=== PATIENT | male | born 1975 | race African-American/Black ===

== ENCOUNTER → 2016-08-17 | Outpatient (CLI) | payer MEDICARE, MEDICAID | LOC: OD 11:59 | PROVIDERS: ATTEND Family Medicine | DX: M25.512 Pain in left shoulder (principal) ==

== ENCOUNTER 2016-10-02 12:02 | Observation (INO) | payer MEDICARE, MEDICAID ==
--- NOTE | 2016-10-02 13:07 | ER Document Report ---
ED Medical Screen (RME) - General Chief Complaint: Chest Pain Stated Complaint: CHEST PAIN Notes: The patient is a 41-year-old male, past medical history CAD s/p 3 stents, Hx of CVA last year, presents with left-sided chest pain that started earlier today will he was at rest and he says this feels similar to his prior [facility]. In addition , 30 minutes prior to arrival to the emergency room (starting at 12:00 today), he noticed slightly slurred speech and blurry vision in his left eye. He says the blurry vision has resolved, but his speech is still slurred. He took 324 mg aspirin prior to arrival and 5 sublingual nitros that helped with his chest pain. Pt with NIHSS 1. Stroke Alert called due to onset of patient's symptoms 1 hour ago. I have greeted and performed a rapid initial assessment of this patient. A comprehensive ED assessment and evaluation of the patient, analysis of test results and completion of the medical decision making process will be conducted by additional ED providers. TRAVEL OUTSIDE OF THE [place] IN LAST 30 DAYS: No - Related Data Allergies/Adverse Reactions: No Known Allergies Allergy (Verified 03/15/16 22:31) Past Medical History - Past Medical History Cardiac Medical History: Reports: Hx Coronary Artery Disease, Hx Heart Attack, Hx Hypercholesterolemia, Hx Hypertension Pulmonary Medical History: Denies: Hx Tuberculosis Endocrine Medical History: Reports: Hx Diabetes Mellitus Type 2 Renal/ Medical History: Denies: Hx Peritoneal Dialysis Psychiatric Medical History: Reports: Hx Anxiety Past Surgical History: Reports: Hx Cardiac Catheterization, Hx Coronary Stent - x 5, Hx Orthopedic Surgery - right rotator cuff. Denies: Hx Pacemaker - Immunizations Immunizations up to date: No Hx Diphtheria, Pertussis, Tetanus Vaccination: Yes Physical Exam - Vital signs Vitals: Pulse Resp BP Pulse Ox 76 18 128/95 H 97 10/02/16 12:21 10/02/16 12:21 10/02/16 12:21 10/02/16 12:21 Course - Vital Signs Vital signs: Temp Pulse Resp BP Pulse Ox 98.1 F 76 18 128/95 H 97 10/02/16 12:24 10/02/16 12:21 10/02/16 12:21 10/02/16 12:21 10/02/16 12:21
--- NOTE | 2016-10-02 13:40 | EKG REPORT ---
SEVERITY:- ABNORMAL ECG - SINUS RHYTHM LVH WITH SECONDARY REPOLARIZATION ABNORMALITY : Confirmed by: Tuan Malik 02-Oct-2016 13:40:03
[2016-10-02 13:47] LABS: ABSOLUTE MONOCYTES (AUTO) 0.4 10^3/uL (0.1-1.4); ABSOLUTE NEUT (AUTO) 2.9 10^3/uL (1.7-8.2); BASOPHILS % (AUTO) 0.7 % (0-2); EOSINOPHILS % (AUTO) 0.3 % (0-6); HEMATOCRIT 43.7 % (37.9-51.0); HEMOGLOBIN 14.4 g/dL (13.5-17.0); HGB HCT DIFFERENCE -0.5; LYMPHOCYTES % (AUTO) 36.4 % (13-45); MEAN CORPUSCULAR HEMOGLOBIN 27.5 pg (27.0-33.4); MEAN CORPUSCULAR HGB CONC 32.8 g/dL (32.0-36.0); MEAN CORPUSCULAR VOLUME 84 fl (80-97); MONOCYTES % (AUTO) 8.3 % (3-13); RED BLOOD COUNT 5.23 10^6/uL (4.35-5.55); RED CELL DISTRIBUTION WIDTH 15.2 % (11.5-14.0); SEGMENTED NEUTROPHILS % (AUTO) 54.3 % (42-78); WHITE BLOOD COUNT 5.4 10^3/uL (4.0-10.5)
[2016-10-02 13:50] LABS: PROTHROMBIN TIME 12.7 SEC (11.4-15.4)
[2016-10-02 13:51] LABS: PARTIAL THROMBOPLASTIN TIME 26.2 SEC (23.5-35.8)
[2016-10-02 14:05] LABS: ALANINE AMINOTRANSFERASE 34 U/L (21-72); ALBUMIN 4.1 g/dL (3.5-5.0); ALKALINE PHOSPHATASE 75 U/L (38-126); ANION GAP 14 (5-19); ASPARTATE AMINO TRANSFERASE 27 U/L (17-59); BILIRUBIN,DIRECT 0.3 mg/dL (0.0-0.4); BILIRUBIN,TOTAL 0.5 mg/dL (0.2-1.3); BLOOD UREA NITROGEN 18 mg/dL (7-20); CALCIUM 10.3 mg/dL (8.4-10.2); CARBON DIOXIDE 22 mmol/L (22-30); CHLORIDE 109 mmol/L (98-107); CREATINE KINASE 177 U/L (55-170); CREATININE RESULT 1.33 mg/dL (0.52-1.25); GLUCOSE 89 mg/dL (75-110); LIPASE 138.9 U/L (23-300); POTASSIUM 4.5 mmol/L (3.6-5.0); SODIUM 145.1 mmol/L (137-145); TOTAL PROTEIN 7.2 g/dL (6.3-8.2)
[2016-10-02 14:19] LABS: TROPONIN I < 0.012 ng/mL
--- NOTE | 2016-10-02 14:38 | ER Document Report ---
ED General - General Chief Complaint: Chest Pain Stated Complaint: CHEST PAIN Time Seen by Provider: 10/02/16 14:19 Mode of Arrival: Ambulatory Information source: Patient Notes: This is a 41-year-old man with a history of coronary artery disease ([place] in December 2015), hypertension, dyslipidemia, CVA presents to the emergency room with chest pain which he describes as a squeezing type pain radiating to the left arm patient states he woke 2 AM with the pain. He also reports having some loss of control with walking on his way to the hospital. TRAVEL OUTSIDE OF THE [place] IN LAST 30 DAYS: No - HPI Onset: Just prior to arrival Onset/Duration: Gradual Quality of pain: Dull Severity: Moderate Pain Level: 2 Associated symptoms: Chest pain. denies: Fever, Shortness of breath Exacerbated by: Denies Relieved by: Denies Similar symptoms previously: Yes Recently seen / treated by doctor: No - Related Data Allergies/Adverse Reactions: No Known Allergies Allergy (Verified 03/15/16 22:31) Home Medications: Current Home Medications Alprazolam [Xanax] 2 mg PO Q8 10/02/16 [History] Atorvastatin Calcium [Lipitor 80 mg Tablet] 80 mg PO QHS 10/02/16 [History] Bisoprolol Fumarate [Zebeta] 10 mg PO DAILY 10/02/16 [History] Dexlansoprazole [Dexilant 60 mg Capsule] 60 mg PO DAILY 10/02/16 [History] Furosemide [Lasix] 40 mg PO BID 10/02/16 [History] Lisinopril 20 mg PO DAILY 10/02/16 [History] Nitroglycerin [Nitrostat 0.4 mg (1/150 Gr) Tabs 25/Bottle] 1 tab SL Q5MP PRN 05/09 [History] Oxycodone HCl 15 mg PO Q6HP PRN 10/02/16 [History] Prasugrel HCl [Effient] 10 mg PO DAILY 10/02/16 [History] Tramadol HCl [Ultram 50 mg Tablet] 50 mg PO BIDP PRN 10/02/16 [History] Tramadol HCl [Ultram 50 mg Tablet] 50 mg PO HSP PRN 10/02/16 [History] Zolpidem Tartrate [Ambien] 10 mg PO QHS 10/02/16 [History] Past Medical History - General Information source: Patient - Social History Smoking Status: Never Smoker Cigarette use (# per day): No Chew tobacco use (# tins/day): No Frequency of alcohol use: None Drug Abuse: None Lives with: Family Family History: CAD, Hyperlipidemia, Hypertension Patient has suicidal ideation: No Patient has homicidal ideation: No - Past Medical History Cardiac Medical History: Reports: Hx Coronary Artery Disease, Hx Heart Attack, Hx Hypercholesterolemia, Hx Hypertension Pulmonary Medical History: Denies: Hx Tuberculosis Endocrine Medical History: Reports: Hx Diabetes Mellitus Type 2 Renal/ Medical History: Denies: Hx Peritoneal Dialysis Psychiatric Medical History: Reports: Hx Anxiety Past Surgical History: Reports: Hx Cardiac Catheterization, Hx Coronary Stent - x 5, Hx Orthopedic Surgery - right rotator cuff. Denies: Hx Pacemaker - Immunizations Immunizations up to date: No Hx Diphtheria, Pertussis, Tetanus Vaccination: Yes Hx Pneumococcal Vaccination: 02/21/11 Review of Systems - Review of Systems Constitutional: denies: Chills, Fever EENT: No symptoms reported Cardiovascular: See HPI Respiratory: No symptoms reported Gastrointestinal: No symptoms reported Genitourinary: No symptoms reported Male Genitourinary: No symptoms reported Musculoskeletal: No symptoms reported Skin: No symptoms reported Hematologic/Lymphatic: No symptoms reported Neurological/Psychological: See HPI Physical Exam - Vital signs Vitals: Pulse Resp BP Pulse Ox 76 18 128/95 H 97 10/02/16 12:21 10/02/16 12:21 10/02/16 12:21 10/02/16 12:21 Notes: Physical exam: GENERAL: 41-year-old man, alert and oriented 3, no acute distress HEAD: Atraumatic, normocephalic. EYES: Pupils equal round and reactive to light, extraocular movements intact, sclera anicteric, conjunctiva are normal. ENT: TMs normal, nares patent, oropharynx clear without exudates. Moist mucous membranes. NECK: Normal range of motion, supple without lymphadenopathy or JVD. LUNGS: Breath sounds clear to auscultation bilaterally and equal. No wheezes rales or rhonchi. HEART: Regular rate and rhythm without murmurs, rubs or gallops. ABDOMEN: Soft, normoactive bowel sounds. No tenderness to palpation. No guarding, no rebound. No masses appreciated. EXTREMITIES: Normal range of motion, no pitting or edema. No clubbing or cyanosis. NEUROLOGICAL: Cranial nerves II through XII grossly intact. Motor 5 over 5, sensory grossly intact, speech is clear, cerebellar (finger to nose) is good . PSYCH: Normal mood, normal affect. SKIN: Warm, Dry, normal turgor, no rashes or lesions noted. Course - Re-evaluation Re-evalutation: Note: Patient does have a history of CVA and coronary artery disease. I don't see any focal evidence of stroke at this time. CT of the head shows no acute bleed or stroke. He has had persistent chest pain. The first set of cardiac enzymes is negative and a repeat EKG shows no changes in the EKG. He will be admitted for further observation. - Vital Signs Vital signs: Temp Pulse Resp BP Pulse Ox 97.5 F 65 18 128/81 H 100 10/02/16 23:38 10/02/16 23:38 10/02/16 23:38 10/02/16 23:38 10/02/16 23:38 - Laboratory Result Diagrams: 10/02/16 13:33 10/02/16 13:33 Laboratory results interpreted by me: 10/02/16 10/02/16 10/02/16 13:33 13:33 13:33 RDW 15.2 H Sodium 145.1 H Chloride 109 H Creatinine 1.33 H Est GFR (Non-Af Amer) 59 L Calcium 10.3 H Creatine Kinase 177 H NT-Pro-B Natriuret Pep 500 H - Diagnostic Test Radiology reviewed: Image reviewed, Reports reviewed - Chest x-ray shows no infiltrates or effusions. CT of the head shows no acute bleed or obvious stroke. - EKG Interpretation by Me Rate: Normal Rhythm: NSR - EKG shows normal sinus rhythm with a ventricular rate of 74. There are Q's in V1 and V2 with ST elevations that are old when compared to an EKG on 03/15/2016. There are inverted T's in V3 and V4 which again are old compared to that EKG. Overall there are no acute changes on today's EKG. Critical Care Note - Critical Care Note Total time excluding time spent on procedures (mins): 60 Discharge - Discharge Clinical Impression: chest pain Condition: Stable Disposition: ADMITTED OBSERVATION Admitting Provider: Hospitalist - Dr. Whitmore Unit Admitted: Telemetry
[2016-10-02] MEDS ORDERED: MORPHINE SULFATE 10 MG/ML INJ IV PRN ×2 (14:39→16:11)
[2016-10-02] MEDS ORDERED: ACETAMINOPHEN 325 MG TABLET PO ONE (14:40)
[2016-10-02] MEDS ORDERED: ONDANSETRON HCL INJ/PF 4 MG/2 ML SDV IV ONE (14:40)
[2016-10-02] MEDS: NITROGLYCERIN 0.4 MG/TAB 25 TAB/BOTTLE SL PRN (17:17)
[2016-10-02] MEDS ORDERED: NORMAL SALINE 1000 ML 1,000 ML IV PRN (17:32)
[2016-10-02] MEDS ORDERED: ACETAMINOPHEN 325 MG TABLET PO PRN (17:32)
[2016-10-02] MEDS ORDERED: ONDANSETRON HCL INJ/PF 4 MG/2 ML SDV IV PRN (17:32)
[2016-10-02] MEDS ORDERED: OXYCODONE HCL IR 5 MG TABLET PO PRN (17:53)
[2016-10-02] MEDS ORDERED: ENOXAPARIN SODIUM INJ 40 MG/0.4 ML DISP.SYRIN SUBCUT ONE (19:00)
--- NOTE | 2016-10-02 19:05 | PDOC H&P ---
History of Present Illness Admission Date/PCP: 10/02/16 16:27 DELIA BLACK DO Patient complains of: Chest pain History of Present Illness: WINDY CORNEJO is a 41 year old male, history of coronary artery disease hypertension and prior stroke started to develop chest pain yesterday that was relieved by nitroglycerin. There was no associated shortness of breath at that time nor any sweating nausea nor vomiting. Symptoms recurred this morning and therefore the patient nitroglycerin again. There is associated nausea and vomiting with some shortness of breath but no diaphoresis. After an hour the patient thought the symptoms would go away stood up and drive and started to feel generalized numbness unable to speak and some blurry vision. Symptoms went away eventually w/ rest other than the pain on the chest. Patient went to the emergency room for evaluation and was referred for admission. Past Medical History Cardiac Medical History: Reports: Coronary Artery Disease, Myocardial Infarction , Hyperlipidema, Hypertension Pulmonary Medical History: Denies: Tuberculosis Neurological Medical History: Reports: Ischemic CVA Endocrine Medical History: Reports: Diabetes Mellitus Type 2 Past Surgical History Past Surgical History: Reports: Cardiac Catheterization, Coronary Stent - x 5, Orthopedic Surgery - right rotator cuff Denies: Pacemaker Social History Smoking Status: Never Smoker Frequency of Alcohol Use: None Hx Recreational Drug Use: No Drugs: None Hx Prescription Drug Abuse: No Family History Family History: CAD, Hyperlipidemia, Hypertension Parental Family History Reviewed: Yes Children Family History Reviewed: Yes Sibling(s) Family History Reviewed.: Yes Medication/Allergy Home Medications: Alprazolam [Xanax] 2 mg PO Q8 10/02/16 Atorvastatin Calcium [Lipitor 80 mg Tablet] 80 mg PO QHS 10/02/16 Bisoprolol Fumarate [Zebeta] 10 mg PO DAILY 10/02/16 Dexlansoprazole [Dexilant 60 mg Capsule] 60 mg PO DAILY 10/02/16 Furosemide [Lasix] 40 mg PO BID 10/02/16 Lisinopril 20 mg PO DAILY 10/02/16 Nitroglycerin [Nitrostat 0.4 mg (1/150 Gr) Tabs 25/Bottle] 1 tab SL Q5MP PRN 05/09 Oxycodone HCl 15 mg PO Q6HP PRN 10/02/16 Prasugrel HCl [Effient] 10 mg PO DAILY 05/12/17 Tramadol HCl [Ultram 50 mg Tablet] 50 mg PO BIDP PRN 10/02/16 Tramadol HCl [Ultram 50 mg Tablet] 50 mg PO HSP PRN 10/02/16 Zolpidem Tartrate [Ambien] 10 mg PO QHS 10/02/16 Allergies/Adverse Reactions: No Known Allergies Allergy (Verified 03/15/16 22:31) Review of Systems Constitutional: ABSENT: chills, fever(s), headache(s), weight gain, weight loss Eyes: PRESENT: visual disturbances Ears: ABSENT: hearing changes Cardiovascular: PRESENT: chest pain. ABSENT: dyspnea on exertion, edema, orthropnea, palpitations Respiratory: PRESENT: dyspnea. ABSENT: cough, hemoptysis Gastrointestinal: PRESENT: nausea, vomiting. ABSENT: abdominal pain, constipation, diarrhea, hematemesis, hematochezia Genitourinary: ABSENT: dysuria, hematuria Musculoskeletal: ABSENT: joint swelling Integumentary: ABSENT: rash, wounds Neurological: PRESENT: other - No new weakness. ABSENT: abnormal gait, abnormal speech, confusion, dizziness, focal weakness, syncope Psychiatric: PRESENT: anxiety. ABSENT: depression, homidical ideation, suicidal ideation Endocrine: ABSENT: cold intolerance, heat intolerance, polydipsia, polyuria Hematologic/Lymphatic: ABSENT: easy bleeding, easy bruising Physical Exam Vital Signs: Temp Pulse Resp BP Pulse Ox 98.1 F 76 14 114/72 97 10/02/16 12:24 10/02/16 12:21 10/02/16 18:04 10/02/16 18:04 10/02/16 18:04 General appearance: PRESENT: no acute distress, well-developed, well-nourished Head exam: PRESENT: atraumatic, normocephalic Eye exam: PRESENT: conjunctiva pink, EOMI, PERRLA. ABSENT: scleral icterus Ear exam: PRESENT: normal external ear exam Mouth exam: PRESENT: moist, neck supple, tongue midline Neck exam: ABSENT: carotid bruit, JVD, lymphadenopathy, thyromegaly Respiratory exam: PRESENT: clear to auscultation yesenia. ABSENT: rales, rhonchi, wheezes Cardiovascular exam: PRESENT: RRR. ABSENT: diastolic murmur, rubs, systolic murmur Pulses: PRESENT: normal dorsalis pedis pul Vascular exam: PRESENT: normal capillary refill GI/Abdominal exam: PRESENT: normal bowel sounds, soft. ABSENT: distended, guarding, mass, organolmegaly, rebound, tenderness Rectal exam: PRESENT: deferred Extremities exam: PRESENT: full ROM. ABSENT: calf tenderness, clubbing, pedal edema Neurological exam: PRESENT: alert, awake, oriented to person, oriented to place , oriented to time, oriented to situation Psychiatric exam: PRESENT: appropriate affect, normal mood. ABSENT: homicidal ideation, suicidal ideation Skin exam: PRESENT: dry, intact, warm. ABSENT: cyanosis, rash Results Impressions: Chest X-Ray 10/02/16 13:02 IMPRESSION: NO SIGNIFICANT RADIOGRAPHIC FINDING IN THE CHEST. Head CT 10/02/16 13:03 IMPRESSION: NORMAL BRAIN CT WITHOUT CONTRAST. Assessment & Plan - Diagnosis (1) Chest pain Qualifiers: Chest pain type: unspecified Qualified Code(s): R07.9 - Chest pain, unspecified Is this a current diagnosis for this admission?: Yes (2) Dehydration Is this a current diagnosis for this admission?: Yes (3) Hypercalcemia Is this a current diagnosis for this admission?: Yes (4) Coronary artery disease Qualifiers: Coronary Disease-Associated Artery/Lesion type: [place] artery [place] vs. transplanted heart: iroquois heart Associated angina: angina presence unspecified Qualified Code(s): I25.10 - Atherosclerotic heart disease of [place] coronary artery without angina pectoris Is this a current diagnosis for this admission?: Yes (5) Essential hypertension Is this a current diagnosis for this admission?: Yes (6) Hyperlipidemia Qualifiers: Hyperlipidemia type: unspecified Qualified Code(s): E78.5 - Hyperlipidemia, unspecified Is this a current diagnosis for this admission?: Yes (7) Generalized anxiety disorder Is this a current diagnosis for this admission?: Yes (8) History of stroke Is this a current diagnosis for this admission?: Yes - Time Time Spent: 30 to 50 Minutes - Plan Summary Plan Summary: Patient be admitted to observation. Serial cardiac enzymes will be obtained. I will continue the patient's antiplatelet therapy, supplemental oxygen will be given, DVT prophylaxis. Lovenox will be placed. I will continue the patient's cardiac medications. Further testing depends and initial evaluations outlined above.
[2016-10-02 20:03] LABS: TROPONIN I < 0.012 ng/mL
[2016-10-02] MEDS ORDERED: MINERAL OIL ENEMA 133 ML PR PRN (20:58)
[2016-10-02] MEDS ORDERED: LACTULOSE SYRUP 20 GM/30 ML UDCUP PO ONE (21:30)
[2016-10-02] MEDS: FUROSEMIDE 40 MG TABLET PO SCH (21:52)
[2016-10-02] MEDS ORDERED: ATORVASTATIN CALCIUM 80 MG TABLET PO SCH (22:00)
[2016-10-02] MEDS ORDERED: (PENDING PHARMACY ID) (Zolpidem Tartrate [Ambien] 10 MG) PO SCH (22:00)
[2016-10-02] MEDS ORDERED: ZOLPIDEM TARTRATE 5 MG TABLET PO SCH (22:00)
[2016-10-02] MEDS: ALPRAZOLAM 0.5 MG TABLET PO SCH (22:28)
[2016-10-02] MEDS: DOCUSATE SODIUM 100 MG CAPSULE PO SCH (22:29)
[2016-10-03 02:27] LABS: CREATINE KINASE MB 0.57 ng/mL (<4.55); TROPONIN I < 0.012 ng/mL
[2016-10-03] MEDS: ALPRAZOLAM 0.5 MG TABLET PO SCH (05:35)
[2016-10-03] MEDS ORDERED: LANSOPRAZOLE 30 MG TAB.RAP.DR PO SCH (06:00)
[2016-10-03 07:05] LABS: ANION GAP 10 (5-19); BLOOD UREA NITROGEN 14 mg/dL (7-20); CARBON DIOXIDE 21 mmol/L (22-30); CHLORIDE 109 mmol/L (98-107); CREATINE KINASE 121 U/L (55-170); CREATININE RESULT 1.01 mg/dL (0.52-1.25); GLUCOSE 87 mg/dL (75-110); POTASSIUM 4.2 mmol/L (3.6-5.0); SODIUM 140.1 mmol/L (137-145)
[2016-10-03 07:13] LABS: CREATINE KINASE MB 0.64 ng/mL (<4.55)
[2016-10-03 07:19] LABS: TROPONIN I < 0.012 ng/mL
[2016-10-03] MEDS ORDERED: ENOXAPARIN SODIUM INJ 40 MG/0.4 ML DISP.SYRIN SUBCUT SCH (08:00)
[2016-10-03 09:37] LABS: CREATINE KINASE MB 0.71 ng/mL (<4.55)
[2016-10-03 09:40] LABS: TROPONIN I < 0.012 ng/mL
[2016-10-03] MEDS ORDERED: (PENDING PHARMACY ID) (Lisinopril [Lisinopril] 20 MG) PO SCH (10:00)
[2016-10-03] MEDS ORDERED: LISINOPRIL 10 MG TABLET PO SCH (10:00)
[2016-10-03] MEDS ORDERED: BISOPROLOL FUMARATE 10 MG PO SCH (10:00)
[2016-10-03] MEDS ORDERED: ATENOLOL 50 MG TABLET PO SCH (10:00)
[2016-10-03] MEDS: DOCUSATE SODIUM 100 MG CAPSULE PO SCH (11:54)
[2016-10-03] MEDS ORDERED: CLOPIDOGREL BISULFATE 75 MG TABLET PO ONE (12:00)
[2016-10-03] MEDS ORDERED: NITROGLYCERIN 2% OINTMENT 1 GM PACKET TP SCH (12:00)
[2016-10-03] MEDS ORDERED: ENOXAPARIN SODIUM INJ 100 MG/1 ML DISP.SYRIN SUBCUT ONE ×2 (12:00→14:00)
[2016-10-03] MEDS: FUROSEMIDE 40 MG TABLET PO SCH (12:06)
[2016-10-03] MEDS ORDERED: OXYCODONE HCL IR 5 MG TABLET PO PRN (12:15)
--- NOTE | 2016-10-03 12:58 | EKG REPORT ---
SEVERITY:- ABNORMAL ECG - SINUS RHYTHM LVH WITH SECONDARY REPOLARIZATION ABNORMALITY NONSPECIFIC T CHANGES anterior chest leads. : Confirmed by: Tuan Malik 03-Oct-2016 12:58:05
--- NOTE | 2016-10-03 13:00 | EKG REPORT ---
SEVERITY:- ABNORMAL ECG - SINUS RHYTHM LVH WITH SECONDARY REPOLARIZATION ABNORMALITY ANTERIOR INFARCT, AGE INDETERMINATE : Confirmed by: Tuan Malik 03-Oct-2016 12:59:39
--- NOTE | 2016-10-03 13:01 | EKG REPORT ---
SEVERITY:- ABNORMAL ECG - SINUS RHYTHM LVH WITH SECONDARY REPOLARIZATION ABNORMALITY Consider anterior IA age indeterminate. : Confirmed by: Tuan Malik 03-Oct-2016 13:00:45
--- NOTE | 2016-10-03 14:14 | PDOC TRANSFER SUMMARY ---
General Admission Date/PCP: 10/02/16 17:32 DELIA BLACK DO Admission Date: 10/02/16 Transfer Date: 10/03/16 Accepting Facility: [facility] Accepting Physician: Dr. Stubbs Resuscitation Status: Full Code - Transfer Diagnosis (1) Chest pain Is this a current diagnosis for this admission?: Yes (2) Dehydration Is this a current diagnosis for this admission?: Yes (3) Hypercalcemia Is this a current diagnosis for this admission?: Yes (4) Coronary artery disease Is this a current diagnosis for this admission?: Yes (5) Essential hypertension Is this a current diagnosis for this admission?: Yes (6) Hyperlipidemia Is this a current diagnosis for this admission?: Yes (7) Generalized anxiety disorder Is this a current diagnosis for this admission?: Yes (8) History of stroke Is this a current diagnosis for this admission?: Yes - Transfer Medications Home Medications: Alprazolam [Xanax] 2 mg PO Q8 10/02/16 Atorvastatin Calcium [Lipitor 80 mg Tablet] 80 mg PO QHS 10/02/16 Bisoprolol Fumarate [Zebeta] 10 mg PO DAILY 10/02/16 Dexlansoprazole [Dexilant 60 mg Capsule] 60 mg PO DAILY 10/02/16 Furosemide [Lasix] 40 mg PO BID 10/02/16 Lisinopril 20 mg PO DAILY 10/02/16 Nitroglycerin [Nitrostat 0.4 mg (1/150 Gr) Tabs 25/Bottle] 1 tab SL Q5MP PRN 05/09 Oxycodone HCl 15 mg PO Q6HP PRN 10/02/16 Prasugrel HCl [Effient] 10 mg PO DAILY 10/02/16 Tramadol HCl [Ultram 50 mg Tablet] 50 mg PO BIDP PRN 10/02/16 Tramadol HCl [Ultram 50 mg Tablet] 50 mg PO HSP PRN 10/02/16 Zolpidem Tartrate [Ambien] 10 mg PO QHS 10/02/16 Transfer Medications: Current Medications Acetaminophen (Tylenol 325 Mg Tablet) 650 mg PO Q4HP PRN PRN Reason: fever Stop: 11/01/16 17:31 Aspirin (Ecotrin 81 Mg Ec Tablet) 81 mg PO DAILY ROULA Stop: 11/03/16 09:59 Atenolol (Tenormin 50 Mg Tablet) 100 mg PO DAILY ROULA Stop: 11/02/16 09:59 Last Admin: 10/03/16 13:12 Dose: 100 mg Atorvastatin Calcium (Lipitor 80 Mg Tablet) 80 mg PO QHS ROULA Stop: 11/01/16 21:59 Last Admin: 10/02/16 21:36 Dose: Not Given Clopidogrel Bisulfate (Plavix 75 Mg Tablet) 75 mg PO DAILY [facility] Stop: 11/03/16 09:59 Docusate Sodium (Colace 100 Mg Capsule) 100 mg PO BID ROULA Stop: 11/01/16 17:59 Last Admin: 10/03/16 11:54 Dose: Not Given Enoxaparin Sodium (Lovenox Inj 100 Mg/1 Ml Disp.Syrin) 90 mg SUBCUT Q12 [facility] Stop: 11/02/16 21:59 Furosemide (Lasix 40 Mg Tablet) 40 mg PO BID [facility] Stop: 11/01/16 17:59 Last Admin: 10/03/16 12:06 Dose: 40 mg Sodium Chloride (Nacl 0.9% 1000 Ml Iv Soln) 1,000 mls @ 125 mls/hr IV CONTINUOUS PRN PRN Reason: THIS MED IS NOT "PRN" Stop: 11/01/16 17:31 Lansoprazole (Prevacid 30 Mg Odt Tablet) 30 mg PO BID@0600,1700 [facility] Stop: 11/02/16 05:59 Last Admin: 10/03/16 05:48 Dose: 30 mg Lisinopril (Prinivil 10 Mg Tablet) 20 mg PO DAILY [facility] Stop: 11/02/16 09:59 Last Admin: 10/03/16 12:06 Dose: 20 mg Mineral Oil (Fleet Mineral Oil Enema 133 Ml) 133 ml TN BIDP PRN Stop: 11/01/16 20:57 Nitroglycerin (Nitrostat 0.4 Mg (1/150 Gr) Tabs 25/Bottle) 1 tab SL ASDIR PRN Stop: 11/01/16 17:08 Last Admin: 10/02/16 17:17 Dose: 1 tab Nitroglycerin (Nitrol 2% Ointment 1gm Packet) 0.5 gm TP Q6 [facility] Stop: 11/02/16 11:59 Last Admin: 10/03/16 12:07 Dose: 0.5 gm Ondansetron HCl (Zofran Inj/Pf 4 Mg/2 Ml Sdv) 4 mg IV Q4HP PRN PRN Reason: nausea/vomiting Stop: 11/01/16 17:31 Oxycodone HCl (Oxy-Ir 5 Mg Tablet) 15 mg PO Q6HP PRN PRN Reason: PAIN Stop: 10/10/16 12:14 Sodium Chloride (Saline Flush 2.5 Ml Monoject Prefil Syrin) 2.5 ml IV Q8 ROULA Stop: 11/01/16 21:59 Last Admin: 10/03/16 05:47 Dose: 2.5 ml - Allergies Allergies/Adverse Reactions: No Known Allergies Allergy (Verified 03/15/16 22:31) - Diet/Activity Discharge Diet: Cardiac Discharge Activity: Bedrest Hospital Course Hospital Course: The patient was admitted to observation. The patient was continued on his home medications including antiplatelet therapy. Serial cardiac enzymes were obtained and they were negative for myocardial infarction. EKG shows anterior T -wave inversions and in sinus rhythm but no evolutionary changes. Patient's chest pain initially resolved initially but recurred last night. Repeat EKG shows T-wave inversions in the anterior leads which is unchanged. Cardiac enzymes repeated and was negative. Patient eventually started on full dose anticoagulation with Lovenox, Effient was discontinued per cardiology recommendation, and patient placed on Plavix and aspirin. Nitrates was likewise given as well as morphine. At this point cardiology recommended patient to be transferred to a tertiary facility and initiated the process. Cardiology service at [facility], Dr. Stubbs accepted the patient. When a bed was available he was eventually transferred. Physical Exam Vital Signs: Temp Pulse Resp BP Pulse Ox 97.5 F 71 20 105/66 99 10/03/16 12:16 10/03/16 12:16 10/03/16 12:16 10/03/16 12:16 10/03/16 12:16 Intake & Output 10/02/16 10/03/16 10/04/16 06:59 06:59 06:59 Intake Total 385 Balance 385 Weight 92.6 kg General appearance: PRESENT: no acute distress, cooperative Head exam: PRESENT: normocephalic Eye exam: PRESENT: conjunctiva pink, EOMI, PERRLA Mouth exam: PRESENT: moist, neck supple Neck exam: ABSENT: JVD Respiratory exam: PRESENT: clear to auscultation yesenia. ABSENT: rhonchi, wheezes Cardiovascular exam: PRESENT: RRR, +S1, +S2. ABSENT: gallop GI/Abdominal exam: PRESENT: hypoactive bowel sounds, soft. ABSENT: distended, tenderness Extremities exam: PRESENT: +1 edema. ABSENT: pedal edema Neurological exam: PRESENT: alert, awake, oriented to person, oriented to place , oriented to time, oriented to situation Skin exam: PRESENT: dry, warm. ABSENT: cyanosis Results Laboratory Results: 10/03/16 06:29 10/03/16 06:29 Sodium 140.1 Potassium 4.2 Chloride 109 H Carbon Dioxide 21 L Anion Gap 10 BUN 14 Creatinine 1.01 Est GFR ( Amer) > 60 Est GFR (Non-Af Amer) > 60 Glucose 87 Calcium 9.0 10/02/16 10/02/16 10/03/16 19:30 19:30 01:23 Creatine Kinase 150 130 CK-MB (CK-2) 0.60 Troponin I < 0.012 10/03/16 10/03/16 10/03/16 01:23 06:29 06:29 Creatine Kinase 121 CK-MB (CK-2) 0.57 0.64 Troponin I < 0.012 < 0.012 10/03/16 10/03/16 08:50 08:50 Creatine Kinase 122 CK-MB (CK-2) 0.71 Troponin I < 0.012 Impressions: Chest X-Ray 10/02/16 13:02 IMPRESSION: NO SIGNIFICANT RADIOGRAPHIC FINDING IN THE CHEST. Head CT 10/02/16 13:03 IMPRESSION: NORMAL BRAIN CT WITHOUT CONTRAST. Plan Discharge Plan: Transferred to [facility] for further evaluation and management. Time Spent: Less than 30 Minutes
[2016-10-03] MEDS ORDERED: MORPHINE SULFATE 10 MG/ML INJ IV PRN (14:29)
[2016-10-03] MEDS: NITROGLYCERIN 0.4 MG/TAB 25 TAB/BOTTLE SL PRN (14:39)
[2016-10-03 16:32] VITALS: BP 99/54
[2016-10-03] MEDS ORDERED: ENOXAPARIN SODIUM INJ 100 MG/1 ML DISP.SYRIN SUBCUT SCH (22:00)
[2016-10-04] MEDS ORDERED: CLOPIDOGREL BISULFATE 75 MG TABLET PO SCH (10:00)
[2016-10-04] MEDS ORDERED: ASPIRIN 81 MG TABLET, ENT COATED PO SCH (10:00)
--- NOTE | 2016-10-06 07:57 | CONSULTATION REPORT E ---
Consultation Report NAME: WINDY CORNEJO : 1975 AGE: 41Y DATE: 10/03/2016 ROOM: 428 A TO: SYLWIA KAMARA M.D. FROM: Requesting Physician REASON FOR CONSULTATION: Recurrent chest pain in a patient with coronary artery disease and ischemic cardiomyopathy. HISTORY OF PRESENT ILLNESS: Note, no major records available at present. History obtained from patient. The patient is a 41-year-old male with known history of coronary artery disease, history of multiple AR's, and history of stents with reocclusion, hypertension, hyperlipidemia, and generalized anxiety disorder, and a history of ischemic cardiomyopathy. He states that on the date of admission, which is 10/01, the patient started having chest pain, lasting for about 30 minutes or so, relieved with 2 sublingual nitroglycerin. The patient came here and subsequently has been having episodes of chest squeezing sensation with shortness of breath. Some relieved with nitroglycerin, some relieved with morphine, and some relieved with Xanax since the patient has generalized anxiety disorder. The patient states that although recently he has not had such symptoms, he has had in the past, PND, orthopnea. He has had palpitations, but no firing of his LifeVest, which was placed about a year ago (see below). There is no recurrence of TIA or CVA symptoms. There is no syncope. There is no leg edema at present. The patient is on Lasix 40 mg p.o. b.i.d. The patient, during this hospitalization, continues to have chest pain with negative enzymes. He states that some of the chest symptoms, which is a squeezing nature in the center of the chest, can occur with the exertion, may occur at rest, and also at times when swallowing, and also if he becomes very anxious. Some of these episodes are relieved with rest, some relieved with nitroglycerin sublingually, but the pain comes right back. He also states that with the squeezing type of chest pain, he has shortness of breath and also tingling and numbness in the left arm. He does have dyspnea on exertion and cannot walk much. PAST MEDICAL HISTORY: As per my records of seeing him in 2011, the patient has a history of: 1. Hypertension. 2. Hyperlipidemia. 3. He also has a history of anxiety. 4. He has symptoms suggestive of GERD, which has worsened after the patient was placed on naproxen 1,000 mg p.o. 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 At that time, I clearly remember that the patient did not have a sedimentation rate or CRP at [facility]. 5. The patient initially, in 2010, had an LAD stent placed at [facility]. 6. Subsequently, the patient was admitted to [facility] ER for chest pain and was transferred to [facility], where on 09/18/2011, he had a cardiac catheterization, which showed significant disease and the LAD stent was widely open, patent, and his ejection fraction was normal. He was then discharged home. He then returned on 10/12/2011, suffering chest pain. He was taken to the poultry hatchery laborer, where a clot was removed from his LAD stent site and a balloon dilatation was performed initially and thrombectomy catheter was used to to the apex. The LV ejection fraction at that point was 35%. He recovered and was discharged on 10/14/2011. He returned on 10/15/2011 and a stress test done on 10/15/2011 in [facility] revealed a 45-50% LV ejection fraction and ischemia was identified at the apex. He then signed out against medical advice. 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 The patient was transferred to [facility] in [place] (at present, [facility]), where he had another stress test. The stress test did not show any reversible ischemia. It did show predominantly a fixed apical perfusion defect with minimal reversibility, compatible with prior LAD territory infarction. He had an ejection fraction of 37%. He also had a ОЛЬГА on 10/20/2011 in [place] that showed mid anteroseptal, mid inferoseptal, apical septum, apical anterior hyperkinesis, and the patient has no history of diabetes mellitus or thyroid disease. There is no history of TIA or CVA. No history of asthma or COPD. No history of sleep apnea, no history of kidney disease. He has a history of hyperlipidemia and anxiety. The patient states, about a year ago, he had another AR and was admitted to [facility] in [place], where he had a cardiac catheterization, which showed a totally occluded LAD stent and his LV ejection fraction was shown to be 28%. He was then placed on a LifeVest. He was on Brilinta in the past, but that was stopped and the patient was placed on Effient along with aspirin. About 4 months ago, the patient had a stroke, which was diagnosed by MRI and a CT scan as being negative. His Effient was somehow continued. The patient, since then, has been having episodic chest pains, as mentioned earlier. He also has episodes of PND and does have orthopnea. He has intermittent leg swelling, but none recently. No recent symptoms of PND, but does have orthopnea. He states that he does not wear the LifeVest because the alarm keeps going off. PAST SURGICAL HISTORY: Past surgical history is positive for: 1. Rotator cuff repair on the right shoulder. 2. He had multiple cardiac catheterizations and stent placement as mentioned earlier. FAMILY HISTORY: Family history is positive for diabetes in the father and there is no history of coronary artery disease in the family. SOCIAL HISTORY: The patient did smoke in the past, but he has quit for some years. He does not have any ETOH abuse. ALLERGIES: The patient has no known allergies. MEDICATIONS: His medications are: 1. Tylenol 650 mg p.o. q. 4 hours p.r.n. 2. Aspirin 81 mg p.o. daily. 3. Atenolol 100 mg p.o. daily. 4. Atorvastatin 80 mg p.o. every bedtime. 5. He is on Plavix 75 mg p.o. daily since his Effient was not available and rightfully, I have stopped the Effient since it is a contraindication since the patient has had a prior stroke. 6. Colace 100 mg p.o. b.i.d. 7. He is on Lovenox 90 mg subcutaneously q. 12 hours. 8. He is on Lasix 40 mg p.o. b.i.d. 9. He did get normal saline at 125 mL per hour. 10. He is on lactulose 20 grams p.o. x1. 11. Prevacid 30 mg p.o. b.i.d. 12. Lisinopril 20 mg p.o. daily. 13. He is on oxycodone 15 mg p.o. q. 6 hours p.r.n. 14. He is on Zofran 4 mg IV q. 4 hours p.r.n. REVIEW OF SYSTEMS: GENERAL: He denies any fevers, chills, or rigors. HEAD: No history of headaches or head injury. EYES: No diplopia, amblyopia, amaurosis fugax. EARS: No tinnitus. No vertigo. No hearing loss. NOSE: No history of hay fever. No history of runny nose sinuses. There is no history of frequent sinusitis. THROAT: There is no history of odynophagia, but he states that recently, he has trouble swallowing after he had a stroke. He has no recurrent sore throats. MOUTH: There are no ulcers of the mouth. There is no bleeding from the gums. SKIN: There is no pruritus, no yellowish discoloration of the skin. No history of skin cancer. No history of psoriasis. NECK: There is no painful or painless swelling in the neck. There is no neck pain. There are no symptoms of C-spine arthritis. LUNGS: There is no history of wheezing. There is no history of asthma or COPD. No cough or sputum production. No history of sleep apnea. No hemoptysis. No history of pulmonary embolism. No pleuritic chest pain. HEART: History of dyspnea on exertion present. He complains of squeezing type of chest pain in left front and mid chest, lasting anywhere from 15 minutes to an hour, as mentioned earlier, some of them related to exertion, some at rest, some relieved with nitroglycerin, some relieved with rest and some relieved with Xanax. He does have a history of ischemic cardiomyopathy. The last ejection fraction, the patient states, was 20%. The patient is on LifeVest, although the patient's LifeVest keeps alarming, it does not fire. He has a history of PND and he also had chronic orthopnea. He has intermittent leg swelling, none recently. No recent symptoms of palpitations, leg edema, or PND, but does have orthopnea. He has a history of hypertension. He has a history of several AR's and a history of several stents as mentioned earlier. There is no history of syncope. GASTROINTESTINAL: The patient has a history of GERD. After the stroke, the patient states that he has trouble swallowing, but the patient also earlier on, prior to the stroke, has had trouble swallowing pills. There is no history of GI bleed, no history of peptic ulcer disease, no history of altered bowel movements, no history of hematemesis or melena, no history of jaundice, no history of fatty food intolerance. ENDOCRINE: No history of diabetes mellitus. No history of thyroid disease. No history of polydipsia or polyuria. No history of heat or cold intolerance. MUSCULOSKELETAL: He denies any arthritis or collagen vascular disease. RENAL: No symptoms of enlarged prostate. No history of symptoms of UTI. No history of chronic kidney disease. No history of hematuria, pyuria, or dysuria. METABOLIC: History of hyperlipidemia present. No history of gout. CENTRAL NERVOUS SYSTEM: The patient states 4 months ago, he was diagnosed with CVA with right-sided weakness and slurred speech by MRI. This has improved, but the patient's speech is still slurred. There is no recurrence of TIA or CVA. Note, that the patient was on Effient, which has been discontinued since this is a contraindication. There is no history of seizures. He does have headaches after the stroke. There is no history of gait imbalance. He does have mild right-sided weakness and slurred speech. No history of true vertigo. SKIN: No history of skin rashes. No history of skin lesions. No history of ecchymosis or petechiae. HEMATOLOGIC: No history of anemia. No history of bleeding diathesis. No history of clotting problems. PSYCHIATRIC: History of anxiety, but no history of depression, no history of suicidal ideation, no history of homicidal ideation. PHYSICAL EXAMINATION: GENERAL: On examination, the patient is overweight. The patient slightly, at times, is agitated and anxious, but then calms down. He feels that nobody believes him here in this hospital and he wants to be transferred out to [place] (see my discussion below). VITAL SIGNS: He is afebrile with a temperature of 97.5 degrees Fahrenheit, pulse is 71 beats per minute, blood pressure 105/66, respirations of 20 per minute, O2 sats are 90% on room air. HEAD: Atraumatic, normocephalic. EYES: Pupils are equal, round, regular, and reactive to light and accommodation. Extraocular movements are normal. There is no conjunctival pallor. There is no sclerae icterus. EARS: Tympanic membranes are intact. There is no inflammation of the tympanic membranes. External auditory canals are clear. There are no lesions of the pinnae. NOSE: There is no inflammation of the nasal mucous membranes. There is no deviated nasal septum. THROAT: There is no redness of the oropharynx. There are no exudates. There is no tonsillar enlargement. MOUTH: Mucous membranes of the mouth are moist. Tongue is moist. There are no ulcers on the tongue or in the mouth. There is no bleeding from the gums. SKIN: There are no skin rashes. There are no skin lesions. There is no petechiae or ecchymosis. NECK: Supple. There is no JVD. Carotids are equal. There are no bruits. There is no thyromegaly. Trachea is central. LUNGS/CHEST: On inspection, there is normal respiratory excursion. There is no intercostal muscle retraction. There are no accessory muscles of respiration in use. On palpation, there is no chest wall tenderness. Lungs are clear to auscultation and percussion without any rhonchi, rales, or wheezing. On percussion, there is no hyperresonance. HEART: S1 and S2 are heard. There is no S4 gallop. There is no S3 gallop. There is a systolic murmur in the left sternal border and in the apex. There is no rub. ABDOMEN: Soft and nontender. There is no hepatosplenomegaly. Bowel sounds are well heard. There are no tender areas or masses. There is no rebound, guarding, or rigidity. EXTREMITIES: Femorals are well felt. Leg pulses are felt. There is no DVT or cellulitis. There is no pedal edema. There is no calf tenderness. CENTRAL NERVOUS SYSTEM: The patient is conscious, awake, alert, oriented x3. There is mild right-sided weakness with some dysarthria. PSYCHIATRIC: The patient does appear to be anxious at times and at times, agitated, but he usually calms down. He does not appear to be depressed. He is not psychotic. DIAGNOSTIC DATA: The patient's EKG shows sinus rhythm, LVH with second-degree polarization changes. He has old anterior AR with down-facing T-waves in V1 and V2 and T inversion in the leads V3-V4, and nonspecific ST-T changes diffusely. The EKG does not appear to be changed from the prior. The patient's EKG done yesterday shows a similar EKG, but there is now a more pronounced T inversion in V5 and V6, compared to the earlier EKG. His EKG done today shows sinus rhythm, LVH with second-degree polarization abnormality and a T-wave inversion in the anterior lead, as mentioned earlier, probable old anteroseptal AR. The patient's chest x-ray shows no significant radiographic findings in the chest. The patient's head CT does not show any hemorrhage or infarcts. The patient's laboratory data shows a white count of 5,400; hemoglobin is 14.4; hematocrit is 43.7; platelet count is 245,000. The patient's D-dimer is 0.45. The patient's pro time is 12.7, INR is 0.93, PTT is 26.2. The patient's sodium is 140.1, potassium 4.2, chloride is 109, CO2 is 21, the patient's BUN is 14, creatinine is 1.01, GFR is greater than 60, glucose is 87, calcium is 9.0. His cardiac enzymes have been negative x5. His CPK-MB and CPK are negative also. His total protein is 7.2, albumin is 4.1, lipase is 138.9, note on admission. His NT-proBNP is slightly elevated at 500. IMPRESSION: 1. Chest pain, multifactorial, some suggestive to be consistent with angina, also has chest pain secondary to anxiety and also possibly secondary to esophageal spasm. 2. History of AR's in the past and history of several stents in the LAD. History of in-stent stenosis and thrombosis, status post thrombectomy and PTCA in the past. 3. History of AR about a year ago with totally occluded LAD with severely depressed LV ejection fraction. 4. Ischemic cardiomyopathy with an LV ejection fraction around 1 year ago of 20%. 5. Chronic systolic heart failure. At present, compensated, with a history of intermittent episode of chronic systolic heart failure symptoms, although has not required in-hospital admission. 6. History of LifeVest placement about a year ago, has not fired, but since the LifeVest keeps alarming, the patient has stopped using it. 7. History of CVA with mild right-sided weakness and residual slurred speech/dysarthria. 8. Hypertension, well controlled. 9. Hyperlipidemia. 10. Generalized anxiety disorder. RECOMMENDATIONS: 1. I would recommend stopping the patient's Effient since it is contraindicated since the patient has had a stroke. 2. Continue aspirin. I agree with Plavix at present. Continue beta robina and LAITH inhibitor. Continue Lasix. Continue full doses of Lovenox. Strongly recommend transfer to [facility]. The rationale being is that the patient might benefit from an MRI with regular scan to see if there is viable tissue that is if the cath shows a total occlusion of the LAD or any other vessel. If the patient's coronary artery disease shows totally occluded vessels, then as mentioned earlier, an MRI regular scan would see if there is viability, in which case the patient will be well served by having revascularization, percutaneous or otherwise, also for consideration of AICD placement depending on the prior cardiac workup mentioned. All of this was discussed with the patient and the patient's sister, and the patient is agreeable to be transferred to [facility], in [place]. I have contacted the [facility] and I have spoken to the agile project manager information resources director, Dr. Stubbs, the attending physician/chief of cardiology of [facility]. I have discussed the case thoroughly with Dr. Stubbs for about 15 minutes and he agrees with the rationale. The patient has been accepted for transfer. I discussed this with the hospitalist. I discussed this with the patient. 3. At present, since the patient's blood pressure is just minimally normal, I would not increase the current medications. 4. The rationale behind the transfer to [facility] has been explained to the patient, including what tests the patient may benefit from. 5. I have also counseled the patient to continuously wear the LifeVest, which might be lifesaving for the patient, and the patient is agreeable. I discussed with the hospitalist. The patient is asked to follow up with me and hence, my cell phone number was given to follow up with me. 6. I have discussed with Dr. Sewell, who does the MRI with regular scan for this patient. This can be done prior to or after cardiac catheterization as per the discretion of the agile project manager at [facility]. TIME SPENT: Note, 1 hour spent on this patient with more than 50% of the time spent in direct patient care, reviewing the patient's medications, and stopping the patient's Effient. Note, this is a case with a very high complex medical decision making process. CODE STATUS: The patient is a FULL CODE. His is his surrogate healthcare decision maker. Thanking you. DICTATING PHYSICIAN: SYLWIA KAMARA M.D. [id number] PHY#: [id number] ID: [id number] JOB#: [id number] ACCT: [id number] cc:SYLWIA KAMARA M.D. >
== END 2016-10-03 16:30 | disposition short-term general hospital (02) ==
LOC: ER 12:02 → UNDOADMOB 16:27 → EH 16:27 → 4S 19:13
DX: R07.9 Chest pain, unspecified (principal); E86.0 Dehydration; E83.52 Hypercalcemia; I25.10 Atherosclerotic heart disease of native coronary artery without angina pectoris; I11.0 Hypertensive heart disease with heart failure; I50.22 Chronic systolic (congestive) heart failure; E78.5 Hyperlipidemia, unspecified; F41.1 Generalized anxiety disorder; I25.5 Ischemic cardiomyopathy; R20.2 Paresthesia of skin; R20.0 Anesthesia of skin; R06.01 Orthopnea; I69.391 Dysphagia following cerebral infarction; R13.10 Dysphagia, unspecified; I69.351 Hemiplegia and hemiparesis following cerebral infarction affecting right dominant side; I69.328 Other speech and language deficits following cerebral infarction; I69.398 Other sequelae of cerebral infarction; R51 Headache; I69.322 Dysarthria following cerebral infarction; R45.1 Restlessness and agitation; H53.8 Other visual disturbances; R11.2 Nausea with vomiting, unspecified; I25.2 Old myocardial infarction; Z86.73 Personal history of transient ischemic attack (TIA), and cerebral infarction without residual deficits; Z79.899 Other long term (current) drug therapy; Z79.02 Long term (current) use of antithrombotics/antiplatelets; Z95.5 Presence of coronary angioplasty implant and graft; Z87.891 Personal history of nicotine dependence; Z86.718 Personal history of other venous thrombosis and embolism; Z91.19 Patient's noncompliance with other medical treatment and regimen; Z82.49 Family history of ischemic heart disease and other diseases of the circulatory system
CPT/HCPCS: 93005 ×3; 96376; 99291; 96374; 96375; 36415 ×2; 82553 ×2; 82550 ×2; 83690; 85025; 85610; 85730; 80076; 80048 ×2; 84484 ×2; 85379; 83880; 71020; 70450; 93010 ×2; G0378 ×3; A9270 ×8; J2270 ×2; J3490 ×2; J2405 ×2; J1650

== ENCOUNTER 2016-10-20 12:57 | Emergency (ER) | payer OTHER, MEDICARE, MEDICAID ==
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
[2016-10-20 15:23] LABS: ABSOLUTE EOSINOPHILS # (AUTO) 0.1 10^3/uL (0.0-0.6); ABSOLUTE MONOCYTES (AUTO) 0.5 10^3/uL (0.1-1.4); ABSOLUTE NEUT (AUTO) 1.7 10^3/uL (1.7-8.2); EOSINOPHILS % (AUTO) 1.5 % (0-6); HEMATOCRIT 39.5 % (37.9-51.0); HEMOGLOBIN 12.8 g/dL (13.5-17.0); HGB HCT DIFFERENCE -1.1; LYMPHOCYTES % (AUTO) 45.9 % (13-45); MEAN CORPUSCULAR HEMOGLOBIN 26.8 pg (27.0-33.4); MEAN CORPUSCULAR HGB CONC 32.4 g/dL (32.0-36.0); MEAN CORPUSCULAR VOLUME 83 fl (80-97); MONOCYTES % (AUTO) 12.7 % (3-13); RED BLOOD COUNT 4.78 10^6/uL (4.35-5.55); RED CELL DISTRIBUTION WIDTH 14.8 % (11.5-14.0); SEGMENTED NEUTROPHILS % (AUTO) 38.9 % (42-78); WHITE BLOOD COUNT 4.3 10^3/uL (4.0-10.5)
[2016-10-20] MEDS ORDERED: HYDROCODONE/ACETAMINOPHEN 5-325 MG TABLET PO ONE (15:26)
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
[2016-10-20 15:32] LABS: PROTHROMBIN TIME 14.5 SEC (11.4-15.4)
[2016-10-20 15:33] LABS: PARTIAL THROMBOPLASTIN TIME 27.4 SEC (23.5-35.8)
[2016-10-20 15:46] LABS: ALANINE AMINOTRANSFERASE 55 U/L (21-72); ALBUMIN 4.1 g/dL (3.5-5.0); ALKALINE PHOSPHATASE 61 U/L (38-126); ANION GAP 12 (5-19); ASPARTATE AMINO TRANSFERASE 42 U/L (17-59); BILIRUBIN,DIRECT 0.3 mg/dL (0.0-0.4); BILIRUBIN,TOTAL 0.5 mg/dL (0.2-1.3); BLOOD UREA NITROGEN 11 mg/dL (7-20); CALCIUM 9.7 mg/dL (8.4-10.2); CARBON DIOXIDE 24 mmol/L (22-30); CHLORIDE 108 mmol/L (98-107); CREATINE KINASE 129 U/L (55-170); CREATININE RESULT 1.41 mg/dL (0.52-1.25); GLUCOSE 61 mg/dL (75-110); MAGNESIUM 1.9 mg/dL (1.6-2.3); POTASSIUM 4.4 mmol/L (3.6-5.0); SODIUM 143.9 mmol/L (137-145); TOTAL PROTEIN 7.1 g/dL (6.3-8.2)
[2016-10-20 15:57] LABS: CREATINE KINASE MB 0.5 ng/mL (<4.55)
[2016-10-20 16:02] LABS: TROPONIN I 0.753 ng/mL
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
[2016-10-20] MEDS: NITROGLYCERIN 0.4 MG/TAB 25 TAB/BOTTLE SL PRN ×2 (17:15→17:21)
[2016-10-20] MEDS ORDERED: MORPHINE SULFATE 10 MG/ML INJ IV ONE (18:27)
[2016-10-20 20:48] VITALS: BP 122/85
--- NOTE | 2016-10-22 09:49 | EKG REPORT ---
SEVERITY:- ABNORMAL ECG - SINUS RHYTHM LVH WITH SECONDARY REPOLARIZATION ABNORMALITY ANTERIOR INFARCT, AGE INDETERMINATE : Confirmed by: Tuan Malik 22-Oct-2016 09:48:30
== END 2016-10-20 20:51 | disposition short-term general hospital (02) ==
LOC: ER 12:57
DX: R07.9 Chest pain, unspecified (principal); V89.2XXA Person injured in unspecified motor-vehicle accident, traffic, initial encounter; I25.10 Atherosclerotic heart disease of native coronary artery without angina pectoris; E78.00 Pure hypercholesterolemia, unspecified; I10 Essential (primary) hypertension; E11.9 Type 2 diabetes mellitus without complications; I25.2 Old myocardial infarction; Z98.890 Other specified postprocedural states
CPT/HCPCS: 99285; 96374; 36415; 82553; 82550; 83735; 85025; 85610; 85730; 80053; 84484; 71260; J2270; 93010

== ENCOUNTER 2016-10-26 15:35 | Emergency (ER) | payer MEDICARE, MEDICAID ==
[2016-10-26] MEDS ORDERED: OXYCODONE-ACETAMINOPHEN 5-325 MG TABLET PO ONE (16:05)
[2016-10-26] MEDS ORDERED: ASPIRIN 81 MG TABLET, CHEWABLE PO ONE (16:05)
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
[2016-10-26 19:18] LABS: ABSOLUTE EOSINOPHILS # (AUTO) 0.1 10^3/uL (0.0-0.6); ABSOLUTE LYMPHOCYTES (AUTO) 2.1 10^3/uL (0.5-4.7); ABSOLUTE MONOCYTES (AUTO) 0.7 10^3/uL (0.1-1.4); ABSOLUTE NEUT (AUTO) 1.8 10^3/uL (1.7-8.2); BASOPHILS % (AUTO) 0.6 % (0-2); EOSINOPHILS % (AUTO) 3.1 % (0-6); HEMATOCRIT 39.3 % (37.9-51.0); HEMOGLOBIN 12.7 g/dL (13.5-17.0); HGB HCT DIFFERENCE -1.2; LYMPHOCYTES % (AUTO) 43.1 % (13-45); MEAN CORPUSCULAR HEMOGLOBIN 26.9 pg (27.0-33.4); MEAN CORPUSCULAR HGB CONC 32.3 g/dL (32.0-36.0); MEAN CORPUSCULAR VOLUME 83 fl (80-97); MONOCYTES % (AUTO) 15.4 % (3-13); RED BLOOD COUNT 4.72 10^6/uL (4.35-5.55); RED CELL DISTRIBUTION WIDTH 14.5 % (11.5-14.0); SEGMENTED NEUTROPHILS % (AUTO) 37.8 % (42-78); WHITE BLOOD COUNT 4.8 10^3/uL (4.0-10.5)
[2016-10-26 19:32] LABS: ALANINE AMINOTRANSFERASE 87 U/L (21-72); ALBUMIN 4.1 g/dL (3.5-5.0); ALKALINE PHOSPHATASE 68 U/L (38-126); ANION GAP 16 (5-19); ASPARTATE AMINO TRANSFERASE 40 U/L (17-59); BILIRUBIN,DIRECT 0.3 mg/dL (0.0-0.4); BILIRUBIN,TOTAL 0.8 mg/dL (0.2-1.3); BLOOD UREA NITROGEN 8 mg/dL (7-20); CALCIUM 9.7 mg/dL (8.4-10.2); CARBON DIOXIDE 23 mmol/L (22-30); CHLORIDE 109 mmol/L (98-107); CREATINE KINASE 108 U/L (55-170); CREATININE RESULT 1.11 mg/dL (0.52-1.25); GLUCOSE 67 mg/dL (75-110); POTASSIUM 4.4 mmol/L (3.6-5.0); SODIUM 147.5 mmol/L (137-145); TOTAL PROTEIN 7.2 g/dL (6.3-8.2)
[2016-10-26 19:43] LABS: CREATINE KINASE MB 0.5 ng/mL (<4.55); TROPONIN I 0.027 ng/mL
[2016-10-26] MEDS ORDERED: KETOROLAC TROMETHAMINE INJ/PF 30 MG/1 ML SDV IV ONE (20:01)
--- NOTE | 2016-10-26 20:02 | ER Document Report ---
ED General - General Chief Complaint: Chest Pain Stated Complaint: CHEST PAIN Time Seen by Provider: 10/26/16 16:05 Mode of Arrival: Ambulatory Information source: Patient Notes: 41-year-old male who had elevated cardiac enzymes last week for which I transferred him to an outlying facility where he had a heart cath which noted no acute myocardial infarct presents with complaints of continued chest wall pain. Patient denies any fevers or chills nausea vomiting or diarrhea. Patient was discharged from another facility with no other intervention. TRAVEL OUTSIDE OF THE [place] IN LAST 30 DAYS: No - HPI Onset: Other Onset/Duration: Persistent Quality of pain: Achy Severity: Mild Pain Level: 1 Associated symptoms: Chest pain Exacerbated by: Denies Relieved by: Denies Similar symptoms previously: Yes Recently seen / treated by doctor: Yes - Related Data Allergies/Adverse Reactions: No Known Allergies Allergy (Verified 10/26/16 15:38) Past Medical History - General Information source: Patient - Social History Smoking Status: Former Smoker Cigarette use (# per day): No Chew tobacco use (# tins/day): No Smoking Education Provided: No Frequency of alcohol use: Rare Drug Abuse: None Family History: CAD, Hyperlipidemia, Hypertension Patient has suicidal ideation: No Patient has homicidal ideation: No - Past Medical History Cardiac Medical History: Reports: Hx Coronary Artery Disease, Hx Heart Attack, Hx Hypercholesterolemia, Hx Hypertension Pulmonary Medical History: Denies: Hx Tuberculosis Endocrine Medical History: Reports: Hx Diabetes Mellitus Type 2 Renal/ Medical History: Denies: Hx Peritoneal Dialysis Psychiatric Medical History: Reports: Hx Anxiety Denies: Hx Depression Past Surgical History: Reports: Hx Cardiac Catheterization, Hx Coronary Stent - x 5, Hx Orthopedic Surgery - right rotator cuff. Denies: Hx Pacemaker - Immunizations Immunizations up to date: No Hx Diphtheria, Pertussis, Tetanus Vaccination: Yes Hx Pneumococcal Vaccination: 02/21/11 Review of Systems - Review of Systems Notes: REVIEW OF SYSTEMS: CONSTITUTIONAL : Denies fever, chills, or sweats. Denies recent illness. EENT: Denies eye, ear, throat, or mouth pain or symptoms. Denies nasal or sinus congestion or discharge. Denies throat, tongue, or mouth swelling or difficulty swallowing. CARDIOVASCULAR: Admits to chest pain RESPIRATORY: Denies cough, cold, or chest congestion. Denies shortness of breath, difficulty breathing, or wheezing. GASTROINTESTINAL: Denies abdominal pain or distention. Denies nausea, vomiting , or diarrhea. Denies blood in vomitus, stools, or per rectum. Denies black, tarry stools. Denies constipation. GENITOURINARY: Denies difficulty urinating, painful urination, burning, frequency, blood in urine, or discharge. MUSCULOSKELETAL: Denies back or neck pain or stiffness. Denies joint pain or swelling. SKIN: Denies rash, lesions or sores. HEMATOLOGIC : Denies easy bruising or bleeding. LYMPHATIC: Denies swollen, enlarged glands. NEUROLOGICAL: Denies confusion or altered mental status. Denies passing out or loss of consciousness. Denies dizziness or lightheadedness. Denies headache. Denies weakness or paralysis or loss of use of either side. Denies problems with gait or speech. Denies sensory loss, numbness, or tingling. Denies seizures. PSYCHIATRIC: Denies anxiety or stress. Denies depression, suicidal ideation, or homicidal ideation. ALL OTHER SYSTEMS REVIEWED AND NEGATIVE. Dictation was performed using [employer] voice recognition software PHYSICAL EXAMINATION: GENERAL: Well-appearing, well-nourished and in no acute distress. HEAD: Atraumatic, normocephalic. EYES: Pupils equal round and reactive to light, extraocular movements intact, sclera anicteric, conjunctiva are normal. ENT: Nares patent, oropharynx clear without exudates. Moist mucous membranes. NECK: Normal range of motion, supple without lymphadenopathy LUNGS: Breath sounds clear to auscultation bilaterally and equal. No wheezes rales or rhonchi. HEART: Regular rate and rhythm without murmurs ABDOMEN: Soft, nontender, nondistended abdomen. No guarding, no rebound. No masses appreciated. Musculoskeletal: Normal range of motion, no pitting or edema. No cyanosis. NEUROLOGICAL: Cranial nerves grossly intact. Normal speech, normal gait. Normal sensory, motor exams PSYCH: Normal mood, normal affect. SKIN: Warm, Dry, normal turgor, no rashes or lesions noted. Physical Exam - Vital signs Vitals: Temp Pulse Resp BP Pulse Ox 97.7 F 67 16 119/89 H 99 10/26/16 15:48 10/26/16 15:48 10/26/16 15:48 10/26/16 15:48 10/26/16 15:48 Course - Re-evaluation Re-evalutation: 10/26/16 22:47 Cardiac enzyme was negative, patient's pain did not improve with narcotics, given that he had a clean heart cath I do not believe there is any cardiac life- threatening issues associated with this. Patient will be given follow-up with his professional nurse tomorrow morning, I will treat him with anti-inflammatories and otherwise he has been in the emergency department for approximately 5 hours with no other concerns After performing a Medical Screening Examination, I estimate there is LOW risk for RUPTURED ESOPHAGUS, PNEUMOTHORAX, PULMONARY EMBOLISM, ACUTE CORONARY SYNDROME, OR THORACIC AORTIC DISSECTION, thus I consider the discharge disposition reasonable. I have reevaluated this patient multiple times and no significant life threatening changes are noted. The patient and I have discussed the diagnosis and risks, and we agree with discharging home with close follow-up. We also discussed returning to the Emergency Department immediately if new or worsening symptoms occur. We have discussed the symptoms which are most concerning (e.g., bloody sputum, worsening pain or shortness of breath) that necessitate immediate return. - Vital Signs Vital signs: Temp Pulse Resp BP Pulse Ox 97.7 F 84 20 120/86 H 95 10/26/16 15:48 10/26/16 20:22 10/26/16 20:22 10/26/16 20:22 10/26/16 20:22 - Laboratory Result Diagrams: 10/26/16 18:30 10/26/16 18:30 Laboratory results interpreted by me: 10/26/16 10/26/16 18:30 18:30 Hgb 12.7 L MCH 26.9 L RDW 14.5 H Seg Neutrophils % 37.8 L Monocytes % 15.4 H Sodium 147.5 H Chloride 109 H Glucose 67 L ALT 87 H - Diagnostic Test Radiology reviewed: Image reviewed, Reports reviewed - EKG Interpretation by Nm EKG shows normal: Sinus rhythm, [place], Intervals, QRS Complexes When compared to previous EKG there are: No significant change Discharge - Discharge Clinical Impression: Chest pain Qualifiers: Chest pain type: unspecified Qualified Code(s): R07.9 - Chest pain, unspecified Condition: Stable Disposition: HOME, SELF-CARE Instructions: Chest Pain of Unclear Cause ([facility]) Prescriptions: Ketorolac Tromethamine [Toradol 10 mg Tablet] 10 mg PO Q6HP PRN #14 tablet PRN Reason: Referrals: DELIA BLACK, [Primary Care Provider] - Follow up tomorrow
[2016-10-26] MEDS ORDERED: KETOROLAC TROMETHAMINE 60 MG/2 ML SDV IM ONE (20:03)
[2016-10-26 20:23] VITALS: BP 120/86
--- NOTE | 2016-10-26 21:12 | EKG REPORT ---
SEVERITY:- ABNORMAL ECG - SINUS RHYTHM CONSIDER ANTEROSEPTAL INFARCT NONSPECIFIC T ABNORMALITIES, LATERAL LEADS : Confirmed by: Tuan Malik 26-Oct-2016 21:11:46
== END 2016-10-26 20:23 | disposition home or self-care (01) ==
LOC: ER 15:35
DX: R07.89 Other chest pain (principal); I25.10 Atherosclerotic heart disease of native coronary artery without angina pectoris; I25.2 Old myocardial infarction; I10 Essential (primary) hypertension; E11.9 Type 2 diabetes mellitus without complications; Z98.890 Other specified postprocedural states; Z98.61 Coronary angioplasty status; Z87.891 Personal history of nicotine dependence; Z82.49 Family history of ischemic heart disease and other diseases of the circulatory system
CPT/HCPCS: 93005; 99285; 96372; 36415; 82553; 82550; 85025; 80053; 84484; 71020; 93010; A9270 ×2; J1885; 72050; 72070; 72110

== ENCOUNTER → 2016-10-26 | Outpatient (CLI) | payer MEDICARE, MEDICAID ==
--- NOTE | 2016-10-26 13:30 | RADIOLOGY REPORT (SQ) ---
EXAM DESCRIPTION: C SP 4 OR 5 VIEWS COMPLETED DATE/TIME: 10/26/2016 1:02 pm REASON FOR STUDY: CERVICALGIA M54.2 CERVICALGIA M54.5 LOW BACK PAIN M54.6 PAIN IN THORACIC SPINE COMPARISON: None. NUMBER OF VIEWS: Five views. TECHNIQUE: AP, lateral, obliques and odontoid radiographic images acquired of the cervical spine. LIMITATIONS: None. FINDINGS: MINERALIZATION: Normal. ALIGNMENT: Anatomic. VERTEBRAE: Vertebral bodies of normal height. DISCS: No significant osteophytes or sclerosis. Disc height maintained. FORAMINA: No osteophytes or foraminal narrowing. LATERAL AND POSTERIOR ELEMENTS: Facets, lateral masses and spinous processes without significant find ings. HARDWARE: None in the spine. SOFT TISSUES: No masses or calcifications. Lung apices clear. OTHER: No other significant finding. IMPRESSION: NO SIGNIFICANT RADIOGRAPHIC FINDING IN THE CERVICAL SPINE. TECHNICAL DOCUMENTATION: JOB ID: [id number] [employer]- All Rights Reserved
--- NOTE | 2016-10-26 13:31 | RADIOLOGY REPORT (SQ) ---
EXAM DESCRIPTION: T SPINE AP/LAT COMPLETED DATE/TIME: 10/26/2016 1:02 pm REASON FOR STUDY: PAIN IN THORACIC SPINE M54.2 CERVICALGIA M54.5 LOW BACK PAIN M54.6 PAIN IN THOR ACIC SPINE COMPARISON: None. NUMBER OF VIEWS: Two views. TECHNIQUE: AP and lateral radiographic images acquired of the thoracic spine. LIMITATIONS: None. FINDINGS: MINERALIZATION: Normal. ALIGNMENT: Normal. No scoliosis. VERTEBRAE: No fracture or bone lesion. Maintained height, normal segmentation. DISCS: No significant loss of height or significant narrowing. No large osteophytes. HARDWARE: None in the spine. MEDIASTINUM AND SOFT TISSUES: Normal heart size and aortic contour. No soft tissue abnormality. VISUALIZED LUNG WAHL: Clear. OTHER: No other significant finding. IMPRESSION: NO SIGNIFICANT RADIOGRAPHIC FINDING IN THE THORACIC SPINE. TECHNICAL DOCUMENTATION: JOB ID: [id number] [employer]- All Rights Reserved
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
== END ==
LOC: OD 12:00
PROVIDERS: ATTEND Family Medicine
DX: M54.2 Cervicalgia (principal); M54.5 Low back pain; M54.6 Pain in thoracic spine
CPT/HCPCS: 72050; 72070; 72110

== ENCOUNTER 2017-05-12 22:56 | Emergency (ER) | payer MEDICARE ==
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
[2017-05-13 00:57] VITALS: BP 112/82
== END 2017-05-13 00:57 | disposition home or self-care (01) ==
LOC: ER 22:56
DX: R20.0 Anesthesia of skin (principal); I25.10 Atherosclerotic heart disease of native coronary artery without angina pectoris; I25.2 Old myocardial infarction; I10 Essential (primary) hypertension; E11.9 Type 2 diabetes mellitus without complications; Z95.5 Presence of coronary angioplasty implant and graft; Z86.73 Personal history of transient ischemic attack (TIA), and cerebral infarction without residual deficits; Z82.49 Family history of ischemic heart disease and other diseases of the circulatory system
CPT/HCPCS: 70450; 99284

== ENCOUNTER 2017-06-24 21:38 | Inpatient (IN) | payer MEDICARE, MEDICAID ==
[2017-06-24 22:00] LABS: ABSOLUTE BASOPHILS # (AUTO) 0.1 10^3/uL (0.0-0.2); ABSOLUTE LYMPHOCYTES (AUTO) 3.1 10^3/uL (0.5-4.7); ABSOLUTE MONOCYTES (AUTO) 0.6 10^3/uL (0.1-1.4); ABSOLUTE NEUT (AUTO) 1.9 10^3/uL (1.7-8.2); EOSINOPHILS % (AUTO) 0.9 % (0-6); HEMATOCRIT 39.5 % (37.9-51.0); LYMPHOCYTES % (AUTO) 54.9 % (13-45); MEAN CORPUSCULAR HGB CONC 32.9 g/dL (32.0-36.0); MEAN CORPUSCULAR VOLUME 82 fl (80-97); PLATELET COUNT 301 10^3/uL (150-450); RED BLOOD COUNT 4.81 10^6/uL (4.35-5.55); RED CELL DISTRIBUTION WIDTH 14.9 % (11.5-14.0); SEGMENTED NEUTROPHILS % (AUTO) 33.2 % (42-78); TOTAL CELLS COUNTED % (AUTO) 100 %; WHITE BLOOD COUNT 5.6 10^3/uL (4.0-10.5)
[2017-06-24 22:06] LABS: INTERNATIONAL RATION (INR) 0.95; PROTHROMBIN TIME 13.4 SEC (11.4-15.4)
--- NOTE | 2017-06-24 22:09 | RADIOLOGY REPORT (SQ) ---
EXAM DESCRIPTION: CHEST SINGLE VIEW COMPLETED DATE/TIME: 06/24/2017 10:02 pm REASON FOR STUDY: CP COMPARISON: 10/26/2016. EXAM PARAMETERS: NUMBER OF VIEWS: One view. TECHNIQUE: Single frontal radiographic view of the chest acquired. RADIATION DOSE: NA LIMITATIONS: None. FINDINGS: LUNGS AND PLEURA: No opacities, masses or pneumothorax. No pleural effusion. MEDIASTINUM AND HILAR STRUCTURES: No masses. Contour normal. HEART AND VASCULAR STRUCTURES: Heart normal in size. Normal vasculature. BONES: No acute findings. HARDWARE: None in the chest. OTHER: No other significant finding. IMPRESSION: NO ACUTE RADIOGRAPHIC FINDING IN THE CHEST. TECHNICAL DOCUMENTATION: JOB ID: [id number] [employer]- All Rights Reserved
[2017-06-24 22:17] LABS: ALANINE AMINOTRANSFERASE 29 U/L (21-72); ALBUMIN 4.3 g/dL (3.5-5.0); ALKALINE PHOSPHATASE 69 U/L (38-126); ANION GAP 13 (5-19); ASPARTATE AMINO TRANSFERASE 35 U/L (17-59); BILIRUBIN,DIRECT 0.2 mg/dL (0.0-0.4); BILIRUBIN,TOTAL 0.5 mg/dL (0.2-1.3); BLOOD UREA NITROGEN 9 mg/dL (7-20); CALCIUM 9.4 mg/dL (8.4-10.2); CARBON DIOXIDE 21 mmol/L (22-30); CHLORIDE 111 mmol/L (98-107); CREATINE KINASE 108 U/L (55-170); GLUCOSE 93 mg/dL (75-110); POTASSIUM 3.9 mmol/L (3.6-5.0); SODIUM 145.1 mmol/L (137-145); TOTAL PROTEIN 7.5 g/dL (6.3-8.2)
[2017-06-24 22:28] LABS: CREATINE KINASE MB 0.51 ng/mL (<4.55)
[2017-06-24 22:32] LABS: TROPONIN I < 0.012 ng/mL
--- NOTE | 2017-06-24 22:37 | ER Document Report ---
ED General - General Chief Complaint: S/S of Possible Stroke Stated Complaint: CHEST PAIN Time Seen by Provider: 06/24/17 22:27 Notes: Patient is a 42-year-old male who presents with 2 different complaints. He was first brought in by a months because of chest pain. Patient has history of chest pain. He has a history of a low ejection fraction. He has history of a intraventricular thrombus for which she is to be on Coumadin for. Patient was brought to triage by EMS. Patient says the chest pain has been intermittent for 2 days. He says it is intermittent and substernal without radiation to the back. In triage was also noticed that he had a right-sided facial droop and numbness into his right hand. Patient does have history of previous strokes but symptoms always resolved. I actually took care of him just over a year ago for similar symptoms and he refused thrombolytics that time was transferred to [facility]. Patient says that his right-sided numbness and weakness started just before he called the ambulance. This was approximately an hour and a half ago. I would put the onset of symptoms around 9 PM. Patient says the chest pain is been there for approximately 2 days. No difficulty breathing. No other complaints at this time. Patient denies any cocaine abuse. He denies smoking. He says he did have one glass of wine. Patient's heart doctor is at [facility] in [place]. He did have a heart cath performed there and August or September of this past year. He had 2 stents placed. TRAVEL OUTSIDE OF THE [place] IN LAST 30 DAYS: No - Related Data Allergies/Adverse Reactions: No Known Allergies Allergy (Verified 06/24/17 22:18) Past Medical History - Social History Smoking Status: Unknown if Ever Smoked Frequency of alcohol use: Occasional Drug Abuse: None Family History: CAD, Hyperlipidemia, Hypertension - Past Medical History Cardiac Medical History: Reports: Hx Coronary Artery Disease, Hx Heart Attack, Hx Hypercholesterolemia, Hx Hypertension Pulmonary Medical History: Denies: Hx Tuberculosis Endocrine Medical History: Reports: Hx Diabetes Mellitus Type 2 Renal/ Medical History: Denies: Hx Peritoneal Dialysis Psychiatric Medical History: Reports: Hx Anxiety Denies: Hx Depression Past Surgical History: Reports: Hx Cardiac Catheterization, Hx Coronary Stent - x 5, Hx Orthopedic Surgery - right rotator cuff. Denies: Hx Pacemaker - Immunizations Immunizations up to date: No Hx Diphtheria, Pertussis, Tetanus Vaccination: Yes Hx Pneumococcal Vaccination: 02/21/11 Review of Systems - Review of Systems Notes: My Normal Review Basic REVIEW OF SYSTEMS: CONSTITUTIONAL : Denies fever, chills, or sweats. Denies recent illness. EENT: Denies eye, ear, throat, or mouth pain or symptoms. Denies nasal or sinus congestion. CARDIOVASCULAR: Has chest pain. RESPIRATORY: Denies cough, cold, or chest congestion. Denies shortness of breath, difficulty breathing, or wheezing. GASTROINTESTINAL: Denies abdominal pain. Denies nausea, vomiting, or diarrhea. Denies constipation. Last BM: GENITOURINARY: Denies difficulty urinating, painful urination, burning, frequency, or blood in urine. MUSCULOSKELETAL: Denies neck or back pain or joint pain or swelling. SKIN: Denies rash or skin lesions. NEUROLOGICAL: Denies altered mental status or loss of consciousness. Denies headache. Right-sided weakness. ALL OTHER SYSTEMS REVIEWED AND NEGATIVE. Physical Exam - Vital signs Vitals: Pulse Resp BP 76 21 H 128/85 H 06/24/17 22:18 06/24/17 22:18 06/24/17 22:18 - Notes Notes: General Appearance: Well nourished, alert, cooperative, no acute distress, no obvious discomfort. Vitals: reviewed, See vital signs table. Head: no swelling or tenderness to the head Eyes: PERRL, EOMI, Conjuctiva clear Mouth: No decreasd moisture Throat: No tonsillar inflammation, No airway obstruction, No lymphadenopathy Neck: Supple, no neck tenderness, No thyromegaly Lungs: No wheezing, No rales, No rhonci, No accessory muscle use, good air exchange bilaterally. Heart: Normal rate, Regular rythm, No murmur, no rub Abdomen: Normal BS, soft, No rigidity, No abdominal tenderness, No guarding, no rebound, no abdominal masses, no organomegaly Extremities: strength 5/5 in all extremities, good pulses in all extremities, no swelling or tenderness in the extremities, no edema. Skin: warm, dry, appropriate color, no rash Neuro: speech clear, oriented x 3, normal affect, responds appropriately to questions. Patient does have right-sided facial droop when he smiles. Patient does have some discoordination of right upper extremity. He does have numbness into the right upper extremity. Right informaticist strength is slightly weaker than left. Good strength in both lower extremities. Normal balance. Course - Re-evaluation Re-evalutation: 06/24/17 22:39 Immediately after my evaluation of the patient he was sent straight to CT scan. Is currently CT scan. As soon as he gets out of CT scan I will discuss further treatment options with him. 06/24/17 22:55 The skin does not show any bleeding on the brain. On reevaluation the patient his symptoms are resolving. His facial droop is almost completely gone. His strength in his right upper extremity is back to normal. He still has very slight tingling sensation in his right arm. Leg strength remained normal. His NIH scale now is only a 2. I talked to him at length about thrombolytics. Patient is refusing the past. I did go over him with a benefit and risks of these medications. Also talked about the fact that his symptoms are resolving. Informed him this is a relative contra indication to given medications. He agrees at this time that he prefers not to receive the medications. I think this is appropriate choice being that he currently has almost complete resolution of his strokelike symptoms. 06/25/17 00:02 On reevaluation patient's chest pain is completely gone. He looks and feels improved. I did talk to him about potential transfer to [facility] being that he does have a history of stents within a year ago. Patient says he does not want to go to [facility] and he just wants to have cardiac enzymes ran here and be watched here as an observation. Patient's strokelike symptoms are completely gone except for just a "slight tingling sensation in my right hand". Facial droop is completely gone. Strength is completely normal in the right extremities. I did speak with Dr. Will, hospitalist, who agrees to come evaluate the patient for admission. Dictation of this chart was performed using voice recognition software; therefore, there may be some unintended grammatical errors. - Vital Signs Vital signs: Temp Pulse Resp BP Pulse Ox 97.7 F 61 18 118/79 100 06/25/17 05:28 06/25/17 05:28 06/25/17 05:28 06/25/17 05:28 06/25/17 05:28 - Laboratory Result Diagrams: 06/24/17 21:25 06/24/17 21:25 Laboratory results interpreted by me: 06/24/17 06/24/17 06/24/17 21:25 21:25 21:25 Hgb 13.0 L RDW 14.9 H Seg Neutrophils % 33.2 L Lymphocytes % 54.9 H Sodium 145.1 H Chloride 111 H Carbon Dioxide 21 L NT-Pro-B Natriuret Pep 757 H - EKG Interpretation by Me Additional EKG results interpreted by me: 06/24/17 23:49 EKG #1 is reviewed and interpreted by me. EKG shows some ST segment elevation in leads V1 with V3. Patient has T-wave inversions in leads V4 through V6 as well as 1 and aVL. These changes are consistent with his old EKG from October 26, 2016. This most likely is related to LVH strain pattern. SD interval, QRS duration, QTc intervals are within normal range. EKG #2 is reviewed and interpreted by me. EKG shows sinus rhythm with rate of 73 bpm. Patient's EKG shows the same small amount of ST segment elevation in leads V1 and V2 with T-wave inversions in leads I, aVL, V4, V5 V6. These are again consistent with his previous EKGs. SD interval, QRS duration, QTc intervals are within normal range. Discharge - Discharge Clinical Impression: Chest pain Qualifiers: Chest pain type: unspecified Qualified Code(s): R07.9 - Chest pain, unspecified TIA (transient ischemic attack) Qualifiers: Transient cerebral ischemia type: unspecified Qualified Code(s): G45.9 - Transient cerebral ischemic attack, unspecified Condition: Stable Disposition: ADMITTED OBSERVATION Admitting Provider: Hospitalist
[2017-06-24] MEDS ORDERED: MORPHINE SULFATE 10 MG/ML INJ IV ONE (22:50)
--- NOTE | 2017-06-24 22:53 | ER Document Report ---
ED NIH Stroke Scale - NIH Stroke Scale *: 1. NIH scale should be completed with appropriate accompanying assessment tools. *: 2. The NIH should reflect what the patient is capable of doing and should not be coached by the clinician. 1a. Level of Consciousness: 0=Alert;keenly responsive -: 1=Drowsy -: 2=Obtunded -: 3=Coma/unresponsive or reflex to noxious stimuli. 1a. Responses: 0 1b. Orientation Questions: a. What month is it? -: b. How old are you? -: 0=Answers both questions correctly. -: 1=Answers one question correctly or patient is intubated or has orotracheal trauma. -: 2=Answers neither question correctly. 1b. Responses: 0 1c. Response to commands: a. Open and close eyes? -: b. Inside Outside Sales Representative and release hand? -: Credit is given despite weakness. Demonstration of task is permitted. Substitute command if hands cannot be used. -: 0=Performs both tasks correctly -: 1=Performs one task correctly -: 2=Performs neither task correctly 1c. Responses: 1 2. Gaze: Establish eye contact and instruct patient to "Follow my finger" -: 0=Normal -: 1=Partial gaze palsy. Gaze is abnormal in one or both eyes, but where forced deviation or total gaze paresis is not present. -: 2=Forced deviation or total gaze paresis. 2. Responses: 0 3. Visual Patterson: Sees fingers in all four quadrants. -: 0=No visual loss. -: 1=Partial hemianopsia. -: 2=Complete hemianopsia. -: 3=Bilateral hemianopsia (including Cortical blindness) 3. Responses: 0 4. Facial Movement: Instruct patient to: -: a. Show me your teeth -: b. Raise your eyebrows -: c. Close your eyes -: d. Smile -: 0=Normal symmetrical movement -: 1=Minor paralysis (flattened nasolabial fold, asymmetry on smiling). -: 2=Partial paralysis (total or near total paralysis of lower face). -: 3=Complete paralysis of upper and lower face 4. Responses: 2 5. Motor functions (left arm): Alternate sides and extend each arm with palms down (90 degrees if sitting or 45 degrees for supine). -: 0=No drift;limb holds for full 10 seconds. -: 1=Drift; limb holds but drifts down before full 10 seconds, but does not hit bed. -: 2=Some effort against gravity; limb cannot get to or maintain position. -: 3=No effort against gravity; limb falls. -: 4=No movement. -: UN=Amputation, joint fusion, explain in comments. 5. Responses (left arm): 0 5. Motor Functions (right arm): Alternate sides and extend each arm with palms down (90 degrees if sitting or 45 degrees for supine). -: 0=No drift;limb holds for full 10 seconds. -: 1=Drift; limb holds but drifts down before full 10 seconds, but does not hit bed. -: 2=Some effort against gravity; limb cannot get to or maintain position. -: 3=No effort against gravity; limb falls. -: 4=No movement. -: UN=Amputation, joint fusion, explain in comments. 5. Responses (right arm): 1 6. Motor Functions (left leg): With patient lying supine, alternate sides and extend each leg (30 degrees always while supine). -: 0=No drift, leg holds position for full 5 seconds -: 1=Drift; leg falls before full 5 seconds but does not hit bed. -: 2=Some effort against gravity, leg falls to bed but some effort against gravity. -: 3=No effort against gravity, leg falls to bed immediately. -: 4=No movement. -: UN=Amputation, joint fusion; explain in comments. 6. Responses (left leg): 0 6. Motor Functions (right leg): With patient lying supine, alternate sides and extend each leg (30 degrees always while supine). -: 0=No drift, leg holds position for full 5 seconds -: 1=Drift; leg falls before full 5 seconds but does not hit bed. -: 2=Some effort against gravity, leg falls to bed but some effort against gravity. -: 3=No effort against gravity, leg falls to bed immediately. -: 4=No movement. -: UN=Amputation, joint fusion; explain in comments. 6. Responses (right leg): 0 7. Limb Ataxia: With eyes open instruct patient to: -: a. "Touch your finger to your nose". -: b. "Touch your heel to your cannon" -: 0=Absent -: 1=Present in one limb. -: 2=Present in two limbs. -: UN=Amputation or joint fusion; explain in comments. 7. Responses: 1 8. Sensory: Test sensation using pinprick or noxious stimuli. Test as many body parts as possible. -: 0=Normal;no sensory loss -: 1=Mile to moderate sensory loss (patient feels pin prick but is less sharp on affected side). -: 2=Severe or total sensory loss. 8. Responses: 1 9. Best Language: Instruct patient to: -: a. "Describe what you see in this picture." -: b. "Name the items in this picture." -: c. "Read these sentences." -: 0=No aphasia, normal -: 1=Mild to moderate aphasia. -: 2=Severe aphasia -: 3=Mute, global aphasia, no usable speech or auditory comprehension. 9. Responses: 0 10. Articulation, Dysarthia: Instruct patient to: -: "Read these words" or "Repeat these words" -: 0=Normal -: 1=Mild to moderate; patient may slur some words but can be understood without difficulty. -: 2=Severe; patients speech so slurred as to be unintelligible in the absence of dysphasia. -: UN=Intubated or other physical barrier, explain in comments. 10. Responses: 0 11. Extinction or inattention: 0=No abnormality -: 1= Visual, tactile, auditory, spatial, or personal inattention or extinction to bilateral simulation in one or the sensory modalities. -: 2=Profound mary-inattention or mary-inattention to more than one modality; does not recognize own hand. 11. Responses: 0 Total Score: 6 Notes: This was my first exam performed at [age].
--- NOTE | 2017-06-24 22:54 | ER Document Report ---
ED NIH Stroke Scale - NIH Stroke Scale *: 1. NIH scale should be completed with appropriate accompanying assessment tools. *: 2. The NIH should reflect what the patient is capable of doing and should not be coached by the clinician. 1a. Level of Consciousness: 0=Alert;keenly responsive -: 1=Drowsy -: 2=Obtunded -: 3=Coma/unresponsive or reflex to noxious stimuli. 1a. Responses: 0 1b. Orientation Questions: a. What month is it? -: b. How old are you? -: 0=Answers both questions correctly. -: 1=Answers one question correctly or patient is intubated or has orotracheal trauma. -: 2=Answers neither question correctly. 1b. Responses: 0 1c. Response to commands: a. Open and close eyes? -: b. Crystal Inspector and release hand? -: Credit is given despite weakness. Demonstration of task is permitted. Substitute command if hands cannot be used. -: 0=Performs both tasks correctly -: 1=Performs one task correctly -: 2=Performs neither task correctly 1c. Responses: 0 2. Gaze: Establish eye contact and instruct patient to "Follow my finger" -: 0=Normal -: 1=Partial gaze palsy. Gaze is abnormal in one or both eyes, but where forced deviation or total gaze paresis is not present. -: 2=Forced deviation or total gaze paresis. 2. Responses: 0 3. Visual [place]: Sees fingers in all four quadrants. -: 0=No visual loss. -: 1=Partial hemianopsia. -: 2=Complete hemianopsia. -: 3=Bilateral hemianopsia (including Cortical blindness) 3. Responses: 0 4. Facial Movement: Instruct patient to: -: a. Show me your teeth -: b. Raise your eyebrows -: c. Close your eyes -: d. Smile -: 0=Normal symmetrical movement -: 1=Minor paralysis (flattened nasolabial fold, asymmetry on smiling). -: 2=Partial paralysis (total or near total paralysis of lower face). -: 3=Complete paralysis of upper and lower face 4. Responses: 1 5. Motor functions (left arm): Alternate sides and extend each arm with palms down (90 degrees if sitting or 45 degrees for supine). -: 0=No drift;limb holds for full 10 seconds. -: 1=Drift; limb holds but drifts down before full 10 seconds, but does not hit bed. -: 2=Some effort against gravity; limb cannot get to or maintain position. -: 3=No effort against gravity; limb falls. -: 4=No movement. -: UN=Amputation, joint fusion, explain in comments. 5. Responses (left arm): 0 5. Motor Functions (right arm): Alternate sides and extend each arm with palms down (90 degrees if sitting or 45 degrees for supine). -: 0=No drift;limb holds for full 10 seconds. -: 1=Drift; limb holds but drifts down before full 10 seconds, but does not hit bed. -: 2=Some effort against gravity; limb cannot get to or maintain position. -: 3=No effort against gravity; limb falls. -: 4=No movement. -: UN=Amputation, joint fusion, explain in comments. 5. Responses (right arm): 0 6. Motor Functions (left leg): With patient lying supine, alternate sides and extend each leg (30 degrees always while supine). -: 0=No drift, leg holds position for full 5 seconds -: 1=Drift; leg falls before full 5 seconds but does not hit bed. -: 2=Some effort against gravity, leg falls to bed but some effort against gravity. -: 3=No effort against gravity, leg falls to bed immediately. -: 4=No movement. -: UN=Amputation, joint fusion; explain in comments. 6. Responses (left leg): 0 6. Motor Functions (right leg): With patient lying supine, alternate sides and extend each leg (30 degrees always while supine). -: 0=No drift, leg holds position for full 5 seconds -: 1=Drift; leg falls before full 5 seconds but does not hit bed. -: 2=Some effort against gravity, leg falls to bed but some effort against gravity. -: 3=No effort against gravity, leg falls to bed immediately. -: 4=No movement. -: UN=Amputation, joint fusion; explain in comments. 6. Responses (right leg): 0 7. Limb Ataxia: With eyes open instruct patient to: -: a. "Touch your finger to your nose". -: b. "Touch your heel to your cannon" -: 0=Absent -: 1=Present in one limb. -: 2=Present in two limbs. -: UN=Amputation or joint fusion; explain in comments. 7. Responses: 0 8. Sensory: Test sensation using pinprick or noxious stimuli. Test as many body parts as possible. -: 0=Normal;no sensory loss -: 1=Mile to moderate sensory loss (patient feels pin prick but is less sharp on affected side). -: 2=Severe or total sensory loss. 8. Responses: 1 9. Best Language: Instruct patient to: -: a. "Describe what you see in this picture." -: b. "Name the items in this picture." -: c. "Read these sentences." -: 0=No aphasia, normal -: 1=Mild to moderate aphasia. -: 2=Severe aphasia -: 3=Mute, global aphasia, no usable speech or auditory comprehension. 9. Responses: 0 10. Articulation, Dysarthia: Instruct patient to: -: "Read these words" or "Repeat these words" -: 0=Normal -: 1=Mild to moderate; patient may slur some words but can be understood without difficulty. -: 2=Severe; patients speech so slurred as to be unintelligible in the absence of dysphasia. -: UN=Intubated or other physical barrier, explain in comments. 10. Responses: 0 11. Extinction or inattention: 0=No abnormality -: 1= Visual, tactile, auditory, spatial, or personal inattention or extinction to bilateral simulation in one or the sensory modalities. -: 2=Profound mary-inattention or mary-inattention to more than one modality; does not recognize own hand. Total Score: 2 Notes: repeat exam at [id number]
--- NOTE | 2017-06-24 23:02 | RADIOLOGY REPORT (SQ) ---
EXAM DESCRIPTION: CT HEAD WITHOUT COMPLETED DATE/TIME: 06/24/2017 10:32 pm REASON FOR STUDY: stroke like symptoms. right sided weakness. COMPARISON: CT head 05/12/2017. TECHNIQUE: Axial images acquired through the brain without intravenous contrast. Images reviewed wi th bone, brain and subdural windows. Images stored on PACS. All CT scanners at this facility use dose modulation, iterative reconstruction, and/or weight based d osing when appropriate to reduce radiation dose to as low as reasonably achievable (ALARA). [facility]: Dose Right [facility]: CareDose [facility]: Dose Right [facility]: Teradose 4D [facility]: [employer] RADIATION DOSE: CT Rad equipment meets quality standard of care and radiation dose reduction techniq ues were employed. CTDIvol: 55.3 mGy. DLP: 996 mGy-cm. mGy. LIMITATIONS: None. FINDINGS: VENTRICLES: Normal size and contour. CEREBRUM: No mass effect. No hemorrhage. No midline shift. Normal dempsey/white matter differentiatio n. No evidence for acute territorial infarction. CEREBELLUM: No mass effect. No hemorrhage. No alteration of density. No evidence for acute infarct ion. EXTRAAXIAL SPACES: No fluid collections. ORBITS AND GLOBE: Symmetrical contour of the globes. CALVARIUM: No depressed skull fracture. PARANASAL SINUSES: No air-fluid level. SOFT TISSUES: No hematoma. IMPRESSION: No acute intracranial hemorrhage or acute territorial infarct. EVIDENCE OF ACUTE STROKE: NO. COMMENT: Quality ID # [id number]: Final reports with documentation of one or more dose reduction techniques (e.g., Automated exposure control, adjustment of the mA and/or kV according to patient size, use of iterative reconstruction technique) TECHNICAL DOCUMENTATION: JOB ID: [id number]- All Rights Reserved
[2017-06-25] MEDS ORDERED: ASPIRIN 81 MG TABLET, CHEWABLE PO ONE (00:18)
[2017-06-25] MEDS ORDERED: DOCUSATE SODIUM 100 MG CAPSULE PO PRN (00:19)
[2017-06-25] MEDS ORDERED: MAGNESIUM HYDROXIDE SUSP 30 ML UDCUP PO PRN (00:19)
[2017-06-25] MEDS ORDERED: ATORVASTATIN CALCIUM 80 MG TABLET PO ONE ×2 (00:45→04:00)
[2017-06-25 03:19] LABS: CREATINE KINASE MB 0.41 ng/mL (<4.55)
[2017-06-25 03:23] LABS: TROPONIN I < 0.012 ng/mL
[2017-06-25] MEDS: ACETAMINOPHEN 325 MG TABLET PO PRN (04:08)
--- NOTE | 2017-06-25 04:14 | PDOC H&P ---
History of Present Illness Admission Date/PCP: 06/25/17 00:41 Patient complains of: Right facial droop, right arm and hand numbness. History of Present Illness: WINDY CORNEJO is a 42 year old male with a past medical history of alcohol dependence, generalized anxiety, coronary artery disease status post stent, cardiomyopathy, left ventricular thrombus and TIA. The patient's history is extraordinarily difficult to obtain as it is inconsistent between providers obtaining history. Patient presents after 24-48 hours of retrosternal chest pain similar to previous [place] with radiation to the left shoulder, dull in nature 4-5 intensity waxing and waning reduced with nitro worsened with exertion. He has also had subjective right-sided facial drooping and left arm and hand numbness. In the emergency room he is found to have residual chest pain and numbness of the face and right arm. Initial workup is entirely negative he is referred to the hospitalist for observation. Patient admits to medication compliance in addition to uncontrolled anxiety and alcohol use. Past Medical History Cardiac Medical History: Reports: Coronary Artery Disease, Myocardial Infarction , Hyperlipidema, Hypertension Pulmonary Medical History: Denies: Tuberculosis Endocrine Medical History: Reports: Diabetes Mellitus Type 2 Psychiatric Medical History: Denies: Depression Past Surgical History Past Surgical History: Reports: Cardiac Catheterization, Coronary Stent - x 5, Orthopedic Surgery - right rotator cuff Denies: Pacemaker Social History Information Source: Patient, COUNTS INCLUDE 234 BEDS AT THE [facility] Records Smoking Status: Unknown if Ever Smoked Frequency of Alcohol Use: Social Hx Recreational Drug Use: No Drugs: None Hx Prescription Drug Abuse: No - Advance Directive Resuscitation Status: Full Code Family History Family History: CAD, Hyperlipidemia, Hypertension Parental Family History Reviewed: Yes Children Family History Reviewed: Yes Sibling(s) Family History Reviewed.: Yes Medication/Allergy Home Medications: Alprazolam [Xanax] 2 mg PO Q8 10/02/16 Atorvastatin Calcium [Lipitor 80 mg Tablet] 80 mg PO QHS 10/02/16 Bisoprolol Fumarate [Zebeta] 10 mg PO DAILY 10/02/16 Dexlansoprazole [Dexilant 60 mg Capsule] 60 mg PO DAILY 10/02/16 Furosemide [Lasix] 40 mg PO BID 10/02/16 Lisinopril 20 mg PO DAILY 10/02/16 Nitroglycerin [Nitrostat 0.4 mg (1/150 Gr) Tabs 25/Bottle] 1 tab SL Q5MP PRN 05/ 12/17 Oxycodone HCl 15 mg PO Q6HP PRN 10/02/16 Prasugrel HCl [Effient] 10 mg PO DAILY 10/02/16 Tramadol HCl [Ultram 50 mg Tablet] 50 mg PO BIDP PRN 10/02/16 Tramadol HCl [Ultram 50 mg Tablet] 50 mg PO HSP PRN 10/02/16 Zolpidem Tartrate [Ambien] 10 mg PO QHS 10/02/16 Ketorolac Tromethamine [Toradol 10 mg Tablet] 10 mg PO Q6HP PRN #14 tablet 10/26 Methocarbamol [Robaxin 750 mg Tablet] 750 mg PO Q6 #20 tablet 05/13/17 Allergies/Adverse Reactions: No Known Allergies Allergy (Verified 06/24/17 22:18) Review of Systems ROS unobtainable: Due to mental status - [place] unreliable given multiple different stories of symptoms and timing of events. Physical Exam Vital Signs: Temp Pulse Resp BP Pulse Ox 73 20 119/95 H 100 06/25/17 00:00 06/25/17 02:01 06/25/17 02:01 06/25/17 02:01 General appearance: PRESENT: no acute distress, well-developed, well-nourished Head exam: PRESENT: atraumatic, normocephalic Eye exam: PRESENT: conjunctiva pink, EOMI, PERRLA. ABSENT: scleral icterus Ear exam: PRESENT: normal external ear exam Mouth exam: PRESENT: moist, tongue midline Neck exam: ABSENT: carotid bruit, JVD, lymphadenopathy, thyromegaly Respiratory exam: PRESENT: clear to auscultation yesenia. ABSENT: rales, rhonchi, wheezes Cardiovascular exam: PRESENT: RRR. ABSENT: diastolic murmur, rubs, systolic murmur Pulses: PRESENT: normal dorsalis pedis pul Vascular exam: PRESENT: normal capillary refill GI/Abdominal exam: PRESENT: normal bowel sounds, soft. ABSENT: distended, guarding, mass, organolmegaly, rebound, tenderness Rectal exam: PRESENT: deferred Extremities exam: PRESENT: full ROM. ABSENT: calf tenderness, clubbing, pedal edema Neurological exam: PRESENT: alert, awake, oriented to person, oriented to place , oriented to time, oriented to situation, CN II-XII grossly intact. ABSENT: motor sensory deficit Psychiatric exam: PRESENT: appropriate affect, normal mood. ABSENT: homicidal ideation, suicidal ideation Skin exam: PRESENT: dry, intact, warm. ABSENT: cyanosis, rash Results Laboratory Results: 06/25/17 06/25/17 00:54 00:54 Creatine Kinase 95 CK-MB (CK-2) 0.41 Troponin I < 0.012 Impressions: Chest X-Ray 06/24/17 21:41 IMPRESSION: NO ACUTE RADIOGRAPHIC FINDING IN THE CHEST. Head CT 06/24/17 22:28 IMPRESSION: No acute intracranial hemorrhage or acute territorial infarct. EVIDENCE OF ACUTE STROKE: NO. Assessment & Plan - Diagnosis (1) Chest pain Qualifiers: Chest pain type: unspecified Qualified Code(s): R07.9 - Chest pain, unspecified Is this a current diagnosis for this admission?: Yes Plan: Atypical chest pain though the patient's pain is atypical there are multiple risk factors for coronary artery disease and subsequently will observe and evaluation of acute coronary syndrome versus coronary artery disease with anginal equivalents. Cardiac monitoring blood pressure Q6 hours ,TSH, lipid profile, serial cardiac enzymes and cardiac stress test (2) TIA (transient ischemic attack) Qualifiers: Transient cerebral ischemia type: unspecified Qualified Code(s): G45.9 - Transient cerebral ischemic attack, unspecified Is this a current diagnosis for this admission?: Yes Plan: Complicated by uncontrolled anxiety and history of left ventricular thrombus, CVA care set deployed. MRI pending (3) Coronary artery disease Qualifiers: Coronary Disease-Associated Artery/Lesion type: [place] artery [place] vs. transplanted heart: [place] heart Associated angina: angina presence unspecified Qualified Code(s): I25.10 - Atherosclerotic heart disease of [place] coronary artery without angina pectoris Is this a current diagnosis for this admission?: Yes Plan: Serial cardiac enzymes. Cardiolite stress testing, consider cardiac catheterization. (4) Generalized anxiety disorder Is this a current diagnosis for this admission?: Yes Plan: Supportive care consider trial of Abilify - Time Time Spent: 50 to 70 Minutes - Inpatient Certification Medical Necessity: Need Close Monitoring Due to Risk of Patient Decompensation
[2017-06-25] MEDS: HEPARIN SOD (PORCINE) 5,000 UNIT/ML 1 ML SYRINGE SUBCUT SCH ×3 (05:41→21:38)
--- NOTE | 2017-06-25 07:57 | EKG REPORT ---
SEVERITY:- ABNORMAL ECG - SINUS RHYTHM LVH WITH SECONDARY REPOLARIZATION ABNORMALITY ANTERIOR INFARCT, AGE INDETERMINATE : Confirmed by: Edison Bynum MD 25-Jun-2017 07:57:07
--- NOTE | 2017-06-25 07:57 | EKG REPORT ---
SEVERITY:- ABNORMAL ECG - SINUS RHYTHM ANTERIOR INFARCT, AGE INDETERMINATE BORDERLINE T ABNORMALITIES, INFERIOR LEADS : Confirmed by: Edison Bynum MD 25-Jun-2017 07:55:33
[2017-06-25 08:04] LABS: CREATINE KINASE MB 0.43 ng/mL (<4.55)
[2017-06-25 08:11] LABS: TROPONIN I < 0.012 ng/mL
[2017-06-25] MEDS: ASPIRIN 81 MG TABLET, ENT COATED PO SCH (11:53)
[2017-06-25 14:00] LABS: CREATINE KINASE MB 0.33 ng/mL (<4.55)
[2017-06-25 14:03] LABS: TROPONIN I < 0.012 ng/mL
[2017-06-25] MEDS ORDERED: REGADENOSON INJ 0.4 MG/5 ML DISP.SYRIN IV ONE (14:14)
[2017-06-25] MEDS ORDERED: AMINOPHYLLINE INJ/PF 250 MG/10 ML SDV IV ONE (14:14)
[2017-06-25] MEDS ORDERED: (PENDING PHARMACY ID) (Lisinopril [Zestril] 20 MG) PO SCH (14:30)
[2017-06-25] MEDS ORDERED: BISOPROLOL FUMARATE 10 MG PO SCH (14:30)
[2017-06-25] MEDS ORDERED: PRASUGREL HCL 10 MG TABLET PO SCH (14:30)
[2017-06-25] MEDS ORDERED: OXYCODONE HCL IR 5 MG TABLET PO PRN (14:40)
[2017-06-25] MEDS: MORPHINE SULFATE 10 MG/ML INJ IV PRN ×2 (14:58→20:21)
[2017-06-25] MEDS ORDERED: ATENOLOL 50 MG TABLET PO ONE (16:45)
[2017-06-25] MEDS ORDERED: LISINOPRIL 10 MG TABLET PO ONE (16:45)
[2017-06-25] MEDS ORDERED: PRASUGREL HCL 10 MG TABLET PO ONE (16:45)
[2017-06-25] MEDS ORDERED: TACROLIMUS TOP SCH (18:00)
[2017-06-25] MEDS ORDERED: (PENDING PHARMACY ID) (Potassium Chloride [K-Tab Er] 40 MEQ) PO SCH (18:00)
--- NOTE | 2017-06-25 18:02 | PDOC PROGRESS REPORT ---
Subjective Progress Note for:: 06/25/17 Subjective:: Pt has very minimal CP almost resolved with IV morphine. His right sided symptoms are almost resolved as well. No dyspnea, no fever, no confusion, no pleuritic pain, no cough. He has had multiple caths in the past and also has had multiple complications related to caths including bleeding and code blue. No pain radiation, no other associated symptoms, it is a dull ache. Reason For Visit: TIA, CAD, CP, CHF, ANXIETY Physical Exam Vital Signs: Temp Pulse Resp BP Pulse Ox 98.4 F 78 16 140/89 H 100 06/25/17 16:03 06/25/17 16:03 06/25/17 16:03 06/25/17 16:03 06/25/17 16:03 Intake & Output 06/24/17 06/25/17 06/26/17 06:59 06:59 06:59 Intake Total 5 400 Balance 5 400 Weight 91.3 kg General appearance: PRESENT: no acute distress, cooperative, well-developed, well-nourished Head exam: PRESENT: atraumatic, normocephalic Eye exam: PRESENT: conjunctiva pink, EOMI Ear exam: PRESENT: normal external ear exam. ABSENT: bleeding Mouth exam: PRESENT: moist, tongue midline Neck exam: ABSENT: lymphadenopathy Respiratory exam: PRESENT: clear to auscultation yesenia, unlabored. ABSENT: accessory muscle use, chest wall tenderness, crackles, decreased breath sounds, prolonged expiratory phas, rales, retraction, rhonchi, stridor, tachypnea, wheezes Cardiovascular exam: PRESENT: RRR GI/Abdominal exam: PRESENT: normal bowel sounds, soft. ABSENT: distended, guarding, rebound, tenderness Rectal exam: PRESENT: deferred Extremities exam: ABSENT: pedal edema, tenderness Musculoskeletal exam: PRESENT: ambulatory Neurological exam: PRESENT: alert, awake, oriented to person, oriented to place , oriented to time, oriented to situation, CN II-XII grossly intact Psychiatric exam: PRESENT: anxious Results Laboratory Results: 06/25/17 06/25/17 06/25/17 00:54 00:54 07:00 Creatine Kinase 95 74 CK-MB (CK-2) 0.41 Troponin I < 0.012 06/25/17 06/25/17 06/25/17 07:00 13:09 13:09 Creatine Kinase 87 CK-MB (CK-2) 0.43 0.33 Troponin I < 0.012 < 0.012 Impressions: Chest X-Ray 06/24/17 21:41 IMPRESSION: NO ACUTE RADIOGRAPHIC FINDING IN THE CHEST. Head CT 06/24/17 22:28 IMPRESSION: No acute intracranial hemorrhage or acute territorial infarct. EVIDENCE OF ACUTE STROKE: NO. Assessment & Plan - Diagnosis (1) Chest pain Qualifiers: Chest pain type: unspecified Qualified Code(s): R07.9 - Chest pain, unspecified Is this a current diagnosis for this admission?: Yes Plan: Possible angina given his history. Pt has had 3 neg sets cardiac enzymes. With morphine his pain is almost a zero now. 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 I have made this recommendation to the patient. He has unfortunately had multiple serious cardiac cath complications and he si nervous about another. He wants to discuss it with his family tonight and reeval the decision in the am. He acknowledges the life threatening possibilites of not having a cardiac cath and is willing th=o accpet those. In the meantime I will cont to trend trops until CP is zero. He has NTG and morphine prn. We will readdress transfer for cath in the am. he also knows to call RN if CP worsens or if he has any other concerning symptoms. Home cardiac meds have been started. (2) TIA (transient ischemic attack) Qualifiers: Transient cerebral ischemia type: unspecified Qualified Code(s): G45.9 - Transient cerebral ischemic attack, unspecified Is this a current diagnosis for this admission?: Yes Plan: symptoms resolved, no objective findings. WIll repeat CT head as pt coudl not get MRI due to metal in head on old scan. Hoem meds icnlduing effient restrated. He is on DVT prophylaxis. He is getting a daily aspirin. (3) Coronary artery disease Qualifiers: Coronary Disease-Associated Artery/Lesion type: [place] artery [place] vs. transplanted heart: [place] heart Associated angina: angina presence unspecified Qualified Code(s): I25.10 - Atherosclerotic heart disease of [place] coronary artery without angina pectoris Is this a current diagnosis for this admission?: Yes Plan: Please see chest pain plan above. CAD meds started. (4) Essential hypertension Plan: stable, home meds started. (5) Generalized anxiety disorder Is this a current diagnosis for this admission?: Yes Plan: his regular home benzo, TID xanax, has been started (6) History of stroke Plan: see TIA plan above - Time Time Spent with patient: 35 or more minutes Anticipated discharge: [facility] Within: within 24 hours - Inpatient Certification Medical Necessity: Significant Comorbidiites Make Outpatient Treatment Too Risky , Need Close Monitoring Due to Risk of Patient Decompensation, Need For Continuous Telemetry Monitoring Post Hospital Care: D/C Infrastructure Engineer Documentation
[2017-06-25] MEDS: RANOLAZINE 500 MG TAB.SR.12H PO SCH (18:09)
[2017-06-25] MEDS: FUROSEMIDE 40 MG TABLET PO SCH (18:09)
--- NOTE | 2017-06-25 18:39 | RADIOLOGY REPORT (SQ) ---
EXAM DESCRIPTION: CT HEAD WITHOUT COMPLETED DATE/TIME: 06/25/2017 6:29 pm REASON FOR STUDY: stroke like symptoms re eval as cannot get MRI COMPARISON: 06/24/2017 TECHNIQUE: Axial images acquired through the brain without intravenous contrast. Images reviewed wi th bone, brain and subdural windows. Images stored on PACS. All CT scanners at this facility use dose modulation, iterative reconstruction, and/or weight based d osing when appropriate to reduce radiation dose to as low as reasonably achievable (ALARA). [facility]: Dose Right [facility]: CareDose [facility]: Dose Right [facility]: Teradose 4D [facility]: [employer] RADIATION DOSE: CT Rad equipment meets quality standard of care and radiation dose reduction techniq ues were employed. CTDIvol: 64.6 mGy. DLP: 1163 mGy-cm. mGy. LIMITATIONS: None. FINDINGS: VENTRICLES: Normal size and contour. CEREBRUM: No masses. No hemorrhage. No midline shift. No evidence for acute infarction. Normal gra y/white matter differentiation. No areas of low density in the white matter. CEREBELLUM: No masses. No hemorrhage. No alteration of density. No evidence for acute infarction. EXTRAAXIAL SPACES: No fluid collections. No masses. ORBITS AND GLOBE: No intra- or extraconal masses. Normal contour of globe without masses. CALVARIUM: No fracture. PARANASAL SINUSES: No fluid or mucosal thickening. SOFT TISSUES: Stable metallic densities within the posterior soft tissues presumably representing shr apnel. OTHER: No other significant finding. IMPRESSION: NO ACUTE INTRACRANIAL PROCESS. NO SIGNIFICANT CHANGE FROM PRIOR STUDY. EVIDENCE OF ACUTE STROKE: NO. COMMENT: Quality ID # [id number]: Final reports with documentation of one or more dose reduction techniques (e.g., Automated exposure control, adjustment of the mA and/or kV according to patient size, use of iterative reconstruction technique) TECHNICAL DOCUMENTATION: JOB ID: [id number] [employer]- All Rights Reserved
--- NOTE | 2017-06-25 20:03 | PDOC CONSULTATION ---
Consultation Consult Date: 06/25/17 Attending physician:: MARE SCHWARZ Consult reason:: Chest pain History of Present Illness Admission Date/PCP: 06/25/17 00:41 Patient complains of: Chest pain History of Present Illness: WINDY CORNEJO is a 42 year old male with a past medical history of alcohol dependence, generalized anxiety, coronary artery disease status post stent, cardiomyopathy, left ventricular thrombus and TIA. The patient's history is extraordinarily difficult to obtain as it is inconsistent between providers obtaining history. Patient presents after 24-48 hours of retrosternal chest pain similar to previous MO with radiation to the left shoulder, dull in nature 4-5 intensity waxing and waning reduced with nitro worsened with exertion. He has also had subjective right-sided facial drooping and left arm and hand numbness. In the emergency room he is found to have residual chest pain and numbness of the face and right arm. Initial workup is entirely negative he is referred to the hospitalist for observation. Patient admits to medication compliance in addition to uncontrolled anxiety and alcohol use. This history was reviewed and supplemented. Patient describes multiple heart catheterization in the past. He claims that he is on a LifeVest but currently left it at home. Patient was actually evaluated briefly in the stress room when he was was noted to have chest pain. At that time I was reviewing his echocardiogram which showed apical wall motion abnormalities. Rest images was in fact completed and showed severe perfusion defect in the anterior wall, apex and inferoapex of the left ventricle. It was felt that because of continuing chest pain, patient will be best served by cardiac catheterization and therefore was returned to the floor. Subsequently I was called to evaluate patient in consultation. Have talked with the game developer managing the patient. It seems patient is very reluctant to undergo heart cath because of previous complications with heart cath. Currently his medical management is being optimized. Past Medical History Cardiac Medical History: Reports: Coronary Artery Disease, Myocardial Infarction , Hyperlipidema, Hypertension Pulmonary Medical History: Denies: Tuberculosis Endocrine Medical History: Reports: Diabetes Mellitus Type 2 Psychiatric Medical History: Denies: Depression Past Surgical History Past Surgical History: Reports: Cardiac Catheterization, Coronary Stent - x 5, Orthopedic Surgery - right rotator cuff Denies: Pacemaker Social History Information Source: Patient Smoking Status: Unknown if Ever Smoked Frequency of Alcohol Use: Social Hx Recreational Drug Use: No Drugs: None Hx Prescription Drug Abuse: No - Advance Directive Resuscitation Status: Full Code Family History Family History: CAD, Hyperlipidemia, Hypertension Parental Family History Reviewed: Yes Children Family History Reviewed: Yes Sibling(s) Family History Reviewed.: Yes Medication/Allergy Home Medications: Alprazolam [Xanax] 2 mg PO TID 06/25/17 Atorvastatin Calcium [Lipitor 80 mg Tablet] 80 mg PO QHS 06/25/17 Bisoprolol Fumarate [Zebeta 5 mg Tablet] 10 mg PO DAILY 06/25/17 Dexlansoprazole [Dexilant 60 mg Capsule] 60 mg PO DAILY 06/25/17 Furosemide [Lasix 40 mg Tablet] 40 mg PO BID 06/25/17 Lisinopril [Zestril] 20 mg PO DAILY 06/25/17 Nitroglycerin [Nitrostat 0.4 mg (1/150 Gr) Tabs 25/Bottle] 0.4 mg SL Q5MP PRN Oxycodone HCl 15 mg PO Q6HP PRN 06/25/17 Potassium Chloride [K-Tab ER] 40 meq PO BID 06/25/17 Prasugrel HCl [Effient 10 mg Tablet] 10 mg PO DAILY 06/25/17 Ranolazine [Ranexa 500 mg Tab.sr] 1,000 mg PO BID 06/25/17 Tacrolimus [Protopic] 1 applic TOP BID 06/25/17 Tramadol HCl [Ultram 50 mg Tablet] 50 mg PO HSP PRN 06/25/17 Tramadol HCl [Ultram 50 mg Tablet] 100 mg PO BID 06/25/17 Zolpidem Tartrate [Ambien] 10 mg PO QHS 06/25/17 Zolpidem Tartrate [Ambien] 10 ng PO QHS 06/25/17 Allergies/Adverse Reactions: No Known Allergies Allergy (Verified 06/24/17 22:18) Review of Systems Review of Systems: Please see history of present illness and past medical history as wall. Constitutional: No fever or chills reported. Head : No recent chronic headaches, recent head injury. Eyes: No recent eye pain, diplopia, redness, discharge, acute visual changes. Ears: No recent chronic ear pain, acute hearing loss, ear discharge. Oral cavity: No recent ulcerations, bleeding, oral cavity discomfort. Neck: No recent acute neck pain reported. Hematologic: No recent easy bruising or bleeding or hematologic malignancy reported. Lymphatic: No recent lymphatic malignancy, chronic lymphadenopathy reported yet Cardiovascular system review: See history of present illness. Respiratory system review: No recent chronic cough, hemoptysis, blood clots in the lungs reported. Mild Shortness of breath on exertion Gastrointestinal system review: Negative for any recent acute or chronic abdominal pain, hematemesis, melena, recent change in bowel habits. Genitourinary system review: No recent acute or chronic hematuria, flank pain, UTI etc. reported. Skin system review: Negative for any recent abnormal bruising, no rash, no pruritus reported. Neurologic: No prior history of strokes, mini strokes, seizure disorder. Psychologic: No history of major psychosis or major depression reported. Musculoskeletal: Minor aches and pains reported. No acute joint swelling reported. Endocrine: No recent polyuria, polydipsia, recent heat or cold intolerance. Physical Exam Vital Signs: Temp Pulse Resp BP Pulse Ox 98.4 F 78 16 140/89 H 100 06/25/17 16:03 06/25/17 16:03 06/25/17 16:03 06/25/17 16:03 06/25/17 16:03 Intake & Output 06/24/17 06/25/17 06/26/17 06:59 06:59 06:59 Intake Total 5 1030 Balance 5 1030 Weight 91.3 kg Exam: GENERAL: well-nourished and in no acute distress. Alert and oriented x3 HEAD: Atraumatic, normocephalic. EYES: Pupils equal round and reactive to light, extraocular movements intact, sclera anicteric, conjunctiva are normal. ENT: TMs normal, nares patent, oropharynx clear without exudates. Moist mucous membranes. No oral ulcerations or bleeding gums noted NECK: supple without lymphadenopathy. Trachea is central. No cervical or axillary lymphadenopathy noted. Carotids are 2+, JVD WNL LUNGS: Respiration seems nonlabored, no significant accessory muscle action noted. Breath sounds clear to auscultation bilaterally and equal noted. No wheezes rales or rhonchi noted. No significant dullness noted on percussion. CHEST: Palpation of the chest wall shows no significant chest wall tenderness. No other significant abnormalities noted. HEART: [place] RN INTAKE, No PSH, 1/6 BRANDEN aortic area, 1/6 natarajan systolic murmur mitral area, no rubs, no gallops. ABDOMEN: Soft, no significant tenderness appreciated, normoactive bowel sounds. No guarding, no rebound. No rigidity noted . No masses appreciated. EXTREMITIES: Pedal pulses are 1-2+, no calf tenderness noted. No clubbing or cyanosis.trace to 1+ pedal edema noted NEUROLOGICAL: Focused neurological exam showed no significant neurologic deficit. Normal speech, no focal weakness appreciated. PSYCH: Normal mood, normal affect. Judgment and insight within normal limits. SKIN: No significant ecchymosis, rash, ulcerations or signs of pruritus noted. MUSCULOSKELETAL EXAM: No significant joint swelling noted. Results Laboratory Results: 06/25/17 06/25/17 06/25/17 00:54 00:54 07:00 Creatine Kinase 95 74 CK-MB (CK-2) 0.41 Troponin I < 0.012 06/25/17 06/25/17 06/25/17 07:00 13:09 13:09 Creatine Kinase 87 CK-MB (CK-2) 0.43 0.33 Troponin I < 0.012 < 0.012 EKG Comments: Sinus rhythm, QS complex anterior precordial lead and some nonspecific T-wave inversion. This is indicative of prior anterior MO. Impressions: Chest X-Ray 06/24/17 21:41 IMPRESSION: NO ACUTE RADIOGRAPHIC FINDING IN THE CHEST. Head CT 06/25/17 00:00 IMPRESSION: NO ACUTE INTRACRANIAL PROCESS. NO SIGNIFICANT CHANGE FROM PRIOR STUDY. EVIDENCE OF ACUTE STROKE: NO. Assessment & Plan - Diagnosis (1) Chest pain Qualifiers: Chest pain type: unspecified Qualified Code(s): R07.9 - Chest pain, unspecified Is this a current diagnosis for this admission?: Yes (2) TIA (transient ischemic attack) Qualifiers: Transient cerebral ischemia type: unspecified Qualified Code(s): G45.9 - Transient cerebral ischemic attack, unspecified Is this a current diagnosis for this admission?: Yes (3) Coronary artery disease Qualifiers: Coronary Disease-Associated Artery/Lesion type: [place] artery [place] vs. transplanted heart: [place] heart Associated angina: angina presence unspecified Qualified Code(s): I25.10 - Atherosclerotic heart disease of [place] coronary artery without angina pectoris Is this a current diagnosis for this admission?: Yes (4) Essential hypertension Is this a current diagnosis for this admission?: Yes (5) Generalized anxiety disorder Is this a current diagnosis for this admission?: Yes (7) Hyperlipidemia Qualifiers: Hyperlipidemia type: unspecified Qualified Code(s): E78.5 - Hyperlipidemia , unspecified - Notes Notes: Patient medications reviewed. Have placed patient on metoprolol succinate instead of atenolol in view of recommendations for depressed LVEF. Have added Imdur 30 mg p.o. daily. Recommend cardiac enzymes on a daily basis. If patient remains stable and is still here on Wednesday and not transferred out, will consider stress testing on Wednesday. Chest pain: There is high probability that patient chest pain is from cardiac ischemia however patient had rather constant chest pain and yet troponin I has been negative. It suggest that patient could have an alternative cause of chest pain. At this point will optimize therapy for underlying CAD. Will try patient on proton pump inhibitor, anxiolytics. Add Ranexa, antiplatelet therapy , high-dose statin therapy etc. Transient ischemic attack: Currently stable. Coronary artery disease: Please see discussion and the chest pain. Hypertension: Reasonably well controlled. Blood pressure goal in this patient is 135/85 or less. This was discussed with the patient. Currently blood pressure under reasonable control. Better medication for this patient are LAITH inhibitor/ARB/beta robina etc. discussed side effects of uncontrolled hypertension and also severe hypotension. Hyperlipidemia: LDL goal is less than 70. Recommend statin therapy at least intermediate or high dose, of high potency status. Periodic lipid panel and liver panel is indicated. Patient to report any significant muscle discomfort or other side effects. History of stroke currently is stable. - Time Time Spent: 30 to 50 Minutes - More than 50% of the time spent coordinating care , discussing management plans with involved caregivers. Management plans discussed with involved personnels. Medical decision making was of moderate to high complexity, patient's has multiple comorbidities. Medications reviewed and adjusted accordingly: Yes
[2017-06-25] MEDS: ATORVASTATIN CALCIUM 80 MG TABLET PO SCH (21:37)
[2017-06-25] MEDS ORDERED: (PENDING PHARMACY ID) (Zolpidem Tartrate [Ambien] 10 MG) PO SCH (22:00)
[2017-06-25] MEDS: CALCIUM CARBONATE 500 MG TAB.CHEW PO PRN (22:51)
[2017-06-25] MEDS: TRAMADOL HCL 50 MG TABLET PO SCH (22:54)
[2017-06-25] MEDS: ZOLPIDEM TARTRATE 5 MG TABLET PO SCH (22:54)
[2017-06-25] MEDS: ALPRAZOLAM 0.5 MG TABLET PO SCH (22:55)
[2017-06-26] MEDS: MORPHINE SULFATE 10 MG/ML INJ IV PRN ×2 (04:05→10:18)
[2017-06-26] MEDS: ALPRAZOLAM 0.5 MG TABLET PO SCH ×3 (05:28→22:58)
[2017-06-26] MEDS: HEPARIN SOD (PORCINE) 5,000 UNIT/ML 1 ML SYRINGE SUBCUT SCH ×3 (05:28→22:20)
[2017-06-26] MEDS: LANSOPRAZOLE 30 MG TAB.RAP.DR PO SCH (05:28)
[2017-06-26 06:05] LABS: ABSOLUTE EOSINOPHILS # (AUTO) 0.1 10^3/uL (0.0-0.6); ABSOLUTE LYMPHOCYTES (AUTO) 2.5 10^3/uL (0.5-4.7); ABSOLUTE MONOCYTES (AUTO) 0.6 10^3/uL (0.1-1.4); ABSOLUTE NEUT (AUTO) 1.9 10^3/uL (1.7-8.2); EOSINOPHILS % (AUTO) 1.7 % (0-6); HEMOGLOBIN 13.4 g/dL (13.5-17.0); LYMPHOCYTES % (AUTO) 48.6 % (13-45); MEAN CORPUSCULAR HGB CONC 33.5 g/dL (32.0-36.0); MEAN CORPUSCULAR VOLUME 81 fl (80-97); MONOCYTES % (AUTO) 11.1 % (3-13); PLATELET COUNT 254 10^3/uL (150-450); RED BLOOD COUNT 4.95 10^6/uL (4.35-5.55); RED CELL DISTRIBUTION WIDTH 15.2 % (11.5-14.0); SEGMENTED NEUTROPHILS % (AUTO) 37.6 % (42-78); TOTAL CELLS COUNTED % (AUTO) 100 %
[2017-06-26 06:24] LABS: ANION GAP 8 (5-19); BLOOD UREA NITROGEN 11 mg/dL (7-20); CALCIUM 9.4 mg/dL (8.4-10.2); CARBON DIOXIDE 27 mmol/L (22-30); CHLORIDE 108 mmol/L (98-107); CHOLESTEROL 152.94 mg/dL (0-200); GLUCOSE 88 mg/dL (75-110); POTASSIUM 3.5 mmol/L (3.6-5.0); SODIUM 142.7 mmol/L (137-145); TRIGLYCERIDES 146 mg/dL (<150)
[2017-06-26 06:35] LABS: DIRECT LDL 69 mg/dL (<100)
[2017-06-26] MEDS ORDERED: BISOPROLOL FUMARATE 10 MG PO SCH (10:00)
[2017-06-26] MEDS ORDERED: ATENOLOL 50 MG TABLET PO SCH ×2 (10:00)
[2017-06-26] MEDS: POTASSIUM CHLORIDE 10 MEQ TABLET.SA PO SCH ×2 (10:16→17:19)
[2017-06-26] MEDS: RANOLAZINE 500 MG TAB.SR.12H PO SCH ×2 (10:17→17:19)
[2017-06-26] MEDS: FUROSEMIDE 40 MG TABLET PO SCH ×2 (10:17→17:20)
[2017-06-26] MEDS: LISINOPRIL 10 MG TABLET PO SCH (10:19)
[2017-06-26] MEDS: ASPIRIN 81 MG TABLET, ENT COATED PO SCH (10:19)
[2017-06-26] MEDS: PRASUGREL HCL 10 MG TABLET PO SCH (10:20)
[2017-06-26] MEDS: ISOSORBIDE MONONITRATE 30 MG TAB.ER.24H PO SCH (10:20)
[2017-06-26] MEDS: METOPROLOL SUCCINATE 50 MG TAB.SR.24H PO SCH (10:20)
[2017-06-26] MEDS: TRAMADOL HCL 50 MG TABLET PO SCH ×2 (10:20→22:58)
--- NOTE | 2017-06-26 13:10 | RADIOLOGY REPORT (SQ) ---
EXAM DESCRIPTION: CT HEAD WITHOUT COMPLETED DATE/TIME: 06/26/2017 1:03 pm REASON FOR STUDY: slurring, facial droop COMPARISON: 06/25/2017 TECHNIQUE: Axial images acquired through the brain without intravenous contrast. Images reviewed wi th bone, brain and subdural windows. Images stored on PACS. All CT scanners at this facility use dose modulation, iterative reconstruction, and/or weight based d osing when appropriate to reduce radiation dose to as low as reasonably achievable (ALARA). [facility]: Dose Right [facility]: CareDose [facility]: Dose Right [facility]: Teradose 4D [facility]: [email or web address] RADIATION DOSE: CT Rad equipment meets quality standard of care and radiation dose reduction techniq ues were employed. CTDIvol: 64.6 mGy. DLP: 2068 mGy-cm. mGy. LIMITATIONS: Motion artifact. FINDINGS: VENTRICLES: Normal size and contour. CEREBRUM: No masses. No hemorrhage. No midline shift. No evidence for acute infarction. Normal gra y/white matter differentiation. No areas of low density in the white matter. CEREBELLUM: No masses. No hemorrhage. No alteration of density. No evidence for acute infarction. EXTRAAXIAL SPACES: No fluid collections. No masses. ORBITS AND GLOBE: No intra- or extraconal masses. Normal contour of globe without masses. CALVARIUM: No fracture. PARANASAL SINUSES: No fluid or mucosal thickening. SOFT TISSUES: No mass or hematoma. OTHER: No other significant finding. IMPRESSION: NORMAL BRAIN CT WITHOUT CONTRAST. EVIDENCE OF ACUTE STROKE: NO. COMMENT: Quality ID # [id number]: Final reports with documentation of one or more dose reduction techniques (e.g., Automated exposure control, adjustment of the mA and/or kV according to patient size, use of iterative reconstruction technique) TECHNICAL DOCUMENTATION: JOB ID: [id number]- All Rights Reserved
--- NOTE | 2017-06-26 14:35 | PDOC PROGRESS REPORT ---
Subjective Progress Note for:: 06/26/17 Subjective:: No overnight issues. This AM noted to have increased chest discomfort. Also noted to have slurred/less coherent speech. Long discuss with patient about merits of transferring to another institution as cardiology and neurology services are not availably currently. Repeat CTH negative for acute bleed on 06/26. No other new complaints. Reason For Visit: TIA, CAD, CP, CHF, ANXIETY Physical Exam Vital Signs: Temp Pulse Resp BP Pulse Ox 97.5 F 73 19 106/75 100 06/26/17 12:26 06/26/17 12:26 06/26/17 12:26 06/26/17 12:26 06/26/17 12:26 Intake & Output 06/25/17 06/26/17 06/27/17 06:59 06:59 06:59 Intake Total 2034 200 Balance 2034 200 Weight 91.3 kg 93.5 kg General appearance: PRESENT: no acute distress, well-developed, well-nourished Head exam: PRESENT: atraumatic, normocephalic Mouth exam: PRESENT: moist Respiratory exam: PRESENT: unlabored. ABSENT: tachypnea, wheezes Cardiovascular exam: PRESENT: RRR. ABSENT: systolic murmur GI/Abdominal exam: PRESENT: soft. ABSENT: distended, tenderness Extremities exam: ABSENT: pedal edema Neurological exam: PRESENT: alert, awake, CN II-XII grossly intact, aphasic - Unclear how different this is for baseline. Psychiatric exam: PRESENT: anxious Results Laboratory Results: 06/26/17 05:34 06/26/17 05:34 06/26/17 06/26/17 05:34 05:34 WBC 5.0 RBC 4.95 Hgb 13.4 L Hct 40.0 MCV 81 MCH 27.0 MCHC 33.5 RDW 15.2 H Plt Count 254 Seg Neutrophils % 37.6 L Lymphocytes % 48.6 H Monocytes % 11.1 Eosinophils % 1.7 Basophils % 1.0 Absolute Neutrophils 1.9 Absolute Lymphocytes 2.5 Absolute Monocytes 0.6 Absolute Eosinophils 0.1 Absolute Basophils 0.0 Sodium 142.7 Potassium 3.5 L Chloride 108 H Carbon Dioxide 27 Anion Gap 8 BUN 11 Creatinine 1.31 H Est GFR ( Amer) > 60 Est GFR (Non-Af Amer) 59 L Glucose 88 Calcium 9.4 Triglycerides 146 Cholesterol 152.94 LDL Cholesterol Direct 69 VLDL Cholesterol 29.0 HDL Cholesterol 59 06/25/17 06/25/17 06/25/17 00:54 00:54 07:00 Creatine Kinase 95 74 CK-MB (CK-2) 0.41 Troponin I < 0.012 06/25/17 06/25/17 06/25/17 07:00 13:09 13:09 Creatine Kinase 87 CK-MB (CK-2) 0.43 0.33 Troponin I < 0.012 < 0.012 06/25/17 19:15 Creatine Kinase CK-MB (CK-2) Troponin I < 0.012 Impressions: Chest X-Ray 06/24/17 21:41 IMPRESSION: NO ACUTE RADIOGRAPHIC FINDING IN THE CHEST. Head CT 06/26/17 00:00 IMPRESSION: NORMAL BRAIN CT WITHOUT CONTRAST. EVIDENCE OF ACUTE STROKE: NO. Assessment & Plan - Diagnosis (1) Chest pain Qualifiers: Chest pain type: unspecified Qualified Code(s): R07.9 - Chest pain, unspecified Is this a current diagnosis for this admission?: Yes Plan: - Continues to have intermittent CP, troponins negative * 4 - Seen by cardiology on 06/25/17. Currently on excellent medical management with metoprolol succinate, LAITH-i, Imdur 30 mg p.o. daily, Ranexa, antiplatelet therapy, Lipitor 80mg qhs - Cards recommended daily cardiac enzymes - Will get stress test on Wednesday, 06/28 - Has history of Cardiac caths s/p multiple stents. Has known complications for cath procedures - Patient did NOT want transfer to tertiary care facility when discussing lack of interventional cardiology here (2) TIA (transient ischemic attack) Qualifiers: Transient cerebral ischemia type: unspecified Qualified Code(s): G45.9 - Transient cerebral ischemic attack, unspecified Is this a current diagnosis for this admission?: Yes Plan: - CT head on 06/26 today given new facial symptoms: no acute bleed - Unable to obtained MRI brain given patients known hardware, previousl hospitalist discussed with radiology who did not feel comfortable getting MRI - Continue medical management for now - Pt refused transfer today. (3) Coronary artery disease Qualifiers: Coronary Disease-Associated Artery/Lesion type: [place] artery [place] vs. transplanted heart: [place] heart Associated angina: angina presence unspecified Qualified Code(s): I25.10 - Atherosclerotic heart disease of [place] coronary artery without angina pectoris Is this a current diagnosis for this admission?: Yes Plan: Management per above (4) Generalized anxiety disorder Is this a current diagnosis for this admission?: Yes Plan: Continue home Xanax 2mg PO q8 hours scheduled for now (5) History of stroke Plan: Pt has known CVA history with residual neurological deficits. - See above - Time Time Spent with patient: 25-34 minutes Anticipated discharge: Home Within: within 48 hours
[2017-06-26] MEDS: ATORVASTATIN CALCIUM 80 MG TABLET PO SCH (22:20)
[2017-06-26] MEDS: ZOLPIDEM TARTRATE 5 MG TABLET PO SCH (22:58)
[2017-06-27] MEDS: ACETAMINOPHEN 325 MG TABLET PO PRN (03:17)
[2017-06-27] MEDS: MORPHINE SULFATE 10 MG/ML INJ IV PRN (04:55)
[2017-06-27] MEDS: HEPARIN SOD (PORCINE) 5,000 UNIT/ML 1 ML SYRINGE SUBCUT SCH ×3 (05:37→21:52)
[2017-06-27] MEDS: LANSOPRAZOLE 30 MG TAB.RAP.DR PO SCH (05:37)
[2017-06-27] MEDS: ALPRAZOLAM 0.5 MG TABLET PO SCH (05:38)
[2017-06-27 06:23] LABS: ANION GAP 12 (5-19); BLOOD UREA NITROGEN 9 mg/dL (7-20); CALCIUM 9.5 mg/dL (8.4-10.2); CARBON DIOXIDE 26 mmol/L (22-30); CHLORIDE 107 mmol/L (98-107); GLUCOSE 91 mg/dL (75-110); SODIUM 144.6 mmol/L (137-145)
[2017-06-27 06:41] LABS: POTASSIUM 4.7 mmol/L (3.6-5.0)
[2017-06-27] MEDS: RANOLAZINE 500 MG TAB.SR.12H PO SCH ×2 (10:11→17:25)
[2017-06-27] MEDS: ASPIRIN 81 MG TABLET, ENT COATED PO SCH (10:12)
[2017-06-27] MEDS: PRASUGREL HCL 10 MG TABLET PO SCH (10:13)
[2017-06-27] MEDS: METOPROLOL SUCCINATE 50 MG TAB.SR.24H PO SCH (10:17)
[2017-06-27] MEDS: ISOSORBIDE MONONITRATE 30 MG TAB.ER.24H PO SCH (10:18)
[2017-06-27] MEDS: TRAMADOL HCL 50 MG TABLET PO SCH ×2 (10:18→21:52)
[2017-06-27] MEDS: POTASSIUM CHLORIDE 10 MEQ TABLET.SA PO SCH (11:02)
[2017-06-27] MEDS: FUROSEMIDE 40 MG TABLET PO SCH (11:02)
[2017-06-27] MEDS: LISINOPRIL 10 MG TABLET PO SCH (11:02)
[2017-06-27] MEDS ORDERED: MORPHINE SULFATE 10 MG/ML INJ IV PRN (11:05)
[2017-06-27] MEDS: ALPRAZOLAM 0.5 MG TABLET PO PRN ×2 (14:10→22:58)
[2017-06-27] MEDS: OXYCODONE HCL IR 5 MG TABLET PO PRN (14:31)
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
[2017-06-27] MEDS ORDERED: TRAMADOL HCL 50 MG TABLET PO ONE (19:00)
[2017-06-27] MEDS: CALCIUM CARBONATE 500 MG TAB.CHEW PO PRN (20:42)
[2017-06-27] MEDS: ATORVASTATIN CALCIUM 80 MG TABLET PO SCH (21:52)
[2017-06-27] MEDS: ZOLPIDEM TARTRATE 5 MG TABLET PO SCH (22:58)
[2017-06-28] MEDS: OXYCODONE HCL IR 5 MG TABLET PO PRN ×2 (00:16→10:17)
[2017-06-28] MEDS: LANSOPRAZOLE 30 MG TAB.RAP.DR PO SCH (05:26)
[2017-06-28] MEDS: ALPRAZOLAM 0.5 MG TABLET PO PRN (05:26)
[2017-06-28 05:48] LABS: ANION GAP 13 (5-19); BLOOD UREA NITROGEN 10 mg/dL (7-20); CALCIUM 9.9 mg/dL (8.4-10.2); CARBON DIOXIDE 22 mmol/L (22-30); CHLORIDE 105 mmol/L (98-107); GLUCOSE 107 mg/dL (75-110); POTASSIUM 4.5 mmol/L (3.6-5.0); SODIUM 139.9 mmol/L (137-145)
[2017-06-28] MEDS: HEPARIN SOD (PORCINE) 5,000 UNIT/ML 1 ML SYRINGE SUBCUT SCH ×2 (06:29→14:36)
[2017-06-28] MEDS ORDERED: ALPRAZOLAM 0.5 MG TABLET PO PRN (09:33)
--- NOTE | 2017-06-28 09:50 | EKG REPORT ---
SEVERITY:- ABNORMAL ECG - SINUS RHYTHM LVH WITH SECONDARY REPOLARIZATION ABNORMALITY ANTERIOR INFARCT, AGE INDETERMINATE : Confirmed by: Tuan Malik 28-Jun-2017 09:49:48
[2017-06-28] MEDS ORDERED: METOPROLOL SUCCINATE 50 MG TAB.SR.24H PO SCH (10:00)
[2017-06-28] MEDS ORDERED: LISINOPRIL 10 MG TABLET PO SCH (10:00)
[2017-06-28] MEDS: RANOLAZINE 500 MG TAB.SR.12H PO SCH (10:15)
[2017-06-28] MEDS: PRASUGREL HCL 10 MG TABLET PO SCH (10:15)
[2017-06-28] MEDS: ASPIRIN 81 MG TABLET, ENT COATED PO SCH (10:15)
[2017-06-28] MEDS: ISOSORBIDE MONONITRATE 30 MG TAB.ER.24H PO SCH (10:16)
--- NOTE | 2017-06-28 11:53 | PDOC PROGRESS REPORT ---
Subjective Progress Note for:: 06/28/17 Subjective:: Patient seems to be doing better with gradual improvement. Pt is denying any chest arm or neck discomfort. Patient denying any PND, orthopnea. Patient denied any sustained palpitations, dizziness, syncope, near syncope. Patient denying any fever chills. Patient denying any other significant discomfort. Patient today completed the stress part of the nuclear stress test. Rest images did show a large area of rest perfusion defect consistent with scar versus hibernating myocardium. Patient is maintaining sinus rhythm. Review of systems: Rest review of systems negative. Medications: Medications have been reviewed. Reason For Visit: TIA, CAD, CP, CHF, ANXIETY Physical Exam Vital Signs: Temp Pulse Resp BP Pulse Ox 97.5 F 68 18 116/77 100 06/28/17 08:04 06/28/17 10:09 06/28/17 08:04 06/28/17 10:09 06/28/17 08:04 Intake & Output 06/27/17 06/28/17 06/29/17 06:59 06:59 06:59 Intake Total 1052 897 Output Total 150 Balance 902 897 Weight 95.6 kg 96 kg Exam: GENERAL: well-nourished and in no acute distress. Alert and oriented x3 HEAD: Atraumatic, normocephalic. EYES: Pupils equal round and reactive to light, extraocular movements intact, sclera anicteric, conjunctiva are normal. ENT: TMs normal, nares patent, oropharynx clear without exudates. Moist mucous membranes. No oral ulcerations or bleeding gums noted NECK: supple without lymphadenopathy. Trachea is central. No cervical or axillary lymphadenopathy noted. Carotids are 2+, JVD WNL LUNGS: Respiration seems nonlabored, no significant accessory muscle action noted. Breath sounds clear to auscultation bilaterally and equal noted. No wheezes rales or rhonchi noted. No significant dullness noted on percussion. CHEST: Palpation of the chest wall shows no significant chest wall tenderness. No other significant abnormalities noted. HEART: [place] CLEAT LAYER, No PSH, 1/6 BRANDEN aortic area, 1/6 natarajan systolic murmur mitral area, no rubs, no gallops. ABDOMEN: Soft, no significant tenderness appreciated, normoactive bowel sounds. No guarding, no rebound. No rigidity noted . No masses appreciated. EXTREMITIES: Pedal pulses are 1-2+, no calf tenderness noted. No clubbing or cyanosis.trace to 1+ pedal edema noted NEUROLOGICAL: Focused neurological exam showed no significant neurologic deficit. Normal speech, no focal weakness appreciated. PSYCH: Normal mood, normal affect. Judgment and insight within normal limits. SKIN: No significant ecchymosis, rash, ulcerations or signs of pruritus noted. MUSCULOSKELETAL EXAM: No significant joint swelling noted. Results Laboratory Results: 06/26/17 05:34 06/28/17 05:14 06/28/17 05:14 Sodium 139.9 Potassium 4.5 Chloride 105 Carbon Dioxide 22 Anion Gap 13 BUN 10 Creatinine 1.43 H Est GFR ( Amer) > 60 Est GFR (Non-Af Amer) 54 L Glucose 107 Calcium 9.9 06/25/17 06/25/17 06/25/17 00:54 00:54 07:00 Creatine Kinase 95 74 CK-MB (CK-2) 0.41 Troponin I < 0.012 06/25/17 06/25/17 06/25/17 07:00 13:09 13:09 Creatine Kinase 87 CK-MB (CK-2) 0.43 0.33 Troponin I < 0.012 < 0.012 06/25/17 19:15 Creatine Kinase CK-MB (CK-2) Troponin I < 0.012 EKG Comments: Today's EKG reviewed. Essentially unchanged from before. Impressions: Chest X-Ray 06/24/17 21:41 IMPRESSION: NO ACUTE RADIOGRAPHIC FINDING IN THE CHEST. Head CT 06/26/17 00:00 IMPRESSION: NORMAL BRAIN CT WITHOUT CONTRAST. EVIDENCE OF ACUTE STROKE: NO. Assessment & Plan - Diagnosis (1) Chest pain Qualifiers: Chest pain type: unspecified Qualified Code(s): R07.9 - Chest pain, unspecified Is this a current diagnosis for this admission?: Yes (2) TIA (transient ischemic attack) Qualifiers: Transient cerebral ischemia type: unspecified Qualified Code(s): G45.9 - Transient cerebral ischemic attack, unspecified Is this a current diagnosis for this admission?: Yes (3) Coronary artery disease Qualifiers: Coronary Disease-Associated Artery/Lesion type: [place] artery [place] vs. transplanted heart: [place] heart Associated angina: angina presence unspecified Qualified Code(s): I25.10 - Atherosclerotic heart disease of [place] coronary artery without angina pectoris Is this a current diagnosis for this admission?: Yes (4) Essential hypertension Is this a current diagnosis for this admission?: Yes (5) Generalized anxiety disorder Is this a current diagnosis for this admission?: Yes (7) Hyperlipidemia Qualifiers: Hyperlipidemia type: unspecified Qualified Code(s): E78.5 - Hyperlipidemia , unspecified - Notes Notes: Have switched patient over to Diovan 80 mg p.o. daily in preparation for patient to be placed on entresto. Have also switched patient over to carvedilol at 6.25 p.o. twice daily as this has better data with LV systolic dysfunction at this dose then metoprolol succinate at 50 mg p.o. daily. Nuclear stress test showed severe fixed defect suggestive of his scar involving most of the anterior wall, apex and inferoapex. No transient perfusion defect noted. EKG gated imaging shows severe LV systolic dysfunction with EF of 17%, anterior wall and apical akinesia noted. At this point feel that best option is continuation of medical management, patient should wear LifeVest and follow- up with informix developer of his choice. Patient will most likely end up needing a prophylactic defibrillator. It may also be worthwhile to review his previous heart catheterization reports and previous cardiac evaluation to see if any viable myocardium or hibernating myocardium is available to reperfuse. Patient will also benefit from evaluation of the sleep study as he does give history of snoring, daytime fatigue and sleepiness. In the meantime patient's management for cardiomyopathy and coronary artery disease would need to be gradually optimized. Currently on review of his regimen it seems satisfactory at this point. - Time Time with patient: Greater than 35 minutes - CODE STATUS was discussed, patient remains full code. Surrogate decision-maker unchanged. Multiple medical problems were addressed. More than 50% of the time spent coordinating care, discussing management plans with involved caregivers. Management plans discussed with involved personnels. Medical decision making was of moderate to high complexity, patient's has multiple comorbidities. Medications reviewed and adjusted accordingly: Yes
[2017-06-28] MEDS ORDERED: VALSARTAN 160 MG TABLET PO SCH (12:00)
--- NOTE | 2017-06-28 12:05 | DRAGON STRESS TEST REPORT ---
INTRAVENOUS LEXISCAN CARDIOLITE STRESS TEST USING SINGLE PHOTON EMMISION COMPUTERIZED TOMOGRAPHIC. DATE OF PROCEDURE: June 28, 2017, INDICATION : Chest pain CARDIAC RISK FACTORS: Hypertension, dyslipidemia RESTING EKG: Sinus rhythm, QS complex in V1 to V3 indicative of prior anterior IL. Nonspecific ST-T wave changes noted. STRESS EKG: No significant changes noted with LexiScan bolus REASON FOR TERMINATION: Protocol. PROCEDURE REPORT: Baseline heart rate 68 beats per minute with blood pressure of 105/68. Patient had no significant complaints. Heart rate at 2 minutes post bolus 74 with a blood pressure of 95/66. 3 minutes post bolus heart rate 67 with blood pressure of 90/66. No significant EKG changes were noted. Patient had no significant complaints during the procedure or postprocedure. Patient injected with Aminophyllin 75 mg at 3 minutes or later after Lexiscan bolus. CONCLUSIONS: Normal EKG and hemodynamic response to IV LexiScan. NUCLEAR DATA: At rest the patient was given 10.10 millicuries of technetium 99 sestamibi injected intravenously. As per protocol rest gated SPECT images were obtained. On day of stress test, the patient was given intravenous LexiScan at a dose of 0.4 mg in 5 mL intravenously, followed by flush with normal saline. Subsequently the stress dose of 32.9 millicuries of technetium 99 sestamibi was injected intravenously. As per protocol stress gated images were obtained. NUCLEAR INTERPRETATION: Both raw and processed data were used for interpretation. Visual, qualitative, computer-generated quantitative data was used. There was good myocardial uptake of technetium compound. Motion artifact and soft tissue attenuations were noted. Increased visceral uptake was noted. No definitive areas of transient perfusion defect noted, Severe fixed defect noted involving anterior wall, apex and inferoapex of the left ventricle suggestive of prior myocardial infarction/scar involving these areas.. EKG gated imaging showed LV EF at 17 %, rest and stress gated EF similar visually, akinetic anterior wall, apex and inferoapex noted. T. I D. ratio was 0.96. Lung heart ratio noted to be within normal limits 0.34. No significant extracardiac and abnormal radiotracer activities were noted. RV free wall uptake was noted to be WNL. IMPRESSION: Also refer to comments under nuclear interpretation. Also test results needs to be interpreted in the context of pretest probability. 1. No definitive areas of transient perfusion defect noted. 2. Severe fixed defect noted involving anterior wall, apex and inferoapex of the left ventricle suggestive of prior myocardial infarction/scar involving these areas. 3. EKG gated imaging shows left ventricular ejection fraction of approx. 17 %. Akinesia of the anterior wall, apex and inferoapex noted. 4. Clinical correlation requested as occasionally single vessel disease or balanced ischemia could be missed. In approximately 10% of the cases Lexiscan may not cause adequate vasodilatory stress. RECOMMENDATIONS: Aggressive risk factor modification and medical management. Further evaluation may be needed if continued symptoms or other high risk indicators are noted on clinical evaluation. May consider evaluation for hibernating myocardium by way of MRI scan/SPECT scanning of the heart. These unfortunately cannot be performed in this institution and may need to be performed as an outpatient at tertiary care if clinically indicated. Close cardiology follow-up is also recommended. Clinical correlation with echocardiogram derived ejection fraction. Inability to exercise by itself can lead to increased cardiovascular event risks. Consider cardiology consultation and or follow-up if clinically indicated. I am available for cardiology evaluation and consultation if requested by the cap and hat production supervisor, unless patient already has a retail sales assistant. SHENG
[2017-06-28] MEDS: TRAMADOL HCL 50 MG TABLET PO SCH (12:16)
[2017-06-28] MEDS ORDERED: VALSARTAN 80 MG TABLET PO ONE (13:30)
[2017-06-28 13:45] VITALS: BP 118/79
[2017-06-28] MEDS ORDERED: ONDANSETRON HCL INJ/PF 4 MG/2 ML SDV IV ONE (14:30)
--- NOTE | 2017-06-28 16:11 | PDOC DISCHARGE SUMMARY ---
General - Admit/Disc Date/PCP Admission Date/Primary Care Provider: 06/25/17 00:41 Discharge Date: 06/28/17 - Discharge Diagnosis (1) Chest pain Is this a current diagnosis for this admission?: Yes (2) Coronary artery disease Is this a current diagnosis for this admission?: Yes (3) Essential hypertension Is this a current diagnosis for this admission?: Yes (4) Generalized anxiety disorder Is this a current diagnosis for this admission?: Yes (6) Cardiomyopathy Is this a current diagnosis for this admission?: Yes (7) TIA (transient ischemic attack) Is this a current diagnosis for this admission?: Yes - Additional Information Resuscitation Status: Full Code Discharge Diet: Cardiac Discharge Activity: Activity As Tolerated Prescriptions: Valsartan [Diovan 80 mg Tablet] 80 mg PO DAILY #30 tablet Home Medications: Alprazolam [Xanax] 2 mg PO TID 06/25/17 Atorvastatin Calcium [Lipitor 80 mg Tablet] 80 mg PO QHS 06/25/17 Bisoprolol Fumarate [Zebeta 5 mg Tablet] 10 mg PO DAILY 06/25/17 Dexlansoprazole [Dexilant 60 mg Capsule] 60 mg PO DAILY 06/25/17 Furosemide [Lasix 40 mg Tablet] 40 mg PO BID 06/25/17 Lisinopril [Zestril] 20 mg PO DAILY 06/25/17 Nitroglycerin [Nitrostat 0.4 mg (1/150 Gr) Tabs 25/Bottle] 0.4 mg SL Q5MP PRN Oxycodone HCl 15 mg PO Q6HP PRN 06/25/17 Potassium Chloride [K-Tab ER] 40 meq PO BID 06/25/17 Prasugrel HCl [Effient 10 mg Tablet] 10 mg PO DAILY 06/25/17 Ranolazine [Ranexa 500 mg Tab.sr] 1,000 mg PO BID 06/25/17 Tacrolimus [Protopic] 1 applic TOP BID 06/25/17 Tramadol HCl [Ultram 50 mg Tablet] 50 mg PO HSP PRN 06/25/17 Tramadol HCl [Ultram 50 mg Tablet] 100 mg PO BID 06/25/17 Zolpidem Tartrate [Ambien] 10 mg PO QHS 06/25/17 Zolpidem Tartrate [Ambien] 10 ng PO QHS 06/25/17 Aspirin [Ecotrin 81 mg EC Tablet] 162 mg PO DAILY tabec 06/28/17 Valsartan [Diovan 80 mg Tablet] 80 mg PO DAILY #30 tablet 06/28/17 History of Present Illness History of Present Illness: WINDY CORNEJO is a 42 year old male with a past medical history of alcohol dependence, generalized anxiety, coronary artery disease status post stent, cardiomyopathy, left ventricular thrombus and TIA. The patient's history was extraordinarily difficult to obtain as it was inconsistent between providers obtaining history. Patient presented after 24-48 hours of retrosternal chest pain similar to previous DC with radiation to the left shoulder, dull in nature 4-5 intensity waxing and waning reduced with nitro worsened with exertion. He has also had subjective right-sided facial drooping and left arm and hand numbness. In the emergency room he was found to have residual chest pain and numbness of the face and right arm. Initial workup is entirely negative he was referred to the hospitalist for observation. Patient reported medication compliance in addition to uncontrolled anxiety and alcohol use Hospital Course Hospital Course: Patient was admitted under the hospitalist service telemetry unit. Troponin was trended negative. There were no cardiac dysrhythmias. As there was a concern about the possibility of a TIA patient was evaluated through CT of the brain which was normal. Patient was extremely concerned about having to undergo a heart cath and he was evaluated thru a nuclear stress test. The latter was negative. Patient was evaluated by cardiology service and he is to follow with Dr. Malik or the livestock producer of his choice upon discharge. Recommendation is for medical management and patient may need an AICD and possibly a LifeVest since EF is 17%. Patient also has a great deal of anxiety component which might be playing a major role in his presentation. She has been made aware of importance to follow-up with primary care provider and cardiology. Since patient had been stable prompted to discharge Physical Exam Vital Signs: Temp Pulse Resp BP Pulse Ox 97.5 F 72 18 118/79 100 06/28/17 14:32 06/28/17 14:32 06/28/17 14:32 06/28/17 14:32 06/28/17 14:32 Intake & Output 06/27/17 06/28/17 06/29/17 06:59 06:59 06:59 Intake Total 1052 897 100 Output Total 150 Balance 902 897 100 Weight 95.6 kg 96 kg General appearance: PRESENT: no acute distress, cooperative, obese Head exam: PRESENT: atraumatic, normocephalic Eye exam: PRESENT: EOMI, PERRLA Ear exam: PRESENT: normal external ear exam Mouth exam: PRESENT: moist Neck exam: PRESENT: full ROM. ABSENT: JVD, lymphadenopathy, tenderness Respiratory exam: PRESENT: clear to auscultation yesenia Cardiovascular exam: PRESENT: RRR. ABSENT: diastolic murmur, systolic murmur Vascular exam: PRESENT: normal capillary refill GI/Abdominal exam: PRESENT: normal bowel sounds, soft. ABSENT: tenderness Extremities exam: PRESENT: full ROM Musculoskeletal exam: PRESENT: ambulatory, full ROM Neurological exam: PRESENT: alert, awake, oriented to person, oriented to place , oriented to time, oriented to situation, CN II-XII grossly intact Psychiatric exam: PRESENT: appropriate affect, normal mood Skin exam: PRESENT: intact, normal color Results Laboratory Results: 06/26/17 05:34 06/28/17 05:14 06/28/17 05:14 Sodium 139.9 Potassium 4.5 Chloride 105 Carbon Dioxide 22 Anion Gap 13 BUN 10 Creatinine 1.43 H Est GFR ( Amer) > 60 Est GFR (Non-Af Amer) 54 L Glucose 107 Calcium 9.9 06/25/17 06/25/17 06/25/17 00:54 00:54 07:00 Creatine Kinase 95 74 CK-MB (CK-2) 0.41 Troponin I < 0.012 06/25/17 06/25/17 06/25/17 07:00 13:09 13:09 Creatine Kinase 87 CK-MB (CK-2) 0.43 0.33 Troponin I < 0.012 < 0.012 06/25/17 19:15 Creatine Kinase CK-MB (CK-2) Troponin I < 0.012 Impressions: Chest X-Ray 06/24/17 21:41 IMPRESSION: NO ACUTE RADIOGRAPHIC FINDING IN THE CHEST. Head CT 06/26/17 00:00 IMPRESSION: NORMAL BRAIN CT WITHOUT CONTRAST. EVIDENCE OF ACUTE STROKE: NO. Plan Discharge Plan: Discharge home Time Spent: Less than 30 Minutes
[2017-06-28] MEDS ORDERED: CARVEDILOL 6.25 MG TABLET PO SCH (22:00)
--- NOTE | 2017-06-29 09:08 | XCELERA REPORT ---
[address] [address] Transthoracic Echocardiogram Report Name: WINDY CORNEJO Age: 42 yrs Gender: Male : 1975 Patient Status: Inpatient Patient Location: [address] [place] [address] Study Date: 06/25/2017 09:04 AM Height: 70 in Weight: 210 lb BSA: 2.1 m2 Procedure: A complete two-dimensional transthoracic echocardiogram was performed (2D, M-mode, spectral and color flow Doppler). The study was technically difficult with many images being suboptimal in quality. Reason For Study: chf tia Ordering Physician: HAILY NGUYEN Performed By: Enma Ventura Interpretation Summary The Ejection Fraction estimate is 25-30% Left ventricular systolic function is severely reduced. There is severe global hypokinesis of the left ventricle. There is apical wall akinesis Doppler measurements suggest pseudonormalized left ventricular relaxation, which is associated with grade II/IV or mild to moderate diastolic dysfunction There is normal left ventricular wall thickness. The left ventricle is moderately dilated. The right ventricular systolic function is borderline reduced. The right atrium is normal. The left atrial size is normal. There is a mild amount of mitral regurgitation There is no mitral valve stenosis. There is no aortic valve stenosis No aortic regurgitation is present. There is a trace or physiologic amount of tricuspid regurgitation Tricuspid regurgitation jet envelope not well defined to measure RV systolic pressure accurately. The aortic root is not well visualized but is probably normal size. The inferior vena cava was not well visualized Minimal pericardial effusion. MMode/2D Measurements & Calculations RVDd: 2.5 cm LVIDd: 7.6 cm FS: 13.3 % Ao root diam: 3.0 cm IVSd: 0.77 cm LVIDs: 6.6 cm EDV(Teich): 309.6 ml LVPWd: 0.78 cm ESV(Teich): 224.7 ml Ao root area: 7.3 cm2 EF(Teich): 27.4 % LA dimension: 4.3 cm Doppler Measurements & Calculations MV E max mark: MV P1/2t max mark: Ao V2 max: LV V1 max P.7 cm/sec 61.7 cm/sec 103.2 cm/sec 0.80 mmHg MV A max mark: MV P1/2t: 57.8 msec Ao max PG: LV V1 max: 36.5 cm/sec 4.3 mmHg 44.7 cm/sec MV E/A: 1.7 MVA(P1/2t): 3.8 cm2 MV dec slope: 312.9 cm/sec2 PA V2 max: 52.3 cm/sec PA max P.1 mmHg Left Ventricle The left ventricle is moderately dilated. There is normal left ventricular wall thickness. Left ventricular systolic function is severely reduced. The Ejection Fraction estimate is 25-30%. Doppler measurements suggest pseudonormalized left ventricular relaxation, which is associated with grade II/IV or mild to moderate diastolic dysfunction. There is severe global hypokinesis of the left ventricle. Regional wall motion abnormalities cannot be excluded due to limited visualization. There is apical wall akinesis. Right Ventricle The right ventricle is grossly normal size. There is normal right ventricular wall thickness. The right ventricular systolic function is borderline reduced. Atria The right atrium is normal. The left atrial size is normal. Interarterial septum not well visualized and not well dopplered. Cannot comment on ASD/PFO presence. Mitral Valve The mitral valve is grossly normal. There is no mitral valve stenosis. There is a mild amount of mitral regurgitation. Aortic Valve The aortic valve is not well visualized secondary to technical limitations. There is no aortic valve stenosis. No aortic regurgitation is present. Tricuspid Valve The tricuspid valve is not well visualized secondary to technical limitations. There is no tricuspid stenosis. There is a trace or physiologic amount of tricuspid regurgitation. Tricuspid regurgitation jet envelope not well defined to measure RV systolic pressure accurately. Pulmonic Valve The pulmonic valve is not well visualized. Great Vessels The aortic root is not well visualized but is probably normal size. The inferior vena cava was not well visualized. Effusions Minimal pericardial effusion. : HAILY NGUYEN > uTan Malik
[2017-06-29] MEDS ORDERED: VALSARTAN 80 MG TABLET PO SCH (10:00)
== END 2017-06-28 15:00 | disposition home or self-care (01) | DRG 69 ==
LOC: ER 21:38 → EH 06-25 00:41 → 3W 06-25 05:24
PROVIDERS: ADMIT Internal Medicine; ATTEND Internal Medicine
DX: G45.9 Transient cerebral ischemic attack, unspecified (principal); I42.9 Cardiomyopathy, unspecified; I25.10 Atherosclerotic heart disease of native coronary artery without angina pectoris; I10 Essential (primary) hypertension; F41.1 Generalized anxiety disorder; F10.21 Alcohol dependence, in remission; R29.810 Facial weakness; R20.0 Anesthesia of skin; E11.9 Type 2 diabetes mellitus without complications; E78.00 Pure hypercholesterolemia, unspecified; I25.2 Old myocardial infarction; Z79.899 Other long term (current) drug therapy; Z79.82 Long term (current) use of aspirin; Z95.5 Presence of coronary angioplasty implant and graft; Z82.49 Family history of ischemic heart disease and other diseases of the circulatory system
CPT/HCPCS: 36415; 70450; 71045; 78451; 80048; 80053; 80061; 80307; 82550; 82553; 82962; 83036; 83880; 84484; 85025; 85610; 93005; 93010; 93017; 93306; 96374; 99285; A9500; J0280; J1644; J2270; J2405; J2785; J3490; Q9969

== ENCOUNTER 2017-10-04 13:07 | Emergency (ER) | payer MEDICARE, MEDICAID ==
[2017-10-04] MEDS ORDERED: ASPIRIN 81 MG TABLET, CHEWABLE PO ONE (14:16)
[2017-10-04] MEDS ORDERED: NITROGLYCERIN 2% OINTMENT 1 GM PACKET TP ONE (14:16)
--- NOTE | 2017-10-04 14:18 | ER Document Report ---
ED Medical Screen (RME) - General Chief Complaint: Chest Pain > 30 Stated Complaint: CHEST PAIN, SHORTNESS OF BREATH Time Seen by Provider: 10/04/17 13:44 Notes: RAPID MEDICAL EVALUATION DISCLOSURE I have seen this patient as part of a Rapid Medical Evaluation and, if applicable, placed any initially appropriate orders. The patient will be seen and fully evaluated, including a full history and physical exam, by a provider ( in Main ED or Fast Track) when a room becomes available. 42-year-old male PMH CAD with 6 coronary stents here with complaints of midsternal chest pain radiating up to the left shoulder down the left arm with shortness of breath nausea that started approximately 1.5 hours ago while he was watching TV. He took 3 sublingual nitroglycerin which did help improve the pain. He reports this feels like the time he had a heart attack that showed a 100% blockage. EXAM Clear to auscultation bilaterally Regular rate and rhythm TRAVEL OUTSIDE OF THE [place] IN LAST 30 DAYS: No - Related Data Allergies/Adverse Reactions: No Known Allergies Allergy (Verified 10/04/17 13:08) Past Medical History - Social History Frequency of alcohol use: Rare Drug Abuse: None - Past Medical History Cardiac Medical History: Reports: Hx Coronary Artery Disease, Hx Heart Attack, Hx Hypercholesterolemia, Hx Hypertension Pulmonary Medical History: Denies: Hx Tuberculosis Endocrine Medical History: Reports: Hx Diabetes Mellitus Type 2 Renal/ Medical History: Denies: Hx Peritoneal Dialysis Psychiatric Medical History: Reports: Hx Anxiety Denies: Hx Depression Past Surgical History: Reports: Hx Cardiac Catheterization, Hx Coronary Stent - x 5, Hx Orthopedic Surgery - right rotator cuff. Denies: Hx Pacemaker - Immunizations Immunizations up to date: No Hx Diphtheria, Pertussis, Tetanus Vaccination: Yes History of Influenza Vaccine for 02/2017 - 07/2017 Season: Refused Physical Exam - Vital signs Vitals: Temp Pulse Resp BP Pulse Ox 98.9 F 86 16 118/82 98 10/04/17 13:25 10/04/17 13:25 10/04/17 13:25 10/04/17 13:25 10/04/17 13:25 Course - Vital Signs Vital signs: Temp Pulse Resp BP Pulse Ox 98.9 F 86 16 118/82 98 10/04/17 13:25 10/04/17 13:25 10/04/17 13:25 10/04/17 13:25 10/04/17 13:25 Doctor's Discharge - Discharge Referrals: DELIA BLACK DO [Primary Care Provider] - Follow up as needed
--- NOTE | 2017-10-04 14:55 | RADIOLOGY REPORT (SQ) ---
EXAM DESCRIPTION: CHEST 2 VIEWS COMPLETED DATE/TIME: 10/04/2017 2:35 pm REASON FOR STUDY: CP SOB COMPARISON: 06/24/2017 EXAM PARAMETERS: NUMBER OF VIEWS: two views TECHNIQUE: Digital Frontal and Lateral radiographic views of the chest acquired. RADIATION DOSE: NA LIMITATIONS: none FINDINGS: LUNGS AND PLEURA: No opacities, masses or pneumothorax. No pleural effusion. MEDIASTINUM AND HILAR STRUCTURES: No masses or contour abnormalities. HEART AND VASCULAR STRUCTURES: Heart normal size. No evidence for failure. BONES: No acute findings. HARDWARE: None in the chest. OTHER: No other significant finding. IMPRESSION: NO ACUTE RADIOGRAPHIC FINDING IN THE CHEST. TECHNICAL DOCUMENTATION: JOB ID: [id number] [employer]- All Rights Reserved Reading location - IP/workstation name: [email or web address]
[2017-10-04 15:28] LABS: ABSOLUTE EOSINOPHILS # (AUTO) 0.1 10^3/uL (0.0-0.6); ABSOLUTE MONOCYTES (AUTO) 0.6 10^3/uL (0.1-1.4); ABSOLUTE NEUT (AUTO) 1.9 10^3/uL (1.7-8.2); BASOPHILS % (AUTO) 1.1 % (0-2); EOSINOPHILS % (AUTO) 1.8 % (0-6); HEMATOCRIT 39.7 % (37.9-51.0); HEMOGLOBIN 12.8 g/dL (13.5-17.0); LYMPHOCYTES % (AUTO) 43.7 % (13-45); MEAN CORPUSCULAR HEMOGLOBIN 26.4 pg (27.0-33.4); MEAN CORPUSCULAR HGB CONC 32.3 g/dL (32.0-36.0); MEAN CORPUSCULAR VOLUME 82 fl (80-97); MONOCYTES % (AUTO) 12.3 % (3-13); PLATELET COUNT 255 10^3/uL (150-450); RED BLOOD COUNT 4.86 10^6/uL (4.35-5.55); RED CELL DISTRIBUTION WIDTH 15.4 % (11.5-14.0); SEGMENTED NEUTROPHILS % (AUTO) 41.1 % (42-78); TOTAL CELLS COUNTED % (AUTO) 100 %; WHITE BLOOD COUNT 4.6 10^3/uL (4.0-10.5)
[2017-10-04] MEDS ORDERED: MORPHINE SULFATE 10 MG/ML INJ IV ONE ×2 (15:30→19:22)
--- NOTE | 2017-10-04 15:34 | ER Document Report ---
ED General - General Chief Complaint: Chest Pain > 30 Stated Complaint: CHEST PAIN, SHORTNESS OF BREATH Time Seen by Provider: 10/04/17 13:44 Information source: Patient TRAVEL OUTSIDE OF THE [place] IN LAST 30 DAYS: No - HPI Patient complains to provider of: chest pressure Onset: Yesterday Onset/Duration: Sudden Quality of pain: Dull Severity: Moderate Context: "feels like my last heart attack in September" Associated symptoms: None Exacerbated by: Denies - was watching tv when it happened Relieved by: Denies Similar symptoms previously: Yes Recently seen / treated by doctor: Yes - Related Data Allergies/Adverse Reactions: No Known Allergies Allergy (Verified 10/04/17 13:08) Past Medical History - General Information source: Patient - Social History Smoking Status: Former Smoker Frequency of alcohol use: Rare Drug Abuse: None Lives with: Family Family History: CAD, Hyperlipidemia, Hypertension Patient has suicidal ideation: No Patient has homicidal ideation: No - Past Medical History Cardiac Medical History: Reports: Hx Coronary Artery Disease, Hx Heart Attack, Hx Hypercholesterolemia, Hx Hypertension Pulmonary Medical History: Reports: None Denies: Hx Tuberculosis Endocrine Medical History: Reports: Hx Diabetes Mellitus Type 2 Renal/ Medical History: Denies: Hx Peritoneal Dialysis Malignancy Medical History: Reports None GI Medical History: Reports: None Psychiatric Medical History: Reports: Hx Anxiety Denies: Hx Depression Past Surgical History: Reports: Hx Cardiac Catheterization, Hx Coronary Stent - x 5, Hx Orthopedic Surgery - right rotator cuff. Denies: Hx Pacemaker - Immunizations Immunizations up to date: No Hx Diphtheria, Pertussis, Tetanus Vaccination: Yes Hx Pneumococcal Vaccination: 02/21/11 Review of Systems - Review of Systems Constitutional: No symptoms reported EENT: No symptoms reported Cardiovascular: See HPI Respiratory: No symptoms reported Gastrointestinal: No symptoms reported Genitourinary: No symptoms reported Male Genitourinary: No symptoms reported Skin: No symptoms reported Hematologic/Lymphatic: No symptoms reported Neurological/Psychological: No symptoms reported Physical Exam - Vital signs Vitals: Temp Pulse Resp BP Pulse Ox 98.9 F 86 16 118/82 98 10/04/17 13:25 10/04/17 13:25 10/04/17 13:25 10/04/17 13:25 10/04/17 13:25 - Notes Notes: PHYSICAL EXAMINATION: GENERAL: Well-appearing, well-nourished and in no acute distress. HEAD: Atraumatic, normocephalic. EYES: Pupils equal round and reactive to light, extraocular movements intact, sclera anicteric, conjunctiva are normal. ENT: Nares patent, oropharynx clear without exudates. Moist mucous membranes. NECK: Normal range of motion, supple without lymphadenopathy LUNGS: Breath sounds clear to auscultation bilaterally and equal. No wheezes rales or rhonchi. HEART: Regular rate and rhythm without murmurs ABDOMEN: Soft, nontender, nondistended abdomen. No guarding, no rebound. No masses appreciated. Musculoskeletal: Normal range of motion, no pitting or edema. No cyanosis. NEUROLOGICAL: Cranial nerves grossly intact. Normal speech, normal gait. Normal sensory, motor exams PSYCH: Normal mood, normal affect. SKIN: Warm, Dry, normal turgor, no rashes or lesions noted. Course - Re-evaluation Re-evalutation: I did renew the I did review the patient's past medical history. He did have a nuclear stress test recently which did not show any acute findings. EF was 17% . Patient continues to have chest pain. Although troponins are in the indiscriminate zone they are rising. Call to [facility] was placed to transfer the patient. More morphine was ordered. 10/04/17 19:23 Call to [facility] for transfer. await call back. Face sheet faxed. 10/04/17 19:24 Labs- All tests 24 hr 10/04/17 10/04/17 10/04/17 15:08 15:08 15:08 WBC 4.6 RBC 4.86 Hgb 12.8 L Hct 39.7 MCV 82 MCH 26.4 L MCHC 32.3 RDW 15.4 H Plt Count 255 Seg Neutrophils % 41.1 L Lymphocytes % 43.7 Monocytes % 12.3 Eosinophils % 1.8 Basophils % 1.1 Absolute Neutrophils 1.9 Absolute Lymphocytes 2.0 Absolute Monocytes 0.6 Absolute Eosinophils 0.1 Absolute Basophils 0.0 Sodium 145.6 H Potassium 4.5 Chloride 111 H Carbon Dioxide 23 Anion Gap 12 BUN 12 Creatinine 1.02 Est GFR ( Amer) > 60 Est GFR (Non-Af Amer) > 60 Glucose 80 Calcium 9.7 Troponin I 0.020 10/04/17 17:05 WBC RBC Hgb Hct MCV MCH MCHC RDW Plt Count Seg Neutrophils % Lymphocytes % Monocytes % Eosinophils % Basophils % Absolute Neutrophils Absolute Lymphocytes Absolute Monocytes Absolute Eosinophils Absolute Basophils Sodium Potassium Chloride Carbon Dioxide Anion Gap BUN Creatinine Est GFR ( Amer) Est GFR (Non-Af Amer) Glucose Calcium Troponin I 0.033 Chest X-Ray 10/04/17 14:17 IMPRESSION: NO ACUTE RADIOGRAPHIC FINDING IN THE CHEST. - Vital Signs Vital signs: Temp Pulse Resp BP Pulse Ox 98.5 F 86 20 129/93 H 100 10/04/17 20:00 10/04/17 13:25 10/04/17 19:51 10/04/17 20:00 10/04/17 19:51 - Laboratory Result Diagrams: 10/04/17 15:08 10/04/17 15:08 Laboratory results interpreted by me: 10/04/17 10/04/17 15:08 15:08 Hgb 12.8 L MCH 26.4 L RDW 15.4 H Seg Neutrophils % 41.1 L Sodium 145.6 H Chloride 111 H - Diagnostic Test Radiology reviewed: Image reviewed, Reports reviewed - EKG Interpretation by Me EKG shows normal: Sinus rhythm - 80 Rate: Normal Voltage: Consistant with LVH When compared to previous EKG there are: No significant change Discharge - Discharge Clinical Impression: Coronary artery disease, Chest pain Condition: Stable Disposition: [facility] Referrals: DELIA BLACK DO [Primary Care Provider] - Follow up as needed
[2017-10-04 15:44] LABS: ANION GAP 12 (5-19); BLOOD UREA NITROGEN 12 mg/dL (7-20); CALCIUM 9.7 mg/dL (8.4-10.2); CARBON DIOXIDE 23 mmol/L (22-30); CHLORIDE 111 mmol/L (98-107); GLUCOSE 80 mg/dL (75-110); POTASSIUM 4.5 mmol/L (3.6-5.0); SODIUM 145.6 mmol/L (137-145)
[2017-10-04] MEDS ORDERED: ENOXAPARIN SODIUM INJ 100 MG/1 ML DISP.SYRIN SUBCUT SCH (20:00)
--- NOTE | 2017-10-04 20:07 | EKG REPORT ---
SEVERITY:- ABNORMAL ECG - SINUS RHYTHM LVH WITH SECONDARY REPOLARIZATION ABNORMALITY : Confirmed by: Tuan Malik 04-Oct-2017 20:07:31
[2017-10-04 20:42] LABS: PROTHROMBIN TIME 13.7 SEC (11.4-15.4)
[2017-10-04] MEDS ORDERED: ENOXAPARIN SODIUM INJ 100 MG/1 ML DISP.SYRIN SUBCUT ONE (20:45)
[2017-10-05] MEDS ORDERED: MORPHINE SULFATE 10 MG/ML INJ IV ONE ×2 (01:07→09:02)
--- NOTE | 2017-10-05 06:09 | ER Document Report ---
Doctor's Note Notes: 10/05/17 06:09 The patient is awaiting to be transferred to [facility]. Vital signs are stable and the patient is pain-free. Most recently the patient was inquiring about having something to drink. He is given water to drink which is satisfactory at this time. 10/05/17 07:24 Transfer of care and report on the patient was given to Dr. Slater.
[2017-10-05 08:23] VITALS: BP 127/98
--- NOTE | 2017-10-05 08:54 | EKG REPORT ---
SEVERITY:- ABNORMAL ECG - SINUS RHYTHM LVH WITH SECONDARY REPOLARIZATION ABNORMALITY : Confirmed by: Tuan Malik 05-Oct-2017 08:53:23
[2017-10-05] MEDS ORDERED: HYDROMORPHONE HCL INJ/PF 2 MG/ML AMPULE IV ONE (09:28)
[2017-10-05] MEDS ORDERED: ENOXAPARIN SODIUM INJ 100 MG/1 ML DISP.SYRIN SUBCUT SCH (10:00)
== END 2017-10-05 09:32 | disposition short-term general hospital (02) ==
LOC: ER 13:07
DX: I25.10 Atherosclerotic heart disease of native coronary artery without angina pectoris (principal); R07.89 Other chest pain; I10 Essential (primary) hypertension; E11.9 Type 2 diabetes mellitus without complications; I25.2 Old myocardial infarction; Z95.5 Presence of coronary angioplasty implant and graft; Z87.891 Personal history of nicotine dependence; Z82.49 Family history of ischemic heart disease and other diseases of the circulatory system
CPT/HCPCS: 93005 ×2; 96376; 99285; 96372; 96374; 36415; 85025; 85610; 80048; 84484; 71046; 93010 ×2; A9270 ×2; J2270 ×2; J1170; J1650

== ENCOUNTER 2018-01-10 11:51 | Emergency (ER) | payer MEDICARE, MEDICAID ==
--- NOTE | 2018-01-10 12:24 | RADIOLOGY REPORT (SQ) ---
EXAM DESCRIPTION: CT HEAD WITHOUT COMPLETED DATE/TIME: 01/10/2018 12:13 pm REASON FOR STUDY: acute CVA COMPARISON: None. TECHNIQUE: Axial images acquired through the brain without intravenous contrast. Images reviewed wi th bone, brain and subdural windows. Additional sagittal and coronal reconstructions were generated. Images stored on PACS. All CT scanners at this facility use dose modulation, iterative reconstruction, and/or weight based d osing when appropriate to reduce radiation dose to as low as reasonably achievable (ALARA). [facility]: Dose Right [facility]: CareDose [facility]: Dose Right [facility]: Teradose 4D [facility]: Smart [employer] RADIATION DOSE: CT Rad equipment meets quality standard of care and radiation dose reduction techniq ues were employed. CTDIvol: 53.2 mGy. DLP: 1070 mGy-cm. mGy. LIMITATIONS: None. FINDINGS: VENTRICLES: Normal size and contour. CEREBRUM: No masses. No hemorrhage. No midline shift. No evidence for acute infarction. Normal gra y/white matter differentiation. No areas of low density in the white matter. CEREBELLUM: No masses. No hemorrhage. No alteration of density. No evidence for acute infarction. EXTRAAXIAL SPACES: No fluid collections. No masses. ORBITS AND GLOBE: No intra- or extraconal masses. Normal contour of globe without masses. CALVARIUM: No fracture. PARANASAL SINUSES: No fluid or mucosal thickening. SOFT TISSUES: No mass or hematoma. OTHER: No other significant finding. IMPRESSION: NORMAL BRAIN CT WITHOUT CONTRAST. EVIDENCE OF ACUTE STROKE: NO. COMMENT: Pertinent positive or negative findings of the imaging study reported as a CRITICAL EXAM t mitra WARD MD at12:17 on 01/10/2018. Category of Critical Exam: Stroke alert. Quality ID # [id number]: Final reports with documentation of one or more dose reduction techniques (e.g., Au tomated exposure control, adjustment of the mA and/or kV according to patient size, use of iterative reconstruction technique) TECHNICAL DOCUMENTATION: JOB ID: [id number] [employer]- All Rights Reserved Reading location - IP/workstation name: [email or web address]
--- NOTE | 2018-01-10 12:36 | RADIOLOGY REPORT (SQ) ---
EXAM DESCRIPTION: CHEST SINGLE VIEW COMPLETED DATE/TIME: 01/10/2018 12:22 pm REASON FOR STUDY: stroke COMPARISON: 10/04/2017 EXAM PARAMETERS: NUMBER OF VIEWS: One view. TECHNIQUE: Single frontal radiographic view of the chest acquired. RADIATION DOSE: NA LIMITATIONS: None. FINDINGS: LUNGS AND PLEURA: No opacities, masses or pneumothorax. No pleural effusion. MEDIASTINUM AND HILAR STRUCTURES: No masses. Contour normal. HEART AND VASCULAR STRUCTURES: Heart size is borderline. No evidence of pulmonary edema. BONES: No acute findings. HARDWARE: Pacemaker/defibrillator. OTHER: No other significant finding. IMPRESSION: Borderline cardiomegaly with no acute CHF. No pulmonary disease. TECHNICAL DOCUMENTATION: JOB ID: [id number] [employer]- All Rights Reserved Reading location - IP/workstation name: [email or web address]
[2018-01-10 12:45] LABS: ABSOLUTE BASOPHILS # (AUTO) 0.1 10^3/uL (0.0-0.2); ABSOLUTE LYMPHOCYTES (AUTO) 2.4 10^3/uL (0.5-4.7); ABSOLUTE MONOCYTES (AUTO) 0.4 10^3/uL (0.1-1.4); ABSOLUTE NEUT (AUTO) 1.3 10^3/uL (1.7-8.2); BASOPHILS % (AUTO) 1.2 % (0-2); EOSINOPHILS % (AUTO) 0.8 % (0-6); HEMATOCRIT 40.5 % (37.9-51.0); HEMOGLOBIN 13.6 g/dL (13.5-17.0); LYMPHOCYTES % (AUTO) 57.8 % (13-45); MEAN CORPUSCULAR HEMOGLOBIN 27.2 pg (27.0-33.4); MEAN CORPUSCULAR HGB CONC 33.6 g/dL (32.0-36.0); MEAN CORPUSCULAR VOLUME 81 fl (80-97); PLATELET COUNT 284 10^3/uL (150-450); RED CELL DISTRIBUTION WIDTH 15.8 % (11.5-14.0); SEGMENTED NEUTROPHILS % (AUTO) 30.2 % (42-78); TOTAL CELLS COUNTED % (AUTO) 100 %; WHITE BLOOD COUNT 4.2 10^3/uL (4.0-10.5)
[2018-01-10 13:12] LABS: ALANINE AMINOTRANSFERASE 25 U/L (21-72); ALBUMIN 4.1 g/dL (3.5-5.0); ALKALINE PHOSPHATASE 67 U/L (38-126); ANION GAP 13 (5-19); ASPARTATE AMINO TRANSFERASE 34 U/L (17-59); BILIRUBIN,DIRECT 0.2 mg/dL (0.0-0.4); BILIRUBIN,TOTAL 0.4 mg/dL (0.2-1.3); BLOOD UREA NITROGEN 8 mg/dL (7-20); CALCIUM 8.8 mg/dL (8.4-10.2); CARBON DIOXIDE 22 mmol/L (22-30); CHLORIDE 114 mmol/L (98-107); CREATINE KINASE 193 U/L (55-170); GLUCOSE 84 mg/dL (75-110); POTASSIUM 3.8 mmol/L (3.6-5.0); SODIUM 148.8 mmol/L (137-145); TOTAL PROTEIN 7.6 g/dL (6.3-8.2)
[2018-01-10] MEDS ORDERED: ALTEPLASE INJ 100 MG VIAL ONE (13:12)
[2018-01-10] MEDS ORDERED: NORMAL SALINE INJ/PF 0.9% 10 ML SDV IV ONE (13:22)
[2018-01-10] MEDS ORDERED: ASPIRIN 81 MG TABLET, CHEWABLE PO ONE ×2 (13:22→13:33)
[2018-01-10 13:30] LABS: CREATINE KINASE MB 0.71 ng/mL (<4.55)
[2018-01-10 13:32] LABS: TROPONIN I < 0.012 ng/mL
[2018-01-10] MEDS ORDERED: ASPIRIN 81 MG TABLET, CHEWABLE ONE (13:32)
--- NOTE | 2018-01-10 13:32 | ER Document Report ---
ED Neuro Symptoms/Deficit - General Chief Complaint: Weakness Stated Complaint: CHEST PAIN Time Seen by Provider: 01/10/18 12:05 Mode of Arrival: Ambulatory Information source: Patient TRAVEL OUTSIDE OF THE [place] IN LAST 30 DAYS: No - HPI Patient complains to provider of: Facial Droop, Paresthesia, Speech Impairment, Weakness Onset: Just prior to arrival Awoke with symptoms: No Symptoms are: Constant Duration: Continues in ED Quality of pain: No pain Severity: None Pain Level: 0 Context: None Loss of consciousness: No loss of consciousness Was STROKE ALERT Called: Yes Baseline Cognitive: Alert, oriented X 3 Baseline Gait: Walks w/o assistance Patient Orientation: Person, Place, Time, Events New weakness: RUE, RLE, R facial Altered sensation: RUE, RLE, R facial Impaired speech/swallowing: Difficult Vision problem/glaucoma: No Associated symptoms: Chest pain Similar symptoms previously: Yes Recently seen / treated by doctor: No - Related Data Allergies/Adverse Reactions: No Known Allergies Allergy (Verified 01/10/18 11:52) Past Medical History - Social History Smoking Status: Former Smoker Chew tobacco use (# tins/day): No Frequency of alcohol use: Occasional Drug Abuse: None Family History: CAD, Hyperlipidemia, Hypertension Patient has suicidal ideation: No Patient has homicidal ideation: No - Past Medical History Cardiac Medical History: Reports: Hx Coronary Artery Disease, Hx Heart Attack, Hx Hypercholesterolemia, Hx Hypertension Pulmonary Medical History: Denies: Hx Tuberculosis Endocrine Medical History: Reports: Hx Diabetes Mellitus Type 2 Renal/ Medical History: Denies: Hx Peritoneal Dialysis Psychiatric Medical History: Reports: Hx Anxiety Denies: Hx Depression Past Surgical History: Reports: Hx Cardiac Catheterization, Hx Coronary Stent - x 5, Hx Orthopedic Surgery - right rotator cuff. Denies: Hx Pacemaker - Immunizations Immunizations up to date: No Hx Diphtheria, Pertussis, Tetanus Vaccination: Yes Hx Pneumococcal Vaccination: 02/21/11 Review of Systems - Review of Systems Constitutional: Weakness. denies: Chills, Fever EENT: No symptoms reported Cardiovascular: Chest pain Respiratory: Short of breath. denies: Cough Gastrointestinal: No symptoms reported Genitourinary: No symptoms reported Male Genitourinary: No symptoms reported Musculoskeletal: No symptoms reported Skin: No symptoms reported Hematologic/Lymphatic: No symptoms reported Neurological/Psychological: Weakness, Speech impairment, Numbness -: Yes All other systems reviewed and negative Physical Exam - Vital signs Vitals: Pulse Resp BP Pulse Ox 84 20 106/85 99 01/10/18 12:35 01/10/18 12:35 01/10/18 12:35 01/10/18 12:35 - General General appearance: Appears well, Alert In distress: None - HEENT Head: Normocephalic, Atraumatic Eyes: Normal Conjunctiva: Normal Cornea: Normal Extraocular movements intact: Yes Eyelashes: Normal Pupils: PERRL Pharynx: Normal - Respiratory Respiratory status: No respiratory distress Chest status: Nontender Breath sounds: Normal Chest palpation: Normal - Cardiovascular Rhythm: Regular Heart sounds: Normal auscultation Murmur: No - Abdominal Inspection: Normal Distension: No distension Bowel sounds: Normal Tenderness: Nontender Organomegaly: No organomegaly - Back Back: Normal, Nontender - Extremities General upper extremity: Normal inspection, Nontender, Normal color, Normal ROM , Normal temperature General lower extremity: Normal inspection, Nontender, Normal color, Normal ROM , Normal temperature, Normal weight bearing. No: Hans's sign - Neurological Neuro grossly intact: Yes Cognition: Normal Orientation: AAOx4 Kerry Coma Scale Eye Opening: Spontaneous [place] Coma Scale Verbal: Oriented [place] Coma Scale Motor: Obeys Commands [place] Coma Scale Total: 15 Speech: Dysarthria Cranial nerves: Normal Cerebellar coordination: Normal Motor strength normal: LUE, RUE, LLE, RLE Additional motor exam normals: Equal floorworker Babinski reflex: Normal (flexor plantar) Sensory: Altered light touch - Psychological Associated symptoms: Normal affect, Normal mood - Skin Skin Temperature: Warm Skin Moisture: Dry Skin Color: Normal Course - Re-evaluation Re-evalutation: 01/10/18 13:27 I consulted the Neurologist Dr Delia Ang iron carrier at the [facility] and he approved TPA and wants patient sent by air to [facility] ED for further management. 01/10/18 15:34 Patient refused TPA. He was given aspirin for his chest pain. I informed Dr. Ang that patient does not want TPA. - Vital Signs Vital signs: Temp Pulse Resp BP Pulse Ox 84 28 H 116/86 H 99 01/10/18 12:35 01/10/18 13:01 01/10/18 13:01 01/10/18 12:36 - Laboratory Result Diagrams: 01/10/18 12:33 01/10/18 12:33 Laboratory results interpreted by me: 01/10/18 01/10/18 12:33 12:33 RDW 15.8 H Seg Neutrophils % 30.2 L Lymphocytes % 57.8 H Absolute Neutrophils 1.3 L Sodium 148.8 H Chloride 114 H Creatine Kinase 193 H - EKG Interpretation by Me EKG shows normal: Sinus rhythm Rate: Normal - 70 Rhythm: NSR Voltage: Consistant with LVH When compared to previous EKG there are: No significant change - Unchanged from 10/05/2017 Additional EKG results interpreted by me: 01/10/18 13:34 No STEMI. Critical Care Note - Critical Care Note Total time excluding time spent on procedures (mins): 50 Comments: Critical time was spent on multiple consults, multiple evaluations, review of labs and imaging study. ED [employer]/Exc Criteria - Inclusion Criteria: 1: Patient presented to ED within 3 hours of acute ischemic stroke symptom onset ? -: Yes 2: Did baseline CT exclude intracranial hemorrhage and/or other risk factors? -: Yes 3: Is the age of the patient 18 years of age or greater? -: Yes : If any of the above questions are answered "NO" then stop, patient is not a candidate for Alteplase, : If all of the above questions are answered "YES" then continue with Exclusion Criteria. - Exclusion Criteria: 1: Is there evidence of intracranial hemorrhage on baseline CT? -: No 2: Is there suspicion of subarachnoid hemorrhage (even if CT negative)? -: No 3: Is there a history of serious head trauma, recent previous stroke or ND within 3 months? -: No 4: Does the patient have a clinical presentation consistent with ND or post-ND pericarditis? -: No 5: Is there history of intracranial hemorrhage? -: No 6: On repeated measurement is Systolic BP greater than 185mmHg or Diastolic BP greater that 110 mmHg and is aggressive treatment needed to reduce blood pressure to these limits (e.g. constant infusion of an anti-hypertensive)? -: No 7: Did the patient awake with stroke symptoms? -: No 8: Has the patient had a lumbar puncture or an arterial puncture at a non- compressile site within 7 days? -: No 9: With in the last 14 days did the patient have surgery or major trauma? -: No 10: Is the patient or less than 2 weeks? -: No 11: Was there any active bleeding or acute trauma? -: No 12: Does the patient have intracranial neoplasm, arteriovenous malformation or aneurysm? -: No 13: Does the patient have abnormal glucose (less than 50 or greater than 400mg/ dl)? Record glucose in Comment. -: No 14: Patient has rapidly improving symptoms at the time Alteplase is to be Administered. -: No 15: Does the patient have any risks for bleeding, including but not limited to: a.: Current use of Coumadin with PT greater than 15 seconds or INR greater than 1.7. b.: Current use of Pradaxa (Dabigatran). c.: Heparin administereed within the past 48 hours and PTT elevated. d.: Platelet count less than 100,000/mm. e.: Major surgery or serious trauma within 14 days. f.: Gastrointestinal or gynecological urinary bleeding within 14 days. g.: Myocardial Infarction (ND) within 3 months. -: No : If the answer to any of the above questions is "YES" then stop, the patient is not a candidate for Alteplase. : If the answer to all of the above questions is "NO" then the patient may be eligible for the Administration of Alteplase. : If the patient is noted to have seizure activity at onset of Stroke symptoms; Consult Neurologist for further evaluation. - The patient is: -: Included and is eligible to receive Alteplase. *Initiate bed placement at higher level of care* --: Yes Reviewed risks & benefits of thrombolytic therapy: I have reviewed the risks and benefits of thrombolytic therapy with the patient and/or his/her family. Yes -: Excluded and not eligible to receive Alteplase for the above exclusions. -: Excluded and not eligible to receive Alteplase for other reasons (specify in comments): - Diagnosis of TIA: -: Patient presented with transient symptoms that are now resolved and no other neurologic findings are currently present. List symptoms in comments. -: Patient is NOT a candidate for tPA. -: ____(put name in comment) has been consulted for admission and continued evaluation of risk factor assessment. Comment: Patient refused TPA ED NIH Stroke Scale - NIH Stroke Scale When completed:: Before Alteplase *: 1. NIH scale should be completed with appropriate accompanying assessment tools. *: 2. The NIH should reflect what the patient is capable of doing and should not be coached by the clinician. 1a. Level of Consciousness: 0=Alert;keenly responsive -: 1=Drowsy -: 2=Obtunded -: 3=Coma/unresponsive or reflex to noxious stimuli. 1a. Responses: 0 1b. Orientation Questions: a. What month is it? -: b. How old are you? -: 0=Answers both questions correctly. -: 1=Answers one question correctly or patient is intubated or has orotracheal trauma. -: 2=Answers neither question correctly. 1b. Responses: 0 1c. Response to commands: a. Open and close eyes? -: b. Fisher Hand Line and release hand? -: Credit is given despite weakness. Demonstration of task is permitted. Substitute command if hands cannot be used. -: 0=Performs both tasks correctly -: 1=Performs one task correctly -: 2=Performs neither task correctly 1c. Responses: 0 2. Gaze: Establish eye contact and instruct patient to "Follow my finger" -: 0=Normal -: 1=Partial gaze palsy. Gaze is abnormal in one or both eyes, but where forced deviation or total gaze paresis is not present. -: 2=Forced deviation or total gaze paresis. 2. Responses: 0 3. Visual Patterson: Sees fingers in all four quadrants. -: 0=No visual loss. -: 1=Partial hemianopsia. -: 2=Complete hemianopsia. -: 3=Bilateral hemianopsia (including Cortical blindness) 3. Responses: 0 4. Facial Movement: Instruct patient to: -: a. Show me your teeth -: b. Raise your eyebrows -: c. Close your eyes -: d. Smile -: 0=Normal symmetrical movement -: 1=Minor paralysis (flattened nasolabial fold, asymmetry on smiling). -: 2=Partial paralysis (total or near total paralysis of lower face). -: 3=Complete paralysis of upper and lower face 4. Responses: 1 5. Motor functions (left arm): Alternate sides and extend each arm with palms down (90 degrees if sitting or 45 degrees for supine). -: 0=No drift;limb holds for full 10 seconds. -: 1=Drift; limb holds but drifts down before full 10 seconds, but does not hit bed. -: 2=Some effort against gravity; limb cannot get to or maintain position. -: 3=No effort against gravity; limb falls. -: 4=No movement. -: UN=Amputation, joint fusion, explain in comments. 5. Responses (left arm): 0 5. Motor Functions (right arm): Alternate sides and extend each arm with palms down (90 degrees if sitting or 45 degrees for supine). -: 0=No drift;limb holds for full 10 seconds. -: 1=Drift; limb holds but drifts down before full 10 seconds, but does not hit bed. -: 2=Some effort against gravity; limb cannot get to or maintain position. -: 3=No effort against gravity; limb falls. -: 4=No movement. -: UN=Amputation, joint fusion, explain in comments. 5. Responses (right arm): 0 6. Motor Functions (left leg): With patient lying supine, alternate sides and extend each leg (30 degrees always while supine). -: 0=No drift, leg holds position for full 5 seconds -: 1=Drift; leg falls before full 5 seconds but does not hit bed. -: 2=Some effort against gravity, leg falls to bed but some effort against gravity. -: 3=No effort against gravity, leg falls to bed immediately. -: 4=No movement. -: UN=Amputation, joint fusion; explain in comments. 6. Responses (left leg): 0 6. Motor Functions (right leg): With patient lying supine, alternate sides and extend each leg (30 degrees always while supine). -: 0=No drift, leg holds position for full 5 seconds -: 1=Drift; leg falls before full 5 seconds but does not hit bed. -: 2=Some effort against gravity, leg falls to bed but some effort against gravity. -: 3=No effort against gravity, leg falls to bed immediately. -: 4=No movement. -: UN=Amputation, joint fusion; explain in comments. 6. Responses (right leg): 0 7. Limb Ataxia: With eyes open instruct patient to: -: a. "Touch your finger to your nose". -: b. "Touch your heel to your cannon" -: 0=Absent -: 1=Present in one limb. -: 2=Present in two limbs. -: UN=Amputation or joint fusion; explain in comments. 7. Responses: 0 8. Sensory: Test sensation using pinprick or noxious stimuli. Test as many body parts as possible. -: 0=Normal;no sensory loss -: 1=Mile to moderate sensory loss (patient feels pin prick but is less sharp on affected side). -: 2=Severe or total sensory loss. 8. Responses: 1 9. Best Language: Instruct patient to: -: a. "Describe what you see in this picture." -: b. "Name the items in this picture." -: c. "Read these sentences." -: 0=No aphasia, normal -: 1=Mild to moderate aphasia. -: 2=Severe aphasia -: 3=Mute, global aphasia, no usable speech or auditory comprehension. 9. Responses: 1 10. Articulation, Dysarthia: Instruct patient to: -: "Read these words" or "Repeat these words" -: 0=Normal -: 1=Mild to moderate; patient may slur some words but can be understood without difficulty. -: 2=Severe; patients speech so slurred as to be unintelligible in the absence of dysphasia. -: UN=Intubated or other physical barrier, explain in comments. 10. Responses: 1 11. Extinction or inattention: 0=No abnormality -: 1= Visual, tactile, auditory, spatial, or personal inattention or extinction to bilateral simulation in one or the sensory modalities. -: 2=Profound mary-inattention or mary-inattention to more than one modality; does not recognize own hand. 11. Responses: 0 Total Score: 4 Discharge - Discharge Clinical Impression: Facial droop, Numbness and tingling of right upper and lower extremity Chest pain Qualifiers: Chest pain type: unspecified Qualified Code(s): R07.9 - Chest pain, unspecified Condition: Stable Disposition: [facility] Admitting Provider: Dr Delia Ang Referrals: DELIA BLACK DO [Primary Care Provider] - Follow up as needed
[2018-01-10 13:37] LABS: INTERNATIONAL RATION (INR) 1.12
[2018-01-10 13:38] LABS: PARTIAL THROMBOPLASTIN TIME 40.9 SEC (23.5-35.8)
[2018-01-10 14:16] VITALS: BP 129/99
--- NOTE | 2018-01-10 22:39 | EKG REPORT ---
SEVERITY:- ABNORMAL ECG - SINUS RHYTHM ANTERIOR INFARCT, AGE INDETERMINATE : Confirmed by: Tuan Malik 10-Jan-2018 22:38:21
--- NOTE | 2018-01-10 22:40 | EKG REPORT ---
SEVERITY:- ABNORMAL ECG - SINUS RHYTHM LVH WITH SECONDARY REPOLARIZATION ABNORMALITY ASMI AGE INDETERMINATE : Confirmed by: Tuan Malik 10-Jan-2018 22:39:18
== END 2018-01-10 13:40 | disposition short-term general hospital (02) ==
LOC: ER 11:51
DX: R29.810 Facial weakness (principal); R20.0 Anesthesia of skin; R20.2 Paresthesia of skin; R07.9 Chest pain, unspecified; R47.9 Unspecified speech disturbances; R06.02 Shortness of breath; I25.10 Atherosclerotic heart disease of native coronary artery without angina pectoris; I10 Essential (primary) hypertension; I25.2 Old myocardial infarction; Z87.891 Personal history of nicotine dependence
CPT/HCPCS: 93005; 99285; 36415; 82553; 82962; 82550; 85025; 85610; 85730; 80053; 84484; 71045; 70450; 93010; A9270; J3490

== ENCOUNTER 2018-01-14 19:11 | Emergency (ER) | payer MEDICARE, MEDICAID ==
--- NOTE | 2018-01-14 19:34 | RADIOLOGY REPORT (SQ) ---
EXAM DESCRIPTION: CHEST SINGLE VIEW COMPLETED DATE/TIME: 01/14/2018 7:25 pm REASON FOR STUDY: STROKE ALERT COMPARISON: 01/10/2018. EXAM PARAMETERS: NUMBER OF VIEWS: One view. TECHNIQUE: Single frontal radiographic view of the chest acquired. RADIATION DOSE: NA LIMITATIONS: None. FINDINGS: LUNGS AND PLEURA: No opacities, masses or pneumothorax. No pleural effusion. MEDIASTINUM AND HILAR STRUCTURES: No masses. Contour normal. HEART AND VASCULAR STRUCTURES: Heart upper limits of normal in size. Normal vasculature. BONES: No acute findings. HARDWARE: Defibrillator. OTHER: No other significant finding. IMPRESSION: NO ACUTE RADIOGRAPHIC FINDING IN THE CHEST. TECHNICAL DOCUMENTATION: JOB ID: [id number] [employer]- All Rights Reserved Reading location - IP/workstation name: [place]
--- NOTE | 2018-01-14 19:39 | RADIOLOGY REPORT (SQ) ---
EXAM DESCRIPTION: CT HEAD WITHOUT COMPLETED DATE/TIME: 01/14/2018 7:24 pm REASON FOR STUDY: STROKE ALERT COMPARISON: 01/10/2018. TECHNIQUE: Axial images acquired through the brain without intravenous contrast. Images reviewed wi th bone, brain and subdural windows. Additional sagittal and coronal reconstructions were generated. Images stored on PACS. All CT scanners at this facility use dose modulation, iterative reconstruction, and/or weight based d osing when appropriate to reduce radiation dose to as low as reasonably achievable (ALARA). [facility]: Dose Right [facility]: CareDose [facility]: Dose Right [facility]: Teradose 4D [facility]: Smart Vinny RADIATION DOSE: mGy. LIMITATIONS: None. FINDINGS: VENTRICLES: Normal size and contour. CEREBRUM: No masses. No hemorrhage. No midline shift. No evidence for acute infarction. Normal gra y/white matter differentiation. Small subtle area of decreased attenuation in the posterior right pa rietal lobe (axial series 2, image 19). CEREBELLUM: No masses. No hemorrhage. No alteration of density. No evidence for acute infarction. EXTRAAXIAL SPACES: No fluid collections. No masses. ORBITS AND GLOBE: No intra- or extraconal masses. Normal contour of globe without masses. CALVARIUM: No fracture. PARANASAL SINUSES: No fluid or mucosal thickening. SOFT TISSUES: No mass or hematoma. OTHER: No other significant finding. IMPRESSION: SMALL SUBTLE AREA OF DECREASED ATTENUATION IN THE POSTERIOR RIGHT PARIETAL LOBE, POSSIBL Y AN EARLY INFARCT. NO ACUTE BLEED. EVIDENCE OF ACUTE STROKE: POSSIBLE. RIGHT MCA. COMMENT: Pertinent positive or negative findings of the imaging study reported as a CRITICAL EXAM t mitra WARD MD at19:33 on 01/14/2018. Category of Critical Exam: Stroke protocol. Quality ID # 436: Final reports with documentation of one or more dose reduction techniques (e.g., Au tomated exposure control, adjustment of the mA and/or kV according to patient size, use of iterative reconstruction technique) TECHNICAL DOCUMENTATION: JOB ID: [id number] [employer]- All Rights Reserved Reading location - IP/workstation name: [email or web address]
[2018-01-14 19:55] LABS: ABSOLUTE EOSINOPHILS # (AUTO) 0.1 10^3/uL (0.0-0.6); ABSOLUTE LYMPHOCYTES (AUTO) 2.2 10^3/uL (0.5-4.7); ABSOLUTE MONOCYTES (AUTO) 0.5 10^3/uL (0.1-1.4); ABSOLUTE NEUT (AUTO) 2.9 10^3/uL (1.7-8.2); BASOPHILS % (AUTO) 0.7 % (0-2); EOSINOPHILS % (AUTO) 1.4 % (0-6); HEMATOCRIT 38.1 % (37.9-51.0); HEMOGLOBIN 13.2 g/dL (13.5-17.0); LYMPHOCYTES % (AUTO) 37.8 % (13-45); MEAN CORPUSCULAR HEMOGLOBIN 27.8 pg (27.0-33.4); MEAN CORPUSCULAR HGB CONC 34.6 g/dL (32.0-36.0); MEAN CORPUSCULAR VOLUME 80 fl (80-97); MONOCYTES % (AUTO) 9.1 % (3-13); PLATELET COUNT 270 10^3/uL (150-450); RED BLOOD COUNT 4.74 10^6/uL (4.35-5.55); RED CELL DISTRIBUTION WIDTH 15.5 % (11.5-14.0); TOTAL CELLS COUNTED % (AUTO) 100 %; WHITE BLOOD COUNT 5.7 10^3/uL (4.0-10.5)
--- NOTE | 2018-01-14 19:56 | ER Document Report ---
ED General - General Chief Complaint: S/S of Possible Stroke Stated Complaint: WEAKNESS Time Seen by Provider: 01/14/18 19:23 Mode of Arrival: Ambulatory Information source: Patient Notes: This is a 42-year-old man with a history of cardiomyopathy (pacemaker/ defibrillator), recent stroke (transferred to [facility] during which he received TPA). Patient presents with acute onset of right facial numbness, right upper extremity and right lower extremity weakness. Vision symptoms started at 1752. Medications include Eliquis (he last took this morning). He was started on this 2 days ago. TRAVEL OUTSIDE OF THE [place] IN LAST 30 DAYS: No - HPI Onset: Just prior to arrival Onset/Duration: Sudden Quality of pain: No pain Severity: None Pain Level: Denies Associated symptoms: denies: Chest pain, Headache, Shortness of breath Exacerbated by: Denies Relieved by: Denies Similar symptoms previously: Yes Recently seen / treated by doctor: Yes - Related Data Allergies/Adverse Reactions: No Known Allergies Allergy (Verified 01/10/18 11:52) Past Medical History - General Information source: Patient - Social History Smoking Status: Never Smoker Cigarette use (# per day): No Chew tobacco use (# tins/day): No Frequency of alcohol use: None Drug Abuse: None Lives with: Family Family History: CAD, Hyperlipidemia, Hypertension - Past Medical History Cardiac Medical History: Reports: Hx Coronary Artery Disease, Hx Heart Attack, Hx Hypercholesterolemia, Hx Hypertension Pulmonary Medical History: Denies: Hx Tuberculosis Endocrine Medical History: Reports: Hx Diabetes Mellitus Type 2 Renal/ Medical History: Denies: Hx Peritoneal Dialysis Psychiatric Medical History: Reports: Hx Anxiety Denies: Hx Depression Past Surgical History: Reports: Hx Cardiac Catheterization, Hx Coronary Stent - x 5, Hx Orthopedic Surgery - right rotator cuff. Denies: Hx Pacemaker - Immunizations Immunizations up to date: No Hx Diphtheria, Pertussis, Tetanus Vaccination: Yes Hx Pneumococcal Vaccination: 02/21/11 Review of Systems - Review of Systems Constitutional: denies: Chills, Fever EENT: No symptoms reported Cardiovascular: No symptoms reported Respiratory: No symptoms reported Gastrointestinal: No symptoms reported Genitourinary: No symptoms reported Male Genitourinary: No symptoms reported Musculoskeletal: No symptoms reported Skin: No symptoms reported Hematologic/Lymphatic: No symptoms reported Neurological/Psychological: See HPI Physical Exam - Vital signs Vitals: Temp Pulse Resp BP Pulse Ox 98.3 F 79 17 121/80 100 01/14/18 19:24 01/14/18 19:24 01/14/18 19:24 01/14/18 19:24 01/14/18 19:24 Notes: Physical exam: GENERAL: 42-year-old man, alert and oriented 3, he is in no acute distress, he does have strokelike symptoms. HEAD: Atraumatic, normocephalic. EYES: Pupils equal round and reactive to light, extraocular movements intact, sclera anicteric, conjunctiva are normal. ENT: TMs normal, nares patent, oropharynx clear without exudates. Moist mucous membranes. NECK: Normal range of motion, supple without obvious mass or JVD. LUNGS: Breath sounds clear to auscultation bilaterally and equal. No wheezes rales or rhonchi. HEART: Regular rate and rhythm without murmurs, rubs or gallops. ABDOMEN: Soft, normoactive bowel sounds. No tenderness to palpation. No guarding, no rebound. No masses appreciated. EXTREMITIES: Normal range of motion, no pitting or edema. No clubbing or cyanosis. NEUROLOGICAL: Patient is able open and close his eyes and fist (0), he has a normal gaze (0), visual vogt are intact (0), does have right-sided facial droop(2), right upper extremity weakness but does not hit the bed (1), right lower extremity weakness with limb hitting bed (2), cerebellar finger to the nose is good(0), sensory loss is mild to the right side(1), patient able to describe the picture correctly, name each item in the picture and read sentences (0), he does have mild to moderate (1). Patient has no extinction(0). NIH scale is 7. PSYCH: Normal mood, normal affect. SKIN: Warm, Dry, normal turgor, no rashes or lesions noted. Course - Re-evaluation Re-evalutation: 01/14/18 23:24 I discussed case with the neurologist (Dr. Cardona) at [facility]. He is agreed that patient is not a candidate for TPA. This is based upon the fact that he had a recent MA, was recently treated with TPA and is currently on Eliquis. However, he is being transferred to [facility] to see if he is a candidate for thrombectomy. He will be transferred to the hospitalist service. I have had a phone conversation with the hospitalist there regarding today's events. - Vital Signs Vital signs: Temp Pulse Resp BP Pulse Ox 98.3 F 79 27 H 103/83 100 01/14/18 20:52 01/14/18 19:24 01/14/18 20:40 01/14/18 20:52 01/14/18 20:52 - Laboratory Result Diagrams: 01/14/18 19:35 01/14/18 19:35 Laboratory results interpreted by me: 01/14/18 01/14/18 19:35 19:35 Hgb 13.2 L RDW 15.5 H Sodium 146.7 H Chloride 110 H Creatinine 1.28 H - Diagnostic Test Radiology reviewed: Image reviewed, Reports reviewed - No obvious bleed on this head CT Critical Care Note - Critical Care Note Total time excluding time spent on procedures (mins): 60 Discharge - Discharge Clinical Impression: Acute stroke Condition: Stable Disposition: [facility] Referrals: DELIA BLACK DO [Primary Care Provider] - Follow up as needed
[2018-01-14 19:57] LABS: INTERNATIONAL RATION (INR) 1.11; PROTHROMBIN TIME 14.9 SEC (11.4-15.4)
[2018-01-14 20:07] LABS: ALANINE AMINOTRANSFERASE 27 U/L (21-72); ALBUMIN 4.2 g/dL (3.5-5.0); ALKALINE PHOSPHATASE 69 U/L (38-126); ANION GAP 12 (5-19); ASPARTATE AMINO TRANSFERASE 51 U/L (17-59); BILIRUBIN,DIRECT 0.2 mg/dL (0.0-0.4); BILIRUBIN,TOTAL 0.6 mg/dL (0.2-1.3); BLOOD UREA NITROGEN 13 mg/dL (7-20); CALCIUM 8.9 mg/dL (8.4-10.2); CARBON DIOXIDE 25 mmol/L (22-30); CHLORIDE 110 mmol/L (98-107); GLUCOSE 77 mg/dL (75-110); POTASSIUM 4.1 mmol/L (3.6-5.0); SODIUM 146.7 mmol/L (137-145); TOTAL PROTEIN 7.7 g/dL (6.3-8.2)
[2018-01-14] MEDS ORDERED: NORMAL SALINE 1000 ML 500 ML IV ONE (20:24)
[2018-01-14] MEDS ORDERED: MORPHINE SULFATE 10 MG/ML INJ IV ONE (20:27)
--- NOTE | 2018-01-14 20:30 | EKG REPORT ---
SEVERITY:- BORDERLINE ECG - SINUS RHYTHM BORDERLINE R WAVE PROGRESSION, ANTERIOR LEADS CONSIDER ASMI : Confirmed by: Tuan Malik 14-Jan-2018 17:30:02
[2018-01-14 20:52] VITALS: BP 103/83
== END 2018-01-14 20:52 | disposition short-term general hospital (02) ==
LOC: ER 19:11
DX: I63.9 Cerebral infarction, unspecified (principal); R29.707 NIHSS score 7; G81.91 Hemiplegia, unspecified affecting right dominant side; R20.0 Anesthesia of skin; E11.9 Type 2 diabetes mellitus without complications; I11.9 Hypertensive heart disease without heart failure; I43 Cardiomyopathy in diseases classified elsewhere; I25.10 Atherosclerotic heart disease of native coronary artery without angina pectoris; I25.2 Old myocardial infarction; Z86.73 Personal history of transient ischemic attack (TIA), and cerebral infarction without residual deficits; Z95.810 Presence of automatic (implantable) cardiac defibrillator; Z79.01 Long term (current) use of anticoagulants; Z95.5 Presence of coronary angioplasty implant and graft
CPT/HCPCS: 93005; 99291; 96374; 36415; 82962; 85025; 85610; 80053; 71045; 70450; 93010; J2270; J7030

== ENCOUNTER 2018-03-04 15:35 | Emergency (ER) | payer MEDICARE, MEDICAID ==
[2018-03-04] MEDS ORDERED: ASPIRIN 325 MG TABLET PO ONE (15:52)
--- NOTE | 2018-03-04 15:53 | ER Document Report ---
ED Medical Screen (RME) - General Chief Complaint: S/S of Possible Stroke Stated Complaint: CHEST PAIN Time Seen by Provider: 03/04/18 15:51 Mode of Arrival: Ambulatory Information source: Patient TRAVEL OUTSIDE OF THE [place] IN LAST 30 DAYS: No - HPI Patient complains to provider of: slurred speech, CP Onset: This morning - pt. with onset of slurred speech approx 0800 and then CP later in the day. Has h/o cva and mi - Related Data Allergies/Adverse Reactions: No Known Allergies Allergy (Verified 01/10/18 11:52) Past Medical History - Social History Chew tobacco use (# tins/day): No Frequency of alcohol use: Rare Drug Abuse: None - Past Medical History Cardiac Medical History: Reports: Hx Coronary Artery Disease, Hx Heart Attack - x6, Hx Hypercholesterolemia, Hx Hypertension Pulmonary Medical History: Denies: Hx Tuberculosis Endocrine Medical History: Reports: Hx Diabetes Mellitus Type 2 Renal/ Medical History: Denies: Hx Peritoneal Dialysis Psychiatric Medical History: Reports: Hx Anxiety Denies: Hx Depression Past Surgical History: Reports: Hx Cardiac Catheterization, Hx Coronary Stent - x 5, Hx Orthopedic Surgery - right rotator cuff. Denies: Hx Pacemaker - Immunizations Immunizations up to date: No Hx Diphtheria, Pertussis, Tetanus Vaccination: Yes History of Influenza Vaccine for 02/2017 - 07/2017 Season: Refused Physical Exam - Vital signs Vitals: Temp Pulse Resp BP Pulse Ox 98.2 F 74 18 119/86 H 100 03/04/18 15:48 03/04/18 15:48 03/04/18 15:48 03/04/18 15:48 03/04/18 15:48 Course - Vital Signs Vital signs: Temp Pulse Resp BP Pulse Ox 98.2 F 74 18 119/86 H 100 03/04/18 15:48 03/04/18 15:48 03/04/18 15:48 03/04/18 15:48 03/04/18 15:48 Doctor's Discharge - Discharge Referrals: DELIA BLACK DO [Primary Care Provider] - Follow up as needed
--- NOTE | 2018-03-04 16:18 | RADIOLOGY REPORT (SQ) ---
EXAM DESCRIPTION: CT HEAD WITHOUT COMPLETED DATE/TIME: 03/04/2018 4:08 pm REASON FOR STUDY: cp COMPARISON: 11 CT brain exams since 02/19/2012, most recently 01/14/2018. TECHNIQUE: Axial images acquired through the brain without intravenous contrast. Images reviewed wi th bone, brain and subdural windows. Additional sagittal and coronal reconstructions were generated. Images stored on PACS. All CT scanners at this facility use dose modulation, iterative reconstruction, and/or weight based d osing when appropriate to reduce radiation dose to as low as reasonably achievable (ALARA). [facility]: Dose Right [facility]: CareDose [facility]: Dose Right [facility]: Teradose 4D [facility]: [employer] RADIATION DOSE: CT Rad equipment meets quality standard of care and radiation dose reduction techniq ues were employed. CTDIvol: 53.2 mGy. DLP: 1017 mGy-cm. mGy. LIMITATIONS: None. FINDINGS: VENTRICLES: Normal size and contour. CEREBRUM: No CT evidence of acute large territory ischemic change, acute intracranial hemorrhage, mas s effect, or midline shift. Subtle old infarcts along the right posterior temporal and left posterior temporal cortex and subcortical white matter. CEREBELLUM: No masses. No hemorrhage. No alteration of density. No evidence for acute infarction. EXTRAAXIAL SPACES: No fluid collections. No masses. ORBITS AND GLOBE: No intra- or extraconal masses. Normal contour of globe without masses. CALVARIUM: No fracture. PARANASAL SINUSES: No fluid or mucosal thickening. SOFT TISSUES: No mass or hematoma. OTHER: No other significant finding. IMPRESSION: No acute findings. Old cortical and subcortical white matter infarcts in the right and left posterior temporal regions. EVIDENCE OF ACUTE STROKE: NO. COMMENT: Quality ID # 436: Final reports with documentation of one or more dose reduction techniques (e.g., Automated exposure control, adjustment of the mA and/or kV according to patient size, use of iterative reconstruction technique) TECHNICAL DOCUMENTATION: JOB ID: [id number] [employer]- All Rights Reserved Reading location - IP/workstation name: [email or web address]
--- NOTE | 2018-03-04 16:19 | RADIOLOGY REPORT (SQ) ---
EXAM DESCRIPTION: CHEST 2 VIEWS COMPLETED DATE/TIME: 03/04/2018 4:08 pm REASON FOR STUDY: cp COMPARISON: Two-view chest 10/04/2017 EXAM PARAMETERS: NUMBER OF VIEWS: two views TECHNIQUE: Digital Frontal and Lateral radiographic views of the chest acquired. RADIATION DOSE: NA LIMITATIONS: none FINDINGS: LUNGS AND PLEURA: No opacities, masses or pneumothorax. No pleural effusion. MEDIASTINUM AND HILAR STRUCTURES: No masses or contour abnormalities. HEART AND VASCULAR STRUCTURES: Borderline cardiomegaly BONES: No acute findings. HARDWARE: Left-sided single lead pacemaker OTHER: No other significant finding. IMPRESSION: Borderline cardiomegaly, stable. Since 09/24/2017, patient has had a left-sided single lead pacemaker placed TECHNICAL DOCUMENTATION: JOB ID: [id number] [employer]- All Rights Reserved Reading location - IP/workstation name: [email or web address]
[2018-03-04 16:38] LABS: ABSOLUTE EOSINOPHILS # (AUTO) 0.1 10^3/uL (0.0-0.6); ABSOLUTE MONOCYTES (AUTO) 0.6 10^3/uL (0.1-1.4); ABSOLUTE NEUT (AUTO) 2.4 10^3/uL (1.7-8.2); BASOPHILS % (AUTO) 0.9 % (0-2); EOSINOPHILS % (AUTO) 2.3 % (0-6); HEMATOCRIT 40.1 % (37.9-51.0); HEMOGLOBIN 13.4 g/dL (13.5-17.0); LYMPHOCYTES % (AUTO) 39.2 % (13-45); MEAN CORPUSCULAR HEMOGLOBIN 26.8 pg (27.0-33.4); MEAN CORPUSCULAR HGB CONC 33.3 g/dL (32.0-36.0); MEAN CORPUSCULAR VOLUME 81 fl (80-97); MONOCYTES % (AUTO) 10.9 % (3-13); PLATELET COUNT 248 10^3/uL (150-450); RED BLOOD COUNT 4.99 10^6/uL (4.35-5.55); RED CELL DISTRIBUTION WIDTH 15.9 % (11.5-14.0); SEGMENTED NEUTROPHILS % (AUTO) 46.7 % (42-78); TOTAL CELLS COUNTED % (AUTO) 100 %; WHITE BLOOD COUNT 5.2 10^3/uL (4.0-10.5)
[2018-03-04 16:53] LABS: ALANINE AMINOTRANSFERASE 47 U/L (21-72); ALBUMIN 4.2 g/dL (3.5-5.0); ALKALINE PHOSPHATASE 64 U/L (38-126); ANION GAP 11 (5-19); ASPARTATE AMINO TRANSFERASE 40 U/L (17-59); BILIRUBIN,DIRECT 0.3 mg/dL (0.0-0.4); BLOOD UREA NITROGEN 14 mg/dL (7-20); CALCIUM 9.8 mg/dL (8.4-10.2); CARBON DIOXIDE 26 mmol/L (22-30); CHLORIDE 106 mmol/L (98-107); CREATINE KINASE 575 U/L (55-170); GLUCOSE 89 mg/dL (75-110); POTASSIUM 4.1 mmol/L (3.6-5.0); SODIUM 142.8 mmol/L (137-145); TOTAL PROTEIN 7.5 g/dL (6.3-8.2)
[2018-03-04 17:05] LABS: CREATINE KINASE MB 0.58 ng/mL (<4.55); TROPONIN I 0.015 ng/mL
--- NOTE | 2018-03-04 17:06 | ER Document Report ---
ED General - General Chief Complaint: S/S of Possible Stroke Stated Complaint: CHEST PAIN Time Seen by Provider: 03/04/18 15:51 Mode of Arrival: Ambulatory Information source: Patient Notes: Patient is a 42-year-old male who presents today with the onset he states this morning around 8 AM of some substernal nonradiating chest discomfort as well as some slurred speech. He denies any headache, blurry vision, weakness or numbness of the upper or lower extremities. Patient denies any aggravating or relieving factors to this chest pain. He does state some mild shortness of breath. It is not exertional. He denies any calf pain, leg swelling, recent trips or travel. Patient has a past medical history as recorded including cardiomyopathy with multiple cardiac stents and a defibrillator. Patient has a history of strokes in this past December he was here on the in [facility] with a stroke. TPA was given. Patient subsequently was placed on Eliquis. Patient return here 4 days later after discharge from the hospital with new neurological symptoms. He was transferred again to [facility] for possible thrombectomy. He states that he was diagnosed with a "new stroke". Patient states he has been doing well until 8 AM this morning. Symptoms have been constant. TRAVEL OUTSIDE OF THE [place] IN LAST 30 DAYS: No - HPI Onset: Other - See above Onset/Duration: Gradual Quality of pain: Achy Severity: Mild Pain Level: 2 Associated symptoms: Other - See above Exacerbated by: Denies Relieved by: Denies Similar symptoms previously: No Recently seen / treated by doctor: No - Related Data Allergies/Adverse Reactions: No Known Allergies Allergy (Verified 01/10/18 11:52) Past Medical History - General Information source: Patient - Social History Smoking Status: Never Smoker Cigarette use (# per day): No Chew tobacco use (# tins/day): No Smoking Education Provided: No Frequency of alcohol use: Rare Drug Abuse: None Family History: CAD, Hyperlipidemia, Hypertension Patient has suicidal ideation: No Patient has homicidal ideation: No - Past Medical History Cardiac Medical History: Reports: Hx Coronary Artery Disease, Hx Heart Attack - x6, Hx Hypercholesterolemia, Hx Hypertension Pulmonary Medical History: Denies: Hx Tuberculosis Endocrine Medical History: Reports: Hx Diabetes Mellitus Type 2 Renal/ Medical History: Denies: Hx Peritoneal Dialysis Psychiatric Medical History: Reports: Hx Anxiety Denies: Hx Depression Past Surgical History: Reports: Hx Cardiac Catheterization, Hx Coronary Stent - x 5, Hx Orthopedic Surgery - right rotator cuff. Denies: Hx Pacemaker - Immunizations Immunizations up to date: No Hx Diphtheria, Pertussis, Tetanus Vaccination: Yes Hx Pneumococcal Vaccination: 02/21/11 Review of Systems - Review of Systems Constitutional: denies: Fever EENT: denies: Eye discharge, Nose discharge Cardiovascular: Chest pain. denies: Palpitations, Heart racing, Syncope Respiratory: Short of breath Gastrointestinal: denies: Vomiting Genitourinary: denies: Dysuria Musculoskeletal: denies: Leg swelling Skin: Other - no hives. denies: Rash Neurological/Psychological: Other - no slurred speech -: Yes All other systems reviewed and negative Physical Exam - Vital signs Vitals: Temp Pulse Resp BP Pulse Ox 98.2 F 74 18 119/86 H 100 03/04/18 15:48 03/04/18 15:48 03/04/18 15:48 03/04/18 15:48 03/04/18 15:48 Notes: Reviewed vital signs and nursing note as charted by RN. CONSTITUTIONAL: Alert and oriented and responds appropriately to questions. Well -appearing; well-nourished HEAD: Normocephalic; atraumatic EYES: PERRL; Conjunctivae clear, sclerae non-icteric ENT: Normal nose; no rhinorrhea; moist mucous membranes; pharynx without lesions noted NECK: Supple without meningismus; non-tender CARD: Regular rate and rhythm; no murmurs; symmetric distal pulses RESP: Normal chest excursion without splinting or tachypnea; breath sounds clear and equal bilaterally; no wheezes, no rhonchi, no rales ABD/GI: Normal bowel sounds; non-distended; soft, non-tender BACK: The back appears normal and is non-tender to palpation EXT: Normal ROM in all joints; non-tender to palpation; no cyanosis, no effusions, no edema SKIN: No acute lesions noted NEURO: CN 2-12 intact withe the exception of slurred speech. No facial droop. 5/5 bilateral upper and lower extremity strength with sensation intact to light touch. Patient has bilateral normal finger to nose with no past pointing. PSYCH: The patient's mood and manner are appropriate. Grooming and personal hygiene are appropriate. Course - Re-evaluation Re-evalutation: Given the history and physical examination, cardiac panel, EKG, x-ray of the chest, and repeat CT scan of the head has been ordered. Patient took 81 mg of aspirin at home. NIH score is a 2. Given the symptom onset at 8-1/2 hours prior to my evaluation, on Eliquis, with recent TPA administration, I do not believe that the patient is a TPA candidate. 03/04/18 17:05 CT as recorded. No change in examination. I have called and spoken to the transfer center regarding the patient's possibility of a need for transfer to [facility] given the patient's stroke symptoms. I am concerned about the patient's chest discomfort with a neurologic deficit as well as shortness of breath. I have ordered a CT with contrast of the chest. EKG shows a heart of 81, normal sinus rhythm, left axis deviation, poor R wave progression, LVH, inverted T waves in leads II, V4 through V6. Old EKG from January 14 shows no appreciable change. Initial troponin as recorded. 325 aspirin was ordered in triage and provided to the patient. 03/04/18 17:12 I have called and spoken directly to the neuro interventional neurologist Dr. Bonilla at [facility]. He states that the patient has had 2 recent negative CTAs of the head. States the patient is on Eliquis. He states that the patient previously had an LV thrombus back in July but a recent echo on his last admission on January 14 showed resolution of the thrombus. He is recommended repeat MRI and medication management and states he is happy to consult with the admitting hospitalist. He does not feel as if the patient requires transfer at this time and would like our hospitalist team to admit. I am waiting on the CTA results. 03/04/18 18:21 CTA as recorded. I have called and spoken to the hospitalist who states given that the patient has persistent symptomatology, he does not feel that the patient is appropriate to stay at this facility. He has asked that we perform an MRI before. The patient has a defibrillator and is unable to receive an MRI. I have called and spoke again to Dr. Bonilla and relayed this information regarding my hospitalist inability/unwillingness to admit the patient. - Vital Signs Vital signs: Temp Pulse Resp BP Pulse Ox 98.2 F 74 29 H 121/85 100 03/04/18 15:48 03/04/18 16:55 03/04/18 17:25 03/04/18 17:25 03/04/18 17:25 - Laboratory Result Diagrams: 03/04/18 16:23 03/04/18 16:23 Laboratory results interpreted by me: 03/04/18 03/04/18 16:23 16:23 Hgb 13.4 L [facility]CH 26.8 L RDW 15.9 H Creatinine 1.27 H Creatine Kinase 575 H Discharge - Discharge Clinical Impression: Slurred speech Chest pain Qualifiers: Chest pain type: unspecified Qualified Code(s): R07.9 - Chest pain, unspecified Condition: Good Disposition: [facility] Referrals: DELIA BLACK DO [Primary Care Provider] - Follow up as needed
[2018-03-04] MEDS ORDERED: FENTANYL CITRATE INJ/PF 100 MCG/2 ML AMPUL IV ONE (17:07)
--- NOTE | 2018-03-04 17:29 | RADIOLOGY REPORT (SQ) ---
EXAM DESCRIPTION: CTA CHEST COMPLETED DATE/TIME: 03/04/2018 5:18 pm REASON FOR STUDY: 15; please also comment on aorta COMPARISON: None. TECHNIQUE: CT scan of the chest performed using helical scanning technique with dynamic intravenous contrast injection. Images reviewed with lung, soft tissue and bone windows. Reconstructed coronal and sagittal MPR images reviewed. Additional 3 dimensional post-processing performed to develop Maximal Intensity Projection images ([place] P). All images stored on PACS. All CT scanners at this facility use dose modulation, iterative reconstruction, and/or weight based d osing when appropriate to reduce radiation dose to as low as reasonably achievable (ALARA). [facility]: Dose Right [facility]: CareDose [facility]: Dose Right [facility]: Teradose 4D [facility]: TrustID CONTRAST TYPE AND DOSE: contrast/concentration: Isovue 350.00 mg/ml; Total Contrast Delivered: 77.0 ml; Total Saline Delivered: 80.0 ml Contrast bolus optimized for the pulmonary arteries. Not diagnostic for the aorta. RENAL FUNCTION: Creatinine 1.3 RADIATION DOSE: CT Rad equipment meets quality standard of care and radiation dose reduction technSoFits.Me ues were employed. CTDIvol: 15.6 - 46.3 mGy. DLP: 629 mGy-cm. . LIMITATIONS: None. FINDINGS: LUNGS AND PLEURA: Trace bilateral pleural fluid in the posterior costophrenic sulci site w ith minimal bibasilar atelectasis. No fluffy alveolar infiltrates worrisome for edema or pneumonia. No pneumothorax. No pulmonary nodules. Airways are patent. AORTA AND GREAT VESSELS: No aneurysm. Contrast bolus not optimized for the aorta. HEART: No pericardial effusion. Left coronary artery stent. Mild cardiomegaly. PULMONARY ARTERIES: No emboli visualized in the main pulmonary arteries or the segmental branches. HILAR AND MEDIASTINAL STRUCTURES: No identified masses or abnormal nodes. HARDWARE: Left-sided pacemaker UPPER ABDOMEN: No significant findings. Limited exam. THYROID AND OTHER SOFT TISSUES: No masses. No adenopathy. BONES: No acute or significant finding. 3D MIPS: Confirm above findings. OTHER: No other significant finding. IMPRESSION: No CT angio evidence of acute pulmonary emboli. Trace bilateral pleural effusions with mild bibasilar atelectasis. COMMENT: Quality ID # [id number]: Final reports with documentation of one or more dose reduction techniques (e.g., Automated exposure control, adjustment of the mA and/or kV according to patient size, use of iterative reconstruction technique) TECHNICAL DOCUMENTATION: JOB ID: [id number] [employer] [facility] [employer]- All Rights Reserved Reading location - IP/workstation name: [email or web address]
[2018-03-04] MEDS ORDERED: OXYCODONE HCL IR 5 MG TABLET PO ONE (20:29)
[2018-03-04 22:27] VITALS: BP 116/82
--- NOTE | 2018-03-04 22:38 | EKG REPORT ---
SEVERITY:- ABNORMAL ECG - SINUS RHYTHM PROBABLE LEFT ATRIAL ABNORMALITY LVH WITH SECONDARY REPOLARIZATION ABNORMALITY CON[facility]IOR INFARCT : Confirmed by: Winsome Feng MD 04-Mar-2018 22:37:23
== END 2018-03-04 23:17 | disposition short-term general hospital (02) ==
LOC: ER 15:35
DX: R07.89 Other chest pain (principal); R47.81 Slurred speech; R06.02 Shortness of breath; I11.9 Hypertensive heart disease without heart failure; I43 Cardiomyopathy in diseases classified elsewhere; I25.10 Atherosclerotic heart disease of native coronary artery without angina pectoris; I25.2 Old myocardial infarction; E11.9 Type 2 diabetes mellitus without complications; Z95.5 Presence of coronary angioplasty implant and graft; Z95.810 Presence of automatic (implantable) cardiac defibrillator; Z86.73 Personal history of transient ischemic attack (TIA), and cerebral infarction without residual deficits; Z79.01 Long term (current) use of anticoagulants
CPT/HCPCS: 93005; 99285; 96374; 36415; 82553; 82550; 85025; 80053; 84484; 71046; 70450; 71275; 93010; A9270 ×2; J3010

== ENCOUNTER 2018-03-08 12:52 | Emergency (ER) | payer OTHER, MEDICARE, MEDICAID ==
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
[2018-03-08 13:59] LABS: ABSOLUTE EOSINOPHILS # (AUTO) 0.1 10^3/uL (0.0-0.6); ABSOLUTE LYMPHOCYTES (AUTO) 1.8 10^3/uL (0.5-4.7); ABSOLUTE MONOCYTES (AUTO) 0.9 10^3/uL (0.1-1.4); ABSOLUTE NEUT (AUTO) 1.9 10^3/uL (1.7-8.2); BASOPHILS % (AUTO) 0.8 % (0-2); EOSINOPHILS % (AUTO) 2.8 % (0-6); HEMOGLOBIN 13.7 g/dL (13.5-17.0); LYMPHOCYTES % (AUTO) 38.2 % (13-45); MEAN CORPUSCULAR HEMOGLOBIN 26.8 pg (27.0-33.4); MEAN CORPUSCULAR HGB CONC 33.4 g/dL (32.0-36.0); MEAN CORPUSCULAR VOLUME 80 fl (80-97); MONOCYTES % (AUTO) 19.4 % (3-13); PLATELET COUNT 259 10^3/uL (150-450); RED BLOOD COUNT 5.11 10^6/uL (4.35-5.55); RED CELL DISTRIBUTION WIDTH 15.9 % (11.5-14.0); SEGMENTED NEUTROPHILS % (AUTO) 38.8 % (42-78); TOTAL CELLS COUNTED % (AUTO) 100 %; WHITE BLOOD COUNT 4.8 10^3/uL (4.0-10.5)
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
[2018-03-08 14:26] LABS: ALANINE AMINOTRANSFERASE 28 U/L (21-72); ALBUMIN 4.3 g/dL (3.5-5.0); ALKALINE PHOSPHATASE 67 U/L (38-126); ANION GAP 8 (5-19); ASPARTATE AMINO TRANSFERASE 58 U/L (17-59); BILIRUBIN,DIRECT 0.3 mg/dL (0.0-0.4); BILIRUBIN,TOTAL 1.4 mg/dL (0.2-1.3); BLOOD UREA NITROGEN 17 mg/dL (7-20); CALCIUM 9.7 mg/dL (8.4-10.2); CARBON DIOXIDE 29 mmol/L (22-30); CHLORIDE 103 mmol/L (98-107); CREATINE KINASE 279 U/L (55-170); GLUCOSE 101 mg/dL (75-110); POTASSIUM 4.2 mmol/L (3.6-5.0); SODIUM 140.4 mmol/L (137-145)
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
[2018-03-08 14:39] LABS: CREATINE KINASE MB 2.74 ng/mL (<4.55)
[2018-03-08 14:40] LABS: TROPONIN I < 0.012 ng/mL
[2018-03-08] MEDS ORDERED: ACETAMINOPHEN 325 MG TABLET PO ONE (14:58)
[2018-03-08 18:11] VITALS: BP 104/65
--- NOTE | 2018-03-08 18:29 | EKG REPORT ---
SEVERITY:- ABNORMAL ECG - SINUS RHYTHM VENTRICULAR BIGEMINY FIRST DEGREE AV BLOCK LVH WITH SECONDARY REPOLARIZATION ABNORMALITY [facility]FAR[facility] : Confirmed by: Edison Bynum MD 08-Mar-2018 18:28:43
--- NOTE | 2018-03-08 18:30 | EKG REPORT ---
SEVERITY:- ABNORMAL ECG - SINUS RHYTHM LVH WITH IVCD AND SECONDARY REPOL ABNRM, CONSIDER OLD ANTERIOR [place]. : Confirmed by: Edison Bynum MD 08-Mar-2018 18:30:18
== END 2018-03-08 18:20 | disposition home or self-care (01) ==
LOC: ER 12:52
DX: R07.89 Other chest pain (principal); M54.2 Cervicalgia; M25.551 Pain in right hip; V49.50XA Passenger injured in collision with unspecified motor vehicles in traffic accident, initial encounter; I25.10 Atherosclerotic heart disease of native coronary artery without angina pectoris; I25.2 Old myocardial infarction; E11.9 Type 2 diabetes mellitus without complications; I11.9 Hypertensive heart disease without heart failure; R06.00 Dyspnea, unspecified; Z95.5 Presence of coronary angioplasty implant and graft
CPT/HCPCS: 36415; 71045; 72050; 80053; 82550; 82553; 84484; 85025; 93005; 93010; 99284

== ENCOUNTER 2018-03-14 09:31 | Inpatient (IN) | payer MEDICARE, MEDICAID ==
[2018-03-14] MEDS ORDERED: ONDANSETRON HCL INJ/PF 4 MG/2 ML SDV IV ONE (10:05)
[2018-03-14] MEDS ORDERED: MORPHINE SULFATE 10 MG/ML INJ IV ONE ×2 (10:05→11:15)
--- NOTE | 2018-03-14 10:07 | ER Document Report ---
ED Medical Screen (RME) - General Chief Complaint: Chest Pain Stated Complaint: CHEST PAIN Time Seen by Provider: 03/14/18 10:01 Notes: Patient is a 42-year-old male with history of CAD and MO that presents to the emergency department for chief complaint of chest pain. Patient reports that the pain started about 45 minutes ago, is constant, sharp substernal chest pain , describes as similar to prior MIs she has had in the past, he did take 4 baby aspirin prior to ED arrival, and for nitro which did not help with his pain. He has had associated nausea. He reports having 4 or 5 stents in the past as well. ROS: Unless otherwise stated in this report the patient's positive and negative responses for review of systems for constitutional, eyes, ENT, cardiovascular, respiratory, gastrointestinal, neurological, genitourinary, musculoskeletal, and integumentary systems and related systems to the presenting problem are either as stated in the HPI or were not pertinent or were negative for the symptoms and/or complaints related to the presenting medical problem. PHYSICAL EXAMINATION: Vital signs reviewed. GENERAL: Well appearing well-developed male, appears uncomfortable HEAD: Atraumatic, normocephalic. EYES: Pupils equal round extraocular movements intact, conjunctiva are normal. ENT: Nares patent NECK: Normal range of motion CV: Heart regular rate and rhythm LUNGS: No respiratory distress, clear to auscultation bilaterally, and equal Musculoskeletal: Normal range of motion NEUROLOGICAL: Normal speech PSYCH: Normal mood, normal affect. MDM: Patient seen and examined for rapid initial assessment. Vital signs reviewed. EKG reviewed, no STEMI, there were ST depressions in the lateral leads. A comprehensive ED assessment and evaluation of the patient, analysis of test results and completion of the medical decision making process will be conducted by additional ED providers. *Note is created using voice recognition software and may contain spelling, syntax or grammatical errors. TRAVEL OUTSIDE OF THE [place] IN LAST 30 DAYS: No - Related Data Allergies/Adverse Reactions: No Known Allergies Allergy (Verified 03/08/18 13:59) Past Medical History - Social History Frequency of alcohol use: None Drug Abuse: None - Past Medical History Cardiac Medical History: Reports: Hx Coronary Artery Disease, Hx Heart Attack - x6, Hx Hypercholesterolemia, Hx Hypertension Pulmonary Medical History: Denies: Hx Tuberculosis Endocrine Medical History: Reports: Hx Diabetes Mellitus Type 2 Renal/ Medical History: Denies: Hx Peritoneal Dialysis Psychiatric Medical History: Reports: Hx Anxiety Denies: Hx Depression Past Surgical History: Reports: Hx Cardiac Catheterization - x5 stents, Hx Coronary Stent - x 5, Hx Orthopedic Surgery - right rotator cuff. Denies: Hx Pacemaker - Immunizations Immunizations up to date: No Hx Diphtheria, Pertussis, Tetanus Vaccination: Yes History of Influenza Vaccine for 02/2017 - 07/2017 Season: Refused Physical Exam - Vital signs Vitals: Temp Pulse Resp BP Pulse Ox 97.4 F 63 18 114/86 H 100 03/14/18 09:41 03/14/18 09:41 03/14/18 09:41 03/14/18 09:41 03/14/18 09:41 Course - Vital Signs Vital signs: Temp Pulse Resp BP Pulse Ox 97.4 F 63 18 114/86 H 100 03/14/18 09:41 03/14/18 09:41 03/14/18 09:41 03/14/18 09:41 03/14/18 09:41 Doctor's Discharge - Discharge Referrals: DELIA BLACK DO [Primary Care Provider] - Follow up as needed
[2018-03-14] MEDS ORDERED: NITROGLYCERIN/D5W 50 MG/250 ML RTUINJ IV PRN (11:15)
--- NOTE | 2018-03-14 11:22 | ER Document Report ---
ED Cardiac - General Chief Complaint: Chest Pain Stated Complaint: CHEST PAIN Time Seen by Provider: 03/14/18 10:01 TRAVEL OUTSIDE OF THE [place] IN LAST 30 DAYS: No - HPI Notes: Patient is a 42-year-old male that presents to the emergency department for chief complaint of chest pain. Patient reports about 1 hour prior to arrival in the emergency room he had acute onset of substernal chest pain. He states it is sharp and nonradiating. He reports associated nausea without shortness of breath or vomiting. Patient has a history of CAD and has had multiple cardiac stents in the past. His last stent was about 1 year ago. He states this pain feels similar to his previous heart attacks. He took 4 baby aspirin and 3 sublingual nitro prior to arrival with no change in his symptoms. Past Medical History: CAD, [place] Past Surgical History: Coronary stenting Social History: Denies drugs alcohol and tobacco Family History: Reviewed and noncontributory for presenting illness Allergies: Reviewed, see documented allergy list. REVIEW OF SYSTEMS: CONSTITUTIONAL : No fever No chills No diaphoresis No recent illness EENT: No vision changes No congestion No sore throat CARDIOVASCULAR: chest pain No palpitations RESPIRATORY: No shortness of breath No cough No difficulty breathing GASTROINTESTINAL: No abdominal pain nausea No vomiting No diarrhea GENITOURINARY: No dysuria No hematuria No difficulty urinating MUSCULOSKELETAL: No back pain No leg pain No arm pain SKIN: No rashes No lesions LYMPHATIC: No swollen, enlarged glands. NEUROLOGICAL: No lightheadedness No headache No weakness No paresthesias PSYCHIATRIC: No anxiety No depression PHYSICAL EXAMINATION: Vital signs reviewed, nursing noted reviewed. GENERAL: Well-appearing, well-nourished and in no acute distress. HEAD: Atraumatic, normocephalic. EYES: Eyes appear normal, extraocular movements intact, sclera anicteric, conjunctiva are normal. ENT: nares patent, oropharynx clear without exudates. Moist mucous membranes. NECK: Normal range of motion, supple without lymphadenopathy LUNGS: Breath sounds clear to auscultation bilaterally and equal. No wheezes rales or rhonchi. HEART: Regular rate and rhythm without murmurs. +2/4 radial pulse bilaterally ABDOMEN: Soft, nontender, normoactive bowel sounds. No rebound, guarding, or rigidity. No masses appreciated. EXTREMITIES: Nontender, good range of motion, no pitting or edema. NEUROLOGICAL: No focal neurological deficits. Moves all extremities spontaneously Motor and sensory grossly intact on exam. PSYCH: Normal mood, normal affect. SKIN: Warm, Dry, normal turgor, no rashes or lesions noted on exposed skin - Related Data Allergies/Adverse Reactions: No Known Allergies Allergy (Verified 03/08/18 13:59) Past Medical History - Social History Smoking Status: Never Smoker Frequency of alcohol use: None Drug Abuse: None Family History: CAD, Hyperlipidemia, Hypertension Patient has suicidal ideation: No Patient has homicidal ideation: No - Past Medical History Cardiac Medical History: Reports: Hx Coronary Artery Disease, Hx Heart Attack - x6, Hx Hypercholesterolemia, Hx Hypertension Pulmonary Medical History: Denies: Hx Tuberculosis Endocrine Medical History: Reports: Hx Diabetes Mellitus Type 2 Renal/ Medical History: Denies: Hx Peritoneal Dialysis Psychiatric Medical History: Reports: Hx Anxiety Denies: Hx Depression Past Surgical History: Reports: Hx Cardiac Catheterization - x5 stents, Hx Coronary Stent - x 5, Hx Orthopedic Surgery - right rotator cuff. Denies: Hx Pacemaker - Immunizations Immunizations up to date: No Hx Diphtheria, Pertussis, Tetanus Vaccination: Yes Hx Pneumococcal Vaccination: 02/21/11 Review of Systems - Review of Systems Notes: Dictated Physical Exam - Vital signs Vitals: Temp Pulse Resp BP Pulse Ox 97.4 F 63 18 114/86 H 100 03/14/18 09:41 03/14/18 09:41 03/14/18 09:41 03/14/18 09:41 03/14/18 09:41 - Notes Notes: Dictated Course - Re-evaluation Re-evalutation: 03/14/18 11:20 Vitals reviewed. Nursing notes reviewed. Patient started on nitro drip and given morphine for his chest pain. EKG shows no ST elevation but he does have new mild lateral ST depressions. Patient received aspirin prior to arrival. 03/14/18 13:01 On reevaluation patient's chest pain has improved after morphine. He has refused the nitro infusion and is requesting the paste instead. Nitropaste placed on his chest for further pain control. His repeat EKG was unchanged from the initial at arrival. Patient's troponin is elevated at 0.17. Given his significant history of CAD he will be started on heparin for NSTEMI. Laboratory 03/14/18 03/14/18 03/14/18 11:58 11:58 11:58 WBC 5.3 RBC 5.06 Hgb 13.3 L Hct 40.5 MCV 80 MCH 26.3 L MCHC 32.9 RDW 15.6 H Plt Count 293 Seg Neutrophils % 54.0 Lymphocytes % 33.8 Monocytes % 10.6 Eosinophils % 1.0 Basophils % 0.6 Absolute Neutrophils 2.9 Absolute Lymphocytes 1.8 Absolute Monocytes 0.6 Absolute Eosinophils 0.1 Absolute Basophils 0.0 Sodium 141.8 Potassium 4.1 Chloride 107 Carbon Dioxide 26 Anion Gap 9 BUN 11 Creatinine 1.06 Est GFR ( Amer) > 60 Est GFR (Non-Af Amer) > 60 Glucose 102 Calcium 9.7 Total Bilirubin 1.6 H Direct Bilirubin 0.3 Neonat Total Bilirubin Not Reportable Neonat Direct Bilirubin Not Reportable Neonat Indirect Bili Not Reportable AST 58 ALT 44 Alkaline Phosphatase 70 Troponin I 0.174 Total Protein 8.3 H Albumin 4.6 Chest X-Ray 03/14/18 10:04 IMPRESSION: NO ACUTE RADIOGRAPHIC FINDING IN THE CHEST. 03/14/18 13:[address] Tompkins, cardiology at [facility], who states patient had a negative nuclear stress test done last week. He does not currently feel the patient is requiring heart catheterization and recommends admission at our facility with trending troponins. He states if his troponin becomes significantly elevated out of the indeterminate phase then they would consider doing a repeat heart catheterization at that time. 03/14/18 13:22 Case discussed with who accepted admission - Vital Signs Vital signs: Temp Pulse Resp BP Pulse Ox 97.4 F 63 18 114/86 H 100 03/14/18 09:41 03/14/18 09:41 03/14/18 09:41 03/14/18 09:41 03/14/18 11:46 - Laboratory Result Diagrams: 03/14/18 11:58 03/14/18 11:58 Laboratory results interpreted by me: 03/14/18 03/14/18 11:58 11:58 Hgb 13.3 L MCH 26.3 L RDW 15.6 H Total Bilirubin 1.6 H Total Protein 8.3 H - EKG Interpretation by Me Additional EKG results interpreted by me: 03/14/18 11:21 Interpreted by myself [id number]: Normal sinus rhythm, rate 68, normal axis, idioventricular conduction delay, poor R wave progression and mild ST depression laterally which is new compared to 03/08/18 03/14/18 13:04 Interpreted by myself repeat EKG 1135: Normal sinus rhythm, rate 65, normal axis, poor R wave progression, unchanged ST depression, no new ST elevation Critical Care Note - Critical Care Note Total time excluding time spent on procedures (mins): 35 Comments: Heparin infusion for NSTEMI with EKG changes. Potential for cardiovascular decompensation. Discussion with medical support specialist Discharge - Discharge Clinical Impression: NSTEMI (non-ST elevated myocardial infarction), Acute electrocardiogram changes Chest pain Qualifiers: Chest pain type: unspecified Qualified Code(s): R07.9 - Chest pain, unspecified Condition: Stable Disposition: ADMITTED INPATIENT Admitting Provider: Hospitalist Unit Admitted: IMCU Referrals: DELIA BLACK DO [Primary Care Provider] - Follow up as needed
--- NOTE | 2018-03-14 11:57 | RADIOLOGY REPORT (SQ) ---
EXAM DESCRIPTION: CHEST SINGLE VIEW COMPLETED DATE/TIME: 03/14/2018 11:28 am REASON FOR STUDY: chest pain COMPARISON: 03/08/2018 EXAM PARAMETERS: NUMBER OF VIEWS: One view. TECHNIQUE: Single frontal radiographic view of the chest acquired. RADIATION DOSE: NA LIMITATIONS: None. FINDINGS: LUNGS AND PLEURA: No opacities, masses or pneumothorax. No pleural effusion. MEDIASTINUM AND HILAR STRUCTURES: No masses. Contour normal. HEART AND VASCULAR STRUCTURES: Stable heart size. Normal vasculature. BONES: No acute findings. HARDWARE: Stable position of defibrillator. OTHER: No other significant finding. IMPRESSION: NO ACUTE RADIOGRAPHIC FINDING IN THE CHEST. TECHNICAL DOCUMENTATION: JOB ID: [id number] [employer]- All Rights Reserved Reading location - IP/workstation name: [email or web address]
[2018-03-14 12:16] LABS: ABSOLUTE EOSINOPHILS # (AUTO) 0.1 10^3/uL (0.0-0.6); ABSOLUTE LYMPHOCYTES (AUTO) 1.8 10^3/uL (0.5-4.7); ABSOLUTE MONOCYTES (AUTO) 0.6 10^3/uL (0.1-1.4); ABSOLUTE NEUT (AUTO) 2.9 10^3/uL (1.7-8.2); BASOPHILS % (AUTO) 0.6 % (0-2); HEMATOCRIT 40.5 % (37.9-51.0); HEMOGLOBIN 13.3 g/dL (13.5-17.0); LYMPHOCYTES % (AUTO) 33.8 % (13-45); MEAN CORPUSCULAR HEMOGLOBIN 26.3 pg (27.0-33.4); MEAN CORPUSCULAR HGB CONC 32.9 g/dL (32.0-36.0); MEAN CORPUSCULAR VOLUME 80 fl (80-97); MONOCYTES % (AUTO) 10.6 % (3-13); PLATELET COUNT 293 10^3/uL (150-450); RED BLOOD COUNT 5.06 10^6/uL (4.35-5.55); RED CELL DISTRIBUTION WIDTH 15.6 % (11.5-14.0); TOTAL CELLS COUNTED % (AUTO) 100 %; WHITE BLOOD COUNT 5.3 10^3/uL (4.0-10.5)
[2018-03-14] MEDS ORDERED: NITROGLYCERIN 15 MG (0.6 MG/1 HR) PATCH.TD24 TD ONE (12:31)
[2018-03-14 12:32] LABS: ALANINE AMINOTRANSFERASE 44 U/L (21-72); ALBUMIN 4.6 g/dL (3.5-5.0); ALKALINE PHOSPHATASE 70 U/L (38-126); ANION GAP 9 (5-19); ASPARTATE AMINO TRANSFERASE 58 U/L (17-59); BILIRUBIN,DIRECT 0.3 mg/dL (0.0-0.4); BILIRUBIN,TOTAL 1.6 mg/dL (0.2-1.3); BLOOD UREA NITROGEN 11 mg/dL (7-20); CALCIUM 9.7 mg/dL (8.4-10.2); CARBON DIOXIDE 26 mmol/L (22-30); CHLORIDE 107 mmol/L (98-107); GLUCOSE 102 mg/dL (75-110); POTASSIUM 4.1 mmol/L (3.6-5.0); SODIUM 141.8 mmol/L (137-145); TOTAL PROTEIN 8.3 g/dL (6.3-8.2)
[2018-03-14] MEDS ORDERED: HEPARIN SODIUM,PORCINE/D5W 25,000 UNIT/250 ML RTUINJ IV PRN ×2 (12:54→18:38)
[2018-03-14] MEDS ORDERED: HEPARIN SOD (PORCINE) 1,000 UNIT/ML 10 ML VIAL IV ONE (12:54)
[2018-03-14 13:11] LABS: INTERNATIONAL RATION (INR) 1.06; PARTIAL THROMBOPLASTIN TIME 26.4 SEC (23.5-35.8); PROTHROMBIN TIME 14.3 SEC (11.4-15.4)
[2018-03-14] MEDS ORDERED: DEXTROSE 50%-WATER 25 GM/50 ML DISP.SYRIN IV PRN ×2 (14:35)
[2018-03-14] MEDS ORDERED: DEXTROSE 40% GEL 15 GM TUBE PO PRN ×2 (14:35)
[2018-03-14] MEDS ORDERED: GLUCAGON,HUMAN RECOMB 1 MG INJ SUBCUT PRN (14:35)
[2018-03-14] MEDS ORDERED: IPRATROPIUM/ALBUTEROL 0.5-2.5 MG/3 ML AMPUL NEB PRN (14:35)
[2018-03-14] MEDS ORDERED: NORMAL SALINE 1000 ML 1,000 ML IV PRN (14:35)
[2018-03-14] MEDS ORDERED: NITROGLYCERIN 0.4 MG/TAB 25 TAB/BOTTLE SL PRN (14:48)
[2018-03-14] MEDS ORDERED: MORPHINE SULFATE 10 MG/ML INJ IV PRN (14:48)
[2018-03-14] MEDS ORDERED: ONDANSETRON HCL INJ/PF 4 MG/2 ML SDV ONE (14:56)
[2018-03-14] MEDS ORDERED: ASPIRIN 325 MG TABLET ONE (14:58)
[2018-03-14] MEDS ORDERED: ONDANSETRON HCL INJ/PF 4 MG/2 ML SDV IV PRN (15:14)
[2018-03-14] MEDS ORDERED: ASPIRIN 81 MG TABLET, CHEWABLE PO ONE (15:30)
[2018-03-14] MEDS ORDERED: ATORVASTATIN CALCIUM 40 MG TABLET PO ONE ×2 (15:30→18:45)
[2018-03-14] MEDS ORDERED: APIXABAN 5 MG TABLET PO SCH (16:00)
--- NOTE | 2018-03-14 16:08 | PDOC H&P ---
History of Present Illness Admission Date/PCP: 03/14/18 13:22 DELIA BLACK DO Patient complains of: Chest pain History of Present Illness: WINDY CORNEJO is a 42 year old male past medical history hypertension, hyperlipidemia, generalized anxiety, GERD, nonischemic cardiomyopathy, CHF, CVA , and complex CAD history(on chart review he has complicated CAD history as below). 2010 LAD stent placed at [facility] . 08/2011 Presented with chest pain [facility] transferred to [facility] showed significant LAD disease with stent wide open. LV normal EF. 09/2011 presented with chest pain and [facility] showed stent clot, was removed with balloon dilation and thrombectomy. LV EF 35%. 09/2011 Stress test showed ischemia at the apex LV EF 45-50. 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 Stress test showed LAD territory infarction 10/20/2011 [facility] showed mid anteroseptal mid inferoseptal apical septum and apical anterior hypokinesis. Pt Left AMA. 2015 as per patient he was was admitted at [facility] showed total occlusion of LAD EF 28%. Discharged home on LifeVest and Brilinta. Discharged on LifeVest but Brilinta was switched with Effient and aspirin in 2016 he had a stroke. Stopped using LifeVest because of alarm would keep going off. Patient has history of multiple admission for chest pain. On this admission patient presented to ED complaining of chest pain which started 1 hour prior to arrival he explains it as substernal, sharp, nonradiating associated with nausea but denies shortness of breath or vomiting. Unfortunately patient is extremely anxious and does not provide detailed history. States that he knows he is having a heart attack because his chest pain is very similar to prior chest pains. Past Medical History Cardiac Medical History: Reports: Coronary Artery Disease, Myocardial Infarction - x6, Hyperlipidema, Hypertension Pulmonary Medical History: Denies: Tuberculosis Endocrine Medical History: Reports: Diabetes Mellitus Type 2 Psychiatric Medical History: Denies: Depression Past Surgical History Past Surgical History: Reports: Cardiac Catheterization - x5 stents, Coronary Stent - x 5, Orthopedic Surgery - right rotator cuff Denies: Pacemaker Social History Smoking Status: Never Smoker Frequency of Alcohol Use: Social Hx Recreational Drug Use: No Drugs: None Hx Prescription Drug Abuse: No Family History Family History: CAD, Hyperlipidemia, Hypertension Parental Family History Reviewed: Yes Children Family History Reviewed: Yes Sibling(s) Family History Reviewed.: Yes Medication/Allergy Home Medications: Alprazolam [Xanax] 2 mg PO Q8 03/14/18 Apixaban [Eliquis 5 mg Tablet] 5 mg PO Q12 03/14/18 Aspirin [Ecotrin 81 mg EC Tablet] 81 mg PO DAILY 03/14/18 Atorvastatin Calcium [Lipitor 80 mg Tablet] 80 mg PO QHS 03/14/18 Bisoprolol Fumarate [Zebeta 5 mg Tablet] 10 mg PO DAILY 03/14/18 Cyclosporine 0.05% Oph Emulsio [Restasis 0.05% Oph Emulsion Pf 0.4 ml] 1 drop OU BID 03/14/18 Dexlansoprazole [Dexilant 60 mg Capsule] 60 mg PO DAILY 03/14/18 Furosemide [Lasix 40 mg Tablet] 80 mg PO BID 03/14/18 Isosorbide Mononitrate [Imdur 30 mg Tablet.er] 15 mg PO DAILY 03/14/18 Lidocaine [Lidoderm 5% (700 mg) Transdermal Patch] 1 patch TOP Q12HP PRN Lisinopril [Prinivil] 20 mg PO DAILY 03/14/18 Naloxone HCl 1 mg IM PRN PRN 03/14/18 Nitroglycerin [Nitrostat] 0.4 mg SL Q5MP PRN 03/14/18 Oxycodone HCl 15 mg PO Q6HP PRN 03/14/18 Potassium Chloride [K-Tab ER] 40 meq PO BIDBS 03/14/18 Prasugrel HCl [Effient 10 mg Tablet] 10 mg PO DAILY 03/14/18 Ranolazine [Ranexa] 1,000 mg PO Q12 03/14/18 Spironolactone [Aldactone 25 mg Tablet] 25 mg PO DAILY 03/14/18 Tacrolimus [Protopic] 1 applic TOP BID 03/14/18 Testosterone Cypionate [Depo-Testosterone] 2 ml IM MO@1000 03/14/18 Tramadol HCl [Ultram 50 mg Tablet] 100 mg PO Q8HP PRN 03/14/18 Zolpidem Tartrate [Ambien] 10 mg PO QHS 03/14/18 Allergies/Adverse Reactions: No Known Allergies Allergy (Verified 03/08/18 13:59) Review of Systems Review of Systems: As per HPI Physical Exam Vital Signs: Temp Pulse Resp BP Pulse Ox 97.4 F 63 18 114/86 H 100 03/14/18 09:41 03/14/18 09:41 03/14/18 09:41 03/14/18 09:41 03/14/18 11:46 General appearance: PRESENT: mild distress, well-developed, well-nourished, other - Very anxious with trembling lips Neck exam: ABSENT: carotid bruit, JVD, lymphadenopathy, thyromegaly Respiratory exam: PRESENT: clear to auscultation yesenia. ABSENT: rales, rhonchi, wheezes Cardiovascular exam: PRESENT: RRR. ABSENT: diastolic murmur, rubs, systolic murmur Pulses: PRESENT: normal dorsalis pedis pul GI/Abdominal exam: PRESENT: normal bowel sounds, soft. ABSENT: distended, guarding, mass, organolmegaly, rebound, tenderness Extremities exam: PRESENT: full ROM. ABSENT: calf tenderness, clubbing, pedal edema Neurological exam: PRESENT: alert, awake, oriented to person, oriented to place , oriented to time, oriented to situation, CN II-XII grossly intact. ABSENT: motor sensory deficit Psychiatric exam: PRESENT: anxious Results Impressions: Chest X-Ray 03/14/18 10:04 IMPRESSION: NO ACUTE RADIOGRAPHIC FINDING IN THE CHEST. Assessment & Plan - Diagnosis (1) Acute coronary syndrome Is this a current diagnosis for this admission?: Yes Plan: HEART Score 4, NAKITA Score 4, EKG negative for any acute changes, troponins trending up 0.17 - 187. Continue heparin drip for 24 hours, aspirin, statin, telemetry. Restart beta-blockers, LAITH. Had a conversation with Dr. Feng his laser/electro optics technician. Verbal recommendation was to admit patient and continue on heparin drip for 24 hours and DC home. As per him patient does not want to be transferred. (2) Hypertension Is this a current diagnosis for this admission?: No Plan: Start LAITH, beta-robina, Lasix. Monitor vitals adjust medications as needed. (3) CAD (coronary artery disease) Is this a current diagnosis for this admission?: No Plan: As per problem #1. (4) CHF (congestive heart failure) Is this a current diagnosis for this admission?: No Plan: NYHA class II, behind systolic and diastolic dysfunction. Action fraction 25-30 % on 06/2017. Not on exacerbation based on physical examination. Monitor vitals and volume status. Cardiac diet (5) GERD (gastroesophageal reflux disease) Is this a current diagnosis for this admission?: No Plan: Restart PPI. Outpatient GI follow-up (6) Anxiety Is this a current diagnosis for this admission?: No Plan: As needed benzos. Consult psych if clinically appropriate (7) History of stroke Is this a current diagnosis for this admission?: No Plan: Continue antiplatelets and anticoagulants. (8) Hyperlipidemia Qualifiers: Hyperlipidemia type: unspecified Qualified Code(s): E78.5 - Hyperlipidemia , unspecified Is this a current diagnosis for this admission?: No Plan: Restart statins. Diet and lifestyle modification.
[2018-03-14] MEDS ORDERED: POTASSIUM CHLORIDE 10 MEQ CAPSULE.ER PO SCH (17:00)
[2018-03-14] MEDS ORDERED: (PENDING PHARMACY ID) (Potassium Chloride [K-Tab Er] 40 MEQ) PO SCH (17:00)
--- NOTE | 2018-03-14 17:22 | PDOC TRANSFER SUMMARY ---
General Admission Date/PCP: 03/14/18 13:22 DELIA BLACK, DO - Transfer Diagnosis (1) Acute coronary syndrome Is this a current diagnosis for this admission?: Yes (2) Hypertension Is this a current diagnosis for this admission?: No (3) CAD (coronary artery disease) Is this a current diagnosis for this admission?: No (4) CHF (congestive heart failure) Is this a current diagnosis for this admission?: No (5) GERD (gastroesophageal reflux disease) Is this a current diagnosis for this admission?: No (6) Anxiety Is this a current diagnosis for this admission?: No (7) History of stroke Is this a current diagnosis for this admission?: No (8) Hyperlipidemia Is this a current diagnosis for this admission?: No - Transfer Medications Home Medications: Alprazolam [Xanax] 2 mg PO Q8 03/14/18 Apixaban [Eliquis 5 mg Tablet] 5 mg PO Q12 03/14/18 Aspirin [Ecotrin 81 mg EC Tablet] 81 mg PO DAILY 03/14/18 Atorvastatin Calcium [Lipitor 80 mg Tablet] 80 mg PO QHS 03/14/18 Bisoprolol Fumarate [Zebeta 5 mg Tablet] 10 mg PO DAILY 03/14/18 Cyclosporine 0.05% Oph Emulsio [Restasis 0.05% Oph Emulsion Pf 0.4 ml] 1 drop OU BID 03/14/18 Dexlansoprazole [Dexilant 60 mg Capsule] 60 mg PO DAILY 03/14/18 Furosemide [Lasix 40 mg Tablet] 80 mg PO BID 03/14/18 Isosorbide Mononitrate [Imdur 30 mg Tablet.er] 15 mg PO DAILY 03/14/18 Lidocaine [Lidoderm 5% (700 mg) Transdermal Patch] 1 patch TOP Q12HP PRN Lisinopril [Prinivil] 20 mg PO DAILY 03/14/18 Naloxone HCl 1 mg IM PRN PRN 03/14/18 Nitroglycerin [Nitrostat] 0.4 mg SL Q5MP PRN 03/14/18 Oxycodone HCl 15 mg PO Q6HP PRN 03/14/18 Potassium Chloride [K-Tab ER] 40 meq PO BIDBS 03/14/18 Prasugrel HCl [Effient 10 mg Tablet] 10 mg PO DAILY 03/14/18 Ranolazine [Ranexa] 1,000 mg PO Q12 03/14/18 Spironolactone [Aldactone 25 mg Tablet] 25 mg PO DAILY 03/14/18 Tacrolimus [Protopic] 1 applic TOP BID 03/14/18 Testosterone Cypionate [Depo-Testosterone] 2 ml IM MO@1000 03/14/18 Tramadol HCl [Ultram 50 mg Tablet] 100 mg PO Q8HP PRN 03/14/18 Zolpidem Tartrate [Ambien] 10 mg PO QHS 03/14/18 Transfer Medications: Current Medications Albuterol/Ipratropium (Duoneb 3 Ml Ampul) 3 ml NEB RTQ3HP PRN PRN Reason: SHORTNESS OF BREATH Stop: 04/13/18 14:34 Alprazolam (Xanax 0.5 Mg Tablet) 2 mg PO Q8 ROULA Stop: 03/21/18 21:59 Apixaban (Eliquis 5 Mg Tablet) 5 mg PO Q12 ROULA Stop: 04/13/18 15:59 Atenolol (Tenormin 50 Mg Tablet) 100 mg PO DAILY ROULA Stop: 04/14/18 09:59 Atorvastatin Calcium (Lipitor 80 Mg Tablet) 80 mg PO QHS ROULA Stop: 04/13/18 21:59 Cyclosporine (Restasis 0.05% Oph Emulsion Pf 0.4 Ml) 1 drop OU BID ROULA Stop: 04/13/18 17:59 Dextrose (Dextrose Inj 50% Syringe (25 Gm/50 Ml)) 12.5 gm IV PRN PRN; Protocol PRN Reason: FOR BG 50-69 IN ALERT PATIENT Stop: 04/13/18 14:34 Dextrose (Dextrose Inj 50% Syringe (25 Gm/50 Ml)) 25 gm IV PRN PRN; Protocol PRN Reason: See Label Comments Stop: 04/13/18 14:34 Furosemide (Lasix 80 Mg Tablet) 80 mg PO BID ROULA Stop: 04/13/18 17:59 Glucagon (Glucagen Inj 1 Mg Vial) 1 mg SUBCUT PRN PRN; Protocol PRN Reason: Evaluate for BG < 70 Stop: 04/13/18 14:34 Glucose (Glutose 40% Gel 15 Gm Tube) 15 gm PO PRN PRN; Protocol PRN Reason: For BG 50-69 in Alert Patient Stop: 04/13/18 14:34 Glucose (Glutose 40% Gel 15 Gm Tube) 30 gm PO PRN PRN; Protocol PRN Reason: FOR BG < 50 IN ALERT PATIENT Stop: 04/13/18 14:34 Sodium Chloride (Nacl 0.9% 1000 Ml Iv Soln) 1,000 mls @ 80 mls/hr IV CONTINUOUS PRN PRN Reason: THIS MED IS NOT "PRN" Stop: 04/13/18 14:34 Isosorbide Mononitrate (Imdur 30 Mg Tablet.Er) 15 mg PO DAILY ROULA Stop: 04/14/18 09:59 Lansoprazole (Prevacid 30 Mg Odt Tablet) 30 mg PO Q6AM ROULA Stop: 04/14/18 05:59 Morphine Sulfate (Morphine 10 Mg/Ml Inj) 2 mg IV Q4HP PRN PRN Reason: FOR PAIN SCALE 4-5 Stop: 03/21/18 14:47 Last Admin: 03/14/18 16:50 Dose: 2 mg Nitroglycerin (Nitrostat 0.4 Mg (1/150 Gr) Tabs 25/Bottle) 1 tab SL Q5MP PRN PRN Reason: FOR CHEST PAIN Stop: 04/13/18 16:29 Ondansetron HCl (Zofran Inj/Pf 4 Mg/2 Ml Sdv) 4 mg IV Q4HP PRN PRN Reason: FOR NAUSEA/VOMITING Stop: 04/13/18 15:13 Last Admin: 03/14/18 16:50 Dose: 4 mg Potassium Chloride (Klor-Con 10 Meq Capsule Er) 40 meq PO BIDBS [facility] Stop: 04/13/18 16:59 Prasugrel (Effient 10 Mg Tablet) 10 mg PO DAILY [facility] Stop: 04/14/18 09:59 Ranolazine (Ranexa 500 Mg Tab.Sr) 1,000 mg PO Q12 ROULA Stop: 04/13/18 21:59 Sodium Chloride (Saline Flush 2.5 Ml Monoject Prefil Syrin) 2.5 ml IV Q8 ROULA Stop: 04/13/18 21:59 Spironolactone (Aldactone 25 Mg Tablet) 25 mg PO DAILY [facility] Stop: 04/14/18 09:59 Zolpidem Tartrate (Ambien 5 Mg Tablet) 10 mg PO QHS ROULA Stop: 03/21/18 21:59 - Allergies Allergies/Adverse Reactions: No Known Allergies Allergy (Verified 03/08/18 13:59) Hospital Course Hospital Course: WINDY CORNEJO is a 42 year old male past medical history hypertension, hyperlipidemia, generalized anxiety, GERD, nonischemic cardiomyopathy, CHF, CVA , and complex CAD history(on chart review he has complicated CAD history as below). 2010 LAD stent placed at [facility] . 08/2011 Presented with chest pain [facility] transferred to [facility] showed significant LAD disease with stent wide open. LV normal EF. 09/2011 presented with chest pain and [facility] showed stent clot, was removed with balloon dilation and thrombectomy. LV EF 35%. 09/2011 Stress test showed ischemia at the apex LV EF 45-50. 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 Stress test showed LAD territory infarction 10/20/2011 О[facility] showed mid anteroseptal mid inferoseptal apical septum and apical anterior hypokinesis. Pt Left AMA. 2015 as per patient he was was admitted at [facility] showed total occlusion of LAD EF 28%. Discharged home on LifeVest and Brilinta. Discharged on LifeVest but Brilinta was switched with Effient and aspirin in 2016 he had a stroke. Stopped using LifeVest because of alarm would keep going off. Patient has history of multiple admission for chest pain. On this admission patient presented to ED complaining of chest pain which started 1 hour prior to arrival he explains it as substernal, sharp, nonradiating associated with nausea but denies shortness of breath or vomiting. Relieved by nitro. Unfortunately patient is extremely anxious and does not provide detailed history. States that he knows he is having a heart attack because his chest pain is very similar to prior chest pains. (1) Acute coronary syndrome HEART Score 4, NAKITA Score 4, EKG negative for any acute changes, troponins trending up 0.17 - 187. Started on heparin drip, antiplatelets, statins, beta- robina and LAITH inhibitor. (2) Hypertension Start LAITH, beta-robina, Lasix. Monitor vitals adjust medications as needed. (3) CAD (coronary artery disease) As per problem #1. (4) CHF (congestive heart failure) NYHA class II, behind systolic and diastolic dysfunction. Action fraction 25-30 % on 06/2017. Not on exacerbation based on physical examination. Monitor vitals and volume status. Cardiac diet (5) GERD (gastroesophageal reflux disease) Restart PPI. Outpatient GI follow-up (6) Anxiety As needed benzos. Consult psych if clinically appropriate (7) History of stroke Continue antiplatelets and anticoagulants. (8) Hyperlipidemia Restart statins. Diet and lifestyle modification. Physical Exam Vital Signs: Temp Pulse Resp BP Pulse Ox 97.4 F 63 18 114/86 H 100 03/14/18 09:41 03/14/18 09:41 03/14/18 09:41 03/14/18 09:41 03/14/18 11:46 Results Laboratory Results: 03/14/18 15:19 Troponin I 1.870 Impressions: Chest X-Ray 03/14/18 10:04 IMPRESSION: NO ACUTE RADIOGRAPHIC FINDING IN THE CHEST.
[2018-03-14 17:38] LABS: APPEARANCE,URINE CLEAR; BILIRUBIN,URINE NEGATIVE (NEGATIVE); COLOR,URINE YELLOW; GLUCOSE, URINE NEGATIVE (NEGATIVE); KETONES,URINE NEGATIVE (NEGATIVE); LEUKOCYTE ESTERASE,URINE NEGATIVE (NEGATIVE); NITRITE,URINE NEGATIVE (NEGATIVE); PROTEIN,URINE NEGATIVE (NEGATIVE); URINE SPECIFIC GRAVITY 1.026
[2018-03-14] MEDS: NITROGLYCERIN 0.4 MG/TAB 25 TAB/BOTTLE SL PRN ×2 (17:56→18:40)
[2018-03-14] MEDS ORDERED: FUROSEMIDE 80 MG TABLET PO SCH (18:00)
[2018-03-14] MEDS ORDERED: FUROSEMIDE 40 MG TABLET PO SCH (18:00)
[2018-03-14] MEDS ORDERED: CYCLOSPORINE 0.05% OPH EMULSIO 0.4 ML DROPERETTE OU SCH (18:00)
[2018-03-14] MEDS ORDERED: HEPARIN SOD (PORCINE) 1,000 UNIT/ML 10 ML VIAL IV PRN (18:38)
[2018-03-14 20:12] VITALS: BP 107/67
[2018-03-14] MEDS ORDERED: ALPRAZOLAM 0.5 MG TABLET PO SCH (22:00)
[2018-03-14] MEDS ORDERED: RANOLAZINE 500 MG TAB.SR.12H PO SCH (22:00)
[2018-03-14] MEDS ORDERED: ZOLPIDEM TARTRATE 5 MG TABLET PO SCH (22:00)
[2018-03-14] MEDS ORDERED: (PENDING PHARMACY ID) (Zolpidem Tartrate [Ambien] 10 MG) PO SCH (22:00)
[2018-03-14] MEDS ORDERED: ATORVASTATIN CALCIUM 80 MG TABLET PO SCH (22:00)
--- NOTE | 2018-03-14 23:17 | EKG REPORT ---
SEVERITY:- ABNORMAL ECG - SINUS RHYTHM PROBABLE LEFT ATRIAL ABNORMALITY LVH WITH SECONDARY REPOLARIZATION ABNORMALITY : Confirmed by: Tuan Malik 14-Mar-2018 23:15:58
--- NOTE | 2018-03-14 23:17 | EKG REPORT ---
SEVERITY:- ABNORMAL ECG - SINUS RHYTHM NONSPECIFIC INTRAVENTRICULAR CONDUCTION DELAY BORDERLINE R WAVE PROGRESSION, ANTERIOR LEADS MINIMAL ST DEPRESSION, ANTEROLATERAL LEADS : Confirmed by: Tuan Malik 14-Mar-2018 23:16:09
--- NOTE | 2018-03-14 23:17 | EKG REPORT ---
SEVERITY:- ABNORMAL ECG - SINUS RHYTHM LVH WITH IVCD AND SECONDARY REPOL ABNRM : Confirmed by: Tuan Malik 14-Mar-2018 23:15:50
[2018-03-15] MEDS ORDERED: LANSOPRAZOLE 30 MG TAB.RAP.DR PO SCH (06:00)
[2018-03-15] MEDS ORDERED: SPIRONOLACTONE 25 MG TABLET PO SCH (10:00)
[2018-03-15] MEDS ORDERED: ISOSORBIDE MONONITRATE 30 MG TAB.ER.24H PO SCH (10:00)
[2018-03-15] MEDS ORDERED: BISOPROLOL FUMARATE 10 MG PO SCH (10:00)
[2018-03-15] MEDS ORDERED: ATENOLOL 50 MG TABLET PO SCH (10:00)
[2018-03-15] MEDS ORDERED: PRASUGREL HCL 10 MG TABLET PO SCH (10:00)
== END 2018-03-14 20:35 | disposition short-term general hospital (02) | DRG 311 ==
LOC: ER 09:31 → EH 13:22 → 3S 16:17
PROVIDERS: ADMIT Emergency Medicine; ATTEND Emergency Medicine
DX: I24.9 Acute ischemic heart disease, unspecified (principal); I50.42 Chronic combined systolic (congestive) and diastolic (congestive) heart failure; I25.10 Atherosclerotic heart disease of native coronary artery without angina pectoris; I11.0 Hypertensive heart disease with heart failure; E78.5 Hyperlipidemia, unspecified; F41.9 Anxiety disorder, unspecified; K21.9 Gastro-esophageal reflux disease without esophagitis; I25.5 Ischemic cardiomyopathy; I50.9 Heart failure, unspecified; Z86.73 Personal history of transient ischemic attack (TIA), and cerebral infarction without residual deficits; I25.2 Old myocardial infarction; Z95.5 Presence of coronary angioplasty implant and graft; Z79.899 Other long term (current) drug therapy; Z79.82 Long term (current) use of aspirin; Z82.49 Family history of ischemic heart disease and other diseases of the circulatory system
CPT/HCPCS: 36415; 71045; 80053; 81001; 84484; 85025; 85610; 85730; 93005; 93010; 96374; 96375; 99291; J1644; J2270; J2405; J3490; J7030

== ENCOUNTER → 2018-03-25 | Outpatient (CLI) | payer MEDICARE, MEDICAID ==
--- NOTE | 2018-03-25 15:45 | RADIOLOGY REPORT (SQ) ---
EXAM DESCRIPTION: CT HEAD WITH COMPLETED DATE/TIME: 03/25/2018 3:26 pm REASON FOR STUDY: S09.90XA UNSPECIFIED INJURY OF HEAD, INITIAL ENCOUNTER M54.2 CERVICALGIA S09.90XA UNSPECIFIED INJURY OF HEAD, INITIAL ENCOUNTER M54.2 CERVICALGIA COMPARISON: None. TECHNIQUE: Axial images acquired through the brain with intravenous contrast. Images reviewed with b one, brain and subdural windows. Additional sagittal and coronal reconstructions were generated. Li ges stored on PACS. All CT scanners at this facility use dose modulation, iterative reconstruction, and/or weight based d osing when appropriate to reduce radiation dose to as low as reasonably achievable (ALARA). [facility]: Dose Right [facility]: CareDose [facility]: Dose Right [facility]: Teradose 4D [facility]: [employer] CONTRAST TYPE AND DOSE: contrast/concentration: Isovue 350.00 mg/ml; Total Contrast Delivered: 50.0 ml; Total Saline Delivered: 55.0 ml RENAL FUNCTION: Creatinine 1.2 RADIATION DOSE: CT Rad equipment meets quality standard of care and radiation dose reduction techniq ues were employed. CTDIvol: 48.7 mGy. DLP: 979 mGy-cm.. LIMITATIONS: None. FINDINGS: VENTRICLES: Normal size and contour. CEREBRUM: No masses. No hemorrhage. No midline shift. Normal dempsey/white matter differentiation. No ev idence for acute infarction. No enhancing lesions. CEREBELLUM: No masses. No hemorrhage. No alteration of density. No evidence for acute infarction. No enhancing lesions. EXTRA-AXIAL SPACES: No fluid collections. No enhancing lesions. ORBITS AND GLOBE: No intra- or extraconal masses. Normal contour of globe without masses. CALVARIUM: No fracture. PARANASAL SINUSES: No fluid or mucosal thickening. SOFT TISSUES: No mass or hematoma. OTHER: No other significant finding. IMPRESSION: NORMAL BRAIN CT WITH CONTRAST. EVIDENCE OF ACUTE STROKE: NO. TECHNICAL DOCUMENTATION: JOB ID: [id number] Quality ID # [id number]: Final reports with documentation of one or more dose reduction techniques (e.g., Au tomated exposure control, adjustment of the mA and/or kV according to patient size, use of iterative reconstruction technique) 2010 [employer]- All Rights Reserved Reading location - IP/workstation name: [email or web address]
--- NOTE | 2018-03-25 15:46 | RADIOLOGY REPORT (SQ) ---
EXAM DESCRIPTION: CT CERVICAL SPINE WITHOUT COMPLETED DATE/TIME: 03/25/2018 3:26 pm REASON FOR STUDY: S09.90XA UNSPECIFIED INJURY OF HEAD, INITIAL ENCOUNTER M54.2 CERVICALGIA S09.90XA UNSPECIFIED INJURY OF HEAD, INITIAL ENCOUNTER M54.2 CERVICALGIA COMPARISON: None. TECHNIQUE: Axial images acquired through the cervical spine without intravenous contrast. Images re viewed with lung, soft tissue and bone windows. Reconstructed coronal and sagittal MPR images review ed. Images stored on PACS. All CT scanners at this facility use dose modulation, iterative reconstruction, and/or weight based d osing when appropriate to reduce radiation dose to as low as reasonably achievable (ALARA). [facility]: Dose Right [facility]: CareDose [facility]: Dose Right [facility]: Teradose 4D [facility]: [employer] RADIATION DOSE: CT Rad equipment meets quality standard of care and radiation dose reduction techniq ues were employed. CTDIvol: 19.9 mGy. DLP: 489 mGy-cm. mGy. LIMITATIONS: None. FINDINGS: ALIGNMENT: Anatomic. MINERALIZATION: Normal. VERTEBRAL BODIES: No fractures or dislocation. DISCS: No significant disc disease. FACETS, LATERAL MASSES, POSTERIOR ELEMENTS: No fractures. No dislocation. No acute findings. HARDWARE: None in the spine. VISUALIZED RIBS: No fractures. LUNG APICES AND SOFT TISSUES: Shrapnel superficial soft tissues right posterior neck. OTHER: No other significant finding. IMPRESSION: NO ACUTE OR SIGNIFICANT FINDINGS IN THE CERVICAL SPINE. TECHNICAL DOCUMENTATION: JOB ID: [id number] Quality ID # [id number]: Final reports with documentation of one or more dose reduction techniques (e.g., Au tomated exposure control, adjustment of the mA and/or kV according to patient size, use of iterative reconstruction technique) 2010 [employer]- All Rights Reserved Reading location - IP/workstation name: [email or web address]
== END ==
LOC: RAD 16:52
PROVIDERS: ATTEND Family Medicine
DX: S09.90XA Unspecified injury of head, initial encounter (principal); X58.XXXA Exposure to other specified factors, initial encounter; M54.2 Cervicalgia
CPT/HCPCS: 70460; 72125; 82565

== ENCOUNTER 2018-07-21 14:15 | Emergency (ER) | payer MEDICARE, MEDICAID ==
[2018-07-21 14:28] VITALS: BP 116/77
[2018-07-21] MEDS ORDERED: ASPIRIN 81 MG TABLET, CHEWABLE PO ONE (15:03)
[2018-07-21] MEDS ORDERED: NITROGLYCERIN 2% OINTMENT 1 GM PACKET TP ONE (15:04)
--- NOTE | 2018-07-21 15:05 | ER Document Report ---
ED Medical Screen (RME) - General Chief Complaint: Chest Pain Stated Complaint: CHEST PAIN Time Seen by Provider: 07/21/18 15:00 Primary Care Provider: DELIA BLACK DO [Primary Care Provider] - Follow up as needed Notes: 43 years old male with a history of coronary artery disease status post 5-6 stents presents today with chest pain, claiming the pain is similar to the one he had before. Says he is having a heart attack. The pain occurred around 1:00 early this morning. Substernal. Associated with nausea no vomiting. TRAVEL OUTSIDE OF THE [place] IN LAST 30 DAYS: No - Related Data Allergies/Adverse Reactions: No Known Allergies Allergy (Verified 07/21/18 14:17) Past Medical History - Past Medical History Cardiac Medical History: Reports: Hx Coronary Artery Disease, Hx Heart Attack - x6, Hx Hypercholesterolemia, Hx Hypertension Pulmonary Medical History: Denies: Hx Tuberculosis Endocrine Medical History: Reports: Hx Diabetes Mellitus Type 2 Renal/ Medical History: Denies: Hx Peritoneal Dialysis Psychiatric Medical History: Reports: Hx Anxiety Denies: Hx Depression Past Surgical History: Reports: Hx Cardiac Catheterization - x5 stents, Hx Coronary Stent - x 5, Hx Orthopedic Surgery - right rotator cuff. Denies: Hx Pacemaker - Immunizations Immunizations up to date: No Hx Diphtheria, Pertussis, Tetanus Vaccination: Yes History of Influenza Vaccine for 02/2017 - 07/2017 Season: Refused Physical Exam - Vital signs Vitals: Temp Pulse Resp BP Pulse Ox 98.8 F 63 16 116/77 100 07/21/18 14:27 07/21/18 14:27 07/21/18 14:27 07/21/18 14:27 07/21/18 14:27 Course - Vital Signs Vital signs: Temp Pulse Resp BP Pulse Ox 98.8 F 63 16 116/77 100 07/21/18 14:27 07/21/18 14:27 07/21/18 14:27 07/21/18 14:27 07/21/18 14:27 Doctor's Discharge - Discharge Referrals: DELIA BLACK DO [Primary Care Provider] - Follow up as needed
--- NOTE | 2018-07-21 15:37 | RADIOLOGY REPORT (SQ) ---
EXAM DESCRIPTION: CHEST SINGLE VIEW COMPLETED DATE/TIME: 07/21/2018 3:21 pm REASON FOR STUDY: Chest pain COMPARISON: 03/14/2018 EXAM PARAMETERS: NUMBER OF VIEWS: One view. TECHNIQUE: Single frontal radiographic view of the chest acquired. RADIATION DOSE: NA LIMITATIONS: None. FINDINGS: LUNGS AND PLEURA: No opacities, masses or pneumothorax. No pleural effusion. MEDIASTINUM AND HILAR STRUCTURES: No masses. Contour normal. HEART AND VASCULAR STRUCTURES: Cardiomegaly. No pulmonary edema. BONES: No acute findings. HARDWARE: Pacemaker/defibrillator. OTHER: No other significant finding. IMPRESSION: Cardiomegaly. No pulmonary edema. TECHNICAL DOCUMENTATION: JOB ID: [id number] [employer]- All Rights Reserved Reading location - IP/workstation name: [email or web address]
--- NOTE | 2018-07-21 22:05 | EKG REPORT ---
SEVERITY:- ABNORMAL ECG - SINUS RHYTHM LEFT VENTRICULAR HYPERTROPHY NONSPECIFIC T ABNORMALITIES, INFERIOR LEADS : Confirmed by: Tuan Malik 21-Jul-2018 22:04:59
== END 2018-07-21 18:12 | disposition left against medical advice (07) ==
LOC: ER 14:15
DX: R07.9 Chest pain, unspecified (principal); R11.0 Nausea; I25.10 Atherosclerotic heart disease of native coronary artery without angina pectoris; I25.2 Old myocardial infarction; E78.00 Pure hypercholesterolemia, unspecified; I10 Essential (primary) hypertension; E11.9 Type 2 diabetes mellitus without complications
CPT/HCPCS: 93005; 99281; 71045; 93010; A9270; 36415

== ENCOUNTER 2018-09-02 23:23 | Observation (INO) | payer MEDICARE, MEDICAID ==
--- NOTE | 2018-09-03 00:07 | ER Document Report ---
ED Medical Screen (RME) - General Chief Complaint: Chest Pain Stated Complaint: CHEST PAIN Time Seen by Provider: 09/03/18 00:04 Primary Care Provider: DELIA BLACK DO [Primary Care Provider] - Follow up as needed Notes: 43-year-old male with chief complaint of chest pain that started shortly prior to arrival while he was sitting watching TV. States he took four 81 mg aspirins, took nitroglycerin. He states that after this he took a Xanax. He states when he still had discomfort and sensation of shortness of breath he came in to be evaluated. He does have a history of [place] about a year ago, follows with cardiology in [place], also has a history of stroke with right-sided deficits and speech deficits reportedly. TRAVEL OUTSIDE OF THE [place] IN LAST 30 DAYS: No - Related Data Allergies/Adverse Reactions: No Known Allergies Allergy (Verified 07/21/18 14:17) Past Medical History - Past Medical History Cardiac Medical History: Reports: Hx Coronary Artery Disease, Hx Heart Attack - x6, Hx Hypercholesterolemia, Hx Hypertension Pulmonary Medical History: Denies: Hx Tuberculosis Endocrine Medical History: Reports: Hx Diabetes Mellitus Type 2 Renal/ Medical History: Denies: Hx Peritoneal Dialysis Psychiatric Medical History: Reports: Hx Anxiety Denies: Hx Depression Past Surgical History: Reports: Hx Cardiac Catheterization - x5 stents, Hx Cardiac Surgery - defibrillator placed, Hx Coronary Stent - x 5, Hx Orthopedic Surgery - right rotator cuff. Denies: Hx Pacemaker - Immunizations Immunizations up to date: No Hx Diphtheria, Pertussis, Tetanus Vaccination: Yes History of Influenza Vaccine for 02/2017 - 07/2017 Season: Refused Physical Exam - Vital signs Vitals: Temp Pulse Resp BP Pulse Ox 97.4 F 69 20 108/65 99 09/02/18 23:34 09/02/18 23:34 09/02/18 23:34 09/02/18 23:34 09/02/18 23:34 - Cardiovascular Rhythm: Regular. No: Tachycardia Heart sounds: Normal auscultation, S1 appreciated, S2 appreciated Course - Re-evaluation Re-evalutation: I have greeted and performed a rapid initial assessment of this patient. A comprehensive ED assessment and evaluation of the patient, analysis of test results and completion of the medical decision making process will be conducted by additional ED providers. - Vital Signs Vital signs: Temp Pulse Resp BP Pulse Ox 97.4 F 69 20 108/65 99 09/02/18 23:34 09/02/18 23:34 09/02/18 23:34 09/02/18 23:34 09/02/18 23:34 Doctor's Discharge - Discharge Referrals: DELIA BLACK DO [Primary Care Provider] - Follow up as needed
[2018-09-03 01:15] LABS: ABSOLUTE BASOPHILS # (AUTO) 0.1 10^3/uL (0.0-0.2); ABSOLUTE EOSINOPHILS # (AUTO) 0.1 10^3/uL (0.0-0.6); ABSOLUTE LYMPHOCYTES (AUTO) 2.9 10^3/uL (0.5-4.7); ABSOLUTE MONOCYTES (AUTO) 0.7 10^3/uL (0.1-1.4); ABSOLUTE NEUT (AUTO) 2.1 10^3/uL (1.7-8.2); BASOPHILS % (AUTO) 0.9 % (0-2); HEMATOCRIT 40.3 % (37.9-51.0); HEMOGLOBIN 13.1 g/dL (13.5-17.0); MEAN CORPUSCULAR HGB CONC 32.5 g/dL (32.0-36.0); MEAN CORPUSCULAR VOLUME 80 fl (80-97); MONOCYTES % (AUTO) 11.8 % (3-13); PLATELET COUNT 266 10^3/uL (150-450); RED BLOOD COUNT 5.04 10^6/uL (4.35-5.55); RED CELL DISTRIBUTION WIDTH 15.7 % (11.5-14.0); SEGMENTED NEUTROPHILS % (AUTO) 35.3 % (42-78); TOTAL CELLS COUNTED % (AUTO) 100 %; WHITE BLOOD COUNT 5.9 10^3/uL (4.0-10.5)
[2018-09-03 01:20] LABS: ALANINE AMINOTRANSFERASE 23 U/L (21-72); ALBUMIN 4.1 g/dL (3.5-5.0); ALKALINE PHOSPHATASE 76 U/L (38-126); ANION GAP 6 (5-19); ASPARTATE AMINO TRANSFERASE 38 U/L (17-59); BILIRUBIN,DIRECT 0.2 mg/dL (0.0-0.4); BILIRUBIN,TOTAL 0.5 mg/dL (0.2-1.3); BLOOD UREA NITROGEN 11 mg/dL (7-20); CALCIUM 9.2 mg/dL (8.4-10.2); CARBON DIOXIDE 23 mmol/L (22-30); CHLORIDE 111 mmol/L (98-107); GLUCOSE 82 mg/dL (75-110); POTASSIUM 3.7 mmol/L (3.6-5.0); SODIUM 140.4 mmol/L (137-145); TOTAL PROTEIN 7.6 g/dL (6.3-8.2)
--- NOTE | 2018-09-03 01:34 | RADIOLOGY REPORT (SQ) ---
EXAM DESCRIPTION: RadLex: XR CHEST 1 VIEW CLINICAL HISTORY: 43 years Male, chest pain COMPARISON: 07/21/2018 FINDINGS: Lungs are clear, with no focal infiltrate, pneumothorax, or pleural effusion. AICD remains in place with intact lead. Mediastinum is within normal limits for this positioning. Bony structures are unremarkable. IMPRESSION: 1. No acute pulmonary findings. 2. AICD as on prior exam.
[2018-09-03] MEDS ORDERED: ENOXAPARIN SODIUM INJ 100 MG/1 ML DISP.SYRIN SUBCUT ONE (01:57)
[2018-09-03] MEDS: NITROGLYCERIN 0.4 MG/TAB 25 TAB/BOTTLE SL PRN ×4 (02:00→18:32)
[2018-09-03] MEDS ORDERED: MORPHINE SULFATE 10 MG/ML INJ IV ONE ×3 (02:40→19:00)
[2018-09-03 04:52] LABS: URINE AMPHETAMINES SCREEN NEGATIVE; URINE BARBITURATES SCREEN NEGATIVE; URINE BENZODIAZEPINES SCREEN NEGATIVE; URINE COCAINE SCREEN NEGATIVE; URINE MARIJUANA (THC) SCREEN NEGATIVE; URINE METHADONE SCREEN NEGATIVE; URINE PHENCYCLIDINE SCREEN NEGATIVE
--- NOTE | 2018-09-03 05:40 | ER Document Report ---
Entered by ESTRELLA CARLOS SCRIBE 09/03/18 0537 Acting as scribe for:ADA VALE DO ED Cardiac - General Chief Complaint: Chest Pain Stated Complaint: CHEST PAIN Time Seen by Provider: 09/03/18 00:04 Mode of Arrival: Ambulatory Information source: Patient Notes: 43-year-old male who presents to the emergency department today with complaints of chest pain which is both sharp and stabbing as well as dull and squeezing. Patient has known coronary artery disease with x6 stents placed. Last 2 stents were placed approximately 1 year ago at [facility]. Patient has an EF of 20%. Patient states that his chest pain began tonight so he took 2 furosemide and 4 baby aspirin which did not change his pain. Patient does complain of nausea currently. TRAVEL OUTSIDE OF THE [place] IN LAST 30 DAYS: No - Related Data Allergies/Adverse Reactions: No Known Allergies Allergy (Verified 07/21/18 14:17) Past Medical History - General Information source: Patient - Social History Smoking Status: Unknown if Ever Smoked Cigarette use (# per day): No Frequency of alcohol use: None Drug Abuse: None Lives with: Family Family History: Reviewed & Not Pertinent, CAD, Hyperlipidemia, Hypertension Patient has suicidal ideation: No Patient has homicidal ideation: No - Past Medical History Cardiac Medical History: Reports: Hx Coronary Artery Disease, Hx Heart Attack - x6, Hx Hypercholesterolemia, Hx Hypertension Endocrine Medical History: Reports: Hx Diabetes Mellitus Type 2 Psychiatric Medical History: Reports: Hx Anxiety Past Surgical History: Reports: Hx Cardiac Catheterization - x5 stents, Hx Cardiac Surgery - defibrillator placed, Hx Coronary Stent - x 5, Hx Orthopedic Surgery - right rotator cuff - Immunizations Immunizations up to date: No Hx Diphtheria, Pertussis, Tetanus Vaccination: Yes Hx Pneumococcal Vaccination: 02/21/11 Review of Systems - Review of Systems Constitutional: No symptoms reported EENT: No symptoms reported Cardiovascular: See HPI, Chest pain Respiratory: No symptoms reported Gastrointestinal: See HPI, Nausea. denies: Vomiting Genitourinary: No symptoms reported Male Genitourinary: No symptoms reported Musculoskeletal: No symptoms reported Skin: No symptoms reported Hematologic/Lymphatic: No symptoms reported Neurological/Psychological: No symptoms reported -: Yes All other systems reviewed and negative Physical Exam - Vital signs Vitals: Temp Pulse Resp BP Pulse Ox 97.4 F 69 20 108/65 99 09/02/18 23:34 09/02/18 23:34 09/02/18 23:34 09/02/18 23:34 09/02/18 23:34 - Notes Notes: PHYSICAL EXAM GENERAL: Alert, interacts well. No acute distress. HEAD: Normocephalic, atraumatic. EYES: Pupils equal, round, and reactive to light. Extraocular movements intact. ENT: Oral mucosa moist, tongue midline. NECK: Full range of motion. Supple. Trachea midline. LUNGS: Clear to auscultation bilaterally, no wheezes, rales, or rhonchi. No respiratory distress. HEART: Regular rate and rhythm. No murmurs, gallops, or rubs. ABDOMEN: Soft, non-tender. Non-distended. Bowel sounds present in all 4 quadrants. No guarding, rigidity, or rebound. EXTREMITIES: Moves all 4 extremities spontaneously. No edema, radial and dorsalis pedis pulses 2/4 bilaterally. No cyanosis. NEUROLOGICAL: Alert and oriented x3. Normal speech. PSYCH: Normal affect, normal mood. SKIN: Warm, dry, normal turgor. No rashes or lesions noted. Course - Re-evaluation Re-evalutation: 09/03/18 05:37 CBC shows mild anemia with a hemoglobin 13.1, CMP grossly unremarkable, cardiac enzymes negative x2, lipase relatively normal at 120, urine drug screen shows opiates but no signs of cocaine. Chest x-ray does not show any acute process, it does show an AICD in good position. Patient was given a shot of Lovenox, pain was decreased by sublingual nitroglycerin and almost completely resolved with 2 mg of morphine dose to approximately 15 minutes apart. 09/03/18 05:[address] Will the hospitalist who agrees to accept the patient to his service in observation status for chest pain rule out. - Vital Signs Vital signs: Temp Pulse Resp BP Pulse Ox 97.4 F 69 20 111/87 H 99 09/02/18 23:34 09/02/18 23:34 09/03/18 06:01 09/03/18 06:01 09/03/18 06:01 - Laboratory Result Diagrams: 09/03/18 00:05 09/03/18 00:05 Laboratory results interpreted by me: 09/03/18 09/03/18 00:05 00:05 Hgb 13.1 L MCH 26.0 L RDW 15.7 H Seg Neutrophils % 35.3 L Lymphocytes % 50.0 H Chloride 111 H - EKG Interpretation by Me Additional EKG results interpreted by me: 09/03/18 05:39 Initial EKG shows sinus rhythm at a rate of 83, interventricular conduction delay with a QRS of 112, left axis deviation, no ST segment elevations, nonsignificant ST segment depression in V4 as well as aVF, T wave inversions in V4, T wave flattening in V5 and V6, biphasic T waves in 3 and aVF, this is relatively unchanged from prior EKG on 07/21/2018 per my interpretation. Repeat EKG shows sinus rhythm at a rate of 68, left axis deviation, normal R wave progression, no ST segment elevations, not significant ST segment depression in aVF, persistent inverted T waves in 3, aVF, V4 and flattening in V5 and V6 per my interpretation. Discharge - Discharge Clinical Impression: Chest pain, rule out acute myocardial infarction Condition: Fair Disposition: ADMITTED OBSERVATION Admitting Provider: Suman (Hospitalist) Unit Admitted: Telemetry I personally performed the services described in the documentation, reviewed and edited the documentation which was dictated to the scribe in my presence, and it accurately records my words and actions.
[2018-09-03] MEDS ORDERED: ACETAMINOPHEN 325 MG TABLET PO PRN (05:56)
[2018-09-03] MEDS ORDERED: DIAZEPAM 2 MG TABLET PO PRN (05:56)
[2018-09-03] MEDS ORDERED: GLUCAGON,HUMAN RECOMB 1 MG INJ SUBCUT PRN (05:56)
[2018-09-03] MEDS ORDERED: DEXTROSE 50%-WATER 25 GM/50 ML DISP.SYRIN IV PRN ×2 (05:56)
[2018-09-03] MEDS ORDERED: DEXTROSE 40% GEL 15 GM TUBE PO PRN ×2 (05:56)
--- NOTE | 2018-09-03 05:56 | PDOC H&P ---
History of Present Illness Admission Date/PCP: 09/03/18 05:46 DELIA BLACK DO Patient complains of: Chest pain History of Present Illness: WINDY CORNEOJ is a 43 year old male with a past medical history of hypertension, dyslipidemia, generalized anxiety, alcohol, GERD, diabetes, nonischemic cardiomyopathy, congestive heart failure with an ejection fraction of 20% with permanent pacemaker, CVA, and coronary artery disease with multiple stents, followed by [facility]. Last cardiac stress test per patient was October 2017. Patient presents 4 hours after the onset of intermittent pressure-like retrosternal chest pain radiating to the back which was 3 out of 5 intensity reduced with nitroglycerin and morphine. In the emergency room he is found to have an unremarkable workup including troponin negative x2 is referred to the hospitalist for observation. Patient admits to medication lifestyle noncompliance. Past Medical History Cardiac Medical History: Reports: Coronary Artery Disease, Myocardial Infarction - x6, Hyperlipidema, Hypertension Pulmonary Medical History: Denies: Tuberculosis Endocrine Medical History: Reports: Diabetes Mellitus Type 2 Psychiatric Medical History: Denies: Depression Past Surgical History Past Surgical History: Reports: Cardiac Catheterization - x5 stents, Coronary Stent - x 5, Orthopedic Surgery - right rotator cuff Denies: Pacemaker Social History Information Source: Patient, Emergency Med Personnel, [facility] Records Lives with: Family Smoking Status: Unknown if Ever Smoked Frequency of Alcohol Use: Social Hx Recreational Drug Use: No Drugs: None Hx Prescription Drug Abuse: No - Advance Directive Resuscitation Status: Full Code Family History Family History: CAD, Hyperlipidemia, Hypertension Parental Family History Reviewed: Yes Children Family History Reviewed: Yes Sibling(s) Family History Reviewed.: Yes Medication/Allergy Home Medications: Alprazolam [Xanax] 2 mg PO Q8 03/14/18 Apixaban [Eliquis 5 mg Tablet] 5 mg PO Q12 03/14/18 Aspirin [Ecotrin 81 mg EC Tablet] 81 mg PO DAILY 03/14/18 Atorvastatin Calcium [Lipitor 80 mg Tablet] 80 mg PO QHS 03/14/18 Bisoprolol Fumarate [Zebeta 5 mg Tablet] 10 mg PO DAILY 03/14/18 Cyclosporine 0.05% Oph Emulsio [Restasis 0.05% Oph Emulsion Pf 0.4 ml] 1 drop OU BID 03/14/18 Dexlansoprazole [Dexilant 60 mg Capsule] 60 mg PO DAILY 03/14/18 Furosemide [Lasix 40 mg Tablet] 80 mg PO BID 03/14/18 Isosorbide Mononitrate [Imdur 30 mg Tablet.er] 15 mg PO DAILY 03/14/18 Lidocaine [Lidoderm 5% (700 mg) Transdermal Patch] 1 patch TOP Q12HP PRN 03/14/18 Lisinopril [Prinivil] 20 mg PO DAILY 03/14/18 Naloxone HCl 1 mg IM PRN PRN 03/14/18 Nitroglycerin [Nitrostat] 0.4 mg SL Q5MP PRN 03/14/18 Oxycodone HCl 15 mg PO Q6HP PRN 03/14/18 Potassium Chloride [K-Tab ER] 40 meq PO BIDBS 03/14/18 Prasugrel HCl [Effient 10 mg Tablet] 10 mg PO DAILY 03/14/18 Ranolazine [Ranexa] 1,000 mg PO Q12 03/14/18 Spironolactone [Aldactone 25 mg Tablet] 25 mg PO DAILY 03/14/18 Tacrolimus [Protopic] 1 applic TOP BID 03/14/18 Testosterone Cypionate [Depo-Testosterone] 2 ml IM MO@1000 03/14/18 Tramadol HCl [Ultram 50 mg Tablet] 100 mg PO Q8HP PRN 03/14/18 Zolpidem Tartrate [Ambien] 10 mg PO QHS 03/14/18 Allergies/Adverse Reactions: No Known Allergies Allergy (Verified 07/21/18 14:17) Review of Systems Constitutional: ABSENT: chills, fever(s), headache(s), weight gain, weight loss Eyes: ABSENT: visual disturbances Ears: ABSENT: hearing changes Cardiovascular: ABSENT: chest pain, dyspnea on exertion, edema, orthropnea, palpitations Respiratory: ABSENT: cough, hemoptysis Gastrointestinal: ABSENT: abdominal pain, constipation, diarrhea, hematemesis, hematochezia, nausea, vomiting Genitourinary: ABSENT: dysuria, hematuria Musculoskeletal: ABSENT: joint swelling Integumentary: ABSENT: rash, wounds Neurological: ABSENT: abnormal gait, abnormal speech, confusion, dizziness, focal weakness, syncope Psychiatric: ABSENT: anxiety, depression, homidical ideation, suicidal ideation Endocrine: ABSENT: cold intolerance, heat intolerance, polydipsia, polyuria Hematologic/Lymphatic: ABSENT: easy bleeding, easy bruising Physical Exam Vital Signs: Temp Pulse Resp BP Pulse Ox 97.4 F 69 21 H 113/82 100 09/02/18 23:34 09/02/18 23:34 09/03/18 05:00 09/03/18 04:31 09/03/18 05:00 Intake & Output 09/01/18 09/02/18 09/03/18 11:59 11:59 11:59 Weight 94.4 kg General appearance: PRESENT: no acute distress, well-developed, well-nourished Head exam: PRESENT: atraumatic, normocephalic Eye exam: PRESENT: conjunctiva pink, EOMI, PERRLA. ABSENT: scleral icterus Ear exam: PRESENT: normal external ear exam Mouth exam: PRESENT: moist, tongue midline Neck exam: ABSENT: carotid bruit, JVD, lymphadenopathy, thyromegaly Respiratory exam: PRESENT: clear to auscultation yesenia. ABSENT: rales, rhonchi, wheezes Cardiovascular exam: PRESENT: RRR. ABSENT: diastolic murmur, rubs, systolic murmur Pulses: PRESENT: normal dorsalis pedis pul Vascular exam: PRESENT: normal capillary refill GI/Abdominal exam: PRESENT: normal bowel sounds, soft. ABSENT: distended, guarding, mass, organolmegaly, rebound, tenderness Rectal exam: PRESENT: deferred Extremities exam: PRESENT: full ROM. ABSENT: calf tenderness, clubbing, pedal edema Neurological exam: PRESENT: alert, awake, oriented to person, oriented to place, oriented to time, oriented to situation, CN II-XII grossly intact. ABSENT: m otor sensory deficit Psychiatric exam: PRESENT: appropriate affect, normal mood. ABSENT: homicidal ideation, suicidal ideation Skin exam: PRESENT: dry, intact, warm. ABSENT: cyanosis, rash Results Laboratory Results: 09/03/18 00:05 09/03/18 00:05 09/03/18 09/03/18 09/03/18 00:05 00:05 00:05 WBC 5.9 RBC 5.04 Hgb 13.1 L Hct 40.3 MCV 80 MCH 26.0 L MCHC 32.5 RDW 15.7 H Plt Count 266 Seg Neutrophils % 35.3 L Lymphocytes % 50.0 H Monocytes % 11.8 Eosinophils % 2.0 Basophils % 0.9 Absolute Neutrophils 2.1 Absolute Lymphocytes 2.9 Absolute Monocytes 0.7 Absolute Eosinophils 0.1 Absolute Basophils 0.1 Sodium 140.4 Potassium 3.7 Chloride 111 H Carbon Dioxide 23 Anion Gap 6 BUN 11 Creatinine 1.15 Est GFR ( Amer) > 60 Est GFR (Non-Af Amer) > 60 Glucose 82 Calcium 9.2 Total Bilirubin 0.5 AST 38 ALT 23 Alkaline Phosphatase 76 Total Protein 7.6 Albumin 4.1 Lipase 120.2 09/03/18 09/03/18 00:05 04:20 Troponin I < 0.012 < 0.012 Impressions: Chest X-Ray 09/03/18 00:05 IMPRESSION: 1. No acute pulmonary findings. 2. AICD as on prior exam. Assessment and Plan - Diagnosis (1) Chest pain, rule out acute myocardial infarction Is this a current diagnosis for this admission?: Yes Plan: Atypical chest pain, observe and evaluation of acute coronary syndrome versus coronary artery disease with anginal equivalents. Cardiac monitoring blood pressure Q6 hours ,TSH, lipid profile, serial cardiac enzymes and cardiac stress test (2) Anxiety Is this a current diagnosis for this admission?: Yes Plan: Benzodiazepine as needed (3) GERD (gastroesophageal reflux disease) Is this a current diagnosis for this admission?: Yes Plan: Proton pump inhibitor - Time Time Spent with patient: 35 or more minutes
[2018-09-03] MEDS ORDERED: LACTULOSE SYRUP 20 GM/30 ML UDCUP PO ONE (06:20)
[2018-09-03] MEDS: PANTOPRAZOLE SODIUM 40 MG TABLET.DR PO SCH ×2 (06:24→20:53)
[2018-09-03] MEDS ORDERED: ATENOLOL 50 MG TABLET PO SCH (10:00)
[2018-09-03] MEDS: ASPIRIN 81 MG TABLET, ENT COATED PO SCH (11:25)
[2018-09-03] MEDS: SPIRONOLACTONE 25 MG TABLET PO SCH (11:25)
[2018-09-03] MEDS: ISOSORBIDE MONONITRATE 30 MG TAB.ER.24H PO SCH ×2 (11:25→11:31)
[2018-09-03] MEDS: LISINOPRIL 10 MG TABLET PO SCH (11:25)
[2018-09-03] MEDS: APIXABAN 5 MG TABLET PO SCH ×2 (11:25→21:12)
[2018-09-03] MEDS: FUROSEMIDE 40 MG TABLET PO SCH ×2 (11:26→20:52)
[2018-09-03] MEDS ORDERED: TRAMADOL HCL 50 MG TABLET PO PRN (12:16)
--- NOTE | 2018-09-03 13:08 | EKG REPORT ---
SEVERITY:- ABNORMAL ECG - SINUS RHYTHM NONSPECIFIC INTRAVENTRICULAR CONDUCTION DELAY CONSIDER ANTERIOR INFARCT MINIMAL ST DEPRESSION : Confirmed by: Tuan Malik 03-Sep-2018 13:08:00
--- NOTE | 2018-09-03 13:08 | EKG REPORT ---
SEVERITY:- ABNORMAL ECG - SINUS RHYTHM LVH WITH IVCD AND SECONDARY REPOL ABNRM : Confirmed by: Tuan Malik 03-Sep-2018 13:07:50
[2018-09-03] MEDS: OXYCODONE HCL IR 5 MG TABLET PO PRN ×2 (13:35→21:12)
[2018-09-03] MEDS: ALPRAZOLAM 0.5 MG TABLET PO SCH ×2 (14:00→22:40)
--- NOTE | 2018-09-03 14:56 | Progress Note ---
Provider Note Provider Note: This is 43 years old male patient with past medical history of hypertension, hyperlipidemia, diabetes mellitus, congestive heart failure with ejection fraction of 20%, history of CVA and coronary artery disease status post stent placement 5 times, who presented with chief complaint of chest pain of 4 hours duration. He describes the chest pain as pressure-like and localized retrosternally. Since patient has multiple risk factor for acute coronary syndrome he is admitted for observation. Accept this patient.
[2018-09-03] MEDS ORDERED: ONDANSETRON HCL INJ/PF 4 MG/2 ML SDV IV PRN (17:16)
[2018-09-03] MEDS ORDERED: (PENDING PHARMACY ID) (Potassium Chloride [Klor-Con M20] 40 MEQ) PO SCH (18:00)
[2018-09-03] MEDS: CYCLOSPORINE 0.05% OPH EMULSIO 0.4 ML DROPERETTE OU SCH (20:53)
[2018-09-03] MEDS: POTASSIUM CHLORIDE 10 MEQ CAPSULE.ER PO SCH (20:54)
[2018-09-03] MEDS: ATORVASTATIN CALCIUM 80 MG TABLET PO SCH (21:12)
[2018-09-03] MEDS ORDERED: (PENDING PHARMACY ID) (Zolpidem Tartrate [Ambien] 10 MG) PO SCH (22:00)
[2018-09-03] MEDS: ZOLPIDEM TARTRATE 5 MG TABLET PO SCH (22:40)
[2018-09-04] MEDS ORDERED: HALOPERIDOL LACTATE INJ 5 MG/1 ML VIAL IV ONE ×2 (01:24→01:30)
[2018-09-04] MEDS: ALPRAZOLAM 0.5 MG TABLET PO SCH ×3 (05:56→23:24)
[2018-09-04] MEDS: PANTOPRAZOLE SODIUM 40 MG TABLET.DR PO SCH ×2 (05:57→17:08)
[2018-09-04] MEDS: FUROSEMIDE 40 MG TABLET PO SCH ×2 (09:52→17:08)
[2018-09-04] MEDS: SPIRONOLACTONE 25 MG TABLET PO SCH (09:52)
[2018-09-04] MEDS: POTASSIUM CHLORIDE 10 MEQ CAPSULE.ER PO SCH ×2 (09:52→17:08)
[2018-09-04] MEDS: APIXABAN 5 MG TABLET PO SCH ×2 (09:53→21:22)
[2018-09-04] MEDS: CYCLOSPORINE 0.05% OPH EMULSIO 0.4 ML DROPERETTE OU SCH ×2 (09:53→17:09)
[2018-09-04] MEDS: LISINOPRIL 10 MG TABLET PO SCH (09:53)
[2018-09-04] MEDS: ASPIRIN 81 MG TABLET, ENT COATED PO SCH (09:53)
[2018-09-04] MEDS: ISOSORBIDE MONONITRATE 30 MG TAB.ER.24H PO SCH (09:53)
[2018-09-04] MEDS: ATENOLOL 50 MG TABLET PO SCH (09:54)
[2018-09-04] MEDS: OXYCODONE HCL IR 5 MG TABLET PO PRN ×2 (09:58→23:21)
[2018-09-04] MEDS ORDERED: (PENDING PHARMACY ID) (Lisinopril [Prinivil] 20 MG) PO SCH (10:00)
[2018-09-04] MEDS ORDERED: BISOPROLOL FUMARATE 10 MG PO SCH (10:00)
--- NOTE | 2018-09-04 12:17 | PDOC PROGRESS REPORT ---
Subjective Progress Note for:: 09/04/18 Subjective:: This is 43 years old male patient with past medical history of hypertension, hyperlipidemia, diabetes mellitus, congestive heart failure with ejection fraction of 20%, history of CVA and coronary artery disease status post stent placement 5 times, who presented with chief complaint of chest pain of 4 hours duration. He describes the chest pain as pressure-like and localized retrosternally. Since patient has multiple risk factor for acute coronary syndrome he is admitted for observation. This morning I seen patient resting in bed comfortably. Reports this is chest pain is decreasing. Patient scheduled for stress test tomorrow. Reason For Visit: CHEST PAIN Physical Exam Vital Signs: Temp Pulse Resp BP Pulse Ox 97.7 F 56 L 15 103/61 100 09/04/18 07:32 09/04/18 07:32 09/04/18 07:32 09/04/18 07:32 09/04/18 07:32 Intake & Output 09/03/18 09/04/18 09/05/18 06:59 06:59 06:59 Intake Total 965 Balance 965 Weight 92.9 kg 93.8 kg General appearance: PRESENT: no acute distress, well-developed, well-nourished Head exam: PRESENT: atraumatic, normocephalic Mouth exam: PRESENT: moist Neck exam: ABSENT: carotid bruit, JVD, lymphadenopathy, thyromegaly Respiratory exam: PRESENT: clear to auscultation yesenia. ABSENT: rales, rhonchi, wheezes Cardiovascular exam: PRESENT: RRR. ABSENT: diastolic murmur, rubs, systolic murmur Neurological exam: PRESENT: alert, awake, oriented to time, oriented to situation Psychiatric exam: PRESENT: normal mood Results Laboratory Results: 09/03/18 00:05 09/03/18 00:05 09/03/18 09/03/18 09/03/18 00:05 04:20 04:20 CK-MB (CK-2) 0.62 Troponin I < 0.012 < 0.012 09/03/18 09/03/18 10:40 16:23 CK-MB (CK-2) Troponin I 0.033 0.062 Impressions: Chest X-Ray 09/03/18 00:05 IMPRESSION: 1. No acute pulmonary findings. 2. AICD as on prior exam. Assessment and Plan - Diagnosis (1) Chest pain Qualifiers: Chest pain type: other chest pain Qualified Code(s): R07.89 - Other chest pain; R07.8 - Other chest pain Is this a current diagnosis for this admission?: Yes Plan: Since patient has multiple risk factors for acute coronary syndrome is admitted for observation. History set of cardiac enzymes are negative. No EKG changes. Patient will have cardiac stress test in the morning. (2) CAD with multiple stent placement Is this a current diagnosis for this admission?: Yes Plan: We will continue his home medications. (3) Ischemic cardiomyopathy Is this a current diagnosis for this admission?: Yes Plan: His ejection fraction was 20%. We will continue his cardioprotective medications. (4) Type 2 diabetes mellitus Is this a current diagnosis for this admission?: Yes Plan: Continue current regimen.
[2018-09-04] MEDS: ATORVASTATIN CALCIUM 80 MG TABLET PO SCH (21:22)
[2018-09-04] MEDS: ZOLPIDEM TARTRATE 5 MG TABLET PO SCH (23:23)
[2018-09-05] MEDS: PANTOPRAZOLE SODIUM 40 MG TABLET.DR PO SCH (05:00)
[2018-09-05] MEDS: ALPRAZOLAM 0.5 MG TABLET PO SCH ×2 (05:03→14:34)
[2018-09-05] MEDS: OXYCODONE HCL IR 5 MG TABLET PO PRN ×2 (08:39→17:40)
[2018-09-05] MEDS ORDERED: REGADENOSON INJ 0.4 MG/5 ML DISP.SYRIN IV ONE (11:27)
[2018-09-05 12:08] VITALS: BP 108/71
[2018-09-05] MEDS: ISOSORBIDE MONONITRATE 30 MG TAB.ER.24H PO SCH (12:08)
[2018-09-05] MEDS: LISINOPRIL 10 MG TABLET PO SCH (12:08)
[2018-09-05] MEDS: ATENOLOL 50 MG TABLET PO SCH (12:08)
[2018-09-05] MEDS: FUROSEMIDE 40 MG TABLET PO SCH (12:12)
[2018-09-05] MEDS: APIXABAN 5 MG TABLET PO SCH (12:12)
[2018-09-05] MEDS: POTASSIUM CHLORIDE 10 MEQ CAPSULE.ER PO SCH (12:12)
[2018-09-05] MEDS: ASPIRIN 81 MG TABLET, ENT COATED PO SCH (12:12)
[2018-09-05] MEDS: CYCLOSPORINE 0.05% OPH EMULSIO 0.4 ML DROPERETTE OU SCH (12:13)
[2018-09-05] MEDS: SPIRONOLACTONE 25 MG TABLET PO SCH (12:17)
--- NOTE | 2018-09-05 16:54 | PDOC DISCHARGE SUMMARY ---
General - Admit/Disc Date/PCP Admission Date/Primary Care Provider: 09/03/18 05:46 DELIA BLACK, Discharge Date: 09/05/18 - Discharge Diagnosis (1) Chest pain Is this a current diagnosis for this admission?: Yes (2) CAD with multiple stent placement Is this a current diagnosis for this admission?: Yes (3) Ischemic cardiomyopathy Is this a current diagnosis for this admission?: Yes (4) Type 2 diabetes mellitus Is this a current diagnosis for this admission?: Yes - Additional Information Resuscitation Status: Full Code Home Medications: Alprazolam [Xanax] 2 mg PO Q8 09/03/18 Atorvastatin Calcium [Lipitor 80 mg Tablet] 80 mg PO QHS 09/03/18 Bisoprolol Fumarate [Zebeta 5 mg Tablet] 10 mg PO DAILY 09/03/18 Cyclosporine 0.05% Oph Emulsio [Restasis 0.05% Opthalmic Droperette] 1 drop OU BID 09/03/18 Dexlansoprazole [Dexilant 60 mg Capsule] 60 mg PO DAILY 09/03/18 Furosemide [Lasix 40 mg Tablet] 40 mg PO BID 09/03/18 Isosorbide Mononitrate [Imdur 30 mg Tablet.er] 15 mg PO DAILY 09/03/18 Lisinopril [Prinivil] 20 mg PO DAILY 09/03/18 Nitroglycerin [Nitrostat 0.4 mg (1/150 Gr) Tabs 25/Bottle] 1 tab SL Q5MP PRN 09/03/18 Oxycodone HCl [Oxy-Ir 5 mg Tablet] 15 mg PO Q6HP PRN 09/03/18 Potassium Chloride [Klor-Con M20] 40 meq PO BID 09/03/18 Tramadol HCl [Ultram 50 mg Tablet] 100 mg PO Q8HP PRN 09/03/18 Zolpidem Tartrate [Ambien] 10 mg PO QHS 09/03/18 History of Present Illness History of Present Illness: WINDY CORNEJO is a 43 year old male with a past medical history of hypertension, dyslipidemia, generalized anxiety, alcohol, GERD, diabetes, nonischemic cardiomyopathy, congestive heart failure with an ejection fraction of 20% with permanent pacemaker, CVA, and coronary artery disease with multiple stents, followed by [facility]. Last cardiac stress test per patient was October 2017. Patient presents 4 hours after the onset of intermittent pressure-like retrosternal chest pain radiating to the back which was 3 out of 5 intensity reduced with nitroglycerin and morphine. In the emergency room he is found to have an unremarkable workup including troponin negative x2 is referred to the hospitalist for observation. Patient admits to medication lifestyle noncompliance. Hospital Course Hospital Course: This is 43 years old male patient with past medical history of hypertension, hyperlipidemia, diabetes mellitus, congestive heart failure with ejection fraction of 20%, history of CVA and coronary artery disease status post stent placement 5 times, who presented with chief complaint of chest pain of 4 hours duration. He describes the chest pain as pressure-like and localized retrosternally. Since patient has multiple risk factor for acute coronary syndrome he is admitted for observation. This morning I seen patient resting in bed comfortably. Reports his chest pain has subsided. This morning patient undergone nuclear cardiac stress test and Dr. Feng tells me his cardiac stress test this basically normal except old infarcts. Patient's vital signs ar e within normal limits. Patient is stable enough to go home and follow-up with Dr. Feng. Physical Exam Vital Signs: Temp Pulse Resp BP Pulse Ox 97.5 F 87 18 108/71 100 09/05/18 12:00 09/05/18 12:00 09/05/18 12:00 09/05/18 12:00 09/05/18 12:00 Intake & Output 09/04/18 09/05/18 09/06/18 06:59 06:59 06:59 Intake Total 965 1499 Balance 965 1499 Weight 93.8 kg 100.2 kg General appearance: PRESENT: no acute distress Head exam: PRESENT: atraumatic Eye exam: PRESENT: conjunctiva pink Mouth exam: PRESENT: moist, tongue midline Neck exam: ABSENT: carotid bruit, JVD, lymphadenopathy, thyromegaly Respiratory exam: PRESENT: clear to auscultation yesenia. ABSENT: rales, rhonchi, wheezes Cardiovascular exam: PRESENT: RRR. ABSENT: diastolic murmur, rubs, systolic murmur GI/Abdominal exam: PRESENT: normal bowel sounds, soft. ABSENT: distended, guarding, mass, organolmegaly, rebound, tenderness Neurological exam: PRESENT: alert, awake, oriented to time, oriented to situation Results Laboratory Results: 09/03/18 00:05 09/03/18 00:05 09/03/18 09/03/18 09/03/18 00:05 04:20 04:20 CK-MB (CK-2) 0.62 Troponin I < 0.012 < 0.012 09/03/18 09/03/18 10:40 16:23 CK-MB (CK-2) Troponin I 0.033 0.062 Impressions: Chest X-Ray 09/03/18 00:05 IMPRESSION: 1. No acute pulmonary findings. 2. AICD as on prior exam. Qualifiers - * PATIENT BEING DISCHARGED WITH ANY OF THE FOLLOWING DIAGNOSIS: Heart Failure VTE patient discharged on overlapping Therapy?: No Reason(s) for not prescribing Overlap Therapy:: Not indicated Stroke Pt being discharged on Anti-thrombolytic therapy?: No Reason(s) for not prescribing Anti-thrombolytic therapy:: Not indicated Stroke Pt being discharged on Anti-coagulation therapy?: No Reason(s) for not prescribing Anti-coagulation therapy:: Not indicated Stroke Pt being discharged on Statins?: No Reason(s) for not prescribing Statins therapy:: Not indicated TX Pt being discharged on Aspirin therapy?: No Reason(s) for not prescribing Aspirin therapy:: Not indicated TX Pt being discharged on Statins?: No Reason(s) for not prescribing Statin therapy:: Not indicated TX Pt discharged ACEI/ARBS?: No Reason(s) for not prescribing ACEI/ARBS:: Not indicated HF Pt being discharged on ACEI for LVEF less than 40%?: Yes HF Pt being discharged on ARBS for LVEF less than 40%?: Yes HF Pt with Afib discharged with Warfarin?: No Reason(s) for not prescribing Warfarin:: Not indicated HF Pt discharged on evidence-based Beta Jose:: Yes
--- NOTE | 2018-09-05 20:29 | DRAGON STRESS TEST REPORT ---
Intravenous Lexiscan Cardiolite stress test using single photon emmision computerized tomography. Date of procedure: 07/08/2018. Ordering Provider: Dr. Castro Will. Patient's status: In Patient. Indication: Chest pain in a patient with coronary artery disease, history of multiple stents to the coronary arteries, and ischemic cardiomyopathy.. Coronary risk factors: Age, diabetes mellitus, hypertension, dyslipidemia, and family history of coronary artery disease Resting EKG: Sinus Rhythm. Inferolateral STT changes Stress EKG: No changes of ischemia. The patient had no chest pain or discomfort, and there were no arrhythmias seen. Reason for termination: Protocol. Conclusions: Normal EKG and hemodynamic response to IV Lexiscan. Nuclear data: At rest the patient was given 10.76 millicuries of technetium 99m sestamibi injected intravenously. As per protocol rest non gated SPECT images were obtained. Subsequently the patient was given intravenous Lexiscan at a dose of 0.4 mg in 5 mL intravenously, followed by flush with normal saline. Subsequently the stress dose of 32.2 millicuries of technetium 99m sestamibi was injected intravenously. As per protocol stress gated images were obtained. Nuclear interpretation: Review of images showed that there is a 50 perfusion defect of mild intensity in both the rest and stress images involving the inferior wall. This area inferior wall has slightly diminished motion contraction and thickening. Hence this is consistent with prior mild scar. There is a large perfusion defect in both the rest and stress images involving the LV apex, the apical anterior, apical septum, the apical lateral lateral wall, and the apical inferior wall, and also the inferolateral wall. This area is severely diminished motion contraction and thickening by gated study. Hence this is considered prior IN. The rest of the segments of the myocardium had normal perfusion at rest, and normal perfusion post stress with IV Lexiscan. The rest of the segments of the myocardium had thickening by gated study. There was severe left ventricular dilatation in both the rest and stress images. There was severe global hypokinesis with ejection fraction severely reduced. T. I D. ratio was normal at 1.03. Computer read rest, and stress left ventricular ejection fraction were 12 %, and 16 %, respectively. Conclusion: 1. There is no scintigraphic evidence of Lexiscan induced myocardial ischemia. 2. There is scintigraphic evidence of myocardial infarction/scar in the inferior wall which is mild, and a large perfusion defect in the LV apical segments, and also the l inferoseptal wall of the left ventricle. 3. There is significant LV dilatation both rest and stress images with severely reduced LV ejection fraction consistent with mixed ischemic and dilated cardiomyopathy. Recommendations: 1. Aggressive treatment of coronary artery disease, and cardiomyopathy. 2. Aggressive risk factor modification, and treating the underlying co- morbidities. 3. Check echo for LV ejection fraction correlation. 4. Close outpatient cardiology follow-up of the patient. SHENG
== END 2018-09-05 18:50 | disposition home or self-care (01) ==
LOC: ER 23:23 → EH 09-03 05:46 → 4S 09-03 07:21
PROVIDERS: ADMIT Internal Medicine; ATTEND Internal Medicine
DX: R07.89 Other chest pain (principal); I25.10 Atherosclerotic heart disease of native coronary artery without angina pectoris; I25.5 Ischemic cardiomyopathy; E11.9 Type 2 diabetes mellitus without complications; I11.0 Hypertensive heart disease with heart failure; I50.9 Heart failure, unspecified; E78.5 Hyperlipidemia, unspecified; K21.9 Gastro-esophageal reflux disease without esophagitis; F41.1 Generalized anxiety disorder; I25.2 Old myocardial infarction; R11.0 Nausea; D64.9 Anemia, unspecified; I69.328 Other speech and language deficits following cerebral infarction; I69.398 Other sequelae of cerebral infarction; Z95.5 Presence of coronary angioplasty implant and graft; Z79.899 Other long term (current) drug therapy; Z95.810 Presence of automatic (implantable) cardiac defibrillator; Z91.14 Patient's other noncompliance with medication regimen; Z82.49 Family history of ischemic heart disease and other diseases of the circulatory system; Z79.02 Long term (current) use of antithrombotics/antiplatelets; Z79.82 Long term (current) use of aspirin
CPT/HCPCS: 93005 ×2; 99285; 96372; 96374; 36415; 82553; 83690; 85025; 80053; 84484; 80307; 93017; 71045; 78452; 93010 ×2; G0378 ×4; A9500; A9270 ×25; J2785; J1630; J2270; J3490 ×6; J2405; J1650; Q9969

== ENCOUNTER 2018-11-28 08:06 | Emergency (ER) | payer MEDICARE, MEDICAID ==
--- NOTE | 2018-11-28 09:29 | ER Document Report ---
ED Cardiac - General Chief Complaint: Chest Pain > 30 Stated Complaint: CHEST PAIN Time Seen by Provider: 11/28/18 09:27 Primary Care Provider: DELIA BLACK DO [Primary Care Provider] - Follow up as needed Mode of Arrival: Ambulatory Information source: Patient Notes: 43-year-old male with a history of prior CVA on eliquis, CHF with defibrillator, and CAD with stents with his last 2 stents being about a year ago comes in today for a few hours of substernal squeezing nonradiating chest pain and shortness of breath that feels like his prior HI when he had to get two stents about a year ago. He states he follows with cardiology, Dr. Marshall, at [facility]. He tells me he has not had a stress test since. It does appear however he had a stress test in August 2018 that showed no reversible ischemia and medical management and risk factor management recommended. He is on Eliquis for his prior CVA. He did take a full dose aspirin prior to arrival and "approximately 5 nitro sublingual which did ease the pain from 8 to a 3" however he states once he got here the pain was creeping back up to a 7. No ripping or tearing sensation. No prior history of blood clots. No calf pain/swelling, hemoptysis, recent surgery, recent long distance travel or immobilization, exogenous hormone use, or history of cancer. No other blood thinners. No changes in medication or diet. No trauma or injury. No syncope. He denies prior history of arrhythmias. He endorses medication compliance. He states he would like to go to [facility] should he require heart catheterization or further intervention. No fever, cough, vomiting, abdominal pain, rash, or any other symptoms. No other complaints at this time. TRAVEL OUTSIDE OF THE [place] IN LAST 30 DAYS: No - Related Data Allergies/Adverse Reactions: No Known Allergies Allergy (Verified 11/28/18 08:12) Past Medical History - General Information source: Patient - Social History Smoking Status: Former Smoker Frequency of alcohol use: Rare Drug Abuse: None Family History: Reviewed & Not Pertinent, CAD, Hyperlipidemia, Hypertension Patient has suicidal ideation: No Patient has homicidal ideation: No - Past Medical History Cardiac Medical History: Reports: Hx Coronary Artery Disease, Hx Heart Attack - x6, Hx Hypercholesterolemia, Hx Hypertension Denies: Hx Pulmonary Embolism Pulmonary Medical History: Denies: Hx Tuberculosis Neurological Medical History: Reports: Hx Cerebrovascular Accident Endocrine Medical History: Reports: Hx Diabetes Mellitus Type 2 Renal/ Medical History: Denies: Hx Peritoneal Dialysis Psychiatric Medical History: Reports: Hx Anxiety Denies: Hx Depression Past Surgical History: Reports: Hx Cardiac Catheterization - x5 stents, Hx Cardiac Surgery - defibrillator placed secondary to CHF, Hx Coronary Stent - x 5, Hx Orthopedic Surgery - right rotator cuff. Denies: Hx Pacemaker - Immunizations Immunizations up to date: No Hx Diphtheria, Pertussis, Tetanus Vaccination: Yes Hx Pneumococcal Vaccination: 02/21/11 Review of Systems - Review of Systems Constitutional: See HPI, Diaphoresis EENT: No symptoms reported Cardiovascular: See HPI, Chest pain, Dyspnea. denies: Palpitations, Syncope, Dizziness, Edema Respiratory: See HPI, Short of breath. denies: Cough, Hemoptysis Gastrointestinal: No symptoms reported Genitourinary: No symptoms reported Musculoskeletal: No symptoms reported Skin: No symptoms reported Hematologic/Lymphatic: No symptoms reported Neurological/Psychological: No symptoms reported -: Yes All other systems reviewed and negative Physical Exam - Vital signs Vitals: Temp Pulse Resp BP Pulse Ox 97.9 F 80 16 141/111 H 98 11/28/18 08:20 11/28/18 08:20 11/28/18 08:20 11/28/18 08:20 11/28/18 08:20 Notes: >>>> PHYSICAL_EXAM: GENERAL_APPEARANCE: well_nourished, alert, cooperative, no_acute_distress, no_obvious_discomfort. pleasant, middle aged black male, smiling, speaking in full sentences, in no sign of pain or resp distress, no one is with him VITALS: reviewed, see vital signs table. HEAD: no_swelling\\tenderness on the head. normocephalic. atraumatic. no mcconnell signs. no raccoons eyes. EYES: PERRL, EOMI, conjunctiva_clear. NOSE: no_nasal_discharge. MOUTH: (-)decreased moisture. THROAT: no_tonsilar_inflammation, no_airway_obstruction. no_lymphadenopathy NECK: supple, no_neck_tenderness, full rom. full strength. no jvd. no carotid bruit. no meningeal signs. BACK: no_back_tenderness. CHEST_WALL: no_chest_tenderness. no overlying skin changes LUNGS: no_wheezing, ctab (-)accessory muscle use, good air exchange bilateral. HEART: normal_rate, normal_rhythm, no_murmur, ABDOMEN: normal_BS, soft, no_abd_tenderness, (-)guarding, (-)rebound, no distension or peritoneal signs. no cva ttp EXTREMITIES: strength 5/5 in all_extremities, good pulses in all_extremities, no_swelling\\tenderness in the extremities, no_edema. full rom. normal gait. good pulses. brisk cap refill. good hand returned goods sorter. neg amparo sign NEURO: motor and sensation intact, cranial nerves 2-12 intact, cerebellar fxn intact SKIN: warm, dry, good_color, no_rash. MENTAL_STATUS: speech_clear, oriented_X_3, normal_affect, respon ds_appropriately to questions. Course - Re-evaluation Re-evalutation: 11/28/18 14:43 Patient here for substernal squeezing chest pain since this morning along with some shortness of breath. He does have an extensive cardiac history. He is followed by cardiology at [facility], Dr. Marshall,. He states he last had 2 stents placed about a year ago there. Patient states his pain feels exactly the same as that. He states that he has been compliant with his medication and took 5 nitro prior to arrival and it helped some however his pain is easing back. His initial labs and EKG were unremarkable. His chest x-ray was negative per radiology read by myself. I did call and speak with our on-call network design architect, Dr. Turner, who advised that I call the patient's network design architect at [facility], Dr. Marshall. I did speak with the transfer center who connected me with Dr. Muse who was on-call for Dr. Marshall and advised they would set the patient in transfer and to just do serial cardiac enzymes and pain control until they [place] a bed available which should be within less than 24 hours. I advised to call if any other enzymes however symptoms change. Patient was informed of his findings. He would like to go to [facility] also for continuity of care should here quiring interventional heart catheterization. Nursing to inform you that transport will be here around 3:30 PM to pickling grader the patient. The patient responded well to the medication above and remained chest pain-free. Second troponin was negative. EKG remained unremarkable. Patient will be transferred via ground a CLS to [facility] and the accepting physician was Dr. Zackary Parham. pt is on eliquis so lovenox was held. pt discussed with ed attending, dr geller, who directed and agrees with plan of care. emtla form filled out and signed by us both. On reexam, pt improved with tx listed. feels much better and remained chest pain-free. vss. well appearing. kept npo 11/28/18 14:49 Category Date Time Status Continuous Cardiac Monitoring (ED) CONTINUOUS Care 11/28/18 09:27 Completed EKG Documentation STAT Care 11/28/18 10:09 Completed EKG Documentation STAT Care 11/28/18 12:07 Active Oxygen (ED) Nasal Cannula 2 lpm Care 11/28/18 09:27 Active Pulse Oximeter Continuous (ED) CONTINUOUS Care 11/28/18 09:27 Active Saline Lock (ED) NOW Care 11/28/18 09:27 Active CHEST 2 VIEWS [RAD] Stat Exams 11/28/18 09:28 Completed CBC WITH DIFF [HEME] Stat Lab 11/28/18 09:30 Completed COMPREHENSIVE METABOLIC PANEL [CHEM] Stat Lab 11/28/18 09:30 Completed CREATINE KINASE MB [CHEM] Stat Lab 11/28/18 09:30 Completed CREATINE KINASE [CHEM] Stat Lab 11/28/18 09:30 Completed TROPONIN I [CHEM] Stat Lab 11/28/18 09:30 Completed TROPONIN I [CHEM] Timed Lab 11/28/18 12:37 Completed Morphine Sulfate [Morphine 10 mg/ml Inj] Med 11/28/18 10:09 Discontinued 4 mg IV NOW ONE Morphine Sulfate [Morphine 10 mg/ml Inj] Med 11/28/18 11:22 Discontinued 4 mg IV NOW ONE Morphine Sulfate [Morphine 10 mg/ml Inj] Med 11/28/18 14:32 Discontinued 4 mg IV NOW ONE Nitroglycerin [Nitrol 2% Ointment 1Gm Packet] Med 11/28/18 10:09 Discontinued 1 gm TP NOW ONE Ondansetron HCl/Pf [Zofran Inj/Pf 4 mg/2 ml Sdv] Med 11/28/18 10:09 Discontinued 4 mg IV NOW ONE Ondansetron HCl/Pf [Zofran Inj/Pf 4 mg/2 ml Sdv] Med 11/28/18 14:32 Discontinued 4 mg IV NOW ONE EKG ER ONLY [ER] Routine Oth 11/28/18 15:30 Ordered EKG ER ONLY [ER] Stat Ot 11/28/18 Active EKG ER ONLY [ER] Stat Ot 11/28/18 Active - Vital Signs Vital signs: Temp Pulse Resp BP Pulse Ox 97.9 F 80 16 121/91 H 95 11/28/18 08:20 11/28/18 08:20 11/28/18 13:01 11/28/18 13:01 11/28/18 13:01 - Laboratory Result Diagrams: 11/28/18 09:30 11/28/18 09:30 Laboratory results interpreted by me: 11/28/18 11/28/18 09:30 09:30 MCH 26.5 L RDW 16.5 H Seg Neutrophils % 39.7 L Monocytes % 13.3 H Chloride 108 H Labs- Entire Visit 11/28/18 11/28/18 11/28/18 09:30 09:30 09:30 WBC 4.9 RBC 5.08 Hgb 13.5 Hct 40.9 MCV 81 MCH 26.5 L MCHC 32.9 RDW 16.5 H Plt Count 281 Seg Neutrophils % 39.7 L Lymphocytes % 43.7 Monocytes % 13.3 H Eosinophils % 2.4 Basophils % 0.9 Absolute Neutrophils 1.9 Absolute Lymphocytes 2.1 Absolute Monocytes 0.6 Absolute Eosinophils 0.1 Absolute Basophils 0.0 Sodium 140.6 Potassium 4.5 Chloride 108 H Carbon Dioxide 25 Anion Gap 8 BUN 14 Creatinine 1.14 Est GFR ( Amer) > 60 Est GFR (Non-Af Amer) > 60 Glucose 90 Calcium 9.1 Total Bilirubin 1.0 Direct Bilirubin 0.3 Neonat Total Bilirubin Not Reportable Neonat Direct Bilirubin Not Reportable Neonat Indirect Bili Not Reportable AST 33 ALT 23 Alkaline Phosphatase 67 Creatine Kinase 121 CK-MB (CK-2) 0.75 Troponin I < 0.012 Total Protein 7.6 Albumin 4.0 Category Date Time Status Continuous Cardiac Monitoring (ED) CONTINUOUS Care 11/28/18 09:27 Completed EKG Documentation STAT Care 11/28/18 10:09 Completed Oxygen (ED) Nasal Cannula 2 lpm Care 11/28/18 09:27 Active Pulse Oximeter Continuous (ED) CONTINUOUS Care 11/28/18 09:27 Active Saline Lock (ED) NOW Care 11/28/18 09:27 Active CHEST 2 VIEWS [RAD] Stat Exams 11/28/18 09:28 Completed CBC WITH DIFF [HEME] Stat Lab 11/28/18 09:30 Completed COMPREHENSIVE METABOLIC PANEL [CHEM] Stat Lab 11/28/18 09:30 Completed CREATINE KINASE MB [CHEM] Stat Lab 11/28/18 09:30 Completed CREATINE KINASE [CHEM] Stat Lab 11/28/18 09:30 Completed TROPONIN I [CHEM] Stat Lab 11/28/18 09:30 Completed TROPONIN I [CHEM] Stat Lab 11/28/18 13:27 Ordered Morphine Sulfate [Morphine 10 mg/ml Inj] Med 11/28/18 10:09 Discontinued 4 mg IV NOW ONE Morphine Sulfate [Morphine 10 mg/ml Inj] Med 11/28/18 11:22 Discontinued 4 mg IV NOW ONE Nitroglycerin [Nitrol 2% Ointment 1Gm Packet] Med 11/28/18 10:09 Discontinued 1 gm TP NOW ONE Ondansetron HCl/Pf [Zofran Inj/Pf 4 mg/2 ml Sdv] Med 11/28/18 10:09 Discontinued 4 mg IV NOW ONE EKG ER ONLY [ER] Stat Oth 11/28/18 Active EKG ER ONLY [ER] Stat Ot 11/28/18 Active - Diagnostic Test Radiology reviewed: Image reviewed, Reports reviewed Radiology results interpreted by me: 11/28/18 11:38 Chest X-Ray 11/28/18 09:28 IMPRESSION: NO ACUTE RADIOGRAPHIC FINDING IN THE CHEST. - EKG Interpretation by Ut EKG shows normal: Sinus rhythm - 66 bpm, no stemi, unchanged from prior, reviewed by Dr Geller Rate: Normal Rhythm: NSR When compared to previous EKG there are: No significant change - Consults [facility] Time consulted: 11:30 - called transfer center to speak with education and outreach coordinator cards for dr marshall, pts network design architect Reason for consultation: 11/28/18 11:42 cp-rule out acs Consulted provider: other - accepted pt in transfer to [facility]. accepting physician is dr zackary higginbotham dr turner Time consulted: 11:20 Reason for consultation: 11/28/18 11:40 chest pain-rule out acs. dr herring stated to call pts network design architect at [facility], dr marshall, for his input if pt needed cath there instead of here since he had prior cath there and follows there. 11/28/18 11:41 Consulted provider: other Discharge - Discharge Clinical Impression: Shortness of breath Chest pain Qualifiers: Chest pain type: unspecified Qualified Code(s): R07.9 - Chest pain, unspecified Condition: Critical Disposition: PSYCHIATRIC HOSPITAL Admitting Provider: Dr. Manuel Muse consulted, accepting is Dr. Zackary Parham Unit Admitted: Telemetry Referrals: DELIA BLACK DO [Primary Care Provider] - Follow up as needed
[2018-11-28 09:46] LABS: ABSOLUTE EOSINOPHILS # (AUTO) 0.1 10^3/uL (0.0-0.6); ABSOLUTE LYMPHOCYTES (AUTO) 2.1 10^3/uL (0.5-4.7); ABSOLUTE MONOCYTES (AUTO) 0.6 10^3/uL (0.1-1.4); ABSOLUTE NEUT (AUTO) 1.9 10^3/uL (1.7-8.2); BASOPHILS % (AUTO) 0.9 % (0-2); EOSINOPHILS % (AUTO) 2.4 % (0-6); HEMATOCRIT 40.9 % (37.9-51.0); HEMOGLOBIN 13.5 g/dL (13.5-17.0); LYMPHOCYTES % (AUTO) 43.7 % (13-45); MEAN CORPUSCULAR HEMOGLOBIN 26.5 pg (27.0-33.4); MEAN CORPUSCULAR HGB CONC 32.9 g/dL (32.0-36.0); MEAN CORPUSCULAR VOLUME 81 fl (80-97); MONOCYTES % (AUTO) 13.3 % (3-13); PLATELET COUNT 281 10^3/uL (150-450); RED BLOOD COUNT 5.08 10^6/uL (4.35-5.55); RED CELL DISTRIBUTION WIDTH 16.5 % (11.5-14.0); SEGMENTED NEUTROPHILS % (AUTO) 39.7 % (42-78); TOTAL CELLS COUNTED % (AUTO) 100 %; WHITE BLOOD COUNT 4.9 10^3/uL (4.0-10.5)
[2018-11-28] MEDS ORDERED: MORPHINE SULFATE 10 MG/ML INJ IV ONE ×3 (10:09→14:32)
[2018-11-28] MEDS ORDERED: NITROGLYCERIN 2% OINTMENT 1 GM PACKET TP ONE (10:09)
[2018-11-28] MEDS ORDERED: ONDANSETRON HCL INJ/PF 4 MG/2 ML SDV IV ONE ×2 (10:09→14:32)
[2018-11-28 10:12] LABS: ALANINE AMINOTRANSFERASE 23 U/L (21-72); ALKALINE PHOSPHATASE 67 U/L (38-126); ANION GAP 8 (5-19); ASPARTATE AMINO TRANSFERASE 33 U/L (17-59); BILIRUBIN,DIRECT 0.3 mg/dL (0.0-0.4); BLOOD UREA NITROGEN 14 mg/dL (7-20); CALCIUM 9.1 mg/dL (8.4-10.2); CARBON DIOXIDE 25 mmol/L (22-30); CHLORIDE 108 mmol/L (98-107); CREATINE KINASE 121 U/L (55-170); GLUCOSE 90 mg/dL (75-110); POTASSIUM 4.5 mmol/L (3.6-5.0); SODIUM 140.6 mmol/L (137-145); TOTAL PROTEIN 7.6 g/dL (6.3-8.2)
[2018-11-28 10:21] LABS: CREATINE KINASE MB 0.75 ng/mL (<4.55)
[2018-11-28 10:25] LABS: TROPONIN I < 0.012 ng/mL
--- NOTE | 2018-11-28 10:27 | RADIOLOGY REPORT (SQ) ---
EXAM DESCRIPTION: CHEST 2 VIEWS COMPLETED DATE/TIME: 11/28/2018 9:44 am REASON FOR STUDY: cp COMPARISON: 09/03/2018, 07/21/2018 chest films EXAM PARAMETERS: NUMBER OF VIEWS: two views TECHNIQUE: Digital Frontal and Lateral radiographic views of the chest acquired. RADIATION DOSE: NA LIMITATIONS: none FINDINGS: LUNGS AND PLEURA: No opacities, masses or pneumothorax. No pleural effusion. MEDIASTINUM AND HILAR STRUCTURES: No masses or contour abnormalities. HEART AND VASCULAR STRUCTURES: Heart normal size. No evidence for failure. BONES: No acute findings. HARDWARE: Unchanged left-sided single lead pacemaker OTHER: No other significant finding. IMPRESSION: NO ACUTE RADIOGRAPHIC FINDING IN THE CHEST. TECHNICAL DOCUMENTATION: JOB ID: [id number] [employer]- All Rights Reserved Reading location - IP/workstation name: [email or web address]
[2018-11-28 16:07] VITALS: BP 150/90
--- NOTE | 2018-11-28 19:20 | EKG REPORT ---
SEVERITY:- BORDERLINE ECG - SINUS RHYTHM BORDERLINE R WAVE PROGRESSION, ANTERIOR LEADS : Confirmed by: Winsome Feng MD 28-Nov-2018 19:20:03
--- NOTE | 2018-11-28 19:20 | EKG REPORT ---
SEVERITY:- ABNORMAL ECG - INCOMPLETE ANALYSIS DUE TO MISSING DATA IN PRECORDIAL LEAD(S) SINUS RHYTHM PROBABLE LEFT ATRIAL ABNORMALITY NONSPECIFIC INTRAVENTRICULAR CONDUCTION DELAY : Confirmed by: Winsome Feng MD 28-Nov-2018 19:20:08
== END 2018-11-28 13:05 | disposition short-term general hospital (02) ==
LOC: ER 08:06
DX: R07.2 Precordial pain (principal); I25.10 Atherosclerotic heart disease of native coronary artery without angina pectoris; I11.0 Hypertensive heart disease with heart failure; I25.2 Old myocardial infarction; I50.9 Heart failure, unspecified; Z95.810 Presence of automatic (implantable) cardiac defibrillator; R06.02 Shortness of breath; R61 Generalized hyperhidrosis; E11.9 Type 2 diabetes mellitus without complications; Z86.73 Personal history of transient ischemic attack (TIA), and cerebral infarction without residual deficits; Z79.02 Long term (current) use of antithrombotics/antiplatelets
CPT/HCPCS: 93005; 96376; 99285; 96374; 96375; 36415; 82553; 82550; 85025; 80053; 84484; 71046; 93010; A9270; J2270; J2405

== ENCOUNTER 2019-02-03 21:30 | Emergency (ER) | payer MEDICARE, MEDICAID ==
--- NOTE | 2019-02-03 23:00 | EKG REPORT ---
SEVERITY:- ABNORMAL ECG - SINUS RHYTHM PROBABLE LEFT ATRIAL ABNORMALITY LVH WITH IVCD AND SECONDARY REPOL ABNRM : Confirmed by: Winsome Feng MD 03-Feb-2019 22:59:11
[2019-02-04] MEDS ORDERED: ASPIRIN 81 MG TABLET, CHEWABLE PO ONE (00:04)
[2019-02-04] MEDS ORDERED: NORMAL SALINE 250 ML IV ONE (00:05)
[2019-02-04 00:22] LABS: ABSOLUTE EOSINOPHILS # (AUTO) 0.1 10^3/uL (0.0-0.6); ABSOLUTE LYMPHOCYTES (AUTO) 2.6 10^3/uL (0.5-4.7); ABSOLUTE MONOCYTES (AUTO) 0.5 10^3/uL (0.1-1.4); ABSOLUTE NEUT (AUTO) 1.6 10^3/uL (1.7-8.2); BASOPHILS % (AUTO) 0.7 % (0-2); EOSINOPHILS % (AUTO) 1.8 % (0-6); HEMATOCRIT 38.3 % (37.9-51.0); HEMOGLOBIN 12.6 g/dL (13.5-17.0); LYMPHOCYTES % (AUTO) 54.2 % (13-45); MEAN CORPUSCULAR HEMOGLOBIN 26.6 pg (27.0-33.4); MEAN CORPUSCULAR HGB CONC 32.9 g/dL (32.0-36.0); MEAN CORPUSCULAR VOLUME 81 fl (80-97); MONOCYTES % (AUTO) 10.3 % (3-13); PLATELET COUNT 255 10^3/uL (150-450); RED BLOOD COUNT 4.75 10^6/uL (4.35-5.55); RED CELL DISTRIBUTION WIDTH 15.2 % (11.5-14.0); TOTAL CELLS COUNTED % (AUTO) 100 %; WHITE BLOOD COUNT 4.9 10^3/uL (4.0-10.5)
[2019-02-04 00:23] LABS: ALBUMIN 3.8 g/dL (3.5-5.0); ALKALINE PHOSPHATASE 72 U/L (38-126); ANION GAP 8 (5-19); ASPARTATE AMINO TRANSFERASE 48 U/L (17-59); BILIRUBIN,DIRECT 0.2 mg/dL (0.0-0.4); BILIRUBIN,TOTAL 0.5 mg/dL (0.2-1.3); BLOOD UREA NITROGEN 16 mg/dL (7-20); CALCIUM 9.4 mg/dL (8.4-10.2); CARBON DIOXIDE 24 mmol/L (22-30); CHLORIDE 108 mmol/L (98-107); CREATINE KINASE 82 U/L (55-170); GLUCOSE 89 mg/dL (75-110); TOTAL PROTEIN 6.8 g/dL (6.3-8.2)
[2019-02-04 00:35] LABS: CREATINE KINASE MB 0.29 ng/mL (<4.55); TROPONIN I < 0.012 ng/mL
--- NOTE | 2019-02-04 00:41 | RADIOLOGY REPORT (SQ) ---
EXAM DESCRIPTION: XR CHEST 1 VIEW COMPLETED DATE/TME: 02/04/2019 00:04 CLINICAL HISTORY: 43 years Male, cp COMPARISON: None. NUMBER OF VIEWS/TECHNIQUE: 1/AP FINDINGS: Adequate lung volume, clear parenchyma, normal cardiac silhouette, and intact bony thorax. Left cardiac stimulator with leads. IMPRESSION: No acute cardiopulmonary findings.
--- NOTE | 2019-02-04 03:01 | ER Document Report ---
ED Cardiac - General Chief Complaint: Chest Pain Stated Complaint: CHEST PAIN Time Seen by Provider: 02/03/19 23:51 Primary Care Provider: DELIA BLACK DO [Primary Care Provider] - Follow up as needed Notes: 43-year-old male known coronary artery disease has multiple stents has a history of CHF has an AICD. Having some substernal chest pain. Took some nitroglycerin at home. It has helped. Patient's blood pressure normally runs from 90-105 systolic he says. Patient had a stress test recently within the last 6 months. It was negative. He follows with a biologist in [place]. Currently he is pain-free TRAVEL OUTSIDE OF THE [place] IN LAST 30 DAYS: No - Related Data Allergies/Adverse Reactions: No Known Allergies Allergy (Verified 11/28/18 08:12) Past Medical History - Social History Smoking Status: Unknown if Ever Smoked Family History: Reviewed & Not Pertinent, CAD, Hyperlipidemia, Hypertension Patient has suicidal ideation: No Patient has homicidal ideation: No - Past Medical History Cardiac Medical History: Reports: Hx Coronary Artery Disease, Hx Heart Attack - x6, Hx Hypercholesterolemia, Hx Hypertension Denies: Hx Pulmonary Embolism Pulmonary Medical History: Denies: Hx Tuberculosis Neurological Medical History: Reports: Hx Cerebrovascular Accident Endocrine Medical History: Reports: Hx Diabetes Mellitus Type 2 Renal/ Medical History: Denies: Hx Peritoneal Dialysis Psychiatric Medical History: Reports: Hx Anxiety Denies: Hx Depression Past Surgical History: Reports: Hx Cardiac Catheterization - x5 stents, Hx Cardiac Surgery - defibrillator placed secondary to CHF, Hx Coronary Stent - x 5, Hx Orthopedic Surgery - right rotator cuff. Denies: Hx Pacemaker - Immunizations Immunizations up to date: No Hx Diphtheria, Pertussis, Tetanus Vaccination: Yes Hx Pneumococcal Vaccination: 02/21/11 Review of Systems - Review of Systems Cardiovascular: Chest pain, Orthopnea, Dyspnea Respiratory: Short of breath -: Yes All other systems reviewed and negative Physical Exam - Vital signs Vitals: Temp Pulse Resp BP Pulse Ox 98.6 F 52 L 24 H 105/75 98 02/03/19 21:56 02/03/19 21:56 02/03/19 21:56 02/03/19 21:56 02/03/19 21:56 - Notes Notes: PHYSICAL EXAMINATION: GENERAL: Well-appearing, well-nourished and in no acute distress. HEAD: Atraumatic, normocephalic. EYES: Pupils equal round and reactive to light, extraocular movements intact, sclera anicteric, conjunctiva are normal. ENT: nares patent, oropharynx clear without exudates. Moist mucous membranes. NECK: Normal range of motion, supple without lymphadenopathy LUNGS: Breath sounds clear to auscultation bilaterally and equal. No wheezes rales or rhonchi. HEART: Regular rate and rhythm without murmurs ABDOMEN: Soft, nontender, normoactive bowel sounds. No guarding, no rebound. No masses appreciated. EXTREMITIES: Normal range of motion, no pitting or edema. No cyanosis. NEUROLOGICAL: No focal neurological deficits. Moves all extremities spontaneously and on command. PSYCH: Normal mood, normal affect. SKIN: Warm, Dry, normal turgor, no rashes or lesions noted. Course - Re-evaluation Re-evalutation: 02/04/19 03:[address] Will hospitalist. He knows this patient very well. He recommends repeating a troponin. In discussing further with the patient at that time. Patient usually wants to go home after a second troponin.. 02/04/19 04:46 Patient had 2- troponins. Undetectable levels. Patient is pain-free at this time. Discussed with him again. Admission. He decides he wants to go home. He rather go home. Patient is safe for discharge at this time. He is instructed to follow-up with his biologist on Wednesday. And return precautions. 02/04/19 04:47 Patient's chest x-ray shows no CHF. His oxygen saturation is 100% on room air. He is sleeping comfortably in the room at this time. 02/04/19 04:47 - Vital Signs Vital signs: Temp Pulse Resp BP Pulse Ox 98.6 F 52 L 19 101/76 98 02/03/19 21:56 02/03/19 21:56 02/04/19 02:31 02/04/19 02:31 02/04/19 02:31 - Laboratory Result Diagrams: 02/03/19 23:27 02/03/19 23:27 Laboratory results interpreted by me: 02/03/19 02/03/19 23:27 23:27 Hgb 12.6 L MCH 26.6 L RDW 15.2 H Lymph % (Auto) 54.2 H Absolute Neuts (auto) 1.6 L Seg Neutrophils % 33.0 L Chloride 108 H Creatinine 1.31 H Est GFR (MDRD) Non-Af 59 L Discharge - Discharge Clinical Impression: Chest pain Condition: Stable Disposition: HOME, SELF-CARE Instructions: Chest Pain of Unclear Cause ([facility]) Additional Instructions: Follow-up with your biologist on Wednesday. Return if any concerns. Referrals: DELIA BLACK DO [Primary Care Provider] - Follow up as needed
[2019-02-04 05:06] VITALS: BP 92/81
== END 2019-02-04 05:14 | disposition home or self-care (01) ==
LOC: ER 21:30
DX: R07.2 Precordial pain (principal); I25.10 Atherosclerotic heart disease of native coronary artery without angina pectoris; I10 Essential (primary) hypertension; I25.2 Old myocardial infarction; E11.9 Type 2 diabetes mellitus without complications; Z95.5 Presence of coronary angioplasty implant and graft; Z95.810 Presence of automatic (implantable) cardiac defibrillator
CPT/HCPCS: 93005; 36415; 82553; 82550; 85025; 80053; 84484; 71045; 93010; A9270; J7050; 99285

== ENCOUNTER 2019-02-21 01:22 | Observation (INO) | payer MEDICARE, MEDICAID ==
--- NOTE | 2019-02-21 02:00 | RADIOLOGY REPORT (SQ) ---
CLINICAL HISTORY: CP COMPARISON: February 04, 2018. TECHNIQUE: XR CHEST 1 VIEW 02/21/2019 1:31 AM CDT FINDINGS: The heart is normal in size. Left AICD is unchanged. Lungs are clear without consolidation, atelectasis, mass or edema. There is no pleural effusion. There is no pneumothorax. There are no acute osseous findings. IMPRESSION: Clear lungs.
--- NOTE | 2019-02-21 02:06 | ER Document Report ---
ED Cardiac - General Chief Complaint: Chest Pain > 30 Stated Complaint: CHEST PAIN Time Seen by Provider: 02/21/19 02:05 Primary Care Provider: DELIA BLACK DO [Primary Care Provider] - Follow up as needed Mode of Arrival: Ambulatory Information source: Patient Notes: HISTORY OF PRESENT ILLNESS: Patient is a 43-year-old male with a past medical history of coronary artery disease and stroke who presents with sudden onset chest pressure and heaviness in the middle of the chest that began at rest, no radiation or worsening with exertion, patient reports it feels similar to his previous heart attacks. Patient reports that he took "at least 4 or 5 nitroglycerin without improvement." Location: Substernal Onset: Sudden Alleviation: None Provocation: Unknown Quality: Heaviness Radiation: None Severity: Severe at worst, currently moderate Timing: Persistent History of CAD: Yes Associated symptoms: Denies shortness of breath, no fevers or chills, no cough or congestion, no swelling of the extremities REVIEW OF SYSTEMS: CONSTITUTIONAL : Denies fever or chills, no sweats. Denies recent illness. EENT: Denies eye, ear, throat, or mouth pain or symptoms. Denies nasal or sinus congestion. CARDIOVASCULAR: Positive for chest pain. Denies swelling of the legs. RESPIRATORY: Denies cough, cold, or chest congestion. Denies shortness of breath or difficulty breathing. Denies wheezing. GASTROINTESTINAL: Denies abdominal pain. Denies nausea, vomiting, or diarrhea. Denies constipation. GENITOURINARY: Denies difficulty urinating, painful urination, burning, frequency, or blood in urine. MUSCULOSKELETAL: Denies neck or back pain or joint pain or swelling. SKIN: Denies rash or skin lesions. HEMATOLOGIC : Denies easy bruising or bleeding. LYMPHATIC: Denies swollen, enlarged glands. NEUROLOGICAL: Denies altered mental status or loss of consciousness. Denies headache. Denies weakness or paralysis or loss of use of either side. Denies problems with gait or speech. Denies sensory or motor loss. PSYCHIATRIC: Denies anxiety or stress or depression. All other systems reviewed and negative. PHYSICAL EXAMINATION: GENERAL: Well-appearing, well-nourished and in no acute distress. HEAD: Atraumatic, normocephalic. No scalp deformity, depression, or crepitance. EYES: Pupils are 3 mm and equal/round/reactive to light, extraocular movements intact, sclera anicteric, conjunctiva are normal. ENT: Nares patent bilaterally, oropharynx. Moist mucous membranes. No tonsil hypertrophy. NECK: Normal range of motion, supple without lymphadenopathy. LUNGS: Breath sounds present, equal, and clear to auscultation bilaterally. No wheezes, rales, or rhonchi. HEART: Regular rate and rhythm without murmurs, rubs, or gallops. 2+ peripheral pulses. Normal capillary refill. ABDOMEN: Soft, nontender, nondistended. Normoactive bowel sounds. No guarding, no rebound. No masses appreciated. BACK: Normal contour, no midline tenderness. Rectal exam deferred. GENITAL/PELVIC: Deferred. EXTREMITIES: Normal range of motion, no pitting or edema. No cyanosis. NEUROLOGICAL: No focal neurological deficits. Moves all extremities spontaneously and on command. PSYCH: Normal mood, normal affect. No suicidal thoughts/ideations. No homicidal thoughts/ideations. No hallucinations. SKIN: Warm, dry, normal turgor, no rashes or lesions noted. ASSESSMENT AND PLAN: This patient is a 43-year-old male who presents with chest pain similar to his previous heart attacks. 1. Will obtain cardiac labs and admit to the hospital. 2. Will give IV morphine for pain control. TRAVEL OUTSIDE OF THE [place] IN LAST 30 DAYS: No - HPI Patient complains to provider of: Chest pain Was the onset of pain: Sudden Is the pain a: Chronic problem Chest pain location: Substernal Quality of pain: Crushing, Heaviness Chest pain radiation location: None Severity now: Moderate Severity at worst: Severe Pain level currently: 3 Chest pain precipitating factors: At Rest Cardiac risk factors: Hx DC Positive cardiac history: Yes Associated symptoms: None Exacerbated by: Denies Relieved by: Nothing Similar symptoms previously: Yes Recently seen / treated by doctor: Yes - Related Data Allergies/Adverse Reactions: No Known Allergies Allergy (Verified 02/21/19 01:32) Past Medical History - General Information source: Patient - Social History Smoking Status: Never Smoker Chew tobacco use (# tins/day): No Frequency of alcohol use: Occasional Drug Abuse: None Lives with: Alone Family History: Reviewed & Not Pertinent, CAD, Hyperlipidemia, Hypertension Patient has suicidal ideation: No Patient has homicidal ideation: No - Past Medical History Cardiac Medical History: Reports: Hx Coronary Artery Disease, Hx Heart Attack - x6, Hx Hypercholesterolemia, Hx Hypertension Denies: Hx Pulmonary Embolism Pulmonary Medical History: Reports: None Denies: Hx Tuberculosis EENT Medical History: Reports: None Neurological Medical History: Reports: Hx Cerebrovascular Accident Endocrine Medical History: Reports: Hx Diabetes Mellitus Type 2 Renal/ Medical History: Reports: None. Denies: Hx Peritoneal Dialysis Malignancy Medical History: Reports None GI Medical History: Reports: None Musculoskeletal Medical History: Reports None Skin Medical History: Reports None Psychiatric Medical History: Reports: Hx Anxiety Denies: Hx Depression Traumatic Medical History: Reports: None Infectious Medical History: Reports: None Past Surgical History: Reports: Hx Cardiac Catheterization - x5 stents, Hx Cardiac Surgery - defibrillator placed secondary to CHF, Hx Coronary Stent - x 5, Hx Orthopedic Surgery - right rotator cuff. Denies: Hx Pacemaker - Immunizations Immunizations up to date: No Hx Diphtheria, Pertussis, Tetanus Vaccination: Yes Hx Pneumococcal Vaccination: 02/21/11 Review of Systems - Review of Systems Constitutional: No symptoms reported EENT: No symptoms reported Cardiovascular: See HPI, Chest pain Respiratory: No symptoms reported Gastrointestinal: No symptoms reported Genitourinary: No symptoms reported Male Genitourinary: No symptoms reported Musculoskeletal: No symptoms reported Skin: No symptoms reported Hematologic/Lymphatic: No symptoms reported Neurological/Psychological: No symptoms reported -: Yes All other systems reviewed and negative Physical Exam - Vital signs Vitals: Temp Pulse Resp BP Pulse Ox 98 F 70 25 H 106/76 99 02/21/19 01:24 02/21/19 01:24 02/21/19 01:24 02/21/19 01:24 02/21/19 01:24 Interpretation: Normal Course - Re-evaluation Re-evalutation: 02/21/19 05:25 Patient has benign work-up thus far with negative cardiac enzymes and normal EKG, normal chest x-ray. Per requisition of the hospitalist, patient will have a repeated troponin and if he still wishes to be admitted to the hospital, admission will be carried out at that time. 02/21/19 06:27 Second troponin is trending up but still lower than the threshold for an acute DC. Patient is admitted to the hospital. - Vital Signs Vital signs: Temp Pulse Resp BP Pulse Ox 98 F 70 18 111/89 H 99 02/21/19 01:24 02/21/19 01:24 02/21/19 05:01 02/21/19 05:00 02/21/19 05:01 - Laboratory Result Diagrams: 02/21/19 01:55 02/21/19 01:55 Laboratory results interpreted by me: 02/21/19 02/21/19 01:55 01:55 Hgb 12.2 L Hct 36.9 L MCH 26.5 L RDW 14.7 H Lymph % (Auto) 54.2 H Absolute Neuts (auto) 1.5 L Seg Neutrophils % 31.4 L Potassium 3.2 L Total Protein 6.2 L Albumin 3.4 L - Diagnostic Test Radiology reviewed: Image reviewed, Reports reviewed - EKG Interpretation by Me EKG shows normal: Sinus rhythm Rate: Normal Rhythm: NSR [place]/QRS: No: Right axis deviation, Left axis deviation, RBBB, LBBB, IVCD, LAHB/LAFB, LPHB/LPFB, Bifasicular block Voltage: No: Increased voltage, Consistant with LVH, Decreased voltage, Throughout, Limb leads P Waves: No: WILLIE, LAE, Absent, AV Dissociation, Other Heart block present: No: 1st Degree, Mobitz 1, Mobitz 2, CHB (3rd degree block) When compared to previous EKG there are: No significant change - Consults Dr. Will Time consulted: 05:25 - Obtain a second troponin and if the patient is still wishing to be admitted, call the hospitalist at that time for admission Consulted provider: other Discharge - Discharge Clinical Impression: Chronic chest pain Condition: Stable Disposition: ADMITTED INPATIENT Admitting Provider: Suman (Hospitalist) Unit Admitted: Telemetry Referrals: DELIA BLACK DO [Primary Care Provider] - Follow up as needed
[2019-02-21 02:30] LABS: ABSOLUTE EOSINOPHILS # (AUTO) 0.1 10^3/uL (0.0-0.6); ABSOLUTE LYMPHOCYTES (AUTO) 2.6 10^3/uL (0.5-4.7); ABSOLUTE MONOCYTES (AUTO) 0.5 10^3/uL (0.1-1.4); ABSOLUTE NEUT (AUTO) 1.5 10^3/uL (1.7-8.2); EOSINOPHILS % (AUTO) 1.9 % (0-6); HEMATOCRIT 36.9 % (37.9-51.0); HEMOGLOBIN 12.2 g/dL (13.5-17.0); LYMPHOCYTES % (AUTO) 54.2 % (13-45); MEAN CORPUSCULAR HEMOGLOBIN 26.5 pg (27.0-33.4); MEAN CORPUSCULAR HGB CONC 33.2 g/dL (32.0-36.0); MEAN CORPUSCULAR VOLUME 80 fl (80-97); MONOCYTES % (AUTO) 11.5 % (3-13); PLATELET COUNT 248 10^3/uL (150-450); RED BLOOD COUNT 4.62 10^6/uL (4.35-5.55); RED CELL DISTRIBUTION WIDTH 14.7 % (11.5-14.0); SEGMENTED NEUTROPHILS % (AUTO) 31.4 % (42-78); TOTAL CELLS COUNTED % (AUTO) 100 %; WHITE BLOOD COUNT 4.7 10^3/uL (4.0-10.5)
[2019-02-21 02:31] LABS: INTERNATIONAL RATION (INR) 1.21; PROTHROMBIN TIME 15.3 SEC (11.4-15.4)
[2019-02-21 02:32] LABS: PARTIAL THROMBOPLASTIN TIME 27.4 SEC (23.5-35.8)
[2019-02-21 02:44] LABS: ALBUMIN 3.4 g/dL (3.5-5.0); ALKALINE PHOSPHATASE 61 U/L (38-126); ANION GAP 9 (5-19); ASPARTATE AMINO TRANSFERASE 26 U/L (17-59); BILIRUBIN,DIRECT 0.1 mg/dL (0.0-0.4); BILIRUBIN,TOTAL 0.7 mg/dL (0.2-1.3); BLOOD UREA NITROGEN 14 mg/dL (7-20); CARBON DIOXIDE 24 mmol/L (22-30); CHLORIDE 107 mmol/L (98-107); CREATINE KINASE 124 U/L (55-170); GLUCOSE 107 mg/dL (75-110); POTASSIUM 3.2 mmol/L (3.6-5.0); TOTAL PROTEIN 6.2 g/dL (6.3-8.2)
[2019-02-21 02:57] LABS: CREATINE KINASE MB 0.79 ng/mL (<4.55); TROPONIN I 0.016 ng/mL
[2019-02-21] MEDS ORDERED: MORPHINE SULFATE 10 MG/ML INJ IV ONE ×2 (03:18→04:18)
[2019-02-21] MEDS ORDERED: ACETAMINOPHEN 325 MG TABLET PO ONE (04:18)
[2019-02-21] MEDS ORDERED: LORAZEPAM INJ 2 MG/1 ML VIAL IV PRN (06:16)
[2019-02-21] MEDS ORDERED: MAG HYDROX/AL HYDROX/SIMETH SUSP 30 ML UDCUP PO PRN (06:16)
[2019-02-21] MEDS ORDERED: ACETAMINOPHEN 325 MG TABLET PO PRN (06:16)
--- NOTE | 2019-02-21 06:29 | PDOC H&P ---
History of Present Illness Admission Date/PCP: DELIA BLACK DO Patient complains of: Chest pain History of Present Illness: WINDY CORNEJO is a 43 year old male with a past medical history of hypertension, dyslipidemia, generalized anxiety disorder, alcohol dependence, GERD, diabetes, nonischemic cardiomyopathy, congestive heart failure with an ejection fraction of 20% with permanent pacemaker, CVA, coronary disease with multiple stents followed by [facility]. Last stress test per patient was October 2017. Patient presents with 6 hours of intermittent pressure-like retrosternal chest pain radiating to the back which was 5 out of 5 intensity but reduced with morphine and nitroglycerin. In the emergency room he is upset and yelling at the hospital staff that he has been left ear to and that we are not treating his pain. Patient does admit persistent lifestyle and medication noncompliance. Past Medical History Cardiac Medical History: Reports: Coronary Artery Disease, Myocardial Infarction - x6, Hyperlipidema, Hypertension Denies: Pulmonary Embolism Pulmonary Medical History: Reports: None Denies: Tuberculosis EENT Medical History: Reports: None Endocrine Medical History: Reports: Diabetes Mellitus Type 2 Renal/ Medical History: Reports: None Malignancy Medical History: Reports: None GI Medical History: Reports: None Musculoskeltal Medical History: Reports: None Skin Medical History: Reports: None Psychiatric Medical History: Denies: Depression Traumatic Medical History: Reports: None Infectious Medical History: Reports: None Past Surgical History Past Surgical History: Reports: Cardiac Catheterization - x5 stents, Coronary Stent - x 5, Orthopedic Surgery - right rotator cuff Denies: Pacemaker Social History Information Source: Patient Lives with: Alone Smoking Status: Never Smoker Frequency of Alcohol Use: Social Hx Recreational Drug Use: No Drugs: None Hx Prescription Drug Abuse: No - Advance Directive Resuscitation Status: Full Code Family History Family History: Reviewed & Not Pertinent, CAD, Hyperlipidemia, Hypertension Parental Family History Reviewed: Yes Children Family History Reviewed: Yes Sibling(s) Family History Reviewed.: Yes Medication/Allergy Home Medications: Alprazolam [Xanax] 2 mg PO Q8 09/03/18 Atorvastatin Calcium [Lipitor 80 mg Tablet] 80 mg PO QHS 09/03/18 Bisoprolol Fumarate [Zebeta 5 mg Tablet] 10 mg PO DAILY 09/03/18 Cyclosporine 0.05% Oph Emulsio [Restasis 0.05% Oph Emulsion Pf 0.4 ml] 1 drop OU BID 09/03/18 Dexlansoprazole [Dexilant 60 mg Capsule] 60 mg PO DAILY 09/03/18 Furosemide [Lasix 40 mg Tablet] 40 mg PO BID 09/03/18 Isosorbide Mononitrate [Imdur 30 mg Tablet.er] 15 mg PO DAILY 09/03/18 Lisinopril [Prinivil] 20 mg PO DAILY 09/03/18 Nitroglycerin [Nitrostat 0.4 mg (1/150 Gr) Tabs 25/Bottle] 1 tab SL Q5MP PRN 09/03/18 Oxycodone HCl [Oxy-Ir 5 mg Tablet] 15 mg PO Q6HP PRN 09/03/18 Potassium Chloride [Klor-Con M20] 40 meq PO BID 09/03/18 Tramadol HCl [Ultram 50 mg Tablet] 100 mg PO Q8HP PRN 09/03/18 Zolpidem Tartrate [Ambien] 10 mg PO QHS 09/03/18 Allergies/Adverse Reactions: No Known Allergies Allergy (Verified 02/21/19 01:32) Review of Systems ROS unobtainable: Due to mental status - Poor historian and answers affirmatively to all questions Physical Exam Vital Signs: Temp Pulse Resp BP Pulse Ox 98 F 70 18 111/89 H 99 02/21/19 01:24 02/21/19 01:24 02/21/19 05:01 02/21/19 05:00 02/21/19 05:01 Intake & Output 02/19/19 02/20/19 02/21/19 11:59 11:59 11:59 Weight 92.986 kg General appearance: PRESENT: cooperative, mild distress, well-developed, well- nourished Head exam: PRESENT: atraumatic, normocephalic Eye exam: PRESENT: conjunctiva pink, EOMI, PERRLA. ABSENT: scleral icterus Ear exam: PRESENT: normal external ear exam Mouth exam: PRESENT: moist, tongue midline Neck exam: ABSENT: carotid bruit, JVD, lymphadenopathy, thyromegaly Respiratory exam: PRESENT: clear to auscultation yesenia, tachypnea. ABSENT: rales, rhonchi, wheezes Cardiovascular exam: PRESENT: RRR. ABSENT: diastolic murmur, rubs, systolic murmur Pulses: PRESENT: normal dorsalis pedis pul Vascular exam: PRESENT: normal capillary refill GI/Abdominal exam: PRESENT: normal bowel sounds, soft. ABSENT: distended, guarding, mass, organolmegaly, rebound, tenderness Rectal exam: PRESENT: deferred Extremities exam: PRESENT: full ROM. ABSENT: calf tenderness, clubbing, pedal edema Neurological exam: PRESENT: alert, awake, oriented to person, oriented to place, oriented to time, oriented to situation, CN II-XII grossly intact. ABSENT: motor sensory deficit Psychiatric exam: PRESENT: agitated, anxious Skin exam: PRESENT: dry, intact, warm. ABSENT: cyanosis, rash Results Laboratory Results: 02/21/19 01:55 02/21/19 01:55 02/21/19 02/21/19 01:55 01:55 WBC 4.7 RBC 4.62 Hgb 12.2 L Hct 36.9 L MCV 80 MCH 26.5 L MCHC 33.2 RDW 14.7 H Plt Count 248 Seg Neutrophils % 31.4 L Sodium 140.2 Potassium 3.2 L Chloride 107 Carbon Dioxide 24 Anion Gap 9 BUN 14 Creatinine 1.18 Est GFR ( Amer) > 60 Glucose 107 Calcium 9.0 Total Bilirubin 0.7 AST 26 Alkaline Phosphatase 61 Total Protein 6.2 L Albumin 3.4 L 02/21/19 02/21/19 02/21/19 01:55 01:55 05:19 Creatine Kinase 124 CK-MB (CK-2) 0.79 Troponin I 0.016 0.046 Impressions: Chest X-Ray 02/21/19 01:31 IMPRESSION: Clear lungs. Assessment and Plan - Diagnosis (1) Atypical chest pain Is this a current diagnosis for this admission?: Yes Plan: Atypical chest pain though the patient's pain is atypical there are multiple risk factors for coronary artery disease and subsequently will observe and evaluation of acute coronary syndrome versus coronary artery disease with anginal equivalents. Cardiac monitoring blood pressure Q6 hours ,TSH, lipid profile, serial cardiac enzymes, cardiac stress test versus cardiac cath. (2) Hypokalemia Is this a current diagnosis for this admission?: Yes Plan: IV repletion, follow-up chemistry and magnesium level. (3) Anxiety Is this a current diagnosis for this admission?: Yes Plan: Complicated by alcohol, benzodiazepine dependence, medical noncompliance. Trial scheduled Abilify. - Time Time Spent with patient: 25-34 minutes - Inpatient Certification Medical Necessity: Need Close Monitoring Due to Risk of Patient Decompensation
[2019-02-21] MEDS ORDERED: LOSARTAN POTASSIUM 50 MG TABLET PO ONE (06:30)
[2019-02-21] MEDS: DIAZEPAM 5 MG TABLET PO SCH ×3 (06:58→17:44)
[2019-02-21] MEDS ORDERED: THIAMINE HCL 100 MG TABLET PO ONE (07:00)
[2019-02-21] MEDS ORDERED: ARIPIPRAZOLE 5 MG TABLET PO ONE (07:00)
[2019-02-21] MEDS ORDERED: ASPIRIN 81 MG TABLET, ENT COATED PO SCH (10:00)
[2019-02-21] MEDS: NITROGLYCERIN 0.4 MG/TAB 25 TAB/BOTTLE SL PRN ×2 (10:46→10:58)
[2019-02-21] MEDS ORDERED: KETOROLAC TROMETHAMINE INJ/PF 30 MG/1 ML SDV IV PRN (11:27)
[2019-02-21] MEDS ORDERED: TRAMADOL HCL 50 MG TABLET PO PRN (11:58)
[2019-02-21] MEDS ORDERED: (PENDING PHARMACY ID) (Potassium Chloride [Klor-Con M20] 40 MEQ) PO SCH (12:15)
[2019-02-21] MEDS ORDERED: BISOPROLOL FUMARATE 10 MG PO SCH ×2 (12:15→18:00)
[2019-02-21] MEDS ORDERED: FUROSEMIDE 40 MG TABLET PO SCH (12:15)
[2019-02-21] MEDS ORDERED: APIXABAN 5 MG TABLET PO SCH (12:15)
[2019-02-21] MEDS ORDERED: (PENDING PHARMACY ID) (Lisinopril [Prinivil] 10 MG) PO SCH (12:15)
[2019-02-21] MEDS: OXYCODONE HCL IR 5 MG TABLET PO PRN ×2 (12:30→22:17)
[2019-02-21] MEDS ORDERED: POTASSIUM CHLORIDE 10 MEQ CAPSULE.ER PO SCH (13:00)
[2019-02-21] MEDS ORDERED: ATENOLOL 50 MG TABLET PO SCH ×2 (13:00→19:00)
[2019-02-21] MEDS ORDERED: LISINOPRIL 10 MG TABLET PO SCH (13:00)
[2019-02-21] MEDS ORDERED: PANTOPRAZOLE SODIUM 40 MG TABLET.DR PO PRN (13:09)
[2019-02-21 17:15] LABS: CREATINE KINASE MB 38.4 ng/mL (<4.55); TROPONIN I 3.29 ng/mL
--- NOTE | 2019-02-21 17:57 | PDOC TRANSFER SUMMARY ---
General Admission Date/PCP: 02/21/19 06:34 DELIA BLACK, Resuscitation Status: Full Code - Transfer Diagnosis (1) Ejection fraction < 50% Is this a current diagnosis for this admission?: Yes Diagnosis Summary: 02/21/2019 patient reportedly has an ejection fracture of 20% with a history of cardiomyopathy, congestive heart failure, coronary artery disease with multiple stents (2) Non compliance with medical treatment Is this a current diagnosis for this admission?: Yes Diagnosis Summary: In 119 patient admits in the ER that he has a lifestyle that is non-conducive to good health well as medication noncompliance (3) Atypical chest pain Is this a current diagnosis for this admission?: Yes Diagnosis Summary: 02/21/2019 patient has been seen on multiple occasions in our ED with normal troponins and atypical chest pain and talking to the manager erp at [facility] he also states that the patient is complained of chest pain in the past and had normal stress test (4) Hypokalemia Is this a current diagnosis for this admission?: Yes Diagnosis Summary: 02/21/2019 on admission patient's potassium was 3.2. Patient has been on 40 mEq of potassium daily since admission (5) Acute coronary syndrome Is this a current diagnosis for this admission?: Yes Diagnosis Summary: 02/21/2019 patient has a history of having 5 stents, as well as chest pain with normal stress test. he has been seen in our ED on 11/28/2018 with troponins negative x2. Then on December 03 2018 with troponins 0.0122 followed by a slight increased to 0.033 then a slight increase to 0.062 On February 2018 patient had a troponin 0 0.174 which went up to 1.870 believe at this time he was transferred to [facility] (6) CAD with multiple stent placement Is this a current diagnosis for this admission?: Yes - Transfer Medications Home Medications: Alprazolam [Xanax] 2 mg PO TID 02/21/19 Apixaban [Eliquis 5 mg Tablet] 5 mg PO BID 02/21/19 Atorvastatin Calcium [Lipitor 80 mg Tablet] 80 mg PO QHS 02/21/19 Bisoprolol Fumarate [Zebeta 5 mg Tablet] 10 mg PO DAILY 02/21/19 Furosemide [Lasix 40 mg Tablet] 40 mg PO BID 02/21/19 Lisinopril [Prinivil] 20 mg PO DAILY 02/21/19 Nitroglycerin [Nitrostat 0.4 mg (1/150 Gr) Tabs 25/Bottle] 1 tab SL Q5MP PRN 02/21/19 Oxycodone HCl 15 mg PO Q6HP PRN 02/21/19 Potassium Chloride 40 meq PO BID 02/21/19 Ranolazine [Ranolazine ER] 500 mg PO BID 02/21/19 Sacubitril/Valsartan [Entresto 24 mg/26 mg Tablet] 1 tab PO Q12 02/21/19 Tacrolimus 30 gm TP BID 02/21/19 Testosterone Cypionate 200 mg IM .WEEKLY 02/21/19 Tramadol HCl [Ultram 50 mg Tablet] 50 mg PO Q6HP PRN 02/21/19 Zolpidem Tartrate [Ambien] 10 mg PO QHS 02/21/19 Transfer Medications: Current Medications Acetaminophen (Tylenol 325 Mg Tablet) 650 mg PO Q4HP PRN PRN Reason: FOR HEADACHE Stop: 03/23/19 06:15 Al Hydrox/Mg Hydrox/Simethicone (Maalox Plus Susp 30 Udcup) 30 ml PO Q4HP PRN PRN Reason: HEARTBURN Stop: 03/23/19 06:15 Apixaban (Eliquis 5 Mg Tablet) 5 mg PO DAILY [facility] Stop: 03/23/19 12:14 Last Admin: 02/21/19 12:25 Dose: 5 mg Documented by: Aripiprazole (Abilify 5 Mg Tablet) 5 mg PO DAILY [facility] Stop: 03/24/19 09:59 Aripiprazole (Abilify 5 Mg Tablet) 10 mg PO QHS [facility] Stop: 03/23/19 21:59 Aspirin (Ecotrin 81 Mg Ec Tablet) 81 mg PO DAILY [facility] Stop: 03/23/19 09:59 Last Admin: 02/21/19 09:56 Dose: 81 mg Documented by: Atenolol (Tenormin 50 Mg Tablet) 100 mg PO DAILY [facility] Stop: 03/23/19 12:59 Last Admin: 02/21/19 12:25 Dose: 100 mg Documented by: Atorvastatin Calcium (Lipitor 80 Mg Tablet) 80 mg PO QHS [facility] Stop: 03/23/19 21:59 Diazepam (Valium 5 Mg Tablet) 10 mg PO Q12A [facility] Stop: 02/28/19 05:59 Last Admin: 02/21/19 06:58 Dose: 10 mg Documented by: Furosemide (Lasix 40 Mg Tablet) 80 mg PO DAILY [facility] Stop: 03/23/19 12:14 Last Admin: 02/21/19 12:26 Dose: 80 mg Documented by: Ketorolac Tromethamine (Toradol Inj/Pf 30 Mg/1 Ml Sdv) 30 mg IV Q8HP PRN PRN Reason: PAIN Stop: 02/26/19 11:26 Last Admin: 02/21/19 11:34 Dose: 30 mg Documented by: Lorazepam (Ativan Inj 2 Mg/1 Ml Vial) 2 mg IV Q2HP PRN PRN Reason: ANXIETY/AGITATION Stop: 02/28/19 06:15 Losartan Potassium (Cozaar 50 Mg Tablet) 50 mg PO Q12 [facility] Stop: 03/23/19 21:59 Nitroglycerin (Nitrostat 0.4 Mg (1/150 Gr) Tabs 25/Bottle) 1 tab SL Q5MP PRN PRN Reason: FOR CHEST PAIN Last Admin: 02/21/19 10:58 Dose: 1 tab Documented by: Oxycodone HCl (Oxy-Ir 5 Mg Tablet) 15 mg PO Q6HP PRN PRN Reason: SEVERE PAIN Stop: 02/28/19 11:56 Last Admin: 02/21/19 12:30 Dose: 15 mg Documented by: Pantoprazole Sodium (Protonix [address] Tablet) 40 mg PO DAILYP PRN PRN Reason: REFLUX Stop: 03/23/19 13:08 Potassium Chloride (Klor-Con 10 Meq Capsule Er) 40 meq PO DAILY [facility] Stop: 03/23/19 12:59 Last Admin: 02/21/19 12:26 Dose: Not Given Documented by: Sodium Chloride (Saline Flush 2.5 Ml Monoject Prefil Syrin) 2.5 ml IV Q8 [facility] Stop: 03/23/19 13:59 Last Admin: 02/21/19 13:56 Dose: Not Given Documented by: Thiamine HCl (Thiamine 100 Mg Tablet) 100 mg PO DAILY [facility] Stop: 03/24/19 09:59 Tramadol HCl (Ultram 50 Mg Tablet) 100 mg PO Q8HP PRN PRN Reason: FOR PAIN Stop: 02/28/19 11:57 Zolpidem Tartrate (Ambien 5 Mg Tablet) 10 mg PO QHS [facility] Stop: 02/28/19 21:59 - Allergies Allergies/Adverse Reactions: No Known Allergies Allergy (Verified 02/21/19 01:32) Hospital Course Hospital Course: 02/21/2019 Patient was seen this morning in the emergency room at approximately 0130 hrs. with a complaint of sudden onset of chest pain and heaviness. Patient reported to the ED physician that he took for 5 nitros with no relief. Patient's first 2 troponins were normal patient was admitted to the hospital at approximately 0630 hrs. Since patient's troponins were trending up on the third troponin is slightly elevated at 0.809 I called cardiology here Dr. Feng who recommended that I call a manager erp at [facility] where he has had his cardiac work-up done in the past and arrange a transfer. I spoke to Dr. Rios of cardiology who graciously agreed to accept the patient for further evaluation and treatment. Since last troponin has gone up to 3.29 and his CK-MB index is gone up to 38.40 Patient is currently taking Eliquis 5 mg daily, Cozaar 50 mg every 12 hours, Lipitor 80 mg nightly.. Patient is also taken Sabetta 5 mg daily. I have also started patient's Entresto back 24 mg / 26 mg 1 tablet every 12 hours Patient has been accepted at [facility] by Dr. Rios however they are currently on a shortage of beds. Patient will be transferred as soon as a bed becomes available Physical Exam Vital Signs: Temp Pulse Resp BP Pulse Ox 97.5 F 67 18 92/60 L 100 02/21/19 16:52 02/21/19 16:52 02/21/19 16:52 02/21/19 16:52 02/21/19 16:52 Intake & Output 02/20/19 02/21/19 02/22/19 06:59 06:59 06:59 Weight 92.986 kg 87.6 kg General appearance: PRESENT: no acute distress, well-developed, well-nourished Respiratory exam: PRESENT: clear to auscultation yesenia. ABSENT: rales, rhonchi, wheezes Cardiovascular exam: PRESENT: RRR. ABSENT: diastolic murmur, rubs, systolic murmur Neurological exam: PRESENT: alert, awake, oriented to person, oriented to place, oriented to time, oriented to situation, CN II-XII grossly intact. ABSENT: motor sensory deficit Psychiatric exam: PRESENT: agitated, other - Patient was agitated with the ER staff and patient has been somewhat agitated with the nurse on the floor, however not to the point of requiring medication Results Laboratory Results: 02/21/19 01:55 02/21/19 01:55 02/21/19 02/21/19 01:55 01:55 WBC 4.7 RBC 4.62 Hgb 12.2 L Hct 36.9 L MCV 80 MCH 26.5 L MCHC 33.2 RDW 14.7 H Plt Count 248 Seg Neutrophils % 31.4 L Sodium 140.2 Potassium 3.2 L Chloride 107 Carbon Dioxide 24 Anion Gap 9 BUN 14 Creatinine 1.18 Est GFR ( Amer) > 60 Glucose 107 Calcium 9.0 Total Bilirubin 0.7 AST 26 Alkaline Phosphatase 61 Total Protein 6.2 L Albumin 3.4 L 02/21/19 02/21/19 02/21/19 01:55 01:55 05:19 Creatine Kinase 124 CK-MB (CK-2) 0.79 Troponin I 0.016 0.046 02/21/19 02/21/19 02/21/19 12:00 12:00 16:35 Creatine Kinase CK-MB (CK-2) 2.91 38.40 H Troponin I 0.809 3.290 Impressions: Chest X-Ray 02/21/19 01:31 IMPRESSION: Clear lungs. Plan Time Spent: Greater than 30 Minutes - Arrangements have been made to transfer the patient to the facility that is done his cardiac stents in the past and most of his cardiac work-up. This is considered a higher level of care the patient's best interest medically.
--- NOTE | 2019-02-21 20:51 | EKG REPORT ---
SEVERITY:- ABNORMAL ECG - SINUS RHYTHM PROBABLE LEFT ATRIAL ABNORMALITY NONSPECIFIC INTRAVENTRICULAR CONDUCTION DELAY LVH WITH SECONDARY REPOLARIZATION ABNORMALITY : Confirmed by: Winsome Feng MD 21-Feb-2019 20:51:11
[2019-02-21] MEDS ORDERED: ARIPIPRAZOLE 5 MG TABLET PO SCH (22:00)
[2019-02-21] MEDS ORDERED: (PENDING PHARMACY ID) (Zolpidem Tartrate [Ambien] 10 MG) PO SCH ×2 (22:00)
[2019-02-21] MEDS ORDERED: SACUBITRIL/VALSARTAN 24 MG/26 MG TABLET PO SCH (22:00)
[2019-02-21] MEDS ORDERED: ZOLPIDEM TARTRATE 5 MG TABLET PO SCH (22:00)
[2019-02-21] MEDS ORDERED: ATORVASTATIN CALCIUM 40 MG TABLET PO SCH (22:00)
[2019-02-21] MEDS ORDERED: ATORVASTATIN CALCIUM 80 MG TABLET PO SCH (22:00)
[2019-02-21] MEDS ORDERED: LOSARTAN POTASSIUM 50 MG TABLET PO SCH (22:00)
[2019-02-21] MEDS: ALPRAZOLAM 0.5 MG TABLET PO SCH (22:18)
[2019-02-22 03:29] VITALS: BP 91/62
[2019-02-22] MEDS: ALPRAZOLAM 0.5 MG TABLET PO SCH (05:24)
--- NOTE | 2019-02-22 09:39 | Progress Note ---
Provider Note Provider Note: 02/22/2019 Beka Herzog had a bed this morning and was sitting EMS picked the patient up, however prior to patient going he wanted to speak with me concerning his care. Patient was concerned that he was going to have a cardiac cath as soon as he arrived in [place] and I told him that was something he needed to discuss with the printer repair technician but it did seem indicated. Patient has rising troponins here in our hospital, patient has a strong history of coronary artery disease. She is medically stable for transfer. I filled out the remaining forms this morning. Transfer summary and discharge plan was dictated last night in anticipation for him being transferred during the night. Patient seems satisfied at the time of discharge. Nurse was present in the room during the discussion this morning.
[2019-02-22] MEDS ORDERED: ARIPIPRAZOLE 5 MG TABLET PO SCH (10:00)
[2019-02-22] MEDS ORDERED: THIAMINE HCL 100 MG TABLET PO SCH (10:00)
== END 2019-02-22 08:20 | disposition short-term general hospital (02) ==
LOC: ER 01:22 → EH 06:34 → INTOOBSV 06:34 → 3W 10:27
PROVIDERS: ADMIT Internal Medicine; ATTEND Internal Medicine
DX: R07.89 Other chest pain (principal); I42.9 Cardiomyopathy, unspecified; I25.10 Atherosclerotic heart disease of native coronary artery without angina pectoris; E87.6 Hypokalemia; I24.9 Acute ischemic heart disease, unspecified; R45.1 Restlessness and agitation; I42.8 Other cardiomyopathies; K21.9 Gastro-esophageal reflux disease without esophagitis; F41.1 Generalized anxiety disorder; E78.5 Hyperlipidemia, unspecified; I11.0 Hypertensive heart disease with heart failure; I50.9 Heart failure, unspecified; F10.20 Alcohol dependence, uncomplicated; F13.20 Sedative, hypnotic or anxiolytic dependence, uncomplicated; I25.2 Old myocardial infarction; Z95.5 Presence of coronary angioplasty implant and graft; Z91.19 Patient's noncompliance with other medical treatment and regimen; Z79.02 Long term (current) use of antithrombotics/antiplatelets; Z95.0 Presence of cardiac pacemaker; Z86.73 Personal history of transient ischemic attack (TIA), and cerebral infarction without residual deficits; Z82.49 Family history of ischemic heart disease and other diseases of the circulatory system
CPT/HCPCS: 93005; 96376; 99285; 96374; 36415; 82553; 82550; 85025; 85610; 85730; 80053; 84484; 71045; 93010; G0378 ×3; A9270 ×14; J1885; J2270; J3490 ×2

== ENCOUNTER 2019-07-06 21:28 | Emergency (ER) | payer MEDICARE, MEDICAID ==
--- NOTE | 2019-07-06 23:15 | EKG REPORT ---
SEVERITY:- ABNORMAL ECG - SINUS RHYTHM PROBABLE LEFT ATRIAL ABNORMALITY ABNRM R PROG, CONSIDER ASMI OR LEAD PLACEMENT NONSPECIFIC T ABNORMALITIES, LATERAL LEADS : Confirmed by: Edison Bynum MD 06-Jul-2019 23:14:21
--- NOTE | 2019-07-07 00:55 | RADIOLOGY REPORT (SQ) ---
EXAM DESCRIPTION: XR CHEST 2 VIEWS COMPLETED DATE/TME: 07/06/2019 00:00 CLINICAL HISTORY: 44 years, Male, SOB COMPARISON: Portable radiograph February 21, 2019 NUMBER OF VIEWS: 2 TECHNIQUE: PA and lateral LIMITATIONS: None. FINDINGS: Cardiomegaly mediastinal silhouette is enlarged and appears larger. Pacer defibrillator is again identified, and appears intact. The lungs are grossly clear. No significant pleural fluid. No pneumothorax IMPRESSION: Cardiac silhouette appears larger than prior copyright 2011 [employer]- All Rights Reserved
--- NOTE | 2019-07-07 02:54 | ER Document Report ---
Entered by RICHARDSON DE GUZMAN SCRIBE 07/07/19 0214 Acting as scribe for:VAISHALI CALABRESE IV, MD ED General - General Chief Complaint: Shortness Of Breath Stated Complaint: SHORTNESS OF BREATH Time Seen by Provider: 07/07/19 02:04 Primary Care Provider: DELIA BLACK DO [Primary Care Provider] - Follow up as needed Mode of Arrival: Ambulatory Information source: Patient Notes: This 44 year old male patient with a history of CHF presents to the ED today with complaints of shortness of breath that has been ongoing, but got progressively worse today. Patient reports that he coughs so hard that he vomits and has pain in his umbilical region and sides. Patient also reports subjective fevers, chills, and bilateral lower extremity swelling. Patient states that he takes his medications every day and that his Lasix dosage was doubled recently. TRAVEL OUTSIDE OF THE [place] IN LAST 30 DAYS: No - Related Data Allergies/Adverse Reactions: No Known Allergies Allergy (Verified 07/06/19 23:31) Home Medications: LASIX. POTASSIUM Past Medical History - General Information source: Patient, [facility] Records - Social History Smoking Status: Former Smoker Cigarette use (# per day): No Chew tobacco use (# tins/day): No Smoking Education Provided: No Frequency of alcohol use: Social Drug Abuse: None Family History: Reviewed & Not Pertinent, CAD, Hyperlipidemia, Hypertension Patient has suicidal ideation: No Patient has homicidal ideation: No - Past Medical History Cardiac Medical History: Reports: Hx Congestive Heart Failure, Hx Coronary Artery Disease, Hx Heart Attack - x6, Hx Hypercholesterolemia, Hx Hypertension Neurological Medical History: Reports: Hx Cerebrovascular Accident Endocrine Medical History: Reports: Hx Diabetes Mellitus Type 2 Psychiatric Medical History: Reports: Hx Anxiety Past Surgical History: Reports: Hx Cardiac Catheterization - x5 stents, Hx Cardiac Surgery - defibrillator placed secondary to CHF, Hx Coronary Stent, Hx Orthopedic Surgery - right rotator cuff, Hx Pacemaker - Immunizations Immunizations up to date: No Hx Diphtheria, Pertussis, Tetanus Vaccination: Yes Hx Pneumococcal Vaccination: 02/21/11 Review of Systems - Review of Systems Constitutional: See HPI, Chills, Fever EENT: No symptoms reported Cardiovascular: No symptoms reported Respiratory: See HPI, Cough, Short of breath Gastrointestinal: See HPI, Abdominal pain - Umbilical region, Nausea, Vomiting Genitourinary: No symptoms reported Male Genitourinary: No symptoms reported Musculoskeletal: See HPI, Leg swelling, Other - Side pain Skin: No symptoms reported Hematologic/Lymphatic: No symptoms reported Neurological/Psychological: No symptoms reported -: Yes All other systems reviewed and negative Physical Exam - Vital signs Vitals: Temp Pulse Resp BP Pulse Ox 97.5 F 94 20 131/94 H 99 07/06/19 21:49 07/06/19 21:49 07/06/19 21:49 07/06/19 21:49 07/06/19 21:49 - General General appearance: Alert - HEENT Head: Normocephalic, Atraumatic Eyes: Normal Pupils: PERRL - Respiratory Respiratory status: No respiratory distress Chest status: Nontender Breath sounds: Normal Chest palpation: Normal - Cardiovascular Rhythm: Regular Heart sounds: Normal auscultation Murmur: No - Abdominal Inspection: Normal Distension: No distension Bowel sounds: Normal Tenderness: Nontender - Abdomen soft Organomegaly: No organomegaly - Back Back: Normal, Nontender - Extremities General upper extremity: Normal inspection General lower extremity: Normal inspection - Neurological Neuro grossly intact: Yes - Psychological Associated symptoms: Normal affect, Normal mood - Skin Skin Temperature: Warm Skin Moisture: Dry Skin Color: Normal Course - Re-evaluation Re-evalutation: 07/07/19 05:33 Patient is stating that he is short of breath despite no evidence of pulmonary edema on his chest x-ray and O2 sats in the 90s. Patient was instructed that the most accurate way to determine if the patient is hypoxic is through a blood gas. Patient refused this procedure and states he wants to leave. Risks of leaving AMA, including permanent disability and/or discussed with patient. Patient states he understands the risks and still wants to leave. - Vital Signs Vital signs: Temp Pulse Resp BP Pulse Ox 97.3 F 90 20 112/81 100 07/07/19 05:37 07/07/19 05:37 07/07/19 05:37 07/07/19 05:37 07/07/19 05:37 - Laboratory Result Diagrams: 07/07/19 03:28 07/07/19 02:25 Laboratory results interpreted by me: 07/07/19 07/07/19 07/07/19 02:25 03:28 03:28 WBC 3.9 L Hgb 11.5 L Hct 35.1 L MCV 75 L MCH 24.5 L RDW 18.1 H Chloride 109 H Carbon Dioxide 19 L BUN 21 H Creatinine 1.35 H Est GFR (MDRD) Non-Af 57 L Total Bilirubin 3.5 H Direct Bilirubin 1.0 H ALT 52 H Alkaline Phosphatase 155 H Creatine Kinase 206 H NT-Pro-B Natriuret Pep 4200 H - EKG Interpretation by Me Additional EKG results interpreted by me: 07/07/19 02:56 EKG performed on 07/06/2019 at 2302 hrs. was interpreted by this MD. Findings: Normal sinus rhythm, rate 99, normal axis, P waves proceed QRS complexes, QRS complexes appear narrow, there are no obvious ST segment patterns of elevation or depression to suggest acute myocardial ischemia or infarction. Impression normal sinus rhythm with nonspecific ST segments. Discharge - Discharge Clinical Impression: Dyspnea Qualifiers: Dyspnea type: unspecified Qualified Code(s): R06.00 - Dyspnea, unspecified Disposition: AGAINST MEDICAL ADVICE Referrals: DELIA BLACK DO [Primary Care Provider] - Follow up as needed I personally performed the services described in the documentation, reviewed and edited the documentation which was dictated to the scribe in my presence, and it accurately records my words and actions.
[2019-07-07 03:16] LABS: ALBUMIN 4.1 g/dL (3.5-5.0); ALKALINE PHOSPHATASE 155 U/L (38-126); ANION GAP 14 (5-19); ASPARTATE AMINO TRANSFERASE 50 U/L (17-59); BILIRUBIN,TOTAL 3.5 mg/dL (0.2-1.3); BLOOD UREA NITROGEN 21 mg/dL (7-20); CALCIUM 9.6 mg/dL (8.4-10.2); CARBON DIOXIDE 19 mmol/L (22-30); CHLORIDE 109 mmol/L (98-107); CREATINE KINASE 206 U/L (55-170); GLUCOSE 80 mg/dL (75-110); POTASSIUM 4.1 mmol/L (3.6-5.0); TOTAL PROTEIN 7.4 g/dL (6.3-8.2)
[2019-07-07 03:36] LABS: HEMATOCRIT 35.1 % (37.9-51.0); HEMOGLOBIN 11.5 g/dL (13.5-17.0); MEAN CORPUSCULAR HEMOGLOBIN 24.5 pg (27.0-33.4); MEAN CORPUSCULAR HGB CONC 32.7 g/dL (32.0-36.0); MEAN CORPUSCULAR VOLUME 75 fl (80-97); PLATELET COUNT 285 10^3/uL (150-450); RED BLOOD COUNT 4.69 10^6/uL (4.35-5.55); RED CELL DISTRIBUTION WIDTH 18.1 % (11.5-14.0); WHITE BLOOD COUNT 3.9 10^3/uL (4.0-10.5)
[2019-07-07 04:13] LABS: CREATINE KINASE MB 0.99 ng/mL (<4.55); NT PRO BNP 4200 pg/mL (<125)
[2019-07-07 04:14] LABS: TROPONIN I < 0.012 ng/mL
[2019-07-07 04:20] LABS: ABSOLUTE LYMPHOCYTES# (MANUAL) 1.7 10^3/uL (0.5-4.7); ABSOLUTE MONOCYTES # (MANUAL) 0.2 10^3/uL (0.1-1.4); BASOPHILS % (MANUAL) 0 % (0-2); EOSINOPHILS % (MANUAL) 1 % (0-6); LYMPHOCYTES % (MANUAL) 44 % (13-45); MONOCYTES % (MANUAL) 6 % (3-13); SEGMENTED NEUTROPHILS % (MAN) 49 % (42-78); TOTAL CELLS COUNTED 100
[2019-07-07 04:22] LABS: ANISOCYTOSIS 2+; BURR CELLS 2+; HYPOCHROMASIA 1+; OVALOCYTES SLIGHT; POIKILOCYTOSIS 1+; POLYCHROMASIA 1+; SCHISTOCYTES SLIGHT; TOXIC GRANULATION 1+; TOXIC VACUOLATION PRESENT
[2019-07-07 04:23] LABS: PLATELET COMMENT ADEQUATE; TARGET CELLS SLIGHT
[2019-07-07 07:00] VITALS: BP 112/81
== END 2019-07-07 06:20 | disposition left against medical advice (07) ==
LOC: ER 21:28
DX: I11.0 Hypertensive heart disease with heart failure (principal); I50.9 Heart failure, unspecified; R06.02 Shortness of breath; R05 Cough; R11.2 Nausea with vomiting, unspecified; R10.33 Periumbilical pain; R68.83 Chills (without fever); Z79.899 Other long term (current) drug therapy; Z87.891 Personal history of nicotine dependence; Z53.20 Procedure and treatment not carried out because of patient's decision for unspecified reasons
CPT/HCPCS: 36415; 71046; 80053; 82550; 82553; 83880; 84484; 85025; 93005; 93010; 99285

== ENCOUNTER 2019-09-11 15:04 | Emergency (ER) | payer MEDICARE, MEDICAID ==
--- NOTE | 2019-09-11 15:13 | ER Document Report ---
ED Medical Screen (RME) - General Chief Complaint: General Weakness Stated Complaint: GENERAL WEAKNESS Time Seen by Provider: 09/11/19 15:10 Primary Care Provider: VITALY SELF MD [Primary Care Provider] - Follow up as needed Mode of Arrival: Wheelchair Notes: 44-year-old male presented to ED he needs his PICC line replaced. Home health called this morning and is told him that he needed to come in immediately in order for radiology to do interventional radiology to replace the PICC line he is on a dobutamine drip. Home health nurse verbalized understanding that he needed to come in before radiology left for the day. I did speak to home health nurse Vida. She states the patient's doctor was Dr. Vitaly Self. I have greeted and performed a rapid initial assessment of this patient. A comprehensive ED assessment and evaluation of the patient, analysis of test results and completion of medical decision making process will be conducted by an additional ED providers. TRAVEL OUTSIDE OF THE [place] IN LAST 30 DAYS: No - Related Data Allergies/Adverse Reactions: No Known Allergies Allergy (Verified 07/06/19 23:31) Past Medical History - Past Medical History Cardiac Medical History: Reports: Hx Congestive Heart Failure, Hx Coronary Evleyne ry Disease, Hx Heart Attack - x6, Hx Hypercholesterolemia, Hx Hypertension Denies: Hx Pulmonary Embolism Pulmonary Medical History: Denies: Hx Tuberculosis Neurological Medical History: Reports: Hx Cerebrovascular Accident Endocrine Medical History: Reports: Hx Diabetes Mellitus Type 2 Renal/ Medical History: Denies: Hx Peritoneal Dialysis Psychiatric Medical History: Reports: Hx Anxiety Denies: Hx Depression Past Surgical History: Reports: Hx Cardiac Catheterization - x5 stents, Hx Cardiac Surgery - defibrillator placed secondary to CHF, Hx Coronary Stent, Hx Orthopedic Surgery - right rotator cuff, Hx Pacemaker - Immunizations Immunizations up to date: No Hx Diphtheria, Pertussis, Tetanus Vaccination: Yes Doctor's Discharge - Discharge Referrals: VITALY SELF MD [Primary Care Provider] - Follow up as needed
--- NOTE | 2019-09-11 16:12 | RADIOLOGY REPORT (SQ) ---
EXAM DESCRIPTION: CHEST SINGLE VIEW IMAGES COMPLETED DATE/TIME: 09/11/2019 3:53 pm REASON FOR STUDY: sob COMPARISON: 07/07/2019 EXAM PARAMETERS: NUMBER OF VIEWS: One view. TECHNIQUE: Single frontal radiographic view of the chest acquired. RADIATION DOSE: NA LIMITATIONS: None. FINDINGS: LUNGS AND PLEURA: No opacities, masses or pneumothorax. No pleural effusion. MEDIASTINUM AND HILAR STRUCTURES: No masses. Contour normal. HEART AND VASCULAR STRUCTURES: Enlarged cardiac silhouette, stable. BONES: No acute findings. HARDWARE: Left-sided cardiac pacer/ defibrillator, stable. Unchanged punctate metallic densities ove rlie right neck. Right approach PICC tip terminates at subclavian vein. OTHER: No other significant finding. IMPRESSION: Stable enlarged cardiac silhouette without other evidence of acute intrathoracic process . Right approach PICC tip terminates over subclavian vein. TECHNICAL DOCUMENTATION: JOB ID: [id number] 2010 [employer]- All Rights Reserved Reading location - IP/workstation name: [email or web address]
[2019-09-11 17:27] LABS: HEMATOCRIT 31.5 % (37.9-51.0); HEMOGLOBIN 10.2 g/dL (13.5-17.0); MEAN CORPUSCULAR HEMOGLOBIN 21.6 pg (27.0-33.4); MEAN CORPUSCULAR HGB CONC 32.2 g/dL (32.0-36.0); MEAN CORPUSCULAR VOLUME 67 fl (80-97); PLATELET COUNT 265 10^3/uL (150-450); RED BLOOD COUNT 4.69 10^6/uL (4.35-5.55); RED CELL DISTRIBUTION WIDTH 20.7 % (11.5-14.0); WHITE BLOOD COUNT 5.3 10^3/uL (4.0-10.5)
[2019-09-11 17:28] LABS: VENOUS BLOOD BASE EXCESS -2.9 mmol/L; VENOUS BLOOD HCO3 20.9 mmol/L (20-32); VENOUS BLOOD PCO2 32.7 mmHg (35-63); VENOUS BLOOD PH 7.42 (7.30-7.42)
[2019-09-11 17:30] LABS: INTERNATIONAL RATION (INR) 2.01; PROTHROMBIN TIME 23.1 SEC (11.4-15.4)
[2019-09-11 17:51] LABS: ABSOLUTE LYMPHOCYTES# (MANUAL) 1.4 10^3/uL (0.5-4.7); ABSOLUTE MONOCYTES # (MANUAL) 0.2 10^3/uL (0.1-1.4); BASOPHILS % (MANUAL) 0 % (0-2); EOSINOPHILS % (MANUAL) 0 % (0-6); LYMPHOCYTES % (MANUAL) 26 % (13-45); MONOCYTES % (MANUAL) 3 % (3-13); NUCLEATED RED BLOOD CELLS 2 /100 WBC (0); SEGMENTED NEUTROPHILS % (MAN) 71 % (42-78); TOTAL CELLS COUNTED 100
[2019-09-11 17:52] LABS: ALBUMIN 3.7 g/dL (3.5-5.0); ALKALINE PHOSPHATASE 166 U/L (38-126); ANION GAP 19 (5-19); ASPARTATE AMINO TRANSFERASE 134 U/L (17-59); BILIRUBIN,DIRECT 7.5 mg/dL (0.0-0.4); BILIRUBIN,TOTAL 11.8 mg/dL (0.2-1.3); BLOOD UREA NITROGEN 43 mg/dL (7-20); CALCIUM 9.6 mg/dL (8.4-10.2); CARBON DIOXIDE 21 mmol/L (22-30); CHLORIDE 93 mmol/L (98-107); GLUCOSE 111 mg/dL (75-110); POTASSIUM 3.5 mmol/L (3.6-5.0); TOTAL PROTEIN 7.5 g/dL (6.3-8.2)
[2019-09-11 17:56] LABS: ANISOCYTOSIS 2+; HYPOCHROMASIA 1+; POLYCHROMASIA SLIGHT
[2019-09-11 17:57] LABS: POIKILOCYTOSIS 2+; SCHISTOCYTES 1+
[2019-09-11 17:58] LABS: PLATELET COMMENT ADEQUATE; TARGET CELLS 1+; TEAR DROP CELLS SLIGHT
[2019-09-11 18:01] LABS: OVALOCYTES SLIGHT
[2019-09-11 18:04] LABS: BURR CELLS 2+
[2019-09-11] MEDS ORDERED: POTASSIUM CHLORIDE 10 MEQ TABLET.ER PO ONE (18:56)
--- NOTE | 2019-09-11 19:03 | ER Document Report ---
ED Dizziness/Weakness - General Chief Complaint: General Weakness Stated Complaint: GENERAL WEAKNESS Time Seen by Provider: 09/11/19 15:10 Primary Care Provider: YOAN SELF MD [Primary Care Provider] - Follow up as needed Mode of Arrival: Wheelchair Information source: Patient, Relative TRAVEL OUTSIDE OF THE [place] IN LAST 30 DAYS: No - HPI Notes: Patient was brought in by family for replacement of PICC line. Patient is not a good historian. History obtained from him and family is that patient had a fall sometime this morning or in the middle of the night and dislodge the PICC line. The home health nurse states that she tried to use the PICC line today but could not make the PICC line work. She states the patient has had some vomiting the last couple of days and some confusion. Patient denies any pain at this time he does states that he has some shortness of breath that is intermittent. No known COVID exposures. No known fevers. No chest pain. I did call and discussed the case with the patient's senior informatica etl developer at [facility]. He states that the patient is not a candidate for any other type of interventions except for his dobutamine infusion. He states that he did not feel admission of the patient would be significantly beneficial. Patient symptoms appear to consist of some intermittent shortness of breath in addition to the displacement of the PICC line. The symptoms have been intermittent. It appears exertion makes them worse and rest makes them better. No known radiation symptoms. They appear to be moderate. - Related Data Allergies/Adverse Reactions: No Known Allergies Allergy (Verified 07/06/19 23:31) Past Medical History - General Information source: Patient, Relative - Social History Smoking Status: Former Smoker Chew tobacco use (# tins/day): No Frequency of alcohol use: previous drinking hx Drug Abuse: None Family History: Reviewed & Not Pertinent, CAD, Hyperlipidemia, Hypertension Patient has suicidal ideation: No Patient has homicidal ideation: No - Past Medical History Cardiac Medical History: Reports: Hx Congestive Heart Failure, Hx Coronary Artery Disease, Hx Heart Attack - x6, Hx Hypercholesterolemia, Hx Hypertension Denies: Hx Pulmonary Embolism Pulmonary Medical History: Denies: Hx Tuberculosis Neurological Medical History: Reports: Hx Cerebrovascular Accident Endocrine Medical History: Reports: Hx Diabetes Mellitus Type 2 Renal/ Medical History: Denies: Hx Peritoneal Dialysis Psychiatric Medical History: Reports: Hx Anxiety Denies: Hx Depression Past Surgical History: Reports: Hx Cardiac Catheterization - x5 stents, Hx Cardiac Surgery - defibrillator placed secondary to CHF, Hx Coronary Stent, Hx Orthopedic Surgery - right rotator cuff, Hx Pacemaker - Immunizations Immunizations up to date: No Hx Diphtheria, Pertussis, Tetanus Vaccination: Yes Hx Pneumococcal Vaccination: 02/21/11 Review of Systems - Review of Systems Constitutional: Malaise, Weakness Cardiovascular: denies: Chest pain, Palpitations Respiratory: Cough, Short of breath -: Yes All other systems reviewed and negative Physical Exam - Vital signs Vitals: Pulse Ox 98 09/11/19 15:04 Interpretation: Normal - General General appearance: Appears well, Alert - HEENT Head: Normocephalic, Atraumatic Eyes: Normal Pupils: PERRL - Respiratory Respiratory status: No respiratory distress Chest status: Nontender Breath sounds: Decreased air movement Chest palpation: Normal - Cardiovascular Rhythm: Regular, Tachycardia Heart sounds: Normal auscultation Murmur: No - Abdominal Inspection: Normal Distension: No distension Bowel sounds: Normal Tenderness: Nontender Organomegaly: No organomegaly - Back Back: Normal, Nontender - Extremities General upper extremity: Normal inspection, Nontender, Normal color, Normal ROM, Normal temperature General lower extremity: Normal inspection, Nontender, Normal color, Normal ROM, Normal temperature, Normal weight bearing. No: Hans's sign - Neurological Cognition: Confused Orientation: AAOx4 [place] Coma Scale Eye Opening: Spontaneous [place] Coma Scale Verbal: Confused [place] Coma Scale Motor: Obeys Commands [place] Coma Scale Total: 14 Speech: Normal Motor strength normal: LUE, RUE, LLE, RLE Sensory: Normal - Psychological Associated symptoms: Normal affect, Normal mood - Skin Skin Temperature: Warm Skin Moisture: Dry Skin Color: Normal Course - Re-evaluation Re-evalutation: 09/11/19 19:03 Patient's presentation was for PICC line replacement. However once patient was here to also was realized that according to family he has had some shortness of breath cough vomiting and some altered mental status lately. I called and discussed the case with his [employer] senior informatica etl developer. He states that he feels the patient is relatively at his stable baseline and that admission at this point would not be of significant benefits and patient is not a candidate for any other interventions other than the chronic dobutamine infusion that he is on. Patient does not appear septic to me. His blood pressure is stable on dobutamine at 109 systolic. He is tachycardic but apparently this is normal for the patient. He does not have a fever. He is not acidotic. Patient has some mild alterations of liver functions and chemistries but not significant such that it would warrant admission. His potassium is low but his home health nurse states that he will not take the potassium pills. I am going to replace that here and encouraged him to take it when he gets home. At this time I do not believe the patient would benefit from an inpatient admission. - Vital Signs Vital signs: Temp Pulse Resp BP Pulse Ox 18 108/72 96 09/11/19 18:51 09/11/19 18:51 09/11/19 18:51 - Laboratory Result Diagrams: 09/11/19 17:00 09/11/19 17:00 Laboratory results interpreted by me: 09/11/19 09/11/19 09/11/19 15:41 17:00 17:00 Hgb 10.2 L Hct 31.5 L MCV 67 L MCH 21.6 L RDW 20.7 H PT 23.1 H VBG pCO2 32.7 L Sodium Potassium Chloride Carbon Dioxide BUN Creatinine Est GFR ( Amer) Est GFR (MDRD) Non-Af Glucose Total Bilirubin Direct Bilirubin AST ALT Alkaline Phosphatase 09/11/19 17:00 Hgb Hct MCV MCH RDW PT VBG pCO2 Sodium 133.3 L Potassium 3.5 L Chloride 93 L Carbon Dioxide 21 L BUN 43 H Creatinine 1.73 H Est GFR ( Amer) 52 L Est GFR (MDRD) Non-Af 43 L Glucose 111 H Total Bilirubin 11.8 H Direct Bilirubin 7.5 H AST 134 H ALT 91 H Alkaline Phosphatase 166 H - Diagnostic Test Radiology reviewed: Image reviewed, Reports reviewed - EKG Interpretation by Me EKG shows normal: Sinus rhythm Rate: Tachycardia - 123 Rhythm: NSR Heart block present: No: CHB (3rd degree block) Discharge - Discharge Clinical Impression: Non compliance with medical treatment Occlusion of peripherally inserted central catheter (PICC) line Qualifiers: Encounter type: initial encounter Qualified Code(s): T82.898A - Other specified complication of vascular prosthetic devices, implants and grafts, initial encounter Dyspnea Qualifiers: Dyspnea type: dyspnea on exertion Qualified Code(s): R06.00 - Dyspnea, unspec ified Condition: Stable Disposition: HOME, SELF-CARE Instructions: Congestive Heart Failure ([facility]) Additional Instructions: Please take all of your medicines, including potassium pills, as prescribed. Please call your primary care physician as soon as possible to arrange follow- up. Referrals: YOAN SELF MD [Primary Care Provider] - Follow up tomorrow
[2019-09-11] MEDS ORDERED: CEFEPIME 2 GM/D5W RTU 2 GM/50 ML RTUPB IV ONE (20:08)
[2019-09-11] MEDS ORDERED: VANCOMYCIN HCL INJ 1000 MG VIAL IV ONE (20:11)
[2019-09-11] MEDS ORDERED: ONDANSETRON HCL INJ/PF 4 MG/2 ML SDV IV ONE (21:34)
--- NOTE | 2019-09-11 22:41 | EKG REPORT ---
SEVERITY:- ABNORMAL ECG - SINUS TACHYCARDIA CONSIDER ANTERIOR INFARCT BORDERLINE T ABNORMALITIES, LATERAL LEADS BORDERLINE PROLONGED QT INTERVAL : Confirmed by: Tuan Malik 11-Sep-2019 22:40:52
--- NOTE | 2019-09-12 00:13 | ER Document Report ---
Doctor's Note Notes: 09/12/19 00:12 Care of this patient was turned over to me at the beginning of my shift. In short this is a heart failure patient, noncompliant, who presented after having dislodged his PICC line, on dobutamine drip. He was short of breath. He was treated by my colleague, and is awaiting transfer to [facility]. I went in to e valuate the patient. His blood pressures have been stable, heart rates in the 105-115 range. His respiratory rate has been 19-24. The patient's only complaint was that his mouth was dry, asked for ice water. Otherwise he denied any pain or concerns. He is stable for transport.
[2019-09-12 01:00] VITALS: BP 97/71
--- NOTE | 2019-09-12 08:17 | RADIOLOGY REPORT (SQ) ---
EXAM DESCRIPTION: PICC LINE REPLACEMENT IMAGES COMPLETED DATE/TIME: 09/11/2019 4:33 pm REASON FOR STUDY: PICC line necessary for cardiogenic shock COMPARISON: None. FLUOROSCOPY TIME: None 4 images saved to PACS. TECHNIQUE: Fluoroscopic and ultrasound guided PICC placement. LIMITATIONS: None. PROCEDURE: After written consent and assessment were obtained, the patient was brought into the [facility] roscopy room and placed supine on the table. Ultrasound evaluation of potential access sites were per formed. Right arm and Pre-existing right arm PICC were prepped draped in a standard sterile fashion. 10 cc of 1% lidocaine was utilized for local sedation. A 018 wire was advanced into the pre-existi ng PICC and the catheter removed. A 5 fr peel-away sheath was advanced over the wire and into the ve nous system. A measurement was then made using the existing wire. The wire was then removed and domingo ed. The PICC was advanced through the peel-away sheath and into the venous system. The peel-away kapadia th was removed and the catheter was adhered to the patients arm with a stat lock. The catheter was th en aspirated and flushed and a sterile bandage was placed over the access site. Completion radiograp hs were obtained confirming catheter tip within the cavoatrial junction and stored PACs. IMPRESSION: SUCCESSFUL REPLACEMENT OF A 5 FR SINGLE LUMEN 42 CM PICC IN THE RIGHT BASILIC VEIN. COMMENT: Patient medication list reviewed: Yes- Quality ID# [id number]:Eligible professional attests to doc umenting in the medical record they obtained, updated, or reviewed the patient's current medications. . Quality ID 145: Final reports for procedures using fluoroscopy that document radiation exposure aggie josie, or exposure time and number of fluorographic images (if radiation exposure indices are not avail able) Quality ID #76: The patient was prepped and draped using maximum sterile barrier technique including cap, mask, sterile gown, sterile gloves, a large sterile sheet, hand hygiene, and 2% Chlorhexidine fo r cutaneous antisepsis. When ultrasound is used, sterile ultrasound techniques are followed requiring sterile gel and sterile probes. TECHNICAL DOCUMENTATION: JOB ID: [id number] 2010 [employer]- All Rights Reserved rev Reading location - IP/workstation name: [email or web address]
== END 2019-09-12 00:44 | disposition short-term general hospital (02) ==
LOC: ER 15:04
DX: T82.898A Other specified complication of vascular prosthetic devices, implants and grafts, initial encounter (principal); Y82.8 Other medical devices associated with adverse incidents; I11.0 Hypertensive heart disease with heart failure; I50.9 Heart failure, unspecified; Z91.19 Patient's noncompliance with other medical treatment and regimen; I25.10 Atherosclerotic heart disease of native coronary artery without angina pectoris; R00.0 Tachycardia, unspecified; R11.10 Vomiting, unspecified; R41.0 Disorientation, unspecified; R06.02 Shortness of breath; R53.81 Other malaise; R53.1 Weakness; R05 Cough; R68.2 Dry mouth, unspecified; I25.2 Old myocardial infarction; Z87.891 Personal history of nicotine dependence; E11.9 Type 2 diabetes mellitus without complications; Z95.5 Presence of coronary angioplasty implant and graft; Z95.810 Presence of automatic (implantable) cardiac defibrillator
CPT/HCPCS: 93005; 99285; 96375; 96365; 96367; 36415; 87040; 83605; 85025; 85610; 80053; 84484; 82803; 71045; 36584; 93010; C1769; J2405; J3370; A9270; J0692; J1642